=== PATIENT | female | born 1965 | race African-American/Black ===

== ENCOUNTER 2024-03-31 12:52 | Outpatient (AMB) | payer MEDICAID, SELFPAY ==
[2024-03-31 13:01] VITALS: BP 120/72; PULSE 70; O2SAT 98; BMI 25.9
--- NOTE | 2024-03-31 13:01 | MHC.OFFVIS ---
Vital Signs 03/31/24 13:01 Height 5 ft 5 in Weight 155 lb 8 oz BMI 25.9 BP 120/72 Blood Pressure Location Lt brachial Position Sitting Pulse 70 Pulse Source Pulse Oximeter Pulse Oximetry (%) 98 Oxygen Delivery Method Room Air Intake Visit Reasons: RA Intake Note: Patient presents for follow up on RA today. Patient states she still gets Actemra infusion. 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 Stopped working in October. She follows with neurology every 3 months. She continues to have migraines. Hx IIH. Last actemra infusion 03/09/2024 at the [facility]. She is on actemra infusion. She has reduced joint pain. She still has stiffness in hands. She has burning in middle of her hands. She has painful bumps on her feet when she wakes up lasting 4 hours. She is having difficulty gripping things. Things are falling out of her hands and breaking. [facility] Surgical History (Updated 03/31/24 @ 13:15 by Monique Alonso CMA) H/O: hysterectomy Hx of cholecystectomy Social History (Updated 03/31/24 @ 13:15 by Monique Alonso CMA) Household Members: Family Alcohol intake: never Patient Tobacco Use Status: Never used Tobacco Review of Systems Const All systems reviewed & are unremarkable except as noted in HPI and below Physical Exam Vital Signs: Last Vital Signs Pulse 70 03/31/24 13:01 BP 120/72 03/31/24 13:01 Pulse Ox 98 03/31/24 13:01 Oxygen Delivery Method Room Air 03/31/24 13:01 BMI result Body Mass Index 25.9 Const Other: General: Comfortable CVS: RRR Respiratory: clear to auscultation bilaterally. Good respiratory effort Skin: No lesions seen MSK: Tender to palpate bilateral MCPs, PIP with synovitis left 2nd PIP. She has tender bilateral wrists. Ganglion cyst left dorsal wrist present. 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 Right shoulder abduction 160 degrees, left shoulder abduction 150 degrees. She has good bilateral shoulder internal rotation with limited external rotation. Tender bilateral knees with left knee synovitis present. Tender bilateral ankles and MTPs. Limited bilateral full knee flexion and hip external rotation. Positive Phalen's test bilateral. Assessment & Plan Assessment & Plan (1) Rheumatoid arthritis: Comment: Seronegative and erosive. She has found benefit on Actemra 4 milligram/kilogram every 4 weeks since 09/2023. She continues to have high disease activity. Gabapentin was prescribed by Dr. [facility] for her joint pain but she does not feel well on it. She experiences burning sensation in her palms of her hands with positive Phalen's test concerning for carpal tunnel syndrome. We discussed conservative management. Meloxicam ineffective. Prednisone 10 mg daily caused insomnia. Methotrexate 03/2021 to 08/2023 to 05/2021 caused blurred vision. Sulfasalazine 12/2021 was discontinued due to transaminitis. Leflunomide 08/2021 to 01/01/2023 discontinued due to concern it may be contributing to idiopathic intracranial hypertension. Inflectra 05/2022 to 09/19/2022 discontinued due to diagnosis of Ab MS. Failed Orencia 05/2023-08/2023. Actemra 09/2023-present Code(s): M06.9 - Rheumatoid arthritis, unspecified Category: Medical Qualifiers: Rheumatoid arthritis location: multiple sites Rheumatoid factor presence: without rheumatoid factor Qualified Code(s): M06.09 - Rheumatoid arthritis without rheumatoid factor, multiple sites Plan: Increase Actemra to 8 milligram/kilogram every 4 weeks Patient consented for Actemra infusion Labs for disease and drug monitoring ordered this visit on high-risk medication Discontinue gabapentin Occupational therapy ordered to increase hand strength Bilateral cock-up wrist brace prescription given to patient. Wear at night only. 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 Code(s): R29.898 - Other symptoms and signs involving the musculoskeletal system Category: Medical Plan: OT ordered Orders: Orders Complete Blood Count Auto Diff Today Z79.60 - local intermodal truck driver (current) use of unspecified immunomodulators and immunosuppressants Aspartate Amino Transferase Today Z79.60 - local intermodal truck driver (current) use of unspecified immunomodulators and immunosuppressants Erythrocyte Sedimentation Rate Today M06.9 - Rheumatoid arthritis, unspecified, Z79.899 - Other middle or intermediate school principal (current) drug therapy Lipid Panel Today M06.9 - Rheumatoid arthritis, unspecified, Z79.899 - Other penitentiary (current) drug therapy Hepatitis B,C Profile Today M06.9 - Rheumatoid arthritis, unspecified, Z79.899 - Other middle or intermediate school principal (current) drug therapy NE electromyogram (EMG) 03/31/24 G56.00 - Carpal tunnel syndrome, unspecified upper limb, M06.9 - Rheumatoid arthritis, unspecified, Z79.899 - Other penitentiary (current) drug therapy Creatinine Today Z79.60 - custodial (current) use of unspecified immunomodulators and immunosuppressants Alanine Aminotransferase Today Z79.60 - local intermodal truck driver (current) use of unspecified immunomodulators and immunosuppressants C Reactive Protein Today M06.9 - Rheumatoid arthritis, unspecified, Z79.899 - Other middle or intermediate school principal (current) drug therapy T Spot TB Today M06.9 - Rheumatoid arthritis, unspecified, Z79.899 - Other penitentiary (current) drug therapy OT Evaluation and Treatment 03/31/24 M06.9 - Rheumatoid arthritis, unspecified, R29.898 - Other symptoms and signs involving the musculoskeletal system Referrals Infusion Center Notification M06.09 - Rheumatoid arthritis without rheumatoid factor, multiple sites Medications: New arm brace (Wrist Brace) As directed. Dx: carpal tunnel syndrome Bilateral cockup wrist braces 2 ea 0RF Coding Level of Care Code Est Pt Level 4 (93533) Complex EM visit Add On G2211 Diagnoses Rheumatoid arthritis of multiple sites with negative rheumatoid factor M06.09 Rheumatoid arthritis location: multiple sites Rheumatoid factor presence: without rheumatoid factor Other penitentiary (current) drug therapy Z79.899 Bilateral carpal tunnel syndrome G56.03 Laterality: bilateral Hand weakness R29.898
--- OUTSIDE RECORDS SUMMARY | 2024-03-31 14:57 | XMS_ITS | Clinical Summary ---
Author Organization [facility] Address [address] [place] [address] Phone Care Team Providers Care Department Store General Manager Name Role Phone Luis Miguel Winchseter MD Primary Care Provider [phone] Allergies No known active allergies Medications Medication Sig Dispensed Refills Start Date End Date Status aspirin 81 mg EC tablet Take 1 tablet (81 mg total) by mouth 1 (one) time each day. 01/02/2023 Active atorvastatin (LIPITOR) 40 mg tablet TAKE 1 TABLET(40 MG) BY MOUTH DAILY 04/07/2023 Active NIFEdipine CC (ADALAT CC) 90 mg 24 hr tablet Take 1 tablet (90 mg total) by mouth. 08/05/2022 Active predniSONE (DELTASONE) 5 mg tablet 04/11/2023 Active gabapentin (NEURONTIN) 300 mg capsule Take 1 capsule (300 mg total) by mouth 3 (three) times a day. Active amphetamine-dextroa mphetamine XR (ADDERALL XR) 30 mg 24 hr capsule Take 3 capsules (90 mg total) by mouth 1 (one) time each day in the morning. Do not crush or chew. Max Daily Amount: 90 mg Active furosemide (LASIX) 20 mg tablet Take by mouth. Active atogepant (Qulipta) 60 mg tablet Take 60 mg by mouth 1 (one) time each day. 30 tablet 5 02/18/2024 03/19/2024 Encounters Date Type Department Care Team Description 02/04/2024 2:00 PM EST Office Visit [facility] [address] [facility] [address] [place] [address] Rod Howard MD Cerebrovascular accident (CVA), unspecified mechanism (CMS/HCC) (Primary Dx); IIH (idiopathic intracranial hypertension); Migraine with aura and without status migrainosus, not intractable; Other fatigue 01/31/2024 12:51 PM EST - 01/31/2024 11:59 PM EST Hospital Encounter [facility] [address] [place] [address] White matter disease Discharge Disposition: Home or Self Care from Last 3 Months Surgical History Surgery Date Site/Laterality Comments HYSTERECTOMY PROCEDURE:HYSTERECTOMY GALLBLADDER SURGERY PROCEDURE:GALLBLADDER SURGERY Medical History Medical History Date Comments Hypertension DX:Hypertension MS (multiple sclerosis) (CMS/HCC) DX:MS (multiple sclerosis) (HCC) Pure hypercholesterolemia DX:Pur e hypercholesterolemia Migraine DX:Migraine Family History Relation Name Status Comments Father Mother Social History Tobacco Use Types Packs/Day Years Used Date Smoking Tobacco: Never Smokeless Tobacco: Never Tobacco Cessation:Counseling Given: Not Answered Alcohol Use Standard Drinks/Week Comments Never 0 (1 standard drink = 0.6 oz pur e alcohol) Sex and Gender Information Value Date Recorded Sex Assigned at Not on file Gender Identity Not on file Sexual Orientation Not on file Job Start Date Occupation Industry Not on file Not on file Not on file Obstetrics History Last Filed Vital Signs Vital Sign Reading Time Taken Comments Blood Pressure 125/74 02/04/2024 2:00 PM EST Pulse 80 02/04/2024 2:00 PM EST Temperature 36 ??C (96.8 ??F) 02/04/2024 2:00 PM EST Respiratory Rate - - Oxygen Saturation 99% 02/04/2024 2:00 PM EST Inhaled Oxygen Concentration - - Weight 68.5 kg (151 lb) 02/04/2024 2:00 PM EST Height 165.1 cm (5' 5 ) 02/04/2024 2:00 PM EST Body Mass Index 25.13 02/04/2024 2:00 PM EST Plan of Treatment Upcoming Encounters Date Type Department Care Team (Late st Contact Info) Description 05/12/2024 1:30 PM EDT Office Visit [facility] [address] [facility] [address] [place] [address] Farzana German PA [address] [facility] [place] [id number] Health Maintenance Due Date Last Done Comments Cervical Cancer Screening: Pap Smear 02/05/1985 Zoster Vaccines (2 of 2) 01/18/2020 11/23/2019 Cholesterol Screening (Lipid Panel) 03/28/2023 Colorectal Cancer Screening: Colonoscopy 03/28/2023 Depression Screening 03/28/2023 HIV Screening 03/28/2023 Hepatitis C Screening 03/28/2023 Social Influencers of Health Screening 03/28/2023 Hypertension/CHF/CAD Annual BMP Blood Test 01/31/2024 Breast Cancer Screening 07/24/2024 07/24/2022 DTaP,Tdap,and Td Vaccines (3 - Td or Tdap) 08/10/2029 08/11/2019, 06/23/2008 RSV Immunization Patients 60+ Years Old (1 - 1-dose 75+ series) 02/05/2039 Pneumococcal Vaccine: Pediatrics (0 to 5 Years) and At-Risk Patients (6 to 64 Years) Aged Out 07/24/2018 No longer eligible based on patient's age to complete this topic COVID-19 Vaccine Completed 12/27/2023, 10/2022, 06/03/2021, Additional history exists Influenza Vaccine Completed 12/27/2023, , 12/28/2020, Additional history exists HIB Vaccines Aged Out No longer eligi ble based on patient's age to complete this topic HPV Vaccines Aged Out No longer eligi ble based on patient's age to complete this topic Hepatitis A Vaccines Aged Out No long er eligible based on patient's age to complete this topic Hepatitis B Vaccines Aged Out No long er eligible based on patient's age to complete this topic IPV Vaccines Aged Out No longer eligi ble based on patient's age to complete this topic MMR Vaccines Aged Out No longer eligi ble based on patient's age to complete this topic Meningococcal ACWY Vaccine Aged Out N o longer eligible based on patient's age to complete this topic RSV Immunization Patients Under 20 months Aged Out No longer eligible based on patient's age to complete this topic Varicella Vaccines Aged Out No longer eligible based on patient's age to complete this topic Procedures Procedure Name Priority Date/Time Associated Diagnosis Comments MR BRAIN WO AND W CONTRAST Routine 01/31/2024 1:53 PM EST White matter disease from Last 3 Months Results * MR Brain wo and w Contrast (01/31/2024 1:53 PM EST) Anatomical Region Laterality Modality Head and Neck Magnetic Resonan ce 01/31/2024 3:04 PM EST Impressions 01/31/2024 3:16 PM EST 1. ??Stable nonspecific multifocal T2 signal abnormality throughout the supratentorial white matter. 2. ??Small partially empty sella. 3. ??Curvilinear area of high signal on the diffusion-weighted sequence with paralleling the low signal on the ADC map in the left cerebellar hemisphere. ??While it is possible that this represents an infarct, the configuration is unusual and the appearance is suspected to be artifactual. -------- FINAL REPORT -------- Dictated By: Caleb Schroeder Dictated Date: 01/31/2024 15:04 ET Assigned Physician: Caleb Schroeder Reviewed and Electronically Signed By: Caleb Schroeder Signed Date: 01/31/2024 15:16 ET Workstation ID: [id number] Transcribed By: Self Edit Transcribed Date: 01/31/2024 15:13 ET Narrative 01/31/2024 3:16 PM EST MRI brain dated 01/31/2024. HISTORY: WHITE MATTER DISEASE. TECHNIQUE: Multiplanar multisequence MRI of the brain with and without intravenous contrast. IV CONTRAST DOSE: 15 mL intravenous Dotarem from a 15 mL vial with 0 mL discarded. COMPARISON: 01/30/2023. FINDINGS: BRAIN: There is curvilinear high signal on diffusion-weighted sequence with correlating low signal on the ADC map in the central left cerebellar hemisphere (series 3, image 78). ??No mass or extra-axial fluid collection. ??No hydrocephalus. ??The major intracranial flow voids are preserved. Age commensurate ventricles and sulci. ??No abnormal enhancement. ??Small partially empty sella. ??There are a few small foci of post infarct encephalomalacia in both cerebellar hemispheres. ??Small focus of susceptibility artifact suggesting calcification or a previous cerebral microbleed in the right cerebellum. ??Extensive patchy T2 signal abnormality throughout the supratentorial white matter is unchanged. ORBITS: Normal. SINUSES/MASTOIDS: Mild mucosal thickening in the ethmoid air cells. ??Right faye bullosa. ??Trace bilateral mastoid fluid, right greater than left. CALVARIUM: Normal. OTHER: The visualized skull base soft tissues are normal. Procedure Note Caleb Schroeder MD - 01/31/2024 MRI brain dated 01/31/2024. HISTORY: WHITE MATTER DISEASE. TECHNIQUE: Multiplanar multisequence MRI of the brain with and withoutintravenous contrast. IV CONTRAST DOSE: 15 mL intravenous Dotarem from a 15 mL vial with 0 mLdiscarded. COMPARISON: 01/30/2023. FINDINGS: BRAIN: There is curvilinear high signal on diffusion-weighted sequencewith correlating low signal on the ADC map in the central left cerebellarhemisphere (series 3, image 78). No mass or extra-axial fluid collection.No hydrocephalus. The major intracranial flow voids are preserved. Agecommensurate ventricles and sulci. No abnormal enhancement. Smallpartially empty sella. There are a few small foci of post infarctencephalomalacia in both cerebellar hemispheres. Small focus ofsusceptibility artifact suggesting calcification or a previous cerebralmicrobleed in the right cerebellum. Extensive patchy T2 signalabnormality throughout the supratentorial white matter is unchanged. ORBITS: Normal. SINUSES/MASTOIDS: Mild mucosal thickening in the ethmoid air cells. Rightconcha bullosa. Trace bilateral mastoid fluid, right greater than left. CALVARIUM: Normal. OTHER: The visualized skull base soft tissues are normal. IMPRESSION: 1. Stable nonspecific multifocal T2 signal abnormality throughout thesupratentorial white matter. 2. Small partially empty sella. 3. Curvilinear area of high signal on the diffusion-weighted sequencewith paralleling the low signal on the ADC map in the left cerebellarhemisphere. While it is possible that this represents an infarct, theconfiguration is unusual and the appearance is suspected to beartifactual. -------- FINAL REPORT -------- Dictated By: Caleb Schroeder Dictated Date: 01/31/2024 15:04 ET Assigned Physician: Caleb Schroeder Reviewed and Electronically Signed By: Caleb Schroeder Signed Date: 01/31/2024 15:16 ET Workstation ID: [id number] Transcribed By: Self Edit Transcribed Date: 01/31/2024 15:13 ET Rod Howard MD IMG MRI PROCEDUR ES from Last 3 Months Care Teams Department Store General Manager Relationship Specialty Start Date End Date Luis Miguel Winchester MD [address] [address] PCP - General 08/08/22
--- OUTSIDE RECORDS SUMMARY | 2024-03-31 14:58 | XMS_ITS | Clinical Summary ---
Author Organization [facility] Address [address] [place] [address] Care Team Providers Care Flight Director Name Role Phone Luis Miguel Winchester MD Primary Care Provider [phone] Allergies Active Allergy Reactions Criticality Noted Date Comments Famotidine Swelling,Hives 07/07/2013 Omeprazole Rash Low 07/23/2023 Medications Medication Sig Dispensed Refills Start Date End Date Status NIFEdipine ER (ADALAT CC) 90 MG 24 hr tablet Take 1 tablet (90 mg total) by mouth daily. 0 08/05/2022 Active predniSONE (DELTASONE) 5 mg tablet 0 04/11/2023 Active rimegepant (Nurtec) 75 MG TBDP ODT Take 1 tablet (75 mg total) by mouth every other day. 16 tablet 3 10/30/2023 Active atorvastatin (LIPITOR) tablet 40 mg TAKE 1 TABLET BY MOUTH EVERY DAY 90 tablet 3 12/11/2023 Active Aspirin Low Dose 81 MG EC tablet TAKE 1 TABLET BY MOUTH EVERY DAY 90 tablet 5 12/23/2023 Active Family History Relation Name Status Comments Father Mother Social History Tobacco Use Types Packs/Day Years Used Date Smoking Tobacco: Never Smokeless Tobacco: Never Tobacco Cessation:Counseling Given: Not Answered Alcohol Use Standard Drinks/Week Comments Never 0 (1 standard drink = 0.6 oz pur e alcohol) Sex and Gender Information Value Date Recorded Sex Assigned at Female 12/31/2022 10:42 AM EDT Gender Identity Female 12/31/2022 10:42 AM EDT Sexual Orientation Not on file Job Start Date Occupation Industry Not on file Not on file Not on file Last Filed Vital Signs Vital Sign Reading Time Taken Comments Blood Pressure 136/75 10/29/2023 1:51 PM EDT Pulse 62 10/29/2023 1:51 PM EDT Temperature 36.4 ??C (97.6 ??F) 10/29/2023 1:51 PM ED T Respiratory Rate 16 08/16/2022 10:41 AM EDT Oxygen Saturation 99% 10/29/2023 1:51 PM EDT Inhaled Oxygen Concentration - - Weight 70 kg (154 lb 6.4 oz) 10/29/2023 1:51 PM EDT Height 165.1 cm (5' 5 ) 10/29/2023 1:51 PM EDT Body Mass Index 25.69 10/29/2023 1:51 PM EDT Plan of Treatment Health Maintenance Due Date Last Done Comments Hepatitis C Screening 1965 Depression Screening 1976 BMI Counseling 02/05/1982 Preventative Health Evaluation 02/05/1982 Cervical Cancer Screening (Pap Smear) 02/05/1985 Colon Cancer Screening (Colonoscopy) 02/05/2009 Breast Cancer Screening (Mammogram) 02/05/2014 Shingrix-Zoster Vaccine (2 of 2) 01/18/2020 11/23/2019 COVID-19 Vaccine (2 - season) 2023 01/08/2023 Influenza Vaccine (#1) 2023 3, 12/28/2020, 12/03/2019, Additional history exists DTap / Tdap / Td (3 - Td or Tdap) 08/10/2029 08/11/2019, 06/23/2008 RSV Adult > 60+ Yrs or (1 - 1-dose 75+ series) 02/05/2039 Pneumococcal Vaccine Aged Out 07/24/2018 No long er eligible based on patient's age to complete this topic Hepatitis B Vaccines Aged Out No long er eligible based on patient's age to complete this topic RSV Ped < 20 months Aged Out No longe r eligible based on patient's age to complete this topic Care Teams Flight Director Relationship Specialty Start Date End Date Luis Miguel Winchester MD [address] [facility] [address] [place] [address] PCP - General Internal Medicine 08/08/22
--- OUTSIDE RECORDS SUMMARY | 2024-03-31 14:58 | XMS_ITS | Data Portability ---
Author Organization [facility], Main Office Address [address] [facility] [place] [address] Care Team Providers Care Cell Tuber Machine Name Role Phone JOSEY WINCHESTER Primary Care Provider ZION PARSONS Industry Analyst [facility] X Ray Service Technician NORA MITCHELL Referring Provider RICA JEAN-BAPTISTE Referring Provider AGATA VILLEGAS Machine Plug Shaper Assessment Encounter Date Assessment Date Assessment LastModified by Organization Details LastModified Time 07/08/2023 07/08/2023 This service was provided using telemedicine. Patient consented to video & audio visit Patient was located in the [facility]. Provider was located in the office. No other persons participated in the telemedicine visit except for the patient unless otherwise indicated here. {{}} Total time of visit was 17 minutes. pmadden Not available 07/08/2023 10:46:03 Plan of Treatment Reminders Order Date Submit Date Provider Last Modified By Organization Details Last Modified Time Details Appointments FOLLOW UP 2024 02:15P Rogelio cordova MD Not available Not available Not available Lab BMP, serum or plasma 2023 024 [place] [facility], [address] [facility], [facility] [address], [place], [address], 08/21/2023 14:07:05 microal bumin/c reatini ne, mass ratio, urine 2023 024 [place] [facility], [address] [facility], [facility] [address], [place], [address], 08/21/2023 14:07:05 lipid panel, serum 2023 024 [place] [facility], [address] [facility], [facility] [address], [place], [address], 01/22/2024 08:10:05 Referral neurolo gical surgeon referra l - Intracr anial hyperte nsion and ORELLANA which are not well-co ntrolle d. 2023 024 rita Oconnell MD, [address] [place] [address], [address], [place], [address], 08/14/2023 15:16:31 Procedures None recorde d. Surgeries None recorde d. Imaging None recorde d. Medication Orders Zithrom ax Z-Kevyn 250 mg tablet 2023 024 [id number], [address], [place], [id number], 01/21/2024 14:39:37 furosem edvin 20 mg tablet 2023 024 [facility] #[id number], [address], [place], [id number], 01/21/2024 14:39:49 gabapen tin 300 mg capsule 2023 024 cassidy [facility] #[id number], [phone] [place], [address], 01/21/2024 15:36:32 Adderal l XR 20 mg capsule ,extend ed release 2023 024 [facility] #1130, [phone] [place], [address], 02/18/2024 15:24:02 Adderal l XR 25 mg capsule ,extend ed release 2023 024 [facility] #1130, [phone] [place], [address], 02/18/2024 14:29:22 Patient TargetsNo targets recorded. Patient Instructions Encounter Date Encounter Id Patient Instructions Last Modified By Organization Details Last Modified Time 07/08/2023 [id number] pneumonia: care instructions pmadden Not available 07/08/2023 10:48:30 Patient will follow up and keep appointment as scheduled. pmadden Not available 07/08/2023 10:45:32 07/09/2023 [id number] At [facility] follow up visit, all current and discharge medications (OTC, herbal therapies, supplements) reviewed and reconciled with patient and or caregiver, including potential side effects, drug interactions, instructions, and the consequences of not taking medication. Reviewed potential barriers to medication adherence, such as side effects from medication or cost of medication. [email or web address] Not available 07/09/2023 10:48:26 08/15/2023 [id number] leg and ankle edema: care instructions Not available 08/15/2023 12:23:01 high blood pressure: care instructions Not available 08/15/2023 12:23:01 learning about high blood pressure Not available 08/15/2023 12:23:01 01/21/2024 [id number] insomnia: care instructions acennerazzo Not available 01/21/2024 15:36:31 high blood pressure: care instructions acennerazzo Not available 01/21/2024 15:36:32 learning about high blood pressure acennerazzo Not available 01/21/2024 15:36:32 high cholesterol : care instructions acennerazzo Not available 01/22/2024 17:45:52 attention defici t hyperactivity disorder (ADHD) in adults: care instructions acennerazzo Not available 01/21/2024 15:36:32 02/18/2024 [id number] high blood pressure: care instructions acennerazzo Not available 02/18/2024 14:29:20 learning about high blood pressure acennerazzo Not available 02/18/2024 14:29:19 learning about anxiety disorders acennerazzo Not available 02/18/2024 14:29:20 Reason for Referral Neurological Surgeon Referra l for History of idiopathic intracranial hypertension Intracranial hypertension and ORELLANA which are not well-controlled. Referring Physician: Josey Winchester, Family Medicine, Encounter Date: 07/09/2023 Results Created Date Observation Date Name Description Value Unit Range Abnormal Flag Note LastModifiedBy Organization Detail LastModifiedTime 08/20/19 24 08/21/2023 BASIC METAB OLIC PANEL (8) glucose 99 mg/dL 70-99 Not Available [facility] ([facility]) [address] [place], [address], 08/21/2023 14:07:05 08/20/19 24 08/21/2023 BASIC METAB OLIC PANEL (8) BUN 18 mg/dL 6-24 Not Available [facility] ([facility]) [address] [place], [address], 08/21/2023 14:07:05 08/20/19 24 08/21/2023 BASIC METAB OLIC PANEL (8) creatinine 1.26 mg/dL 0.57-1 .00 above high normal Not Available [facility] ([facility]) [address] [place], [address], 08/21/2023 14:07:05 08/20/19 24 08/21/2023 BASIC METAB OLIC PANEL (8) eGFR 49 mL/mi n/1.7 3 >59 below low normal Not Available [facility] ([facility]) [address] [place], [address], 08/21/2023 14:07:05 08/20/19 24 08/21/2023 BASIC METAB OLIC PANEL (8) BUN/creatini ne ratio 14 9-23 Not Available [facility] ([facility]) [address] [place], [address], 08/21/2023 14:07:05 08/20/19 24 08/21/2023 BASIC METAB OLIC PANEL (8) sodium 147 mmol/ L 134-14 4 above high normal Not Available [facility] ([facility]) [address] [facility] [place], [address], 08/21/2023 14:07:05 08/20/19 24 08/21/2023 BASIC METAB OLIC PANEL (8) potassium 3.9 mmol/ L 3.5-5. 2 Not Available [facility] ([facility]) [address] [place], [address], 08/21/2023 14:07:05 08/20/19 24 08/21/2023 BASIC METAB OLIC PANEL (8) chloride 105 mmol/ L 96-106 Not Available [facility] ([facility]) [address] [place], [address], 08/21/2023 14:07:05 08/20/19 24 08/21/2023 BASIC METAB OLIC PANEL (8) carbon dioxide, total 23 mmol/ L 20-29 Not Available [facility] ([facility]) [address] [place], [address], 08/21/2023 14:07:05 08/20/19 24 08/21/2023 BASIC METAB OLIC PANEL (8) calcium 9.8 mg/dL 8.7-10 .2 Not Available [facility] ([facility]) [address] [place], [address], 08/21/2023 14:07:05 08/20/19 24 08/21/2023 ALBUM IN/CR EAT RATIO , RANDO M UR creatinine, urine 41.4 mg/dL not estab. Not Available [facility] ([facility]) [address] [place], [address], 08/21/2023 14:07:05 08/20/19 24 08/21/2023 ALBUM IN/CR EAT RATIO , RANDO M UR albumin, urine <3.0 ug/mL not estab. Not Available [facility] ([facility]) [address] [place], [address], 08/21/2023 14:07:05 08/20/19 24 08/21/2023 ALBUM IN/CR EAT RATIO , MICHEAL Mercado UR alb/creat ratio <7 mg/g_ creat 0-29 Salome l: 0 - 29 Moder ately incre ased: 30 - 300 Sever nadiya incre ased: >300 Not Available [facility] ([facility]) [address] [facility], [place], [address], 08/21/2023 14:07:05 01/21/20 24 01/22/2024 LIPID PANEL cholesterol, total 227 mg/dL 100-19 9 above high normal Not Available [facility] ([facility]) [address] [facility], [place], [address], 01/22/2024 08:10:05 01/21/20 24 01/22/2024 LIPID PANEL triglyceride s 79 mg/dL 0-149 normal Not Available [facility]) [address] [facility], [place], [address], 01/22/2024 08:10:05 01/21/20 24 01/22/2024 LIPID PANEL HDL cholesterol 95 mg/dL >39 normal Not Available [facility]) [address] [facility], [place], [address], 01/22/2024 08:10:05 01/21/20 24 01/22/2024 LIPID PANEL VLDL cholesterol donaldo 14 mg/dL 5-40 Not Available [facility]) [address] [place], [address], 01/22/2024 08:10:05 01/21/20 24 01/22/2024 LIPID PANEL LDL chol calc ([facility]) 118 mg/dL 0-99 above high normal Not Available [facility] ([facility]) [address] [place], [address], 01/22/2024 08:10:05 01/21/20 24 01/22/2024 LIPID PANEL LDL calc comment: OUTSIDE PROPERTY AGENT Not Available [facility] ([facility]) [address], [place], [address], 01/22/2024 08:10:05 07/05/19 24 07/04/2023 US, ophth almic , B-sca n + A-sca n No observ ation record ed. [email or web address] Not Available 2023 15:58:13 01/31/20 24 01/31/2024 MR brain wo and W contr ast See Note [facility] , a [facility] Name: MEMO JAVIER Date of : 1964 Reason for Exam: WHITE MATTER DISEAS E Exam Date: 2023 [id number] EST Report Status : Final Orderi ng Provid er: ALEXIS KELLY PCP: JOSEY TRAVIS MRI brain dated 2023. HISTOR Y: WHITE MATTER DISEAS E. TECHNI QUE: Multip lanar multis equenc e MRI of the brain with and withou t intrav enous contra st. IV CONTRA ST DOSE: 15 mL intrav enous Dotare m from a 15 mL vial with 0 mL discar ded. COMPAR ILYA: 2022. FINDIN GS: BRAIN: There is curvil inear high signal on diffus ion-we ighted sequen ce with correl ating low signal on the ADC map in the centra l left cerebe llar hemisp here (serie s 3, image 78). No mass or extra- axial fluid collec tion. No hydroc ephalu s. The major intrac ranial flow voids are preser kelli. Age commen surate ventri cles and sulci. No abnorm al enhanc ement. Small partia lly empty sella. There are a few small foci of post infarc t enceph alomal acia in both cerebe llar hemisp heres. Small focus of suscep tibili ty artifa ct sugges ting calcif icatio n or a previo us cerebr al microb leed in the right cerebe llum. Extens roxann patchy T2 signal abnorm ality throug hout the suprat entori al white matter is unchan ged. ORBITS : Normal . SINUSE S/MAST OIDS: Mild mucosa l thicke jaja in the ethmoi d air cells. Right faye bullos a. Trace bilate ral mastoi d fluid, right greate r than left. CALVAR IUM: Normal . OTHER: The visual ized skull base soft tissue s are normal . IMPRES RAY: 1. Stable nonspe cific multif ocal T2 signal abnorm ality throug hout the suprat entori al white matter . 2. Small partia lly empty sella. 3. Curvil inear area of high signal on the diffus ion-we ighted sequen ce with parall eling the low signal on the ADC map in the left cerebe llar hemisp here. While it is possib le that this repres ents an infarc t, the config uratio n is unusua l and the appear ance is suspec kathy to be artifa ctual. ------ -- FINAL REPORT ------ -- Dictat ed By: Caleb Roe Dictat ed Date: 2023 15:04 ET Assign ed Physic parth: Caleb Roe Review ed and Electr onical ly Signed By: Caleb Roe Signed Date: 2023 15:16 ET Workst ation ID: [id number] Transc ribed By: Self Edit Transc ribed Date: 2023 15:13 ET [address], [address], 02/01/2024 13:18:06 Result Notes None recorded. 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 429560968 Completed 201301/11/[address] PARSONS; RECORDED 07/08/19 14 1:40PM BY LISETH QUEZADA I, OFFICE VISIT Josey Winchester MD [address], [place], [address] , [facility] 6 09:55:27 Anxiety disorder 315505673 Active 2013 Problem in Fall and Winter Not Available [facility] 0 18:22:26 Patient status finding 839824821 Completed 201301/11/2014 RECORDED 07/08/19 14 1:46PM BY LISETH QUEZADA I, OFFICE VISIT Josey Winchester MD [address], [place], [address] , [facility] 6 09:55:27 Astigmat ism 33925198 Completed 201209/21/2013 RECORDED 03/26/19 13 8:47AM BY LISETH QUEZADA I ANNOTTERE ON/ADDEN DUM Josey Winchester MD [address], [place], [address] , [facility] 6 09:55:27 Flatulen ce, eructati on and gas pain 030844971 Completed 201301/11/2014 STORY: SEEN BY DR PARSONS; IMPRESSI ON: ADVISED HER TO GO TO THE [facility] TO SEE IF THEY HAVE ANYTHING TO HELP WITH HER SX.; RECORDED 07/08/19 14 1:40PM BY LISETH QUEZADA I, OFFICE VISIT Josey Winchester MD [address], [place], [address] , [facility] 6 09:55:27 Visual disturba pae 14656326 Active 2013 IMPRESSI ON: POSSIBLE HYPOTENS ION VS MIGRAINE EQUIVALE NTS. SHE WILL CHECK HER BP AT HER NEXT EPISODE. IF HER BP IS NORMAL SHE WILL TAKE A MIGRAINE MED TO SEE IF THIS HELPS. IF THERE IS NO RELIEF SHE WILL CALL HER EYE DOCTOR. Not Available [facility] 0 18:22:25 Screenin g for malignan t neoplasm of breast Completed 201209/21/2013 RECORDED 03/26/19 13 8:47AM BY HOWARD MERLOS ON/MARGRET Winchester MD [address] [facility] [address], [place], [address] , [facility] 6 09:55:28 Screenin g for malignan t neoplasm of cervix Completed 201209/21/2013 RECORDED 03/26/19 13 8:47AM BY HOWARD MERLOS ON/MARGRET Winchester MD [address] [facility] [address], [place], [address] , [facility] 6 09:55:28 Screenin g for malignan t neoplasm of colon Completed 201209/21/2013 RECORDED 09/22/19 13 8:20AM BY HOWARD MERLOS ON/MARGRET Winchester MD [address] [facility] [address], [place], [address] , [facility] 6 09:55:28 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 Not Available [facility] 0 18:22:26 Fritz l hyperten ray 29227854 Active 2013 Josey Winchester MD [address] [address], [place], [address] , [facility] 3 13:25:29 Malaise and fatigue 447176905 Completed 201209/21/2013 RECORDED 03/26/19 13 8:46AM BY LISETH QUEZADA I, TRACEYATI ON/MARGRET Winchester MD [address] [address], [place], [address] , [facility] 6 09:55:27 Pure hypercho lesterol emia 928132530 Completed 201311/18/2016 Unable to tolerate lipitor Josey Winchester MD [address] [address], [place], [address] , [facility] 7 10:05:50 Hyperlip idemia 10842576 Completed 201301/11/2014 RECORDED 07/08/19 14 1:40PM BY LISETH QUEZADA I, OFFICE VISIT Josey Winchester MD [address] [facility] [address], [place], [address] , [facility] 0 19:09:36 Irritabl e bowel syndrome 44712108 Active 2013 Takes meds which help Not Available [facility] 0 18:22:26 Shoulder joint pain 612094987 Completed 201209/21/2013 RECORDED 03/26/19 13 8:46AM BY LISETH QUEZADA I, TRACEYATI ON/ADDEN DUM Josey Winchester MD [address] [facility] [address], [place], [address] , [facility] 6 09:55:27 Migraine 03314087 Active 2013 Not Available [facility] 0 18:22:26 Administ ration of bacteria l and viral vaccine Completed 200809/21/2013 RECORDED 06/24/19 09 10:01AM BY KEVIN TOSCANO, OFFICE VISIT Josey Winchester MD [address] [facility] [address], [place], [address] , [facility] 6 09:55:27 Skin sensatio n disturba pae 06245114 Completed 201209/21/2013 RECORDED 03/26/19 13 8:47AM BY TRACEY MERLOSATI ON/MARGRET Winchester MD [address] [address], [place], [address] , [facility] 6 09:55:27 Cough 34575858 Completed 201309/21/2013 RECORDED 04/01/19 14 9:45AM BY HOWARD MERLOS ON/MARGRET Winchester MD [address] [address], [place], [address] , [facility] 6 09:55:27 Adult health examinat ion Completed 201301/11/2014 RECORDED 07/08/19 14 1:45PM BY LISETH QUEZADA I, OFFICE VISIT Josey Winchester MD [address] [address], [place], [address] , [facility] 6 09:55:27 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 979846761 Completed 201210/11/2013 IMPRESSI ON: CONTINUE CURRENT MGMT; MEDS HELP A GREAT DEAL.; RECORDED 02/17/20 13 8:03AM BY TRACEY MERLOSATI ON/MARGRET Winchester MD [address], [place], [address] , [facility] 6 09:55:27 Astigsdt is 12448429 Completed 201210/11/2013 RECORDED 03/26/19 13 8:47AM BY HOWARD MERLOS ON/MARGRET Winchester MD [address], [place], [address] , [facility] 6 09:55:27 Screenin g for malignan t neoplasm of breast Completed 201210/11/2013 RECORDED 03/26/19 13 8:47AM BY HOWARD MERLOS ON/MARGRET Winchester MD [address] [facility] [address], [place], [address] , [facility] 6 09:55:28 Screenin g for malignan t neoplasm of cervix Completed 201210/11/2013 RECORDED 03/26/19 13 8:47AM BY HOWARD MERLOS ON/MARGRET Winchester MD [address] [facility] [address], [place], [address] , [facility] 6 09:55:28 Screenin g for malignan t neoplasm of colon Completed 201210/11/2013 RECORDED 09/22/19 13 8:20AM BY HOWARD MERLOS ON/MARGRET Winchester MD [address], [place], [address] , [facility] 6 09:55:28 Tietze's disease 19039951 Completed 201210/11/2013 RECORDED 03/26/19 13 8:46AM BY HOWARD MERLOS ON/MARGRET Winchester MD [address], [place], [address] , [facility] 6 09:55:27 Malaise and fatigue 907526237 Completed 201210/11/2013 RECORDED 03/26/19 13 8:46AM BY TRACEY MERLOSATI ON/ADDEN MAYCOL Winchester MD [address] [facility] [address], [place], [address] , [facility] 6 09:55:27 Administ ration of bacteria l and viral vaccine Completed 200810/11/2013 RECORDED 06/24/19 09 10:01AM BY KEVIN TOSCANO, OFFICE VISIT Josey Winchester MD [address] [facility] [address], [place], [address] , [facility] 6 09:55:27 Skin sensatio n disturba pae 62006857 Completed 201210/11/2013 RECORDED 03/26/19 13 8:47AM BY HOWARD MERLOS ON/ADDEN MAYCOL Winchester MD [address] [facility] [address], [place], [address] , [facility] 6 09:55:27 Cough 93974261 Completed 201310/11/2013 RECORDED 04/01/19 14 9:45AM BY HOWARD MERLOS ON/ADDTABATHA Winchester MD [address] [facility] [address], [place], [address] , [facility] 6 09:55:27 Attentio n deficit hyperact ivity disorder , predomin antly inattent roxann type 36141991 Completed 10/12/2015 Josey Winchester MD [address] [facility] [address], [place], [address] , [facility] 8 13:27:14 Plantar fasciiti s 028354679 Active Not Available [facility] 0 18:22:26 Fatigue 81228217 Completed 03/25/2016 Ángela Lucero PA-C [address], [place], [address] , [facility] 1 09:22:08 Keratoco nus 31488160 Active 2015 Followed by [facility] Not Available [facility] 0 18:22:25 Pinguecu la 24971964 Active 2015 Followed by [facility] Not Available [facility] 0 18:22:26 Nuclear scleroti c cataract 002005967 Active 2015 Followed by [facility] Not Available [facility] 0 18:22:26 Pneumoni a 821605111 Completed 201608/15/2016 KEVIN Villegas, [facility] 7 16:08:02 Attentio n deficit hyperact ivity disorder , predomin antly inattent roxann type 06391505 Active 2017 Not Available [facility] 0 18:22:26 Hypokale monisha 60080941 Active 2018 Not Available [facility] 0 18:22:26 Hyperlip idemia 42069275 Active 2019 Not Available [facility] 0 18:22:26 Loss of hair 996723494 Active 2020 Josey Winchester MD [address], [place], [address] , [facility] 1 17:02:35 Multiple joint pain 92637016 Active 2020 Ángela Lucero PA-C [address], [place], [address] , [facility] 1 09:22:07 Fatigue 00406659 Active 2020 Ángela Lucero PA-C [address], [place], [address] , [facility] 1 09:22:08 Pain of right wrist 60435951294 9100 Active 2020 Seen by [facility]; had MRI showing OA. Josey Winchester MD [address], [place], [address] , [facility] 1 18:07:02 Seronega tive rheumato id arthriti s 092542961 Active 2021 Followed by rheum; on methotre xate. Josey Winchester MD [address], [place], [address] , [facility] 2 07:34:37 Multiple sclerosi s 21766398 Active [address] Mague real. Monicaa l optic neuritis . Josey Winchester MD [address] [facility] [address], [place], [address] , [facility] 3 10:45:14 Kidney finding 169741268 Active 2022 born with only one kidney Purvi Torres LPN null, [facility] 3 09:09:38 History of SARS-CoV -2 78579137481 6573126 Active 2022 Josey Winchester MD [address] [facility] [address], [place], [address] , [facility] 3 10:39:24 Thyroid nodule 440536450 Active 2022 Thyroid U/S done and no addition al imaging required . Josey Winchester MD [address] [facility] [address] [place], [address] , [facility] 3 20:13:54 Edema of lower extremit y 812761882 Active 2023 Luis bentley, [facility] 4 12:11:02 Problem Notes None recorded. Procedures Surgical History Date Name Laterality Status Provider Name and Address Organization Details Recorded Time 07/25/19 23 Most Recent Mammogram completed Kati Dallas [facility] 07/24/2022 12:09:18 07/25/19 23 Mammogram Diagnostic Bilateral completed Kati Dallas [facility] 07/24/2022 12:09:11 05/10/19 23 wrist injection completed Gracy Juares [facility] 05/14/2022 13:50:42 03/30/19 16 Date of Last Pap Smear completed Boone Degutmyrna [facility] 04/03/2015 11:53:06 03/16/19 16 Date of Last Colonoscopy completed Viviana Hodge [facility] 03/17/2015 10:15:20 03/16/19 16 Colonoscopy completed Roslyn Orr MA [facility] 02/23/2020 13:16:56 03/03/19 02 Total Abdominal Hysterectomy completed Humera valentine [facility] 08/15/2016 16:15:28 Cholecystectomy completed Josey Winchester MD [address] [address], [place], [address], [facility] 01/11/2014 14:15:38 Imaging Results Imaging Date Name Status LastModified by Organiz ation Details LastModified Time 07/04/2023 US, ophthalmic, B-scan + A-scan completed [email or web address] Information not available 07/07/2023 15:58:13 01/31/2024 MR brain wo and W contrast completed [address], [address], 02/01/2024 13:18:06 Procedure Notes None recorded. Medical Equipment None Reported. Allergies Allergen ID Allergen Name Allergen Category Reaction Reaction Severity Criticality Documentation Date Start Date Code Code System Note Provider Name and Address Organization Details Recorded Time 74691 omeprazol e medicatio n rash Not available Not available 06/25/2017 4234 RxNorm Josey cordova MD [address] [address], [facility] 8 13:54:05 8323 Pepcid medicatio n angioedem a Not available Not available 09/14/20132013 [id number] RxNorm REACT ION: RIGHT ARM SWELL ING Humera Chad quevedo MA null, [facility] 7 16:07:06 Medications Name Sig Start Date Stop Date Status Note LastModified by Organization Details LastModified Time sumatript an succinate 100 mg tabs active Not Available Not Available Not Available hyoscyami ne sulfate er 0.375 mg tb12 active Not Available Not Available Not Available atenolol/ chlorthal idone 100-25 mg tabs 10/11 completed Not Available Not Available Not Available amphetami ne/dextro amphetami ne 30 mg cp24 10/11 completed Not Available Not Available Not Available atorvasta tin 40 mg tablet TAKE 1 TABLET BY MOUTH EVERY DAY active Not Available Not Available No t Available prednison e 10 mg tablet TAKE 1 TABLET BY MOUTH DAILY 10/03 completed Not Available Not Available Not Available atenolol 100 mg-chlort halidone 25 mg tablet TAKE 1 TABLET BY MOUTH EVERY DAY 08/23 completed possibly related to alopecia Not Available Not Available Not Available azithromy mike 250 mg tablet 01/20 completed Not Available Not Available Not Available acetazola mide ER 500 mg capsule,e xtended release one tab every 12 hours 01/20 completed Not Available Not Available Not Available nifedipin e ER 90 mg tablet,ex tended release TAKE 1 TABLET BY MOUTH EVERY DAY active Not Available Not Available No t Available ofloxacin 0.3 % eye drops INSTILL 1 DROP INTO RIGHT EYE FOUR TIMES DAILY 10/03 completed Not Available Not Available Not Available sumatript an 100 mg tablet Take 1 tablet every day by oral route as needed for 5 days. 10/03 completed Not Available Not Available Not Available meloxicam 15 mg tablet TAKE 1 TABLET BY MOUTH DAILY 01/20 completed Not Available Not Available Not Available lovastati n 40 mg tablet Take 1 tablet every day by oral route for 90 days. 02/26 completed Not Available Not Available Not Available gabapenti n 400 mg capsule 01/20 completed Not Available Not Available Not Available sertralin e 100 mg tablet DAILY 02/20 completed RECORDED 05/19/19 12 1:39PM BY JOSEY TOLEDO MD, MEDICATI ON AUTO-JOVITA CTIVATIO N; Not Available Not Available Not Available prednison e 5 mg tablet 07/07 completed Not Available Not Available Not Available sulfasala zine 500 mg tablet,de layed release TAKE 1 TABLET BY MOUTH TWICE DAILY 08/08 completed Not Available Not Available Not Available atenolol 50 mg-chlort halidone 25 mg tablet TAKE 1 TABLET BY MOUTH DAILY 01/28 completed Not Available Not Available Not Available acetazola mide 250 mg tablet TAKE 1 TABLET BY MOUTH TWICE DAILY FOR 10 DAYS THEN TAKE 2 TABLETS TWICE DAILY FOR 10 DAYS THEN TAKE 4 TABLETS TWICE DAILY FOR 30 DAYS 12/04 completed Not Available Not Available Not Available leflunomi de 10 mg tablet TAKE 1 TABLET BY MOUTH DAILY 10/03 completed Not Available Not Available Not Available chlorthal idone 25 mg tablet TAKE 1 TABLET BY MOUTH EVERY DAY 01/20 completed Not Available Not Available Not Available amlodipin e 5 mg tablet Take 1 tablet every day by oral route for 90 days. 11/13 completed Not Available Not Available Not Available omeprazol e 40 mg capsule,d elayed release Take 1 capsule every day by oral route. 12/23 completed Not Available Not Available Not Available aspirin 81 mg tablet,de layed release TAKE 1 TABLET BY MOUTH EVERY DAY active Not Available Not Available No t Available leflunomi de 20 mg tablet TAKE 1 TABLET BY MOUTH DAILY 01/08 completed Not Available Not Available Not Available tramadol 50 mg tablet Take 1 tablet 3 times a day by oral route as needed. 12/23 completed Not Available Not Available Not Available simvastat in 40 mg tablet DAILY 11/09 completed RECORDED 11/10/19 11 2:31PM BY BOONE RAJPUT, ANNOTTERE ON/MARGRET DUM; Not Available Not Available Not Available Adderall XR 20 mg capsule,e xtended release Take 1 capsule every day by oral route for 30 days. 02/17 completed increase d the dose to 25 mg Not Available Not Available Not Available ketorolac 0.5 % eye drops INSTILL 1 DROP IN RIGHT EYE FOUR TIMES DAILY. BEGIN 3 DAYS BEFORE PROCEDUR E AND THEN. CONTINUE FOR 4 WEEKS AFTER PROCEDUR E 01/08 completed Not Available Not Available Not Available Adderall XR 30 mg capsule,e xtended release Take 1 capsule every day by oral route as directed for 30 days. 08/23 completed Not Available Not Available Not Available amoxicill in 875 mg tablet TAKE 1 TABLET BY MOUTH TWICE DAILY UNTIL ALL TAKEN 07/07 completed Not Available Not Available Not Available hydromorp param 2 mg tablet TAKE 1 TABLET BY MOUTH EVERY 6 TO 8 HOURS NEEDED 10/03 completed Not Available Not Available Not Available citalopra m 20 mg tablet DAILY 07/19 completed RECORDED 07/20/19 10 5:12PM BY JOSEY TOLEDO MD, ANNOTATI ON/ADD DUM; Not Available Not Available Not Available methotrex ate sodium 2.5 mg tablet TAKE 5 TABLETS BY MOUTH 1 TIME WEEKLY 10/03 completed Not Available Not Available Not Available hyoscyami ne ER 0.375 mg tablet,ex tended release,1 2 hr TAKE 1 TABLET BY MOUTH TWICE DAILY( EVERY 12 HOURS) 02/26 completed Not Available Not Available Not Available amlodipin e 10 mg tablet Take 1 tablet every day by oral route for 90 days. 02/26 completed Not Available Not Available Not Available pantopraz ole 40 mg tablet,de layed release DAILY 03/26 completed RECORDED 03/26/19 13 12:18PM BY JOSEY TOLEDO MD, ANNOTATI ON/ADDEN DUM; Not Available Not Available Not Available olopatadi ne 0.1 % eye drops Instill 1 drop 3 times a day by ophthalm ic route for 7 days. 02/17 completed Not Available Not Available Not Available lansopraz ole 30 mg capsule,d elayed release DAILY 06/28 completed RECORDED 07/05/19 11 3:08PM BY JOSEY TOLEDO MD, MEDICATI ON AUTO-JOVITA CTIVATIO N; Not Available Not Available Not Available fluoromet holone 0.1 % eye drops,mary beth pension INSTILL 1 DROP INTO RIGHT EYE FOUR TIMES DAILY 10/03 completed Not Available Not Available Not Available Advair Diskus 250 mcg-50 mcg/dose powder for inhalatio n TWO TIMES DAILY 03/02 completed RECORDED 03/23/19 14 1:26PM BY JOSEY TOLEDO MD, MEDICATI ON AUTO-JOVITA CTIVATIO N; Not Available Not Available Not Available dextroamp hetamine- amphetami ne 15 mg tablet Take 1 tablet twice a day by oral route for 30 days. 02/18 completed Feeling smith Not Available Not Available Not Available gabapenti n 300 mg capsule Take 1 capsule twice a day by oral route for 90 days. 2023 active Not Available Not Available Not Avai lable omeprazol e 20 mg capsule,d elayed release Take 1 capsule every day by oral route for 90 days. 06/25 completed Not Available Not Available Not Available folic acid 1 mg tablet TAKE 1 TABLET BY MOUTH DAILY 10/03 completed Not Available Not Available Not Available codeine 10 mg-guaife nesin 100 mg/5 mL oral liquid Take 5 mL 3 times a day by oral route as needed. 07/29 completed Not Available Not Available Not Available topiramat e 200 mg tablet TAKE 1 TABLET BY MOUTH EVERY DAY AT BEDTIME 08/19 completed Not Available Not Available Not Available furosemid e 20 mg tablet TAKE 1 TABLET BY MOUTH EVERY DAY 01/20 completed Not Available Not Available Not Available ibuprofen 600 mg tablet TAKE 1 TABLET BY MOUTH EVERY 6 HOURS NEEDE FOR PAIN 07/07 completed Not Available Not Available Not Available methylpre dnisolone 4 mg tablets in a dose pack FOLLOW PACKAGE DIRECTIO NS 08/08 completed Not Available Not Available Not Available nifedipin e ER 60 mg tablet,ex tended release TAKE 1 TABLET BY MOUTH EVERY DAY 10/31 completed Not Available Not Available Not Available topiramat e 100 mg tablet 150 mg every 12 hours 01/20 completed Not Available Not Available Not Available fluticaso ne propionat e 50 mcg/actua tion nasal spray,mary beth pension [place] 1 spray every day by intranas al route. 11/18 completed Not Available Not Available Not Available atenolol 50 mg tablet DAILY 08/06 completed Not Available Not Available Not Available loratadin e 10 mg tablet Take 1 tablet every day by oral route. 11/18 completed Not Available Not Available Not Available diazepam 5 mg tablet BRING TO OFFICE DAY OF PROCEDUR E 10/03 completed Not Available Not Available Not Available amoxicill in 875 mg-potass ium clavulana te 125 mg tablet TAKE 1 TABLET BY MOUTH TWICE DAILY 07/07 completed Not Available Not Available Not Available Adderall XR 25 mg capsule,e xtended release Take 1 capsule every day by oral route for 30 days, for ADHD. 2024 active Not Available Not Available Not Avai lable bupropion HCl SR 200 mg tablet,12 hr sustained -release 2 TIMES A DAY TO TREAT DEPRESSI ON 07/05 completed RECORDED 07/06/19 11 9:51AM BY HOWARD RIBEIRO ON/ADDEN DUM;TAKE 1 A DAY FOR FIRST WEEK Not Available Not Available Not Available escitalop ayleen 10 mg tablet DAILY 08/16 completed RECORDED 08/17/19 10 12:59PM BY JOSEY TOLEDO MD, MEDICATI ON AUTO-JOVITA CTIVATIO N; Not Available Not Available Not Available Strattera 60 mg capsule Take 1 capsule every day by oral route for 30 days. 02/23 completed sleepy Not Available Not Available Not Available rosuvasta tin 40 mg tablet DAILY 2013 active RECORDED 07/29/19 14 12:26PM BY JOSEY TOLEDO MD, ANNOTATI ON/ADDEN DUM; Not Available Not Available Not Available Crestor 20 mg tablet TAKE 1 TABLET BY MOUTH ONCE DAILY 10/11 completed Not Available Not Available Not Available Prilosec OTC 20 mg tablet,de layed release DAILY 07/19 completed RECORDED 07/20/19 10 5:13PM BY JOSEY TOLEDO MD, ANNOTATI ON/ADDEN DUM; Not Available Not Available Not Available Wellbutri n XL 300 mg 24 hr tablet, extended release DAILY 12/18 completed RECORDED 12/19/19 11 9:58AM BY JOSEY TOLEDO MD, ANNOTATI ON/ADDEN DUM; Not Available Not Available Not Available topiramat e 50 mg tablet TAKE 1 TABLET BY MOUTH TWICE DAILY 01/20 completed Not Available Not Available Not Available dexmethyl phenidate ER 20 mg capsule,e xtended release biphasic5 0-50 Take 1 capsule every day by oral route for 30 days. 08/06 completed Not Available Not Available Not Available chlorhexi dine gluconate 0.12 % mouthwash 08/19 completed Not Available Not Available Not Available Adderall XR (30mg) DAILY IN THE MORNING FOR ATTENTIO N DEFICIT DISORDE 02/17 completed RECORDED 07/06/19 14 7:26AM BY JOSEY TOLEDO MD, MEDICATI ON AUTO-JOVITA CTIVATIO N; Not Available Not Available Not Available omeprazol e 20 mg-sodium bicarbona te 1.1 gram capsule DAILY 08/08 completed RECORDED 09/13/19 11 11:15AM BY JOSEY TOLEDO MD, MEDICATI ON AUTO-JOVITA CTIVATIO N; Not Available Not Available Not Available Orencia (with maltose) 250 mg intraveno us solution INFUSE 500 MG OVER 30 MINUTE(S ) BY INTRAVEN OUS ROUTE EVERY 4 WEEKS 01/20 completed Not Available Not Available Not Available Actemra monthly infusion active Not Available Not Available No t Available potassium chloride ER 20 mEq tablet,ex tended release TAKE 1 TABLET BY MOUTH EVERY DAY 01/10 completed we stopped her diuretic and her potassiu m has been normal. Not Available Not Available Not Available Xeljanz XR 11 mg tablet,ex tended release 07/08 completed Not Available Not Available Not Available Shingrix (PF) 50 mcg/0.5 mL intramusc ular suspensio n, kit ADM 0.5ML IM UTD 02/22 completed Not Available Not Available Not Available Flucelvax Quad 3530-7279 (PF) 60 mcg (15 mcg x 4)/0.5 mL IM syringe ADM 0.5ML IM UTD 03/05 completed Not Available Not Available Not Available [facility] ODT 75 mg disintegr ating tablet DISSOLVE 1 TABLET ON THE TONGUE EVERY OTHER DAY 01/20 completed 01/21/20 24-ON HOLD WILL DISCUSS WITH PROVIDER Not Available Not Available Not Available Flucelvax Quad (PF) 60 mcg (15 mcg x 4)/0.5 mL IM syringe ADM 0.5ML IM UTD 02/22 completed Not Available Not Available Not Available Vitals Date Recorded Body height Provider Name an d Address Organization Details Last Updated DateTime 07/08/2023 165.1 cm Maura Haider MA MA [facility] 07/08/2023 10:14:56 Date Recorded Body height Body weight Body mass index (BMI) Heart rate Oxygen saturation Oxygen saturation in Arterial blood by Pulse oximetry Body temperature Systolic blood pressure Diastolic blood pressure Provider Name and Address Organization Details Last Updated DateTime 165.1 cm 21666.8 2 g 23.7 kg/m2 60 /min 98 % 98 % 98 [degF] 161 mm[Hg] 75 mm[Hg] Purvi Torres LPN [facility] 4 10:54:04 Date Recorded Body height Body mass index (BMI) Body weight Systolic blood pressure Diastolic blood pressure Provider Name and Address Organization Details Last Updated DateTime 08/15/2023 165.1 cm 25.1 kg/m2 41644.45 g 145 mm[Hg] 87 mm[Hg] Maura Haider MA [facility] 4 11:36:16 Date Recorded Systolic blood pressure Diastolic blood pressure Provider Name and Address Organization Details Last Updated DateTime 08/15/2023 158 mm[Hg] 84 mm[Hg] Ángela Lucero PA-C [address] [address], [place], [address], [facility] 08/15/2023 12:25:22 Date Recorded Body height Body mass index (BMI) Body weight Systolic blood pressure Diastolic blood pressure Provider Name and Address Organization Details Last Updated DateTime 01/21/2024 165.1 cm 26 kg/m2 67323.41 g 137 mm[Hg] 86 mm[Hg] Maura Haider MA [facility] 4 14:38:24 Date Recorded Body height Body mass index (BMI) Body weight Heart rate Oxygen saturation Oxygen saturation in Arterial blood by Pulse oximetry Body temperature Systolic blood pressure Diastolic blood pressure Provider Name and Address Organization Details Last Updated DateTime 4 165.1 cm 26.6 kg/m2 54726.7 8 g 101 /min 97 % 97 % 98 [degF] 121 mm[Hg] 82 mm[Hg] Maura Haider MA [facility] 4 14:08:27 Social History Question Answer Notes LastModified by Organizat ion Details LastModified Time Tobacco Smoking Status Never Smoker Not Available [facility] 01/04/2020 03:36:37 Do You Have An Advance Directive? Yes [facility] [email or web address] Information not available 10/03/2021 What Is Your Level Of Alcohol Consumption? None [id number] Information not available 01/04/2020 Is Blood Transfusion Acceptable In An Emergency? Yes [id number] Information not available 01/04/2020 What Is Your Level Of Caffeine Consumption? None [id number] Information not available 01/04/2020 How Much Tobacco Do You Chew? None [id number] Information not available 01/04/2020 Are You Currently Employed? Yes [id number] Information not available 01/04/2020 What Type Of Diet Are You Following? VEGETARIAN No Salt [id number] Information not available 01/04/2020 Which Illicit Or Recreational Drugs Have You Used? None [id number] Information not available 01/04/2020 Do You Or Have You Ever Used E-cigarettes Or Vape? 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 With Others 2 Children And 1 GC (born Late 2012) [email or web address] Information not available 10/03/2021 Do You Take Precautions To Prevent Distracted Driving? Yes [email or web address] Information not available 10/12/2015 How Often Do You Need To Have Someone Help You When You Read Instructions, Pamphlets, Or Other Written Material From Your Doctor Or Pharmacy? Never [email or web address] Information not available 10/12/2015 Have You Served In The ? No [email or web address] Information not available 03/25/2016 Have You Or Anyone In Your Household Had Any Of The Following Symptoms In The Last 14 Days: Sore Throat, Cough, Chills, Body Aches For Unknown Reasons, Shortness Of Breath For Unknown Reasons, Loss Of Smell, Loss Of Taste, Fever At Or Greater Than 100 Degrees Fahrenheit? No Information not available 02/23/2020 Are You Or Anyone In Your Household A Health Care Provider Or Emergency Responder? No [email or web address] Information not available 02/23/2020 To The Best Of Your Knowledge Have You Been In Close Proximity To Any Individual Who Tested Positive For COVID-19? No [email or web address] Information not available 02/23/2020 Have You Recently Traveled To A COVID-19 High Risk Area Or Gathering In The Last 10 Days? No [email or web address] Information not available 09/20/2020 What Was The Date Of Your Most Recent Tobacco Screening? 01/21/2024 [email or web address] Information not available 01/21/2024 How Many Children Do You Have? 2 1 Son (lives On Second Floor) And 1 Daughter And 1 GS Information not available 02/23/2020 Seat Belts Used Routinely Yes [email or web address] Information not available 10/03/2021 Are You Sexually Active? No [id number] Information not available 01/04/2020 Smoke Alarm In Home Yes [email or web address] Information not available 10/03/2021 At What Age Did You Start Smoking Tobacco? 1 [id number] Information not available 01/04/2020 Are You Passively Exposed To Smoke? No [email or web address] Information not available 10/12/2015 Do You Or Have You Ever Used Smokeless Tobacco? Never Used Smokeless Tobacco [id number] Information not available 01/04/2020 How Much Tobacco Do You Smoke? No [id number] Information not available 01/04/2020 Do You Use Sunscreen Routinely? Yes [id number] Information not available 01/04/2020 How Many Years Have You Smoked Tobacco? 0 [id number] Information not available 01/04/2020 Do You Or Have You Ever Used Any Other Forms Of Tobacco Or Nicotine? No [email or web address] Information not available 10/03/2021 Sex: Unknown Functional Status Question Answer Note LastModified by Organizat ion Details LastModified Time Are you able to walk? YESWOREST [email or web address] Information not available 10/03/2021 Are you able to care for yourself? Yes [id number] Information not available 01/04/2020 What is your exercise level? Moderate Trying to walk; no longer going to the gym since COVID Information not available 02/23/2020 Mental Status None recorded. Family History Relationship Description Onset Age of this Age Resolved Age Notes LastModified by Organization Details LastModified Time Mother Myocardial infarction 39 [email or web address] Not available 01/2016 10:07:03 Medical History No medical history recorded. Gynecological History Statement/Question Response Date of Last Pap Smear 03/30/2015 Current Control Method Hysterectom y Date of Last Colonoscopy 03/16/2015 Most Recent Mammogram 07/24/2022 Obstetrics History GPAL:G 0 P 0 0 0 0 Immunizations Vaccine Type Date Status Note Provider Nam e and Address Organization Details Recorded Time zoster recombinant 0 completed KEVIN Conti [facility] 11/28/2021 12:49:12 Influenza, split virus, quadrivalent, preservative 0 completed KEVIN Conti [facility] 11/28/2021 12:49:12 COVID-19, mRNA, LNP-S, PF, 100 mcg/0.5mL dose or 50 mcg/0.25mL dose 1 completed KEVIN Conti [facility] 11/21/2021 08:31:51 COVID-19, mRNA, LNP-S, PF, 100 mcg/0.5mL dose or 50 mcg/0.25mL dose 1 completed KEVIN Marks [facility] 03/07/2021 11:29:55 Influenza, split virus, trivalent, preservative 3 completed KEVIN Marks, [facility] 03/07/2021 11:29:55 Influenza, split virus, trivalent, preservative 2 completed KEVIN Marks, [facility] 03/07/2021 11:29:55 COVID-19, mRNA, LNP-S, PF, 100 mcg/0.5mL dose or 50 mcg/0.25mL dose 1 completed KEVIN Marks, [facility] 03/07/2021 11:29:55 Influenza, MDCK, quadrivalent, PF 9 completed KEVIN Marks, [facility] 03/07/2021 11:29:55 Influenza, split virus, trivalent, preservative 1 completed KEVIN Marks, [facility] 03/07/2021 11:29:55 Influenza, split virus, quadrivalent, PF 5 completed Not Available [facility] 03/20/2019 02:22:02 COVID-19, mRNA, LNP-S, PF, 100 mcg/0.5mL dose or 50 mcg/0.25mL dose 2 completed KEVIN Conti, [facility] 11/21/2021 08:31:51 COVID-19, mRNA, LNP-S, PF, phuc-sucrose, 30 mcg/0.3 mL 3 completed Purvi Torres LPN null, [facility] 07/09/2023 10:54:37 Influenza, split virus, quadrivalent, PF 6 completed Not Available [facility] 03/20/2019 02:22:04 Influenza, split virus, quadrivalent, PF 7 completed Not Available [facility] 03/20/2019 02:22:10 Influenza, split virus, quadrivalent, PF 8 completed Not Available [facility] 03/20/2019 02:22:15 Tdap 0 completed KEVIN Briseno, [facility] 08/11/2019 11:36:19 Influenza, split virus, trivalent, PF 4 completed Not Available [facility] 03/20/2019 02:21:58 Tdap 9 completed Not Available [facility] 11/26/2019 18:22:26 Influenza, split virus, quadrivalent, PF 3 completed Josey Winchester MD [address] [address], [place], [address], [facility] 01/10/2023 13:40:02 Past Encounters Encounter ID Performer Location Encounter Start Date Encounter Closed Date Diagnosis/Indication Diagnosis SNOMED-CT Code Diagnosis ICD10 Code Diagnosis Note [id number] auto[facility]Comm erce [address] [facility] [facility] [place] [address] 04/09/2007 00:00:00 [id number] autoEComm erce [address] [facility] [facility] [place] [address] 05/06/2007 00:00:00 [id number] autoEComm erce [address] [facility] [place] [address] 06/23/2008 00:00:00 [id number] autoEComm erce [address] [facility] [facility] [address] 07/06/2008 00:00:00 [id number] autoEComm erce [address] [facility] [facility] [address] 08/11/2008 00:00:00 [id number] autoEComm erce [address] [facility] [place] [address] 04/21/2009 00:00:00 [id number] autoEComm erce [address] [facility] [place] [address] 05/19/2009 00:00:00 [id number] autoEComm erce [address] [facility] [place] [address] 07/19/2009 00:00:00 [id number] autoEComm erce [address] [facility] [place] [address] 04/10/2010 00:00:00 [id number] [address]Comm erce [address] [place] [address] 05/15/2010 00:00:00 [id number] autoEComm erce [address] [place] [address] 07/04/2010 00:00:00 [id number] autoEComm erce [address] [place] [address] 09/12/2010 00:00:00 [id number] autoEComm erce [address] [place] [address] 10/17/2010 00:00:00 [id number] autoEComm erce [address] [facility] [address] [place] [address] 09/12/2011 00:00:00 [id number] autoEComm erce [address] [facility] [place] [address] 03/26/2012 00:00:00 [id number] autoEComm erce [address] [facility] [place] [address] 04/27/2012 00:00:00 [id number] autoEComm erce [address] [facility] [address] [place] [address] 09/21/2012 00:00:00 [id number] autoEComm erce [address] [facility] [place] [address] 02/16/2013 00:00:00 [id number] autoEComm erce [address] [facility] [place] [address] 07/07/2013 00:00:00 [id number] Liseth Vasquez Main Office [address] [facility] [address] [place] [place] [address] 01/11/2014 13:22:21 01/11/2014 14:42:04 Needs influenza immunization 575078847 Essential hypertension 88392710 Attention deficit hyperactivity disorder, 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 Will recheck and look at risk calculator before starting another med. Essential hypertension 05957795 well controlled with current meds Irritable bowel syndrome 83071155 well-contr olled with current meds and diet. [id number] Main Office [address] [address] [place] [address] 12/03/2014 08:47:01 12/03/2014 09:43:49 Migraine 77101887 G43.009 will restart a triptan which she took years ago and she will call if it isn't helping. Plantar fasciitis 225052 003 M72.2 she will try exercises and will call if it persists. [id number] Josey Winchester MD Main Office [address] [address] [place] [address] 01/23/2015 10:38:25 01/23/2015 11:28:45 Essential hypertension 79737655 I10 no longer controlled . We will go up on her meds and she will call if the BP is >140/90. Pure hypercholesterolemia 153650044 E78.0 trouble on meds. Recheck cholestero l Needs infl uenza immunization 516642445 Z23 Screening for malignant neoplasm of colon 530946788 Z12.11 Screening for malignant neoplasm of cervix 682215968 Z12.4 Attention deficit hyperactivity disorder, predominantly inattentive type 33030027 F90.0 [id number] Josey Winchester MD Main Office [address] [address] [place] [address] 10/12/2015 09:22:54 10/12/2015 10:14:44 Adult health examination 967466607 Z00.00 UTD with immunizati ons, colonoscop y, mammogram and [employer] care. Essential hypertension 39773891 I10 we will stop her metoprolol to see if her fatigue improves. Start a CCB and see her back in 1 month. Fatigue 08918273 R53.83 this may be secondary to metoprolol so will stop and start another BP med. Irritable bowel syndrome 36778717 K58.9 well-contr olled with current meds and diet. [id number] Josey Winchester MD Main Office [address] [place] [address] [place] [address] 11/14/2015 15:44:42 11/14/2015 17:02:57 Essential hypertension 73588894 I10 Her fatigue has persisted despite stopping the metoprolol . BP mildly elevated on the amlodipine so will increase the dose. Needs infl uenza immunization 395140185 Z23 Migraine 80996861 G43.00 9 Possibly returned since stopping the bets cherelle for her BP. Will start a different beta cherelle and she will call if it persists. [id number] Tk lopez Main Office [address] [place] [address] [place] [address] 02/27/2016 10:23:45 02/27/2016 11:54:18 Fever 785886397 R50.9 40 minute office visit with greater than 50% of the visit face-to-fa ce with the patient and/or family providing counseling and/or coordinati on of care. Cough 94872081 R05 Nausea and vomiting 1693 2000 R11.2 Diarrhea 89355210 R19.7 Fatigue 66480714 R53.83 [id number] Josey Winchester MD Main Office [address] [place] [address] 03/05/2016 15:42:55 03/06/2016 12:56:57 Pneumonia 735087183 J18.9 encouraged deep breaths at least hourly to hopefully diminish need for albuterol, also rec. walk on elliptical machine at low intensity to slowly build up her endurance. will give cxr at next f/u to recheck in 2 wks Essential hypertension 29631938 I10 mildly elevated - advised pt to cont to monitor qd, and will consider re-initiat ing bp med if cont. to trend high 25 minute office visit with greater than 50% of the visit face-to-fa ce with the patient and/or family providing counseling and/or coordinati on of care. [id number] Josey Winchester MD Main Office [address] [place] [address] [place] [address] 03/25/2016 13:15:02 03/25/2016 14:04:38 Essential hypertension 56545207 I10 stable, not on meds - used bp med a few yrs ago - rec. cont healthy diet (low salt) and exercise 25 minute office visit with greater than 50% of the visit face-to-fa ce with the patient and/or family providing counseling and/or coordinati on of care. Pneumonia 375969569 J18. 9 cont to stay active, rec occ deep breaths. will give cxr to verify resolution of pna [id number] Josey Winchester MD Main Office [facility] [address] [place] [address] 07/08/2016 11:22:37 07/08/2016 12:11:21 Allergic rhinitis 64459888 J30.9 We will see her back in a few weeks to recheck her adenopathy . No B symptoms. [id number] Josey Winchester MD Main Office [address] [place] [address] [place] [address] 08/15/2016 15:59:01 08/15/2016 17:02:56 Acute sinusitis 78240296 J01.90 Pt. told to get some sudafed, cont OTCs and have yogurt or get a probiotic while on the Abx. [id number] Josey Winchester MD Main Office [address] [address] [place] [address] 11/18/2016 09:33:44 11/18/2016 10:23:06 Adult health examination 815823455 Z00.00 UTD with immunizati ons, colonoscop y, mammogram and [employer] care. Needs infl uenza immunization 511118614 Z23 Essential hypertension 44656979 I10 She will follow her BP at home and we will call in a few weeks to see how it has been running. Migraine 73054844 G43.00 9 Hyperlipidemia 96210115 E78.5 has trouble with meds. Will recheck and look at risk calculator before starting another med. [id number] Josey Winchester MD Main Office [address] [place] [address] [place] [address] 05/21/2017 12:49:18 05/21/2017 14:09:17 Essential hypertension 40935829 I10 Will restart meds and she will return for a recheck in 1 month. Easy bruising 329344327 R58 [id number] Josey Winchester MD Main Office [address] [address] [place] [address] 06/25/2017 13:18:55 06/25/2017 13:56:11 Essential hypertension 78422605 I10 Taking meds daily and tolerating them well. BP under good control. Migraine 62147414 G43.00 9 stable on prophylaxi s. [id number] Josey Winchester MD Main Office [address] [address] [place] [address] 11/06/2017 12:58:57 11/06/2017 14:04:51 Carpal tunnel syndrome 09126670 G56.02 She will take aleve twice a day. [id number] Josey Winchester MD Main Office [address] [address] [place] [address] 12/03/2017 12:43:02 12/03/2017 13:40:40 Needs influenza immunization 818321836 Z23 Screening for malignant neoplasm of breast 985606027 Z12.39 Essential hypertension 47746454 I10 She will restart her meds at a lower dose. She understand s that this is especially important in light of the fact she is going back on adderall. Attention deficit hyperactivity disorder, predominantly inattentive type 84186268 F90.0 Having trouble with focus. This helped in the past. [id number] Josey Winchester MD Main Office [address] [address] [place] [address] 01/28/2018 13:04:32 01/28/2018 13:49:10 Adult health examination 458339931 Z00.00 UTD with immunizati ons, colonoscop y (due again in 2025) mammogram. Had a hysterecto my and no longer sees RESIDENCE HALL DIRECTOR. Essential hypertension 06349077 I10 Her BP is running high so we will increase her dose of atenolol and see her back in 1 month. Attention deficit hyperactivity disorder, predominantly inattentive type 05355001 F90.0 We start 15 mg bid since the 30 mg XL dose wears off before the end of her work day. Screening for malignant neoplasm of breast 794593048 Z12.39 [id number] Josey Winchester MD Main Office [address] [address] [place] [address] 02/18/2018 11:19:47 02/18/2018 11:50:35 Attention deficit hyperactivity disorder, predominantly inattentive type 81096195 F90.0 we will d/c her adderall and start strattera. She will call in a couple of weeks if it is not helping and we will go up on the dose. If still not working at the end of March we will try a different med. Essential hypertension 21576710 I10 Good control with increased dose of meds. Continue current mgmt. [id number] Josey Winchester MD Main Office [address] [address] [place] [address] 08/06/2018 15:37:38 08/06/2018 16:31:45 Fatigue 06493705 R53.83 No clear etiology. Hypokalemia 34163728 E87 .6 Corrected as an inpatient; secondary to diuretic. Essential hypertension 52579070 I10 Currently normotensi ve off meds. Possibly secondary to her adderall. She will monitor her BP and will call if/when she restarts her adderall. Attention deficit hyperactivity disorder, predominantly inattentive type 03334230 F90.0 Has adderall and will restart when needed. [id number] Josey Winchester MD Main Office [address] [address] [place] [address] 08/19/2018 12:31:49 08/19/2018 13:22:34 Essential hypertension 49824640 I10 Currently normotensi ve off meds. Possibly secondary to her adderall. She will monitor her BP and will call if/when she restarts her adderall. Fatigue 93736931 R53.83 No clear etiology. We spoke about lifestyle issues such as exercise, good diet and adequate sleep and she will work on these. [id number] Josey Winchester MD Main Office [address] [address] [place] [address] 10/06/2018 14:38:47 10/06/2018 15:31:59 Renal angle tenderness 082206993 R10.829 Possible muscular. The urine is normal. Will treat with NSAIDs for a week and if her pain persists will consider an U/S. Gastroesop hageal reflux disease 976305432 K21.9 Essential hypertension 25509955 I10 BP went back up after stopping the adderall and initially seeing a normalizat ion of her BP. [id number] Josey Winchester MD Main Office [address] [address] [place] [address] 12/23/2018 15:52:51 12/23/2018 16:40:53 Allergic conjunctivitis 035314268 H10.12 Instructio ns to call if develops vision problems or pain. [id number] Josey Winchester MD Main Office [address] [address] [place] [address] 02/17/2019 13:41:37 02/17/2019 14:42:10 Adult health examination 323781487 Z00.00 Will update her immunizati ons today, colonoscop y (due again in 2025) and UTD w/mammogra m. Had a hysterecto my and no longer sees [employer]ENCE HALL DIRECTOR. Varicella vaccination 68 212898 Z23 Skin lesion 90714210 L98 .9 [id number] Josey Winchester MD Main Office [address] [address] [place] [address] 03/05/2019 13:52:06 03/05/2019 14:54:54 Fever 701562306 R50.9 Cough 79309341 R05 Muscle pain 05629643 M79 .10 [id number] Kavita [facility] [address] [address] [place] [address] 07/30/2019 13:51:26 08/02/2019 08:34:33 Counseling 604521122 Z71.9 Health advice, education or counseling done for COVID 19, pt not able to be offered testing as she does not have symptoms. She will request testing through her employer. Call immed if any sx come up including cough, fever, SOB or uri sx [id number] Josey Winchester MD Main Office [address] [place] [address] 08/11/2019 10:50:11 08/11/2019 11:48:11 Essential hypertension 50830674 I10 C/w BP meds. Running a little high today. She will follow. Attention deficit hyperactivity disorder, predominantly inattentive type 93438862 F90.0 Has adderall and uses it prn. Hyperlipidemia 57864621 E78.5 Has been taking statin 3 times a week and tolerating it well. Administra tion of viral vaccine 51007383 Z23 [id number] Josey Winchester MD Main Office [address] [address] [place] [address] 02/23/2020 13:01:50 02/23/2020 13:48:20 Adult health examination 206912456 Z00.00 Will update her immunizati ons today, colonoscop y (due again in 2025) and UTD w/mammogra m. Had a hysterecto my and no longer sees [employer]IDENCE HALL DIRECTOR. We discussed exercise while also keeping safe during the pandemic. Migraine 42464355 G43.00 9 Was helped by prophylaxi s in the past and will restart the topamax. Hyperlipidemia 72603079 E78.5 Has been taking statin 3 times a week and tolerating it well. Essential hypertension 24454054 I10 C/w BP meds. [id number] Josey Winchester MD Main Office [address] [address] [place] [address] 08/23/2020 12:51:26 08/23/2020 13:54:13 Essential hypertension 79346782 I10 Stopped BP meds because of her hair loss. Beta blockers and diuretics may contribute to this so we will start a CCB and see her back in month. Loss of hair 855492960 L 65.9 No clear etiology. May be genetic. May be related to hair styling and may be related to meds. We stopped her beta cherelle and diuretic and statin. Hyperlipidemia 63831941 E78.5 Stopped the statin for now since may be adding to her hair loss. We will monitor. [id number] Josey Winchester MD Main Office [address] [address] [place] [address] 09/20/2020 14:48:28 09/20/2020 15:20:52 Essential hypertension 91796862 I10 Stopped BP meds because of her hair loss. Beta blockers and diuretics may contribute to this so we will start a CCB and see her back in month. Migraine 27721720 G43.00 9 Stopped the topamax which was helping because she felt that it was contributi ng to her hair loss. She will try sumatripta n for treatment and will call if her headaches continue. Loss of hair 628283836 L 65.9 No clear etiology. May be genetic. May be related to hair styling and may be related to meds. We stopped her beta cherelle and diuretic and statin. She has an upcoming derm appointmen t in early November. [id number] Ángela Lucero PA-C Main Office [address] [place] [address] 10/20/2020 08:39:54 10/20/2020 09:31:30 Fatigue 16865827 R53.83 r/o anemia, diabetes, renal disease, thyroid dysfunctio n. Multiple joint pain 3567 8005 M25.50 R/o RA, Lymes disease Screening for malignant neoplasm of breast 125049070 Z12.39 Screening for malignant neoplasm of cervix 835734272 Z12.4 Vitamin D deficiency 347 27983 E55.9 [id number] Ángela Lucero PA-C [facility] [address] [place] [address] 11/27/2020 12:55:36 11/27/2020 15:49:22 Multiple joint pain 16035211 M25.50 elevated ESR and CRP. PT. will proceed with seeing rheumatolo gist and continue taking turmerican d MSM. [id number] Josey Winchester MD Main Office [address] [place] [address] 03/07/2021 10:41:20 03/07/2021 12:00:41 Adult health examination 921005952 Z00.00 She is UTD with immunizati ons including COVID along with her booster but she is due for her second shingles. She is also UTD w/colonosc opy (due again in 2025) and UTD w/mammogra m. Had a hysterecto my and no longer sees [employer]IDENCE HALL DIRECTOR. We discussed exercise while also keeping safe during the pandemic. Essential hypertension 83182442 I10 She's on a low dose of nifedipine and her BP is under good control. Hyperlipidemia 80619254 E78.5 Stopped the statin for now since may be adding to her hair loss. We will monitor. [id number] Josey Winchester MD Main Office [address] [address] [facility] [place] [address] 10/03/2021 11:21:18 10/03/2021 12:09:09 Essential hypertension 13952904 I10 She's on a low dose of nifedipine and her BP is running high. We will increase the dose from 30 to 90 mg and recheck in 1 month. [id number] Josey Winchester MD Main Office [address] [address] [place] [address] 10/31/2021 12:42:04 10/31/2021 13:19:44 Essential hypertension 57360524 I10 Still not with adequate control on nifedipine 90 mg. She will continue with that and we will start a diuretic. We went over foods high in potassium and she will get this checked before her next appointmen t. [id number] Josey Winchester MD Main Office [address] [place] [address] 11/28/2021 12:38:40 11/28/2021 13:40:47 Seronegative rheumatoid arthritis 728963453 M06.[address] Mitchell and on meds. Essential hypertension 46111294 I10 Better control since adding diuretic. Mildly reduced potassium at 3.4. We will recheck level in a month. Cough 06076216 R05.9 She has not yet tested for COVID. Drug-induc ed hypokalemia 379582403 E87.6 Induced by diuretic. Will concentrat e on foods w/potassiu m and recheck in one month. Hyperlipidemia 89655430 E78.5 Cannot tolerate a statin. Will look into options. [id number] Josey Winchester MD [facility] [address] [address] [place] [address] 08/08/2022 12:24:46 08/20/2022 08:15:54 Multiple sclerosis 19533063 G35 This is a new dx. She saw Dr Rausch as an inpatient at [facility] and will follow with him as on outpatient . She is not currently on any meds. Migraine 66754851 G43.00 9 She would like to restart the topamax because she has been getting more frequent headaches. Optic neuritis 61440742 H46.9 H46.03 Followed by both ophtho and neurology. Her vision has been improving. She is still not driving and is waiting to be cleared by neurology. [id number] Paula Gill [place] Main Office [address] [facility] [address] [place] [address] 10/23/2022 15:35:43 10/23/2022 16:11:23 Lump on face 680436091 R22.0 Tender lesion at left jaw line Benign int racranial hypertension 14955711 G93.2 She is followed by neurology and started on acetazolam edvin. [id number] Rian Alvarado MD Main Office [address] [facility] [address] [place] [address] 12/04/2022 08:52:21 12/04/2022 09:23:37 Pre-surgery evaluation 248893196 Z01.818 No medical contraindi cations to proposed procedure. Behzad Perioperat roxann Cardiac Risk was calculated and the risk for perioperat roxann [place] is <1%. May proceed to surgery as planned. Essential hypertension 44589142 I10 stable at homein office BP- 133/84 Cataract 688119066 H26.9 [id number] Josey Winchester MD Main Office [address] [facility] [address] [place] [address] 01/08/2023 09:55:30 01/08/2023 10:59:38 Adult health examination 718924386 Z00.00 She is UTD with immunizati ons including COVID along with her booster but she is due for her second shingles. She is also UTD w/colonosc opy (due again in 2025) and UTD w/mammogra m. Had a hysterecto my and no longer sees RESIDENCE HALL DIRECTOR. We discussed exercise and she remains very active. Needs infl uenza immunization 971313288 Z23 History of SARS-CoV-2 29 56397179 74978338 Z86.16 mild symptoms; cough Hyperlipidemia 69556451 E78.5 Cannot tolerate a statin. Levels on repeat blood work look good. No meds needed. Thyroid nodule 882848211 E04.1 She is scheduled for an US 01/21/23. Essential hypertension 01624698 I10 We stopped her diuretic because of hypokalemi a but her BP has increased. We will continue to follow it before adding any meds. Attention deficit hyperactivity disorder, predominantly inattentive type 09927744 F90.0 Has adderall and uses it prn. Seronegati ve rheumatoid arthritis 322308382 M06.[address] Mitchell and on meds. Multiple sclerosis 14693 007 G35 This is a new dx. She saw Dr Rausch as an inpatient at [facility] and now followed by Dr Naz bryson and is on acetazolam edvin. [id number] Giovanni Lucero PA-C [facility] [address] [place] [address] 07/08/2023 09:22:38 07/08/2023 11:05:07 COVID-19 401127776 U07.1 dx'd in ER on 5.3 - no formal tmt offered since cxr normal - advised supportive measures but pt afraid to take otc meds since was previously advised by rheum not to - but sxs persist/mi ldly worse rec low dose otc meds (prn tyl, robitussin ) as dir, cont self-isola tion, cont push fluid intake, rest, consider extra vit D for a few days to help boost immune system advised pt only to go to ER if significan t sob where may need to be admitted, o/w avoid going to hospital if at all possible see below Cough 61867136 R05.9 most likely has p covid pnawill rx c abxrecomme nd probiotics while on abxsee above/belo w Pneumonia 187469396 J18. 9 see above [id number] Karely Chiu Main Office [address] [place] [address] 07/09/2023 10:32:41 07/09/2023 11:31:51 History of idiopathic intracranial hypertension 3982257491 0720643 Z86.69 Having headaches that are not adequately treated with meds and having a difficult time concentrat ing. Headache 89286793 R51.9 Transition of care from emergency department to self-care 6513319028 01683 Z76.89 Reviewed [id number] Ángela Lucero PA-C Main Office [address] [facility] [address] [facility] [place] [address] 08/15/2023 11:32:08 08/15/2023 12:27:56 Essential hypertension 77629448 I10 Elevated BP today though has not taken antihypert ensives. Continue to monitor and cont antihypert ensives, low sodium diet. She has a history of elevated BP readings while on nifedipine so will obtain microalbum in and follow up in one month for reassessme nt. Edema of l ower extremity 685462835 R60.0 Will start on Lasix 20 mg PO daily. Will check BMP in one week to assess potassium and renal function. [id number] Josey Winchester MD Main Office [address] [facility] [address] [place] [address] 01/21/2024 14:18:10 01/21/2024 15:24:56 Adult health examination 941768438 Z00.00 She is UTD with immunizati ons including COVID along with her booster but she is due for her second shingles. She is also UTD w/colonosc opy (due again in 2025) and UTD w/mammogra m. Had a hysterecto my and no longer sees RESIDENCE HALL DIRECTOR. We discussed exercise and she remains very active. Insomnia 541344818 F51.0 1 She will try gabapentin at bedtime. Attention deficit hyperactivity disorder, predominantly inattentive type 30420175 F90.0 Has adderall and uses it prn. Essential hypertension 57466485 I10 We stopped her diuretic because of hypokalemi a but her BP has increased. We will continue to follow it before adding any meds. Migraine 34219833 G43.00 9 She currently uses Excedrin migraine which helps. Hyperlipidemia 36371580 E78.5 Taking atorvastat in 40 mg and tolerating it well. Seronegati ve rheumatoid arthritis 107678835 M06.[address] Mitchell and on meds but they don't seem to be helping. She will discuss this with Dr Mitchell. Visual disturbance 95332 001 H53.9 [id number] Josey Winchester MD Main Office [address] [facility] [address] [facility] [place] [address] 02/18/2024 14:02:25 02/18/2024 14:33:28 Anxiety disorder 505481180 F41.9 Not currently on meds and this is in remission. Attention deficit hyperactivity disorder, predominantly inattentive type 67979821 F90.0 Taking adderall XR 20 mg which has been helpful but it wears off around lunchtime. Will try a higher dose and she will call if it is not helpful. Essential hypertension 02616732 I10 We stopped her diuretic because of hypokalemi a. She is taking nifedipine ER 90 mg and tolerating this well. Good control, continue current mgmt. Health Concerns Section Related Observation LastModified by Organization Detai ls LastModified Time None Recorded Concern Status LastModified by Organization Details LastModified Time None Recorded Advance Directives Directive Y: HCP Payers Encounter Date Sequence Insurance Name Policy Number Policy Cantu Covered Member ID Cantu Member ID Guarantor Name 07/08/2023 1 [facility] [id number] 01 Shey Arrieta [place] [id number] Shey Arrieta [place] 07/09/2023 1 [facility] [id number] 01 [place] [id number] Shey [place] 08/15/2023 1 [facility] [id number] 01 Shey [place] [id number] Shey [place] 01/21/2024 1 [facility] ([facility] [id number] Shey Henriquez [id number] Shey Henriquez 02/18/2024 1 [place] [facility] Shey [place] [id number] Shey [place] Notes Date Note Type Note Provider Name and Address Organization Details Recorded Time 07/08/2023 text/html Phone visit-PT nicholas narayan covid+ at ER on 07/03 but was not given any medication; PT looking for medicationreviewed ER note - had normal cxr, pt stated she was feeling better - so no covid tmt given - advised supportive measurespt states myalgias, fatigue, cough have persistedno sob, wheezing, pur nasal dchas been using no otc meds Giovanni Nic ABBOTT [address] [address], [place], [place], [id number], [facility] 07/08/2023 10:52:34 07/09/2023 text/html Having a h/o hea daches that have not always responded to treatment. She was initially diagnosed w/migraines and received some help from prophylaxis and pain meds but not total control. She eventually started having visual problems that were felt to be consistent with MS and was seen by both rheumatology, neurology and ophthalmology. An MRI shows probable demyelination, increased fluid and IIH. She has been on diamox which gave some help for her ORELLANA. She also has some problems with cognitive abilities and focus. Karely bentley, [facility] 07/18/2023 10:50:02 08/15/2023 text/html 58 yo female pre senting for two weeks of bilateral foot and ankle swelling. States this issue has been chronic for her for approximately 10 years though has not had a similar episode for some time. Has been treated with Lasix in the past, stopped when hypokalemia was noted. States swelling has been worse in the past. Has pain associated with the swelling but no paloma calf pain. States swelling resolves when waking up in the morning and progressively worsens throughout the day. Neurologist stopped acetazolamide one month ago. No history of long travel recently, history of cancer, history of VTE. No chest pain or shortness of breath. Has not yet taken her antihypertensives today. Ángela Lucero PA-C [address] [address], [place], [phone], [facility] 08/15/2023 13:17:32 01/21/2024 text/html Generic HPI TemplateReported bypatient.Notes:She has sero-negative RA and mild MS. She is followed by specialists for each and has multiple joint pains that are not controlled by current treatment.UTD w/COVID, tetanus and flu vaccines. Josey Winchester MD [address] [address], [place], [phone], [facility] 01/22/2024 17:49:35 02/18/2024 text/html ADHDReported bypatient.School Performance:improving Organization:good organization Appetite:normal appetite; no binge eating Mood:stable Sleep:good Family:no new stressors Attention:able to focus Impulsivity:is not impulsive Tasking:able to initiate tasks; able to complete tasks; able to move on to the next task; multi-taskingHypertensi on F/UReported bypatient.Associated Symptoms:no dizziness; no lightheadedness; no chest pain; no shortness of breath; no palpitations; no edema; no calf pain with exertion Lifestyle:regular exercise; limiting/avoiding salt Medications:taking medications as directed; no side effects from medicationNotes:She has been taking the adderall for 4 weeks and she sees a noticeable difference in her ability to focus. She takes the adderall at around 8 or 9 in the am but finds that the effects wear off after about 4 hours. Josey Winchester MD [address] [address], [place], [phone], [facility] 02/18/2024 15:39:06 OBGyn Episode No OBEpisode recorded.
== END 2024-03-31 14:00 | disposition home or self-care (01) ==
PROVIDERS: PCP Physician Assistant Medical; Visit Provider Internal Medicine Rheumatology
DX: M06.09 Rheumatoid arthritis without rheumatoid factor, multiple sites (principal); Z79.899 Other long term (current) drug therapy; G56.03 Carpal tunnel syndrome, bilateral upper limbs; R29.898 Other symptoms and signs involving the musculoskeletal system
CPT/HCPCS: 99214

== ENCOUNTER 2024-03-31 12:52 | Outpatient (REF) | payer MEDICAID, SELFPAY ==
--- OUTSIDE RECORDS SUMMARY | 2024-04-01 14:18 | XMS_ITS | Clinical Summary ---
Author Organization [facility] Address [address] [place] [address] Phone Care Team Providers Care Supervisor [employer] Name Role Phone Luis Miguel Winchester MD Primary Care Provider [phone] Allergies No known active allergies Medications Medication [...] Description 02/04/2024 2:00 PM EST Office Visit [facility] [address] [facility] [address] [place] [address] Rod Howard MD Cerebrovascular accident (CVA), unspecified mechanism (CMS/HCC) (Primary Dx); IIH (idiopathic intracranial hypertension); Migraine with aura and without status migrainosus, not intractable; Other fatigue 01/31/2024 12:51 PM EST - 01/31/2024 11:59 PM EST Hospital Encounter [facility] MRI [address] [place] [address] White matter disease Discharge Disposition: [...] Description 05/12/2024 1:30 PM EDT Office Visit [facility] [address] [facility] [address] [place] [address] Farzana German PA [address] [facility] [place] [address] Health Maintenance Due Date Last Done Comments [...] Signed Date: 01/31/2024 15:16 ET Workstation ID: [id number] Transcribed By: Self Edit Transcribed Date: 01/31/2024 [...] Signed Date: 01/31/2024 15:16 ET Workstation ID: [id number] Transcribed By: Self Edit Transcribed Date: 01/31/2024 15:13 ET Rod Howard MD IMG MRI PROCEDUR ES from Last 3 Months Care Teams Supervisor [employer] Relationship Specialty Start Date End Date Luis Miguel Winchester MD [address] [address] PCP - General 08/08/22
--- OUTSIDE RECORDS SUMMARY | 2024-04-01 14:18 | XMS_ITS | Clinical Summary ---
Author Organization [facility] Address [address] [place] [address] Care Team Providers Care R D Engineer Name Role Phone Luis Miguel Winchester MD Primary Care Provider [phone] Allergies Active Allergy Reactions Criticality Noted Date [...] age to complete this topic Care Teams R D Engineer Relationship Specialty Start Date End Date Luis Miguel Winchester MD [address] [facility] [address] [place] [address] PCP - General Internal Medicine 08/08/22
== END 2024-03-31 12:53 | disposition home or self-care (01) ==
LOC: HO.HKASLDS 12:52
PROVIDERS: PCP Physician Assistant Medical; Visit Provider Internal Medicine Rheumatology
DX: M06.09 Rheumatoid arthritis without rheumatoid factor, multiple sites (principal); G56.03 Carpal tunnel syndrome, bilateral upper limbs; R29.898 Other symptoms and signs involving the musculoskeletal system; Z79.899 Other long term (current) drug therapy
CPT/HCPCS: 99212

== ENCOUNTER 2024-04-01 10:41 | Outpatient (REF) | payer MEDICAID, SELFPAY ==
[2024-04-01 17:38] LABS: MANUAL DIFF FLAG NO
[2024-04-01 17:52] LABS: Basophils Absolute Auto 0.1 X10*3/uL (0.0-0.2); Basophils Percent Auto 1.1 % (0-2); Eosinophils Absolute Auto 0.2 X10*3/uL (0.0-0.4); Hematocrit 43.2 % (37.0-47.0); Hemoglobin 13.4 g/dl (12.0-16.0); Imm Gran Abs Auto 0.01 X10*3/uL (0.00-0.03); Imm Gran Pct Auto 0.2 % (0.0-0.4); Lymphocytes Percent Auto 42.9 % (20-40); Mean Corpuscular Hemoglobin 24.8 pg (27.0-33.0); Mean Corpuscular Volume 79.9 fL (80.0-98.0); Mean Platelet Volume 11.2 fL (9.4-12.3); Monocytes Absolute Auto 0.4 X10*3/uL (0.1-1.2); Neutrophils Percent Auto 42.8 % (45-73); Platelet Count 269 X10*3/uL (160-400); Red Blood Count 5.41 X10*6/uL (4.20-5.50); Red Cell Distribution Width 12.8 % (11.0-16.0); White Blood Count 4.6 X10*3/uL (4.8-10.8)
[2024-04-01 17:55] LABS: Alanine Aminotransferase 53 U/L (0-31); Aspartate Amino Transferase 40 U/L (5-31); C Reactive Protein < 0.10 mg/dL (< or = 0.50); Cholesterol 168 mg/dL (<200); Estimated Glomerular Filt Rate 57; HDL Cholesterol 59 mg/dL (>40); LDL Cholesterol Calculated 99 mg/dL (<100); Triglycerides 50 mg/dL (<150)
[2024-04-01 18:21] LABS: Erythrocyte Sedimentation Rate 4 MM/HR (0-20)
[2024-04-02 04:14] LABS: HBS Num1 5.04 mIU/mL (0-7.99); HBsAGNum1 0.36 S/CO (0.00-0.99); Hepatitis B Core Antibody Nonreactive (Nonreactive); Hepatitis B Surface Antigen Negative (Negative); ~HepC Num1 0.05 S/CO (0.00-0.79); ~Hepatitis B Surface Antibody NONREACTIVE (Nonreactive); ~Hepatitis C Antibody Nonreactive (Nonreactive)
[2024-04-07 09:39] LABS: TSpotTB Invalid (Negative)
== END 2024-04-01 10:42 | disposition home or self-care (01) ==
LOC: HO.HKASLDS 10:41
PROVIDERS: Visit Provider Internal Medicine Rheumatology
DX: M06.9 Rheumatoid arthritis, unspecified (principal); Z79.60 Long term (current) use of unspecified immunomodulators and immunosuppressants; Z79.899 Other long term (current) drug therapy
CPT/HCPCS: 36415; 80061; 82565; 84450; 84460; 85025; 85652; 86140; 86481; 86704; 86706; 86803; 87340

== ENCOUNTER 2024-04-20 11:39 | Outpatient (REF) | payer MEDICAID, SELFPAY ==
--- OUTSIDE RECORDS SUMMARY | 2024-04-20 12:51 | XMS_ITS | Clinical Summary ---
Author Organization [facility] Address [address] [place] [address] Care Team Providers Care Sericulture Teacher Name Role Phone Luis Miguel Winchester MD Primary Care Provider [phone] Allergies Active Allergy Reactions Criticality Noted Date [...] age to complete this topic Care Teams Sericulture Teacher Relationship Specialty Start Date End Date Luis Miguel Winchester MD [address] [facility] [address] [place] [address] PCP - General Internal Medicine 08/08/22
--- OUTSIDE RECORDS SUMMARY | 2024-04-20 12:51 | XMS_ITS | Data Portability ---
Author Organization [facility], Main Office Address [address] [facility] [address] [place] [address] Care Team Providers Care Cover Inspector Name Role Phone JOSEY WINCHESTER Primary Care Provider ZION PARSONS Soft Sugar Cutter [phone] [facility] Traffic Control Specialist NORA MITCHELL Referring Provider RICA JEAN-BAPTISTE Referring Provider AGATA VILLEGAS Reception Agent Assessment Encounter Date Assessment Date Assessment LastModified by Organization Details LastModified Time 07/08/2023 07/08/2023 This service was provided using telemedicine. Patient consented to video & audio visit Patient was located in the [facility]. Provider was located in the office. [...] Not available Not available Not available Lab lipid panel, serum 2023 024 JORDEN [facility], [address] [facility], [address], [address], 01/22/2024 08:10:05 BMP, serum or plasma 2023 024 JORDEN [facility], [address] [facility], [address], [address], 08/21/2023 14:07:05 microal bumin/c charletteatini ne, mass ratio, urine 2023 [place] [facility], [address] [facility], [facility] [address], [place], [address], 08/21/2023 14:07:05 Referral neurolo gical surgeon referra l - Intracr anial hyperte nsion and ORELLANA which are not well-co ntrolle d. 2023 024 rita Oconnell MD, [address] [place] [address], [address], [place], [address], 08/14/2023 15:16:31 Procedures None recorde d. Surgeries None recorde d. Imaging None recorde d. Medication Orders Adderal l XR 25 mg capsule ,extend ed release 2023 024 [facility], [phone] [place], [address], 02/18/2024 14:29:22 gabapen tin 300 mg capsule 2023 024 cassidy [facility], [phone] [place], [address], 01/21/2024 15:36:32 Adderal l XR 20 mg capsule ,extend ed release 2023 024 [facility], [phone] [place], [address], 02/18/2024 15:24:02 furosem edvin 20 mg tablet 2023 024 [facility][id number], [address] [place] [address], [phone], 01/21/2024 14:39:49 Zithrom ax Z-Kevyn 250 mg tablet 2023 024 [facility] #[id number], [address], [place], [phone], 01/21/2024 14:39:37 Patient TargetsNo targets recorded. Patient Instructions Encounter Date Encounter Id Patient Instructions Last Modified By Organization Details Last Modified Time 07/08/2023 [id number] pneumonia: care instructions pmadden Not available 07/08/2023 10:48:30 Patient will follow up and keep appointment as scheduled. pmadden Not available 07/08/2023 10:45:32 07/09/2023 [id number] At [facility] follow up visit, all current and discharge medications (OTC, herbal therapies, supplements) reviewed and reconciled with patient and or caregiver, including potential side effects, drug interactions, instructions, and the consequences of not taking medication. Reviewed potential barriers to medication adherence, such as side effects from medication or cost of medication. [email or web address] Not available 07/09/2023 10:48:26 08/15/2023 [id number] leg and ankle edema: care instructions Not available 08/15/2023 12:23:01 high blood pressure: care instructions Not available 08/15/2023 12:23:01 learning about high blood pressure Not available 08/15/2023 12:23:01 01/21/2024 [id number] insomnia: care instructions [email or web address] Not available 01/21/2024 15:36:31 high blood pressure: care instructions acennerazzo Not available 01/21/2024 15:36:32 learning about high blood pressure acennerazzo Not available 01/21/2024 15:36:32 high cholesterol : care instructions acennerazzo Not available 01/22/2024 17:45:52 attention defici t hyperactivity disorder (ADHD) in adults: care instructions [email or web address] Not available 01/21/2024 15:36:32 02/18/2024 [id number] high blood pressure: care instructions acennerazzo Not [...] glucose 99 mg/dL 70-99 Not Available [facility]) [address] [place], [address], 08/21/2023 14:07:05 08/20/19 24 08/21/2023 BASIC METAB OLIC PANEL (8) BUN 18 mg/dL 6-24 Not Available [facility] ([facility]) [address] [place], [address], 08/21/2023 14:07:05 08/20/19 24 08/21/2023 BASIC METAB OLIC PANEL (8) creatinine 1.26 mg/dL 0.57-1 .00 above high normal Not Available [facility] ([facility]) [address] [place], [address], 08/21/2023 14:07:05 08/20/19 24 08/21/2023 BASIC METAB OLIC PANEL (8) eGFR 49 mL/mi n/1.7 3 >59 below low normal Not Available [facility] ([facility]) [address] [place], [address], 08/21/2023 14:07:05 08/20/19 24 08/21/2023 BASIC METAB OLIC PANEL (8) BUN/creatini ne ratio 14 9-23 Not Available [facility] ([facility]) [address] [place], [address], 08/21/2023 14:07:05 08/20/19 24 08/21/2023 BASIC METAB OLIC PANEL (8) sodium 147 mmol/ L 134-14 4 above high normal Not Available [facility] ([facility]) [address] [facility] [place], [address], 08/21/2023 14:07:05 08/20/19 24 08/21/2023 BASIC METAB OLIC PANEL (8) potassium 3.9 mmol/ L 3.5-5. 2 Not Available [facility] ([facility]) [address] [place], [address], 08/21/2023 14:07:05 08/20/19 24 08/21/2023 BASIC METAB OLIC PANEL (8) chloride 105 mmol/ L 96-106 Not Available [facility] ([facility]) [address] [place], [address], 08/21/2023 14:07:05 08/20/19 24 08/21/2023 BASIC METAB OLIC PANEL (8) carbon dioxide, total 23 mmol/ L 20-29 Not Available [facility] ([facility]) [address] [place], [address], 08/21/2023 14:07:05 08/20/19 24 08/21/2023 BASIC METAB OLIC PANEL (8) calcium 9.8 mg/dL 8.7-10 .2 Not Available [facility] ([facility]) [address] [place], [address], 08/21/2023 14:07:05 08/20/19 24 08/21/2023 ALBUM IN/CR EAT RATIO , RANDO M UR creatinine, urine 41.4 mg/dL not estab. Not Available [facility] ([facility]) [address] [place], [address], 08/21/2023 14:07:05 08/20/19 24 08/21/2023 ALBUM IN/CR EAT RATIO , RANDO M UR albumin, urine <3.0 ug/mL not estab. Not Available [facility] ([facility]) [address] [place], [address], 08/21/2023 14:07:05 08/20/19 24 08/21/2023 ALBUM IN/CR EAT RATIO , MICHEAL Mercado UR alb/creat ratio <7 mg/g_ creat 0-29 Salome l: 0 - 29 Moder ately incre ased: 30 - 300 Sever nadiya incre ased: >300 Not Available [facility] ([facility]) [address] [facility] [place], [place], [address], 08/21/2023 14:07:05 01/21/20 24 01/22/2024 LIPID PANEL cholesterol, total 227 mg/dL 100-19 9 above high normal Not Available [facility] ([facility]) [address] [facility] [place], [place], [address], 01/22/2024 08:10:05 01/21/20 24 01/22/2024 LIPID PANEL triglyceride s 79 mg/dL 0-149 normal Not Available [facility]) [address] [facility] [place], [place], [address], 01/22/2024 08:10:05 01/21/20 24 01/22/2024 LIPID PANEL HDL cholesterol 95 mg/dL >39 normal Not Available [facility] [address] [facility] [place], [place], [address], 01/22/2024 08:10:05 01/21/20 24 01/22/2024 LIPID PANEL VLDL cholesterol donaldo 14 mg/dL 5-40 Not Available [facility]) [address] [place], [address], 01/22/2024 08:10:05 01/21/20 24 01/22/2024 LIPID PANEL LDL chol calc ([facility]) 118 mg/dL 0-99 above high normal Not Available [facility] ([facility]) [address] [place], [address], 01/22/2024 08:10:05 01/21/20 24 01/22/2024 LIPID PANEL LDL calc comment: ROLLER PICKER Not Available [facility] ([facility]) [address], [place], [address], 01/22/2024 08:10:05 07/05/19 24 07/04/2023 US, ophth almic , B-sca n + A-sca n No observ ation record ed. [email or web address] Not Available 2023 15:58:13 01/31/20 24 01/31/2024 MR brain wo and W contr ast See Note [facility] , a member of [facility] Name: MEMO JAVIER Date of : 1964 Reason for Exam: WHITE MATTER DISEAS E Exam Date: 2023 [id number] EST Report Status : Final Orderi ng [...] Transc ribed Date: 2023 15:13 ET [address], [address], 02/01/2024 13:18:06 Result Notes None recorded. 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 749832455 Completed 201301/11/[address] PARSONS; RECORDED 07/08/19 14 1:40PM BY LISETH QUEZADA I, OFFICE VISIT Josey Winchester MD [address], [place], [address] , [facility] 6 09:55:27 Anxiety disorder 691803940 Active 2013 Problem in Fall and Winter Not Available [facility] 0 18:22:26 Patient status finding 776014394 Completed 201301/11/2014 RECORDED 07/08/19 14 1:46PM BY LISETH QUEZADA I, OFFICE VISIT Josey Winchester MD [address], [place], [address] , [facility] 6 09:55:27 Astigmat ism 89446516 Completed 201209/21/2013 RECORDED 03/26/19 13 8:47AM BY LISETH QUEZADA I ANNOTTERE ON/ADDEN DUM Josey Winchester MD [address], [place], [address] , [facility] 6 09:55:27 Flatulen ce, eructati on and gas pain 862567926 Completed 201301/11/2014 STORY: SEEN BY DR PARSONS; IMPRESSI ON: ADVISED HER TO GO TO THE [facility] TO SEE IF THEY HAVE ANYTHING TO HELP WITH HER SX.; RECORDED 07/08/19 14 1:40PM BY LISETH QUEZADA I, OFFICE VISIT Josey Winchester MD [address], [place], [address] , [facility] 6 09:55:27 Visual disturba ide 59546660 Active 2013 IMPRESSI ON: POSSIBLE HYPOTENS ION VS MIGRAINE EQUIVALE NTS. SHE WILL CHECK HER BP AT HER NEXT EPISODE. IF HER BP IS NORMAL SHE WILL TAKE A MIGRAINE MED TO SEE IF THIS HELPS. IF THERE IS NO RELIEF SHE WILL CALL HER EYE DOCTOR. Not Available [facility] 0 18:22:25 Screenin g for malignan t neoplasm of breast Completed 201209/21/2013 RECORDED 03/26/19 13 8:47AM BY HOWARD MERLOS ON/MARGRET Winchester MD [address] [facility] [address], [place], [address] , [facility] 6 09:55:28 Screenin g for malignan t neoplasm of cervix Completed 201209/21/2013 RECORDED 03/26/19 13 8:47AM BY HOWARD MERLOS ON/MARGRET Winchester MD [address] [facility] [address], [place], [address] , [facility] 6 09:55:28 Screenin g for malignan t neoplasm of colon Completed 201209/21/2013 RECORDED 09/22/19 13 8:20AM BY HOWARD MERLOS ON/MARGRET Winchester MD [address] [facility] [address], [place], [address] , [facility] 6 09:55:28 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 Not Available [facility] 0 18:22:26 Fritz l hyperten ray 55257577 Active 2013 Josey Winchester MD [address] [address], [place], [address] , [facility] 3 13:25:29 Malaise and fatigue 478355401 Completed 201209/21/2013 RECORDED 03/26/19 13 8:46AM BY LISETH QUEZADA I, TRACEYATI ON/MARGRET Winchester MD [address] [address], [place], [address] , [facility] 6 09:55:27 Pure hypercho lesterol emia 487232750 Completed 201311/18/2016 Unable to tolerate lipitor Josey Winchester MD [address] [address], [place], [address] , [facility] 7 10:05:50 Hyperlip idemia 83097991 Completed 201301/11/2014 RECORDED 07/08/19 14 1:40PM BY LISETH QUEZADA I, OFFICE VISIT Josey Winchester MD [address] [facility] [address], [place], [address] , [facility] 0 19:09:36 Irritabl e bowel syndrome 44834333 Active 2013 Takes meds which help Not Available [facility] 0 18:22:26 Shoulder joint pain 285964593 Completed 201209/21/2013 RECORDED 03/26/19 13 8:46AM BY LISETH QUEZADA I, TRACEYATI ON/ADDEN DUM Josey Winchester MD [address] [facility] [address], [place], [address] , [facility] 6 09:55:27 Migraine 90054404 Active 2013 Not Available [facility] 0 18:22:26 Administ ration of bacteria l and viral vaccine Completed 200809/21/2013 RECORDED 06/24/19 09 10:01AM BY KEVIN TOSCANO, OFFICE VISIT Josey Winchester MD [address] [facility] [address], [place], [address] , [facility] 6 09:55:27 Skin sensatio n disturba ide 29558779 Completed 201209/21/2013 RECORDED 03/26/19 13 8:47AM BY TRACEY MERLOSATI ON/MARGRET Winchester MD [address] [address], [place], [address] , [facility] 6 09:55:27 Cough 02205582 Completed 201309/21/2013 RECORDED 04/01/19 14 9:45AM BY HOWARD MERLOS ON/MARGRET Winchester MD [address] [address], [place], [address] , [facility] 6 09:55:27 Adult health examinat ion Completed 201301/11/2014 RECORDED 07/08/19 14 1:45PM BY LISETH QUEZADA I, OFFICE VISIT Josey Winchester MD [address] [address], [place], [address] , [facility] 6 09:55:27 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 973242188 Completed 201210/11/2013 IMPRESSI ON: CONTINUE CURRENT MGMT; MEDS HELP A GREAT DEAL.; RECORDED 02/17/20 13 8:03AM BY TRACEY MERLOSATI ON/MARGRET Winchester MD [address], [place], [address] , [facility] 6 09:55:27 Astignyt is 07297800 Completed 201210/11/2013 RECORDED 03/26/19 13 8:47AM BY HOWARD MERLOS ON/MARGRET Winchester MD [address], [place], [address] , [facility] 6 09:55:27 Screenin g for malignan t neoplasm of breast Completed 201210/11/2013 RECORDED 03/26/19 13 8:47AM BY HOWARD MERLOS ON/MARGRET Winchester MD [address] [facility] [address], [place], [address] , [facility] 6 09:55:28 Screenin g for malignan t neoplasm of cervix Completed 201210/11/2013 RECORDED 03/26/19 13 8:47AM BY HOWARD MERLOS ON/MARGRET Winchester MD [address] [facility] [address], [place], [address] , [facility] 6 09:55:28 Screenin g for malignan t neoplasm of colon Completed 201210/11/2013 RECORDED 09/22/19 13 8:20AM BY HOWARD MERLOS ON/MARGRET Winchester MD [address], [place], [address] , [facility] 6 09:55:28 Tietze's disease 44618393 Completed 201210/11/2013 RECORDED 03/26/19 13 8:46AM BY HOWARD MERLOS ON/MARGRET Winchester MD [address], [place], [address] , [facility] 6 09:55:27 Malaise and fatigue 538257158 Completed 201210/11/2013 RECORDED 03/26/19 13 8:46AM BY TRACEY MERLOSATI ON/ADDEN MAYCOL Winchester MD [address] [facility] [address], [place], [address] , [facility] 6 09:55:27 Administ ration of bacteria l and viral vaccine Completed 200810/11/2013 RECORDED 06/24/19 09 10:01AM BY KEVIN TOSCANO, OFFICE VISIT Josey Winchester MD [address] [facility] [address], [place], [address] , [facility] 6 09:55:27 Skin sensatio n disturba ide 34372418 Completed 201210/11/2013 RECORDED 03/26/19 13 8:47AM BY HOWARD MERLOS ON/ADDEN MAYCOL Winchester MD [address] [facility] [address], [place], [address] , [facility] 6 09:55:27 Cough 42512622 Completed 201310/11/2013 RECORDED 04/01/19 14 9:45AM BY HOWARD MERLOS ON/ADDTABATHA Winchester MD [address] [facility] [address], [place], [address] , [facility] 6 09:55:27 Attentio n deficit hyperact ivity disorder , predomin antly inattent roxann type 18896463 Completed 10/12/2015 Josey Winchester MD [address] [facility] [address], [place], [address] , [facility] 8 13:27:14 Plantar fasciiti s 310505957 Active Not Available [facility] 0 18:22:26 Fatigue 54824194 Completed 03/25/2016 Ángela Lucero PA-C [address], [place], [address] , [facility] 1 09:22:08 Keratoco nus 74816497 Active 2015 Followed by [facility] Not Available [facility] 0 18:22:25 Pinguecu la 74511855 Active 2015 Followed by [facility] Not Available [facility] 0 18:22:26 Nuclear scleroti c cataract 081199430 Active 2015 Followed by [facility] Not Available [facility] 0 18:22:26 Pneumoni a 189298755 Completed 201608/15/2016 KEVIN Villegas, [facility] 7 16:08:02 Attentio n deficit hyperact ivity disorder , predomin antly inattent roxann type 16950533 Active 2017 Not Available [facility] 0 18:22:26 Hypokale monisha 53714260 Active 2018 Not Available [facility] 0 18:22:26 Hyperlip idemia 15961663 Active 2019 Not Available [facility] 0 18:22:26 Loss of hair 210219569 Active 2020 Josey Winchester MD [address], [place], [address] , [facility] 1 17:02:35 Multiple joint pain 75724177 Active 2020 Ángela Lucero PA-C [address], [place], [address] , [facility] 1 09:22:07 Fatigue 27627164 Active 2020 Ángela Lucero PA-C [address], [place], [address] , [facility] 1 09:22:08 Pain of right wrist 52019534729 9100 Active 2020 Seen by [facility]; had MRI showing OA. Josey Winchester MD [address], [place], [address] , [facility] 1 18:07:02 Seronega tive rheumato id arthriti s 169823169 Active 2021 Followed by rheum; on methotre xate. Josey Winchester MD [address], [place], [address] , [facility] 2 07:34:37 Multiple sclerosi s 11719280 Active [address] Mague real. Monicaa l optic neuritis . Josey Winchester MD [address] [facility] [address], [place], [address] , [facility] 3 10:45:14 Kidney finding 922901538 Active 2022 born with only one kidney Purvi Torres LPN null, [facility] 3 09:09:38 History of SARS-CoV -2 [id number] 0227562 Active 2022 Josey Winchester MD [address] [facility] [address], [place], [address] , [facility] 3 10:39:24 Thyroid nodule 710674680 Active 2022 Thyroid U/S done and no addition al imaging required . Josey Winchester MD [address] [facility] [address] [place], [address] , [facility] 3 20:13:54 Edema of lower extremit y 116274769 Active 2023 Luis bentley, [facility] 4 12:11:02 Problem Notes None recorded. Procedures Surgical History Date Name Laterality Status Provider Name and Address Organization Details Recorded Time 07/25/19 23 Most Recent Mammogram completed Kati Dallas [facility] 07/24/2022 12:09:18 07/25/19 23 Mammogram Diagnostic Bilateral completed Kati Dallas [facility] 07/24/2022 12:09:11 05/10/19 23 wrist injection completed Gracy Juares [facility] 05/14/2022 13:50:42 03/30/19 16 Date of Last Pap Smear completed Boone Degutmyrna [facility] 04/03/2015 11:53:06 03/16/19 16 Date of Last Colonoscopy completed Viviana Hodge [facility] 03/17/2015 10:15:20 03/16/19 16 Colonoscopy completed Roslyn Orr MA [facility] 02/23/2020 13:16:56 03/03/19 02 Total Abdominal Hysterectomy completed Humera valentine [facility] 08/15/2016 16:15:28 Cholecystectomy completed Josey Winchester MD [address] [address], [place], [address], [facility] 01/11/2014 14:15:38 Imaging Results Imaging Date Name Status LastModified by Organiz ation Details LastModified Time 07/04/2023 US, ophthalmic, B-scan + A-scan completed [email or web address] Information not available 07/07/2023 15:58:13 01/31/2024 MR brain wo and W contrast completed [address], [address], 02/01/2024 13:18:06 Procedure Notes None recorded. Medical Equipment None Reported. Allergies Allergen ID Allergen Name Allergen Category Reaction Reaction Severity Criticality Documentation Date Start Date Code Code System Note Provider Name and Address Organization Details Recorded Time 02325 omeprazol e medicatio n rash Not available Not available 06/25/2017 8784 RxNorm Josey cordova MD [address] [address], [facility] 8 13:54:05 8323 Pepcid medicatio n angioedem a Not available Not available 09/14/20132013 77805 8 RxNorm REACT ION: RIGHT ARM SWELL ING Humera Chad quevedo MA null, [facility] 7 16:07:06 Medications Name Sig Start Date [...] completed RECORDED 05/19/19 12 1:39PM BY JOSEY TOLDEO MD, MEDICATI ON AUTO-JOVITA CTIVATIO N; Not [...] 50 mcg/actua tion nasal spray,mary beth pension [place] 1 spray every day by intranas al [...] Adderall XR 25 mg capsule,e xtended release TAKE 1 CAPSULE EVERY DAY BY ORAL ROUTE FOR 30 DAYS, FOR ADHD. active Not Available Not Available No t Available bupropion HCl SR 200 mg tablet,12 hr [...] 07/29/19 14 12:26PM BY JOSEY TOLEDO MD, TRACEYATI ON/ADDEN DUM; Not Available Not Available Not [...] Available Not Available Not Available Flucelvax Quad 5892-3288 (PF) 60 mcg (15 mcg x 4)/0.5 mL IM syringe ADM 0.5ML IM UTD 03/05 completed Not Available Not Available Not Available [facility] ODT 75 mg disintegr ating tablet DISSOLVE 1 TABLET ON THE TONGUE EVERY OTHER DAY 01/20 completed 01/21/20 24-ON HOLD WILL DISCUSS WITH PROVIDER Not Available Not Available Not Available Flucelvax Quad (PF) 60 mcg (15 mcg x 4)/0.5 mL IM syringe ADM 0.5ML IM UTD 02/22 completed Not Available Not Available Not Available Qulipta 60 mg tablet TAKE 1 TABLET BY MOUTH EVERY DAY active Not Available Not Available No t Available Vitals Date Recorded Body height Provider Name an d Address Organization Details Last Updated DateTime 07/08/2023 165.1 cm Maura Haider MA [facility] 07/08/2023 10:14:56 Date Recorded Body height Body weight Body mass index (BMI) Heart rate Oxygen saturation Oxygen saturation in Arterial blood by Pulse oximetry Body temperature Systolic blood pressure Diastolic blood pressure Provider Name and Address Organization Details Last Updated DateTime 165.1 cm 59093.8 2 g 23.7 kg/m2 60 /min 98 % 98 % 98 [degF] 161 mm[Hg] 75 mm[Hg] Purvi Torres LPN [facility] 4 10:54:04 Date Recorded Body height Body mass index (BMI) Body weight Systolic blood pressure Diastolic blood pressure Provider Name and Address Organization Details Last Updated DateTime 08/15/2023 165.1 cm 25.1 kg/m2 78394.45 g 145 mm[Hg] 87 mm[Hg] Maura Haider MA [facility] 4 11:36:16 Date Recorded Systolic blood pressure Diastolic blood pressure Provider Name and Address Organization Details Last Updated DateTime 08/15/2023 158 mm[Hg] 84 mm[Hg] Ángela Lucero PA-C [address] [address], [place], [address], [facility] 08/15/2023 12:25:22 Date Recorded Body height Body mass index (BMI) Body weight Systolic blood pressure Diastolic blood pressure Provider Name and Address Organization Details Last Updated DateTime 01/21/2024 165.1 cm 26 kg/m2 77586.41 g 137 mm[Hg] 86 mm[Hg] Maura Haider MA [facility] 4 14:38:24 Date Recorded Body height Body mass index (BMI) Body weight Heart rate Oxygen saturation Oxygen saturation in Arterial blood by Pulse oximetry Body temperature Systolic blood pressure Diastolic blood pressure Provider Name and Address Organization Details Last Updated DateTime 4 165.1 cm 26.6 kg/m2 18097.7 8 g 101 /min 97 % 97 % 98 [degF] 121 mm[Hg] 82 mm[Hg] Maura Haider MA [facility] 4 14:08:27 Social History Question Answer Notes LastModified by Organizat ion Details LastModified Time Tobacco Smoking Status Never Smoker Not Available [facility] 01/04/2020 03:36:37 Do You Have An Advance Directive? Yes [facility] [email or web address] Information not available 10/03/2021 What Is Your Level Of Alcohol Consumption? None [id number] Information not available 01/04/2020 Is Blood Transfusion Acceptable In An Emergency? Yes [id number] Information not available 01/04/2020 What Is Your Level Of Caffeine Consumption? None [id number] Information not available 01/04/2020 How Much Tobacco Do You Chew? None [id number] Information not available 01/04/2020 Are You Currently Employed? Yes [id number] Information not available 01/04/2020 What Type Of Diet Are You Following? VEGETARIAN No Salt [id number] Information not available 01/04/2020 Which Illicit Or Recreational Drugs Have You Used? None [id number] Information not available 01/04/2020 Do You Or Have You Ever Used E-cigarettes Or Vape? 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 With Others 2 Children And 1 GC (born Late 2012) [email or web address] Information not available 10/03/2021 Do You Take Precautions To Prevent Distracted Driving? Yes Information not available 10/12/2015 How Often Do You Need To Have Someone Help You When You Read Instructions, Pamphlets, Or Other Written Material From Your Doctor Or Pharmacy? Never Information not available 10/12/2015 Have You Served In The ? No [email or web address] Information not available 03/25/2016 Have You Or Anyone In Your Household Had Any Of The Following Symptoms In The Last 14 Days: Sore Throat, Cough, Chills, Body Aches For Unknown Reasons, Shortness Of Breath For Unknown Reasons, Loss Of Smell, Loss Of Taste, Fever At Or Greater Than 100 Degrees Fahrenheit? No [email or web address] Information not available 02/23/2020 Are You Or Anyone In Your Household A Health Care Provider Or Emergency Responder? No [email or web address] Information not available 02/23/2020 To The Best Of Your Knowledge Have You Been In Close Proximity To Any Individual Who Tested Positive For COVID-19? No [email or web address] Information not available 02/23/2020 Have You Recently [...] available 02/23/2020 Seat Belts Used Routinely Yes [email or web address] Information not available 10/03/2021 Are You Sexually Active? No [id number] Information not available 01/04/2020 Smoke Alarm In Home Yes [email or web address] Information not available 10/03/2021 At What Age Did You Start Smoking Tobacco? 1 [id number] Information not available 01/04/2020 Are You Passively Exposed To Smoke? No [email or web address] Information not available 10/12/2015 Do You Or Have You Ever Used Smokeless Tobacco? Never Used Smokeless Tobacco [id number] Information not available 01/04/2020 How Much Tobacco Do You Smoke? No [id number] Information not available 01/04/2020 Do You Use Sunscreen Routinely? Yes [id number] Information not available 01/04/2020 How Many Years Have You Smoked Tobacco? 0 [id number] Information not available 01/04/2020 Do You Or Have You Ever Used Any Other Forms Of Tobacco Or Nicotine? No [email or web address] Information not available 10/03/2021 Sex: Unknown Functional Status Question Answer Note LastModified by Organizat ion Details LastModified Time Are you able to walk? YESWOREST [email or web address] Information not available 10/03/2021 Are you able to care for yourself? Yes [id number] Information not available 01/04/2020 What is your [...] Time zoster recombinant 0 completed KEVIN Conti [facility] 11/28/2021 12:49:12 Influenza, split virus, quadrivalent, preservative 0 completed KEVIN Conti [facility] 11/28/2021 12:49:12 COVID-19, mRNA, LNP-S, PF, 100 mcg/0.5mL dose or 50 mcg/0.25mL dose 1 completed KEVIN Conti [facility] 11/21/2021 08:31:51 COVID-19, mRNA, LNP-S, PF, 100 mcg/0.5mL dose or 50 mcg/0.25mL dose 1 completed KEVIN Marks [facility] 03/07/2021 11:29:55 Influenza, split virus, trivalent, preservative 3 completed KEVIN Marks, [facility] 03/07/2021 11:29:55 Influenza, split virus, trivalent, preservative 2 completed KEVIN Marks, [facility] 03/07/2021 11:29:55 COVID-19, mRNA, LNP-S, PF, 100 mcg/0.5mL dose or 50 mcg/0.25mL dose 1 completed KEVIN Marks, [facility] 03/07/2021 11:29:55 Influenza, MDCK, quadrivalent, PF 9 completed KEVIN Marks, [facility] 03/07/2021 11:29:55 Influenza, split virus, trivalent, preservative 1 completed KEVIN Marks, [facility] 03/07/2021 11:29:55 Influenza, split virus, quadrivalent, PF 5 completed Not Available [facility] 03/20/2019 02:22:02 COVID-19, mRNA, LNP-S, PF, 100 mcg/0.5mL dose or 50 mcg/0.25mL dose 2 completed KEVIN Conti, [facility] 11/21/2021 08:31:51 COVID-19, mRNA, LNP-S, PF, phuc-sucrose, 30 mcg/0.3 mL 3 completed Purvi Torres LPN null, [facility] 07/09/2023 10:54:37 Influenza, split virus, quadrivalent, PF 6 completed Not Available [facility] 03/20/2019 02:22:04 Influenza, split virus, quadrivalent, PF 7 completed Not Available [facility] 03/20/2019 02:22:10 Influenza, split virus, quadrivalent, PF 8 completed Not Available [facility] 03/20/2019 02:22:15 Tdap 0 completed KEVIN Briseno, [facility] 08/11/2019 11:36:19 Influenza, split virus, trivalent, PF 4 completed Not Available [facility] 03/20/2019 02:21:58 Tdap 9 completed Not Available [facility] 11/26/2019 18:22:26 Influenza, split virus, quadrivalent, PF 3 completed Josey Winchester MD [address], [address], [facility] 01/10/2023 13:40:02 Past Encounters Encounter ID Performer Location Encounter Start Date Encounter Closed Date Diagnosis/Indication Diagnosis SNOMED-CT Code Diagnosis ICD10 Code Diagnosis Note [id number] [facility] [id number] [facility] [place] [address] 04/09/2007 00:00:00 [id number] auto[facility] erce [id number] [facility],[address] [place] [address] 05/06/2007 00:00:00 [id number] auto[facility] erce [address] [facility],[address] [place] [address] 06/23/2008 00:00:00 [id number] auto[facility] erce [address] [facility],[address] [place] [address] 07/06/2008 00:00:00 [id number] [facility] er[facility] [address] [facility],[address] [place] [address] 08/11/2008 00:00:00 [id number] [facility] erce [address] [facility],[address] [place] [address] 04/21/2009 00:00:00 [id number] [facility]ce [address] [facility] [place] [address] 05/19/2009 00:00:00 [id number] [facility] erce [address] [facility] [place] [address] 07/19/2009 00:00:00 [id number] [address] erce [address] [place] [address] 04/10/2010 00:00:00 [id number] auto[facility] erce [address] [place] [address] 05/15/2010 00:00:00 [id number] [facility] erce [address] [place] [address] 07/04/2010 00:00:00 [id number] auto[facility] erce [address] [place] [address] 09/12/2010 00:00:00 [id number] auto[facility] erce [address] [place] [address] 10/17/2010 00:00:00 [id number] auto[facility] erce [address] [place] [address] 09/12/2011 00:00:00 [id number] auto[facility] erce [address] [place] [address] 03/26/2012 00:00:00 [id number] [facility] er[facility] [address] [place] [address] 04/27/2012 00:00:00 [id number] [facility] er[facility] [address] [place] [address] 09/21/2012 00:00:00 [id number] auto[facility] erce [address] [place] [address] 02/16/2013 00:00:00 [id number] auto[facility]Comm erce [address] [place] [place] [address] 07/07/2013 00:00:00 [id number] Liseth Vasquez Main Office [address] [place] [address] 01/11/2014 13:22:21 01/11/2014 14:42:04 Needs influenza immunization 205147110 Essential hypertension 64273884 Attention deficit hyperactivity disorder, predominantly inattentive type 68543212 Pure hypercholesterolemia 944478720 Screening for malignant neoplasm of breast 061000334 Screening for malignant neoplasm of colon 368253657 [id number] Liseth Pedro Main Office [address] [address] [place] [address] 07/11/2014 13:41:12 07/11/2014 14:48:21 Adult health examination 244484414 Screening for malignant neoplasm of colon 703664299 Pure hypercholesterolemia 276968196 has trouble with meds. Will recheck and look at risk calculator before starting another med. Essential hypertension 80744392 well controlled with current meds Irritable bowel syndrome 82673957 well-contr olled with current meds and diet. [id number] Main Office [address] [address] [place] [address] 12/03/2014 08:47:01 12/03/2014 09:43:49 Migraine 55434037 G43.009 will restart a triptan which she took years ago and she will call if it isn't helping. Plantar fasciitis 775137 003 M72.2 she will try exercises and will call if it persists. [id number] Josey Winchester MD Main Office [address] [address] [place] [address] 01/23/2015 10:38:25 01/23/2015 11:28:45 Essential hypertension 67781118 I10 no longer controlled . We will go up on her meds and she will call if the BP is >140/90. Pure hypercholesterolemia 673122061 E78.0 trouble on meds. Recheck cholestero l Needs infl uenza immunization 057230889 Z23 Screening for malignant neoplasm of colon 662463165 Z12.11 Screening for malignant neoplasm of cervix 178426054 Z12.4 Attention deficit hyperactivity disorder, predominantly inattentive type 75725209 F90.0 [id number] Josey Winchester MD Main Office [address] [address] [place] [address] 10/12/2015 09:22:54 10/12/2015 10:14:44 Adult health examination 271290467 Z00.00 UTD with immunizati ons, colonoscop y, mammogram and [employer] care. Essential hypertension 81659972 I10 we will stop her metoprolol to see if her fatigue improves. Start a CCB and see her back in 1 month. Fatigue 73040049 R53.83 this may be secondary to metoprolol so will stop and start another BP med. Irritable bowel syndrome 69020234 K58.9 well-contr olled with current meds and diet. [id number] Josey Winchester MD Main Office [address] [address] 11/14/2015 15:44:42 11/14/2015 17:02:57 Essential hypertension 45140900 I10 Her fatigue has persisted despite stopping the metoprolol . BP mildly elevated on the amlodipine so will increase the dose. Needs infl uenza immunization 142708144 Z23 Migraine 95074065 G43.00 9 Possibly returned since stopping the bets cherelle for her BP. Will start a different beta cherelle and she will call if it persists. [id number] Tk lopez Main Office [address] [address] 02/27/2016 10:23:45 02/27/2016 11:54:18 Fever 539395273 R50.9 40 minute office visit with greater than 50% of the visit face-to-fa ce with the patient and/or family providing counseling and/or coordinati on of care. Cough 74168296 R05 Nausea and vomiting 1693 2000 R11.2 Diarrhea 94360183 R19.7 Fatigue 85432441 R53.83 [id number] Josey Winchester MD Main Office [address] [address] 03/05/2016 15:42:55 03/06/2016 12:56:57 Pneumonia 028634714 J18.9 encouraged deep breaths at least hourly to hopefully diminish need for albuterol, also rec. walk on elliptical machine at low intensity to slowly build up her endurance. will give cxr at next f/u to recheck in 2 wks Essential hypertension 51743668 I10 mildly elevated - advised pt to cont to monitor qd, and will consider re-initiat ing bp med if cont. to trend high 25 minute office visit with greater than 50% of the visit face-to-fa ce with the patient and/or family providing counseling and/or coordinati on of care. [id number] Josey Winchester MD Main Office [address] [address] [place] [address] 03/25/2016 13:15:02 03/25/2016 14:04:38 Essential hypertension 99699183 I10 stable, not on meds - used bp med a few yrs ago - rec. cont healthy diet (low salt) and exercise 25 minute office visit with greater than 50% of the visit face-to-fa ce with the patient and/or family providing counseling and/or coordinati on of care. Pneumonia 832664517 J18. 9 cont to stay active, rec occ deep breaths. will give cxr to verify resolution of pna [id number] Josey Winchester MD Main Office [address] [place] [address] [place] [address] 07/08/2016 11:22:37 07/08/2016 12:11:21 Allergic rhinitis 86828875 J30.9 We will see her back in a few weeks to recheck her adenopathy . No B symptoms. [id number] Josey Winchester MD Main Office [address] [address] [place] [address] 08/15/2016 15:59:01 08/15/2016 17:02:56 Acute sinusitis 46494037 J01.90 Pt. told to get some sudafed, cont OTCs and have yogurt or get a probiotic while on the Abx. [id number] Josey Winchester MD Main Office [facility] [address] [place] [address] 11/18/2016 09:33:44 11/18/2016 10:23:06 Adult health examination 727275410 Z00.00 UTD with immunizati ons, colonoscop y, mammogram and [employer] care. Needs infl uenza immunization 115510658 Z23 Essential hypertension 85663964 I10 She will follow her BP at home and we will call in a few weeks to see how it has been running. Migraine 92849333 G43.00 9 Hyperlipidemia 47072911 E78.5 has trouble with meds. Will recheck and look at risk calculator before starting another med. [id number] Josey Winchester MD Main Office [address] [place] [address] [place] [address] 05/21/2017 12:49:18 05/21/2017 14:09:17 Essential hypertension 28289193 I10 Will restart meds and she will return for a recheck in 1 month. Easy bruising 593939280 R58 [id number] Josey Winchester MD Main Office [address] [address] [place] [address] 06/25/2017 13:18:55 06/25/2017 13:56:11 Essential hypertension 00970917 I10 Taking meds daily and tolerating them well. BP under good control. Migraine 03988014 G43.00 9 stable on prophylaxi s. [id number] Josey Winchester MD Main Office [address] [address] [place] [address] 11/06/2017 12:58:57 11/06/2017 14:04:51 Carpal tunnel syndrome 11849560 G56.02 She will take aleve twice a day. [id number] Josey Winchester MD Main Office [facility] [address] [address] [place] [address] 12/03/2017 12:43:02 12/03/2017 13:40:40 Needs influenza immunization 768344933 Z23 Screening for malignant neoplasm of breast 899148572 Z12.39 Essential hypertension 17600210 I10 She will restart her meds at a lower dose. She understand s that this is especially important in light of the fact she is going back on adderall. Attention deficit hyperactivity disorder, predominantly inattentive type 51030098 F90.0 Having trouble with focus. This helped in the past. [id number] Josey Winchester MD Main Office [address] [address] [place] [address] 01/28/2018 13:04:32 01/28/2018 13:49:10 Adult health examination 925515542 Z00.00 UTD with immunizati ons, colonoscop y (due again in 2025) mammogram. 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 Essential hypertension 08011119 I10 Her BP is running high so we will increase her dose of atenolol and see her back in 1 month. Attention deficit hyperactivity disorder, predominantly inattentive type 48295490 F90.0 We start 15 mg bid since the 30 mg XL dose wears off before the end of her work day. Screening for malignant neoplasm of breast 220689490 Z12.39 [id number] Josey Winchester MD Main Office [address] [address] [place] [address] 02/18/2018 11:19:47 02/18/2018 11:50:35 Attention deficit hyperactivity disorder, predominantly inattentive type 99531235 F90.0 we will d/c her adderall and start strattera. She will call in a couple of weeks if it is not helping and we will go up on the dose. If still not working at the end of March we will try a different med. Essential hypertension 29338789 I10 Good control with increased dose of meds. Continue current mgmt. [id number] Josey Winchester MD Main Office [address] [address] [place] [address] 08/06/2018 15:37:38 08/06/2018 16:31:45 Fatigue 83373965 R53.83 No clear etiology. Hypokalemia 57515250 E87 .6 Corrected as an inpatient; secondary to diuretic. Essential hypertension 72835380 I10 Currently normotensi ve off meds. Possibly secondary to her adderall. She will monitor her BP and will call if/when she restarts her adderall. Attention deficit hyperactivity disorder, predominantly inattentive type 07254831 F90.0 Has adderall and will restart when needed. [id number] Josey Winchester MD Main Office [address] [place] [address] 08/19/2018 12:31:49 08/19/2018 13:22:34 Essential hypertension 70792928 I10 Currently normotensi ve off meds. Possibly secondary to her adderall. She will monitor her BP and will call if/when she restarts her adderall. Fatigue 11948381 R53.83 No clear etiology. We spoke about lifestyle issues such as exercise, good diet and adequate sleep and she will work on these. [id number] Josey Winchester MD Main Office [address] [place] [address] 10/06/2018 14:38:47 10/06/2018 15:31:59 Renal angle tenderness 243125613 R10.829 Possible muscular. The urine is normal. Will treat with NSAIDs for a week and if her pain persists will consider an U/S. Gastroesop hageal reflux disease 498950898 K21.9 Essential hypertension 68530094 I10 BP went back up after stopping the adderall and initially seeing a normalizat ion of her BP. [id number] Josey Winchester MD Main Office [address] [address] [place] [address] 12/23/2018 15:52:51 12/23/2018 16:40:53 Allergic conjunctivitis 020650651 H10.12 Instructio ns to call if develops vision problems or pain. [id number] Josey Winchester MD Main Office [address] [address] [place] [address] 02/17/2019 13:41:37 02/17/2019 14:42:10 Adult health examination 862860100 Z00.00 Will update her immunizati ons today, colonoscop y (due again in 2025) and UTD w/mammogra m. 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 Varicella vaccination 68 782384 Z23 Skin lesion 98250784 L98 .9 [id number] Josey Winchester MD Main Office [address] [address] [place] [address] 03/05/2019 13:52:06 03/05/2019 14:54:54 Fever 944503360 R50.9 Cough 24358530 R05 Muscle pain 64592347 M79 .10 [id number] Kavita Gary [facility] [address] [facility] [address] [place] [address] 07/30/2019 13:51:26 08/02/2019 08:34:33 Counseling 890596163 Z71.9 Health advice, education or counseling done for COVID 19, pt not able to be offered testing as she does not have symptoms. She will request testing through her employer. Call immed if any sx come up including cough, fever, SOB or uri sx [id number] Josey Winchester MD Main Office [address] [facility] [address] [place] [address] 08/11/2019 10:50:11 08/11/2019 11:48:11 Essential hypertension 34505889 I10 C/w BP meds. Running a little high today. She will follow. Attention deficit hyperactivity disorder, predominantly inattentive type 17104178 F90.0 Has adderall and uses it prn. Hyperlipidemia 19551476 E78.5 Has been taking statin 3 times a week and tolerating it well. Administra tion of viral vaccine 76538600 Z23 [id number] Josey Winchester MD Main Office [address] [address] [place] [address] 02/23/2020 13:01:50 02/23/2020 13:48:20 Adult health examination 139962410 Z00.00 Will update her immunizati ons today, colonoscop y (due again in 2025) and UTD w/mammogra m. 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 We discussed exercise while also keeping safe during the pandemic. Migraine 33901267 G43.00 9 Was helped by prophylaxi s in the past and will restart the topamax. Hyperlipidemia 42852642 E78.5 Has been taking statin 3 times a week and tolerating it well. Essential hypertension 96442500 I10 C/w BP meds. [id number] Josey Winchester MD Main Office [address] [address] [place] [address] 08/23/2020 12:51:26 08/23/2020 13:54:13 Essential hypertension 07943270 I10 Stopped BP meds because of her hair loss. Beta blockers and diuretics may contribute to this so we will start a CCB and see her back in month. Loss of hair 962867910 L 65.9 No clear etiology. May be genetic. May be related to hair styling and may be related to meds. We stopped her beta cherelle and diuretic and statin. Hyperlipidemia 99233957 E78.5 Stopped the statin for now since may be adding to her hair loss. We will monitor. [id number] Josey Winchester MD Main Office [address] [facility] [address] [place] [address] 09/20/2020 14:48:28 09/20/2020 15:20:52 Essential hypertension 18337204 I10 Stopped BP meds because of her hair loss. Beta blockers and diuretics may contribute to this so we will start a CCB and see her back in month. Migraine 47532597 G43.00 9 Stopped the topamax which was helping because she felt that it was contributi ng to her hair loss. She will try sumatripta n for treatment and will call if her headaches continue. Loss of hair 433424908 L 65.9 No clear etiology. May be genetic. May be related to hair styling and may be related to meds. We stopped her beta cherelle and diuretic and statin. She has an upcoming derm appointmen t in early November. [id number] Ángela Lucero PA-C Main Office [address] [address] [place] [address] 10/20/2020 08:39:54 10/20/2020 09:31:30 Fatigue 75291759 R53.83 r/o anemia, diabetes, renal disease, thyroid dysfunctio n. Multiple joint pain 3567 8005 M25.50 R/o RA, Lymes disease Screening for malignant neoplasm of breast 159006368 Z12.39 Screening for malignant neoplasm of cervix 157107714 Z12.4 Vitamin D deficiency 347 30465 E55.9 [id number] Ángela Lucero PA-C [facility] [address] [address] [place] [address] 11/27/2020 12:55:36 11/27/2020 15:49:22 Multiple joint pain 86054460 M25.50 elevated ESR and CRP. PT. will proceed with seeing rheumatolo gist and continue taking turmerican d MSM. [id number] Josey Winchester MD Main Office [address] [address] [place] [address] 03/07/2021 10:41:20 03/07/2021 12:00:41 Adult health examination [id number] Z00.00 She is UTD with immunizati ons including COVID along with her booster but she is due for her second shingles. She is also UTD w/colonosc opy (due again in 2025) and UTD w/mammogra m. 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 We discussed exercise while also keeping safe during the pandemic. Essential hypertension [id number] I10 She's on a low dose of nifedipine and her BP is under good control. Hyperlipidemia 36453090 E78.5 Stopped the statin for now since may be adding to her hair loss. We will monitor. [id number] Josey Winchester MD Main Office [address] [place] [address] 10/03/2021 11:21:18 10/03/2021 12:09:09 Essential hypertension 22263938 I10 She's on a low dose of nifedipine and her BP is running high. We will increase the dose from 30 to 90 mg and recheck in 1 month. [id number] Josey Winchester MD Main Office [facility] [address] [place] [address] 10/31/2021 12:42:04 10/31/2021 13:19:44 Essential hypertension 87828309 I10 Still not with adequate control on nifedipine 90 mg. She will continue with that and we will start a diuretic. We went over foods high in potassium and she will get this checked before her next appointmen t. [id number] Josey Winchester MD Main Office [facility] [address] [place] [address] 11/28/2021 12:38:40 11/28/2021 13:40:47 Seronegative rheumatoid arthritis [id number] M06.[address] Mitchell and on meds. Essential hypertension 70731041 I10 Better control since adding diuretic. Mildly reduced potassium at 3.4. We will recheck level in a month. Cough 83319036 R05.9 She has not yet tested for COVID. Drug-induc ed hypokalemia 115391782 E87.6 Induced by diuretic. Will concentrat e on foods w/potassiu m and recheck in one month. Hyperlipidemia 39948842 E78.5 Cannot tolerate a statin. Will look into options. [id number] Josey Winchester MD [facility] [address] [place] [address] 08/08/2022 12:24:46 08/20/2022 08:15:54 Multiple sclerosis 82205361 G35 This is a new dx. She saw Dr Rausch as an inpatient at [facility] and will follow with him as on outpatient . She is not currently on any meds. Migraine 18521472 G43.00 9 She would like to restart the topamax because she has been getting more frequent headaches. Optic neuritis 96003594 H46.9 H46.03 Followed by both ophtho and neurology. Her vision has been improving. She is still not driving and is waiting to be cleared by neurology. [id number] Paula Gill MA Main Office [address] [facility] [address] [facility] [place] [address] 10/23/2022 15:35:43 10/23/2022 16:11:23 Lump on face 701592295 R22.0 Tender lesion at left jaw line Benign int racranial hypertension 96115188 G93.2 She is followed by neurology and started on acetazolam edvin. [id number] Rina Alvarado MD Main Office [address] [facility] [address] [facility] [place] [address] 12/04/2022 08:52:21 12/04/2022 09:23:37 Pre-surgery evaluation 821691499 Z01.818 No medical contraindi cations to proposed procedure. Behzad Perioperat roxann Cardiac Risk was calculated and the risk for perioperat roxann [place] is <1%. May proceed to surgery as planned. Essential hypertension 54550949 I10 stable at homein office BP- 133/84 Cataract 379377974 H26.9 [id number] Josey Winchester MD Main Office [address] [facility] [address] [facility] [place] [address] 01/08/2023 09:55:30 01/08/2023 10:59:38 Adult health examination 716969692 Z00.00 She is UTD with immunizati ons including COVID along with her booster but she is due for her second shingles. She is also UTD w/colonosc opy (due again in 2025) and UTD w/mammogra m. 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 We discussed exercise and she remains very active. Needs infl uenza immunization 344808699 Z23 History of SARS-CoV-2 29 [id number] 02851313 Z86.16 mild symptoms; cough Hyperlipidemia 60582167 E78.5 Cannot tolerate a statin. Levels on repeat blood work look good. No meds needed. Thyroid nodule 611623729 E04.1 She is scheduled for an US 01/21/23. Essential hypertension 15976785 I10 We stopped her diuretic because of hypokalemi a but her BP has increased. We will continue to follow it before adding any meds. Attention deficit hyperactivity disorder, predominantly inattentive type 86941628 F90.0 Has adderall and uses it prn. Seronegati ve rheumatoid arthritis 756966258 M06.[address] Mitchell and on meds. Multiple sclerosis 16863 007 G35 This is a new dx. She saw Dr Rausch as an inpatient at [facility] and now followed by Dr Naz bryson and is on acetazolam edvin. [id number] Giovanni Lucero PA-C [facility] [address] [place] [address] 07/08/2023 09:22:38 07/08/2023 11:05:07 COVID-19 188399529 U07.1 dx'd in ER on 5.3 - [...] if at all possible see below Cough 68808051 R05.9 most likely has p covid pnawill rx c abxrecomme nd probiotics while on abxsee above/belo w Pneumonia 044003857 J18. 9 see above [id number] Karelysary Bonillavedo Main Office [address] [place] [address] 07/09/2023 10:32:41 07/09/2023 11:31:51 History of idiopathic intracranial hypertension [id number] 5128599 Z86.69 Having headaches that are not adequately treated with meds and having a difficult time concentrat ing. Headache 09264403 R51.9 Transition of care from emergency department to self-care [id number] 67428 Z76.89 Reviewed [id number] Ángela Lucero PA-C Main Office [address] [facility] [address] [place] [address] 08/15/2023 11:32:08 08/15/2023 12:27:56 Essential hypertension 59136056 I10 Elevated BP today though has not taken antihypert ensives. Continue to monitor and cont antihypert ensives, low sodium diet. She has a history of elevated BP readings while on nifedipine so will obtain microalbum in and follow up in one month for reassessme nt. Edema of l ower extremity 763319360 R60.0 Will start on Lasix 20 mg PO daily. Will check BMP in one week to assess potassium and renal function. [id number] Josey Winchester MD Main Office [address] [facility] 207 [place] [address] 01/21/2024 14:18:10 01/21/2024 15:24:56 Adult health examination 493921879 Z00.00 She is UTD with immunizati ons including COVID along with her booster but she is due for her second shingles. She is also UTD w/colonosc opy (due again in 2025) and UTD w/mammogra m. 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 We discussed exercise and she remains very active. Insomnia 649069739 F51.0 1 She will try gabapentin at bedtime. 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 Essential hypertension 52372771 I10 We stopped her diuretic because of hypokalemi a but her BP has increased. We will continue to follow it before adding any meds. Migraine 74327111 G43.00 9 She currently uses Excedrin migraine which helps. Hyperlipidemia 75903684 E78.5 Taking atorvastat in 40 mg and tolerating it well. Seronegati ve rheumatoid arthritis 875778792 M06.[address] Mitchell and on meds but they don't seem to be helping. She will discuss this with Dr Mitchell. Visual disturbance 71846 001 H53.9 [id number] Josey Winchester MD Main Office [address] [facility] [address] [facility] [place] [address] 02/18/2024 14:02:25 02/18/2024 14:33:28 Anxiety disorder 466748289 F41.9 Not currently on meds and this is in remission. Attention deficit hyperactivity disorder, predominantly inattentive type 68800961 F90.0 Taking adderall XR 20 mg which has been helpful but it wears off around lunchtime. Will try a higher dose and she will call if it is not helpful. Essential hypertension 99824464 I10 We stopped her diuretic because of [...] Cantu Member ID Guarantor Name 07/08/2023 1 [facility] [id number] 01 Shey Griffinston [id number] Shey Henriquez 07/09/2023 1 [facility] [id number] 01 Shey Henriquez [id number] Shey Henriquez 08/15/2023 1 [facility] [id number] 01 Shey Henriquez [id number] Shey Henriquez 01/21/2024 1 [facility] ([facility] [id number] Shey Henriquez [id number] Shey Henriquez 02/18/2024 1 [place]: [facility] Shey Griffinston [id number] Shey Henriquez Notes Date Note Type Note Provider Name and Address Organization Details Recorded Time 07/08/2023 text/html Phone visit-PT t ested covid+ at ER on 07/03 but was not given any medication; PT looking for medicationreviewed ER note - had normal cxr, pt stated she was feeling better - so no covid tmt given - advised supportive measurespt states myalgias, fatigue, cough have persistedno sob, wheezing, pur nasal dchas been using no otc meds Giovanni Lucero PA-C [address] [address], [place], [address], [facility] 07/08/2023 10:52:34 07/09/2023 text/html Having a h/o [...] with cognitive abilities and focus. Karely bentley, [facility] 07/18/2023 10:50:02 08/15/2023 text/html 58 yo female [...] her antihypertensives today. Ángela Lucero PA-C [address] [address], [place], [address], [facility] 08/15/2023 13:17:32 01/21/2024 text/html Generic HPI TemplateReported bypatient.Notes:She has sero-negative RA and mild MS. She is followed by specialists for each and has multiple joint pains that are not controlled by current treatment.UTD w/COVID, tetanus and flu vaccines. Josey Winchester MD [address] [address], [place], [address], [facility] 01/22/2024 17:49:35 02/18/2024 text/html ADHDReported bypatient.School Performance:improving [...] after about 4 hours. Josey Winchester MD [address], [address], [facility] 02/18/2024 15:39:06 OBGyn Episode No OBEpisode recorded.
--- OUTSIDE RECORDS SUMMARY | 2024-04-20 12:51 | XMS_ITS | Clinical Summary ---
Author Organization [facility] Address [address] [place] [address] Phone Care Team Providers Care 3Rd Pressman Name Role Phone Luis Miguel Winchester MD Primary Care Provider [phone]- [phone] Allergies No known active allergies Medications aspirin 81 mg EC tablet Take 1 [...] mouth 3 (three) times a day. Active amphetamine-dex troamphetamine XR (ADDERALL XR) 30 mg 24 hr capsule Take 3 capsules (90 mg total) by mouth 1 (one) time each day in the morning. Do not crush or chew. Max Daily Amount: 90 mg Active furosemide (LASIX) 20 mg tablet Take by mouth. Active Encounters Date Type Department Care Team Description 02/04/2024 2:00 PM EST Office Visit [facility] [address] [facility] [address] [place] [address] Rod Howard MD Cerebrovascular accident (CVA), unspecified mechanism (CMS/HCC) (Primary Dx); IIH (idiopathic intracranial hypertension); Migraine with aura and without status migrainosus, not intractable; Other fatigue 01/31/2024 12:51 PM EST - 01/31/2024 11:59 PM EST Hospital Encounter [facility] MRI [address] [place] [id number] White matter disease Discharge Disposition: Home or [...] drink = 0.6 oz pur e alcohol) Comments Unknown Sex and Gender Information Value Date Recorded Sex Assigned at Not on file Legal Sex Female 8:40 PM EST Gender Identity Not on file Sexual Orientation Not on file Obstetrics History Last Filed [...] Description 05/12/2024 1:30 PM EDT Office Visit [facility] [address] [facility] [address] [place] [phone] Farzana German, FAIZA [address] [facility] [place] [address] Health Maintenance Due Date Last Done Comments Cervical Cancer Screening: Pap Smear 02/05/1985 Pneumococcal Vaccine: 50+ Years (2 of 2 - PCV) 07/25/2019 07/24/2018 Zoster Vaccines (2 of 2) 01/18/2020 11/23/2019 [...] patient's age to complete this topic Meningococcal B Vacine Aged Out No lo nger eligible based on patient's age to complete [...] Signed Date: 01/31/2024 15:16 ET Workstation ID: [id number] Transcribed By: Self Edit Transcribed Date: 01/31/2024 [...] Signed Date: 01/31/2024 15:16 ET Workstation ID: [id number] Transcribed By: Self Edit Transcribed Date: 01/31/2024 15:13 ET Rod Howard MD IMG MRI PROCEDURES Final Result from Last 3 Months Insurance MEDICAID - [place] Care Teams 3Rd Pressman Relationship Specialty Start Date End Date Luis Miguel Winchester MD [address] [address] PCP - General 08/08/22
[2024-04-20 18:08] LABS: Alanine Aminotransferase 32 U/L (0-31); Alkaline Phosphatase 118 U/L (39-117); Aspartate Amino Transferase 32 U/L (5-31); Bilirubin Direct 0.2 mg/dL (0.0-0.5); Bilirubin Total 0.4 mg/dL (0.0-1.0); Total Protein 7.3 g/dL (6.5-8.0)
[2024-04-23 07:03] LABS: TSpotTB Invalid (Negative)
== END 2024-04-20 11:40 | disposition home or self-care (01) ==
LOC: HO.HKASLDS 11:39
PROVIDERS: Visit Provider Internal Medicine Rheumatology
DX: R74.01 Elevation of levels of liver transaminase levels (principal); M06.09 Rheumatoid arthritis without rheumatoid factor, multiple sites; Z79.899 Other long term (current) drug therapy
CPT/HCPCS: 36415; 80076; 86481

== ENCOUNTER 2024-05-07 12:47 | Outpatient (REF) | payer MEDICAID, SELFPAY ==
--- NOTE | 2024-05-07 12:50 | EMG_ITS ---
Chief complaint: History of RA. At least 3 years of bilateral hand pain and numbness, right worse than left. Also has chronic neck pain. Reason for referral: Evaluate for Carpal Tunnel Syndrome Referred by: Dr. Carreon Procedure done: Bilateral upper extremities NCS/EMG Precautions and/or limitations: None The limb temperature was monitored continuously and remained between 32-36 degrees C during the performance of the NCS. Ulnar motor NCS was performed with moderate elbow flexion between 70-90 degrees, with across-elbow distance of 10 cm. Nerve Conduction Studies Anti Sensory Summary Table ?Stim Site NR Onset (ms) Norm Onset (ms) Peak (ms) Norm Peak (ms) O-P Amp (?V) Norm O-P Amp Site1 Site2 Delta-0 (ms) Dist (cm) Rocky (m/s) Norm Rocky (m/s) Left Median Anti Sensory (2nd Digit) Wrist ? 2.8 3.9 <3.6 45.7 >10 Wrist 2nd Digit 2.8 14.0 50 Right Median Anti Sensory (2nd Digit) Wrist ? 2.8 4.1 <3.6 57.7 >10 Wrist 2nd Digit 2.8 14.0 50 Right Radial Anti Sensory (Thumb) Forearm ? 1.7 2.6 <3.1 30.1 Forearm Thumb 1.7 0.0 Left Ulnar Anti Sensory (5th Digit) Wrist ? 3.0 3.7 <3.7 24.6 >15.0 Wrist 5th Digit 3.0 14.0 47 Right Ulnar Anti Sensory (5th Digit) Wrist ? 2.9 3.9 <3.7 36.2 >15.0 Wrist 5th Digit 2.9 14.0 48 Motor Summary Table ?Stim Site NR Onset (ms) Norm Onset (ms) O-P Amp (mV) Norm O-P Amp iAmp (mV) Amp (1st) (%) Site1 Site2 Delta-0 (ms) Dist (cm) Rocky (m/s) Norm Rocky (m/s) Left Median Motor (Abd Poll Brev) Wrist ? 4.1 <3.9 9.1 >4.5 11.5 100.0 Elbow Wrist 3.9 20.0 51 >45 Elbow ? 8.0 9.2 11.7 101.1 Right Median Motor (Abd Poll Brev) Wrist ? 4.4 <3.9 12.9 >4.5 15.2 100.0 Elbow Wrist 4.1 20.5 50 >45 Elbow ? 8.5 12.6 14.9 97.7 Left Ulnar Motor (Abd Dig Minimi) Wrist ? 4.0 <3.0 6.3 >5 8.0 100.0 B Elbow Wrist 3.5 20.0 57 >45 B Elbow ? 7.5 5.7 7.4 90.5 A Elbow B Elbow 1.7 10.0 59 >45 A Elbow ? 9.2 6.8 8.6 107.9 Right Ulnar Motor (Abd Dig Minimi) Wrist ? 3.4 <3.0 9.7 >5 11.5 100.0 B Elbow Wrist 4.3 20.0 47 >45 B Elbow ? 7.7 9.7 11.6 100.0 A Elbow B Elbow 1.6 10.0 62 >45 A Elbow ? 9.3 9.5 11.5 97.9 Right Ulnar Motor (FDI) Wrist ? 4.6 <3.0 9.5 >5 11.4 100.0 B Elbow Wrist 3.8 20.5 54 >45 B Elbow ? 8.4 9.1 10.8 95.8 A Elbow B Elbow 1.7 10.0 59 >45 A Elbow ? 10.1 9.2 11.0 96.8 EMG ?Side Muscle Nerve Root Ins Act Fibs Psw Amp Dur Poly Recrt Int Pat Comment Right FlexCarpiUln Ulnar C8,T1 Nml Nml Nml Nml Nml 0 Nml Complete Right 1stDorInt Ulnar C8-T1 Incr 1+ 1+ Nml Nml 0 Nml Complete Right Biceps Musculocut C5-6 Nml Nml Nml Nml Nml 0 Nml Complete Right Triceps Radial C6-7-8 Nml Nml Nml Nml Nml 0 Nml Complete Right Deltoid Axillary C5-6 Nml Nml Nml Nml Nml 0 Nml Complete Left 1stDorInt Ulnar C8-T1 Incr 1+ 1+ Nml Nml 0 Nml Complete Left Biceps Musculocut C5-6 Nml Nml Nml Nml Nml 0 Nml Complete Left Triceps Radial C6-7-8 Nml Nml Nml Nml Nml 0 Nml Complete Left Deltoid Axillary C5-6 Nml Nml Nml Nml Nml 0 Nml Complete Left FlexCarpiUln Ulnar C8,T1 Incr 1+ 1+ Nml Nml 0 Nml Complete Paraspinal EMG ?Side Muscle Nerve Root Ins Act Fibs Psw Comment Right Cervical Upper Rami Nml Nml Nml Right Cervical Mid Rami Nml Nml Nml Right Cervical Lower Rami Nml Nml Nml Left Cervical Upper Rami Nml Nml Nml Left Cervical Mid Rami Nml Nml Nml Left Cervical Lower Rami Incr 1+ 1+ FINDINGS: Bilateral median motor nerves showed prolonged distal latency, normal amplitude and normal conduction velocity. Right ulnar motor nerves showed prolonged distal latency, normal amplitude and normal conduction velocity. Bilateral median sensory nerves showed prolonged peak latency. Right ulnar sensory nerve showed prolonged peak latency. All other nerves tested were within normal. Concentric needle EMG was performed in selected muscles of the bilateral upper extremities and cervical paraspinals. Study revealed signs of electric abnormalities as shown in the table above. Left FCU and FDI showed increased insertional activity, PSWs and fibrillations. Right FDI showed increased insertional activity, PSWs and fibrillations. Left lower cervical paraspinals showed increased insertional activity. IMPRESSION: 1. This is an abnormal study. 2. There is electrodiagnostic evidence for bilateral vprqxjyn-he-cvbsdw median neuropathy at the wrist, consistent with Carpal Tunnel Syndrome. 3. There is also electrodiagnostic evidence for either lower cervical radiculopathy affecting C8 level vs an ulnar neuropathy at the elbow. See clinical comment. CLINICAL COMMENT: 1. Findings on left side appear more consistent with a C8 cervical radiculopathy given denervation seen on needle EMG of C8-innervated muscles and cervical paraspinals, and normal left ulnar sensory nerve. 2. Findings on right side appear more consistent with ulnar neuropathy. 3. Further clinical correlation recommended. Thank you for your kind referral. Gris Beasley MD, MONIQUE Board Certified, [place] Board of Physical Medicine and Rehabilitation (ABPMR) Board Certified, [place] Board of Electrodiagnostic Medicine (ABEM) CODIN [phone] x 2 MTDD
--- OUTSIDE RECORDS SUMMARY | 2024-05-07 14:23 | XMS_ITS | Clinical Summary ---
Author Organization [facility] Address [address] [place] [address] Phone Care Team Providers Care Property Management Assistant Name Role Phone Luis Miguel Winchester MD Primary Care Provider +1- [phone] Allergies No known active allergies Medications aspirin [...] 20 mg tablet Take by mouth. Active Surgical History Surgery Date Site/Laterality Comments HYSTERECTOMY [...] Care Team (Late st Contact Info) Description 05/26/2024 2:30 PM EDT Office Visit [facility] [address] [facility] [address] [place] [address] [address] [place] [address] Health Maintenance Due Date Last Done Comments [...] on patient's age to complete this topic Insurance MEDICAID - [place] Care Teams Property Management Assistant Relationship Specialty Start Date End Date Luis Miguel Winchester MD [address] [place] [address] PCP - General 08/08/22
--- OUTSIDE RECORDS SUMMARY | 2024-05-07 14:23 | XMS_ITS | Data Portability ---
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 Patient consented to video & audio visit Patient was located in the [facility]. Provider was located in the office. No [...] lipid panel, serum 2023 024 JORDEN [facility] (Centralized Electronic Ordering - All Locations), Patient Can Go To The Location Of Their Choice, [id number] 01/22/2024 08:10:05 BMP, serum or plasma 2023 024 JORDEN [facility] (Centralized Electronic Ordering - All Locations), Patient Can Go To The Location Of Their Choice, [address] 08/21/2023 14:07:05 microal bumin/c reatini ne, mass ratio, urine 2023 024 ALHAMBRA [facility] (Centralized Electronic Ordering - All Locations), Patient Can Go To The Location Of Their Choice, [address] 08/21/2023 14:07:05 Referral neurolo gical surgeon referra l - Intracr anial hyperte nsion and ORELLANA which are not well-co ntrolle dCong 2023 024 rita Oocnnell MD, [address] [place] [address], [address], [place], [address], 08/14/2023 15:16:31 Procedures None recorde d. Surgeries None recorde d. Imaging None recorde d. Medication Orders Adderal l XR 25 mg capsule ,extend ed release 2023 024 [id number], [phone] [place], [address], 02/18/2024 14:29:22 gabapen tin 300 mg capsule 2023 024 [facility]ndavis [facility], [phone] [place], [address], 01/21/2024 15:36:32 Adderal l XR 20 mg capsule ,extend ed release 2023 024 [facility], [phone] [place], [address], 02/18/2024 15:24:02 furosem edvin 20 mg tablet 2023 024 [facility]29, [address] [place], [place], [phone], 01/21/2024 14:39:49 Zithrom ax Z-Kevyn 250 mg tablet 2023 024 [facility] #[id number], [address], [place], [phone], 01/21/2024 14:39:37 Patient TargetsNo targets recorded. Patient Instructions Encounter Date Encounter Id Patient Instructions Last Modified By Organization Details Last Modified Time 07/08/2023 [id number] pneumonia: care instructions pmadden Not available 07/08/2023 10:48:30 Patient will follow up and keep appointment as scheduled. pmadden Not available 07/08/2023 10:45:32 07/09/2023 [id number] [facility], all current and discharge medications (OTC, herbal therapies, supplements) reviewed and reconciled with patient and or caregiver, including potential side effects, drug interactions, instructions, and the consequences of not taking medication. Reviewed potential barriers to medication adherence, such as side effects from medication or cost of medication. [email or web address] Not available 07/09/2023 10:48:26 08/15/2023 [id number] leg and ankle edema: care instructions Not available 08/15/2023 12:23:01 high blood pressure: care instructions Not available 08/15/2023 12:23:01 learning about high blood pressure Not available 08/15/2023 12:23:01 01/21/2024 [id number] insomnia: care instructions [email or web address] Not available 01/21/2024 15:36:31 high blood pressure: care instructions [email or web address] Not available 01/21/2024 15:36:32 learning about high blood pressure acennerazzo Not available 01/21/2024 15:36:32 high cholesterol : care instructions acennerazzo Not available 01/22/2024 17:45:52 attention defici t hyperactivity disorder (ADHD) in adults: care instructions [email or web address] Not available 01/21/2024 15:36:32 02/18/2024 [id number] high blood pressure: care instructions acennerazzo Not [...] glucose 99 mg/dL 70-99 Not Available [facility] ([facility]) [address] [place], [address], 08/21/2023 14:07:05 08/20/19 24 08/21/2023 BASIC METAB OLIC PANEL (8) BUN 18 mg/dL 6-24 Not Available [facility] ([facility]) [address] [place], [address], 08/21/2023 14:07:05 08/20/19 24 08/21/2023 BASIC METAB OLIC PANEL (8) creatinine 1.26 mg/dL 0.57-1 .00 above high normal Not Available [facility] ([facility]) [address] [place], [address], 08/21/2023 14:07:05 08/20/19 24 08/21/2023 BASIC METAB OLIC PANEL (8) eGFR 49 mL/mi n/1.7 3 >59 below low normal Not Available [facility] ([facility]) [address] [place], [address], 08/21/2023 14:07:05 08/20/19 24 08/21/2023 BASIC METAB OLIC PANEL (8) BUN/creatini ne ratio 14 9-23 Not Available [facility] ([facility]) [address] [place], [address], 08/21/2023 14:07:05 08/20/19 24 08/21/2023 BASIC METAB OLIC PANEL (8) sodium 147 mmol/ L 134-14 4 above high normal Not Available [facility] ([facility]) [address] [place] [place], [address], 08/21/2023 14:07:05 08/20/19 24 08/21/2023 BASIC METAB OLIC PANEL (8) potassium 3.9 mmol/ L 3.5-5. 2 Not Available [facility] ([facility]) [address] [place] [place], [address], 08/21/2023 14:07:05 08/20/19 24 08/21/2023 BASIC METAB OLIC PANEL (8) chloride 105 mmol/ L 96-106 Not Available [facility] ([facility]) [address] [place], [address], 08/21/2023 14:07:05 08/20/19 24 08/21/2023 BASIC METAB OLIC PANEL (8) carbon dioxide, total 23 mmol/ L 20-29 Not Available [facility] ([facility]) [address] [place] [place], [address], 08/21/2023 14:07:05 08/20/19 24 08/21/2023 BASIC METAB OLIC PANEL (8) calcium 9.8 mg/dL 8.7-10 .2 Not Available [facility] ([facility]) [address] [place], [address], 08/21/2023 14:07:05 08/20/19 24 08/21/2023 ALBUM IN/CR EAT RATIO , RANDO M UR creatinine, urine 41.4 mg/dL not estab. Not Available [facility] ([facility]) [address] [place], [address], 08/21/2023 14:07:05 08/20/19 24 08/21/2023 ALBUM IN/CR EAT RATIO , RANDO M UR albumin, urine <3.0 ug/mL not estab. Not Available [facility] ([facility]) [address] [place], [address], 08/21/2023 14:07:05 08/20/19 24 08/21/2023 ALBUM IN/CR EAT RATIO , BESSO M UR alb/creat ratio <7 mg/g_ creat 0-29 Salome l: 0 - 29 Moder ately incre ased: 30 - 300 Sever nadiya incre ased: >300 Not Available [facility] ([facility]) [address] [place], [address], 08/21/2023 14:07:05 01/21/20 24 01/22/2024 LIPID PANEL cholesterol, total 227 mg/dL 100-19 9 above high normal Not Available [facility] ([facility]) [address] [place], [address], 01/22/2024 08:10:05 01/21/20 24 01/22/2024 LIPID PANEL triglyceride s 79 mg/dL 0-149 normal Not Available [facility] ([facility]) [address] [place], [address], 01/22/2024 08:10:05 01/21/20 24 01/22/2024 LIPID PANEL HDL cholesterol 95 mg/dL >39 normal Not Available [facility] [address] [place], [address], 01/22/2024 08:10:05 01/21/20 24 01/22/2024 LIPID PANEL VLDL cholesterol donaldo 14 mg/dL 5-40 Not Available [facility]) [address] [place], [address], 01/22/2024 08:10:05 01/21/20 24 01/22/2024 LIPID PANEL LDL chol calc ([facility]) 118 mg/dL 0-99 above high normal Not Available [facility] (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) [address], [place], [address], 01/22/2024 08:10:05 07/05/19 24 07/04/2023 US, gautam srinivasan , B-sca n + A-sca n No observ ation record ed. [email or web address] Not Available 2023 15:58:13 01/31/20 24 01/31/2024 MR brain wo and W contr ast See Note [facility] , a member of [employer] [facility] Name: MEMO JAVIER Date of : 1964 Reason for Exam: WHITE MATTER DISEAS E Exam Date: 2023 198315 EST Report Status : Final Orderi ng [...] soft tissue s are normal . IMPRES MAGDALENE: 1. Stable nonspe cific multif ocal T2 [...] Transc ribed Date: 2023 15:13 ET cassidy [address], [address], 02/01/2024 13:18:06 Result Notes None recorded. 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 0 18:22:26 Patient status finding 569944778 Completed 201301/11/2014 RECORDED 07/08/19 14 1:46PM BY LISETH QUEZADA I, OFFICE VISIT Josey Winchesetr MD [address], [place], [address] , [facility] 6 09:55:27 [facility] 737687[facility] Completed 201209/21/2013 RECORDED 03/26/19 13 8:47AM BY LISETH QUEZADA I, ANNOTATI ON/MARGRET Winchester MD [address] [facility] [address], [place], [address] , [facility] 6 09:55:27 Flatulen ce, eructati on and gas pain 203456113 Completed 201301/11/2014 STORY: SEEN BY DR PARSONS; IMPRESSI ON: ADVISED HER TO GO TO THE [facility] TO SEE IF THEY HAVE ANYTHING TO HELP WITH HER SX.; RECORDED 07/08/19 14 1:40PM BY LISETH QUEZADA I, OFFICE VISIT Josey Winchester MD [address] [facility] [address], [place], [address] , [facility] 6 09:55:27 Visual disturba nde 37525321 Active 2013 IMPRESSI ON: POSSIBLE HYPOTENS ION VS MIGRAINE EQUIVALE NTS. SHE WILL CHECK HER BP AT HER NEXT EPISODE. IF HER BP IS NORMAL SHE WILL TAKE A MIGRAINE MED TO SEE IF THIS HELPS. IF THERE IS NO RELIEF SHE WILL CALL HER EYE DOCTOR. Not Available [facility] 0 18:22:25 Screenin g for malignan t neoplasm of breast Completed 201209/21/2013 RECORDED 03/26/19 13 8:47AM BY HOWARD MERLOS ON/MARGRET Winchester MD [address] [facility] [address], [place], [address] , [facility] 6 09:55:28 Screenin g for malignan t neoplasm of cervix Completed 201209/21/2013 RECORDED 03/26/19 13 8:47AM BY HOWARD MERLOS ON/MARGRET Winchester MD [address], [place], [address] , [facility] 6 09:55:28 Screenin g for malignan t neoplasm of colon Completed 201209/21/2013 RECORDED 09/22/19 13 8:20AM BY HOWARD MERLOS ON/MARGRET Winchester MD [address] [facility] [address], [place], [address] , [facility] 6 09:55:28 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 Not Available [facility] 0 18:22:26 Fritz bell 09213535 Active 2013 Josey Winchester MD [address] [facility]3] [address], [place], [address] , [facility] 3 13:25:29 Malaise and fatigue 653479718 Completed 201209/21/2013 RECORDED 03/26/19 13 8:46AM BY LISETH QUEZADA I, HOWARD ON/THEODORAEN MAYCOL Winchester MD [address], [place], [address] , [facility] 6 09:55:27 Pure hypercho lesterol emia 994632244 Completed 201311/18/2016 Unable to tolerate lipitor Josey Winchester MD [address], [place], [address] , [facility] 7 10:05:50 Hyperlip idemia 19809050 Completed 201301/11/2014 RECORDED 07/08/19 14 1:40PM BY LISETH QUEZADA I, OFFICE VISIT Josey Winchester MD [address] [facility] [address], [place], [address] , [facility] 0 19:09:36 Irritabl e bowel syndrome 63209554 Active 2013 Takes meds which help Not Available [facility] 0 18:22:26 Shoulder joint pain 175417655 Completed 201209/21/2013 RECORDED 03/26/19 13 8:46AM BY LISETH QUEZADA I, TRACEYATI ON/ADDEN DUM Josey Winchester MD [address] [facility] [address], [place], [address] , [facility] 6 09:55:27 Migraine 13450984 Active 2013 Not Available [facility] 0 18:22:26 Administ ration of bacteria l and viral vaccine Completed 200809/21/2013 RECORDED 06/24/19 09 10:01AM BY KEVIN TOSCANO, OFFICE VISIT Josey Winchester MD [address] [address], [place], [address] , [facility] 6 09:55:27 Skin sensatio n disturba nce 87454744 Completed 201209/21/2013 RECORDED 03/26/19 13 8:47AM BY TRACEY MERLOSATI ON/MARGRET Winchester MD [address] [address], [place], [address] , [facility] 6 09:55:27 Cough 68894244 Completed 201309/21/2013 RECORDED 04/01/19 14 9:45AM BY TRACEY MERLOSATI ON/MARGRET Winchester MD [address] [address], [place], [address] , [facility] 6 09:55:27 Adult health examinat ion Completed 201301/11/2014 RECORDED 07/08/19 14 1:45PM BY LISETH QUZEADA I, OFFICE VISIT Josey Winchester MD [address] [address], [place], [address] , [facility] 6 09:55:27 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 131132618 Completed 201210/11/2013 IMPRESSI ON: CONTINUE CURRENT MGMT; MEDS HELP A GREAT DEAL.; RECORDED 02/17/20 13 8:03AM BY TRACEY MERLOSATI ON/MARGRET Winchester MD [address] [address], [place], [address] , [facility] 6 09:55:27 Astignvt is 75240650 Completed 201210/11/2013 RECORDED 03/26/19 13 8:47AM BY HOWARD MERLOS ON/MARGRET Winchester MD [address], [place], [address] , [facility] 6 09:55:27 Screenin g for malignan t neoplasm of breast Completed 201210/11/2013 RECORDED 03/26/19 13 8:47AM BY HOWARD MERLOS ON/MARGRET Winchester MD [address], [place], [address] , [facility] 6 09:55:28 Screenin g for malignan t neoplasm of cervix Completed 201210/11/2013 RECORDED 03/26/19 13 8:47AM BY HOWARD MERLOS ON/MARGRET Winchester MD [address], [place], [address] , [facility] 6 09:55:28 Screenin g for malignan t neoplasm of colon Completed 201210/11/2013 RECORDED 09/22/19 13 8:20AM BY HOWARD MERLOS ON/MARGRET Winchester MD [address], [place], [address] , [facility] 6 09:55:28 Tietze's disease 17067705 Completed 201210/11/2013 RECORDED 03/26/19 13 8:46AM BY HOWARD MERLOS ON/MARGRET Winchester MD [address], [place], [address] , [facility] 6 09:55:27 Malaise and fatigue 756249646 Completed 201210/11/2013 RECORDED 03/26/19 13 8:46AM BY TRACEY MERLOSATI ON/ADDEN DUM Josey Winchester MD [address] [facility] [address], [place], [address] , [facility] 6 09:55:27 Administ ration of bacteria l and viral vaccine Completed 200810/11/2013 RECORDED 06/24/19 09 10:01AM BY KEVIN TOSCANO, OFFICE VISIT Josey Winchester MD [address] [address], [place], [address] , [facility] 6 09:55:27 Skin sensatio n disturba nce 14227727 Completed 201210/11/2013 RECORDED 03/26/19 13 8:47AM BY HOWARD MERLOS ON/ADDEN DUM Josey Winchester MD [address] [facility] [address], [place], [address] , [facility] 6 09:55:27 Cough 12715517 Completed 201310/11/2013 RECORDED 04/01/19 14 9:45AM BY HOWARD MERLOS ON/ADDEN MAYCOL Winchester MD [address] [facility] [address], [place], [address] , [facility] 6 09:55:27 Attentio n deficit hyperact ivity disorder , predomin antly inattent roxann type 01746295 Completed 10/12/2015 Josey Winchester MD [address] [facility] [address], [place], [address] , [facility] 8 13:27:14 Plantar fasciiti s 637984399 Active Not Available [facility] 0 18:22:26 Fatigue 79273977 Completed 03/25/2016 Ángela Lucero PA-C [address], [place], [address] , [facility] 1 09:22:08 Keratoco nus 23527592 Active 2015 Followed by [facility] Not Available [facility] 0 18:22:25 Pinguecu la 48961952 Active 2015 Followed by [facility] Not Available [facility] 0 18:22:26 Nuclear scleroti c cataract 269943150 Active 2015 Followed by [facility] Not Available [facility] 0 18:22:26 Pneumoni a 342495043 Completed 201608/15/2016 KEVIN Villegas, [facility] 7 16:08:02 Attentio n deficit hyperact ivity disorder , predomin antly inattent roxann type 90550766 Active 2017 Not [address] [facility] 0 18:22:26 Hypokale monisha 93315437 Active 2018 Not Available [facility] 0 18:22:26 Hyperlip idemia 12815446 Active 2019 Not [address] [facility] 0 18:22:26 Loss of hair 853273844 Active 2020 Josey Winchester MD [address], [place], [address] , [facility] 1 17:02:35 Multiple joint pain 20596594 Active 2020 Ángela Lucero PA-C [address], [place], [address] , [facility] 1 09:22:07 Fatigue 09055903 Active 2020 Ángela Lucero PA-C [address], [place], [address] , [facility] 1 09:22:08 Pain of right wrist 80836750027 9100 Active 2020 Seen by [facility]; had MRI showing OA. Josey Winchester MD [address], [place], [address] , [facility] 1 18:07:02 Seronega tive rheumato id arthriti s 395562546 Active 2021 Followed by rheum; on methotre xate. 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 Mohini horne optic neuritis . Josey Winchester MD [address], [place], [address] , [facility] 3 10:45:14 Kidney finding 961445990 Active 2022 born with only one kidney JOVAN Noonan, [facility] 3 09:09:38 History of SARS-CoV -2 56640950470 8026276 Active 2022 Josey Winchester MD [address], [place], [address] , [facility] 3 10:39:24 Thyroid nodule 234110550 Active 2022 Thyroid U/S done and no addition al imaging required . Josey Winchester MD [address] [facility]3] [address], [place], [address] , [facility] 3 20:13:54 Edema of lower extremit y 909615147 Active 2023 Luis bentley, [facility] 4 12:11:02 Problem Notes None recorded. Procedures Surgical History Date Name Laterality Status Provider Name and Address Organization Details Recorded Time 07/25/19 23 Most Recent Mammogram completed Kati Dallas [facility] 07/24/2022 12:09:18 07/25/19 23 Mammogram Diagnostic Bilateral completed Kati Dallas [facility] 07/24/2022 12:09:11 05/10/19 23 wrist injection completed Gracy Juares [facility] 05/14/2022 13:50:42 03/30/19 16 Date of Last Pap Smear completed Boone Faustinutis [facility] 04/03/2015 11:53:06 03/16/19 16 Date of Last Colonoscopy completed Viviana Hodge [facility] 03/17/2015 10:15:20 03/16/19 16 Colonoscopy completed Roslyn Orr [facility] 02/23/2020 13:16:56 03/03/19 02 Total Abdominal Hysterectomy completed Humera valentine [facility] 08/15/2016 16:15:28 Cholecystectomy completed Josey Winchester MD [address] [facility], [place], [address], [place] [facility] 01/11/2014 14:15:38 Imaging Results Imaging Date Name Status LastModified by Organiz ation Details LastModified Time 07/04/2023 US, ophthalmic, B-scan + A-scan completed [email or web address] Information not available 07/07/2023 15:58:13 01/31/2024 MR brain wo and W contrast completed [address], [address], 02/01/2024 13:18:06 Procedure Notes None recorded. Medical Equipment None Reported. Allergies Allergen ID Allergen Name Allergen Category Reaction Reaction Severity Criticality Documentation Date Start Date Code Code System Note Provider Name and Address Organization Details Recorded Time 72357 omeprazol e medicatio n rash Not available Not available 06/25/2017 7646 RxNorm Josey cordova MD [address], [address], [place] [facility] 8 13:54:05 8323 Pepcid medicatio n angioedem a Not available Not available 09/14/20132013 8 RxNorm REACT ION: RIGHT ARM SWELL ING Humera KEVIN Sanchez, [facility] 7 16:07:06 Medications Name Sig Start Date [...] RECORDED 11/10/19 11 2:31PM BY BOONE RAJPUT, ANNOTATI ON/MARGRET DUM; Not Available Not Available Not [...] 10 5:12PM BY JOSEY TOLEDO MD, ANNOTATI ON/ADDEN DUM; [...] 50 mcg/actua tion nasal spray,mary beth pension Shel[place] 1 spray every day by intranas al [...] RECORDED 07/06/19 11 9:51AM BY HOWARD RIBEIRO ON/ADD DUM;TAKE 1 A DAY FOR FIRST WEEK [...] 14 12:26PM BY JOSEY TOLEDO MD, TRACEYATI ON/ADD DUM; Not Available Not Available Not Available Crestor 20 mg tablet TAKE 1 TABLET BY MOUTH ONCE DAILY 10/11 completed Not Available Not Available Not Available Prilosec OTC 20 mg tablet,de layed release DAILY 07/19 completed RECORDED 07/20/19 10 5:13PM BY JOSEY TOLEDO MD, ANNOTATI ON/ADD DUM; [...] completed Not Available Not Available Not Available [facility] mg disintegr ating tablet DISSOLVE [...] 07/08/2023 165.1 cm Maura Haider MA MA [facility] 07/08/2023 10:14:56 Date Recorded Body height Body weight Body mass index (BMI) Heart rate Oxygen saturation Oxygen saturation in Arterial blood by Pulse oximetry Body temperature Systolic blood pressure Diastolic blood pressure Provider Name and Address Organization Details Last Updated DateTime 165.1 cm 51705.8 2 g 23.7 kg/m2 60 /min 98 % 98 % 98 [degF] 161 mm[Hg] 75 mm[Hg] Purvi Torres LPN [facility] 4 10:54:04 Date Recorded Body height Body mass index (BMI) Body weight Systolic blood pressure Diastolic blood pressure Provider Name and Address Organization Details Last Updated DateTime 08/15/2023 165.1 cm 25.1 kg/m2 37363.45 g 145 mm[Hg] 87 mm[Hg] Maura Haider MA [facility] 4 11:36:16 Date Recorded Systolic blood pressure Diastolic blood pressure Provider Name and Address Organization Details Last Updated DateTime 08/15/2023 158 mm[Hg] 84 mm[Hg] Ángela Lucero PA-C [address] [address], [place], [address], [facility] 08/15/2023 12:25:22 Date Recorded Body height Body mass index (BMI) Body weight Systolic blood pressure Diastolic blood pressure Provider Name and Address Organization Details Last Updated DateTime 01/21/2024 165.1 cm 26 kg/m2 96437.41 g 137 mm[Hg] 86 mm[Hg] Maura Haider MA [facility] 4 14:38:24 Date Recorded Body height Body mass index (BMI) Body weight Heart rate Oxygen saturation Oxygen saturation in Arterial blood by Pulse oximetry Body temperature Systolic blood pressure Diastolic blood pressure Provider Name and Address Organization Details Last Updated DateTime 4 165.1 cm 26.6 kg/m2 15097.7 8 g 101 /min 97 % 97 % 98 [degF] 121 mm[Hg] 82 mm[Hg] Maura Haider MA [facility] 4 14:08:27 Social History Question Answer Notes LastModified by Organizat ion Details LastModified Time Tobacco Smoking Status Never Smoker Not Available [facility] 01/04/2020 03:36:37 Do You Have An Advance Directive? Yes [facility] Information not available 10/03/2021 What Is Your Level Of Alcohol Consumption? None [id number] Information not available 01/04/2020 Is Blood Transfusion Acceptable In An Emergency? Yes [id number] Information not available 01/04/2020 What Is Your Level Of Caffeine Consumption? None [id number] Information not available 01/04/2020 How Much Tobacco Do You Chew? None [id number] Information not available 01/04/2020 Are You Currently Employed? Yes [id number] Information not available 01/04/2020 What Type Of Diet Are You Following? VEGETARIAN No Salt [id number] Information not available 01/04/2020 Which Illicit Or Recreational Drugs Have You Used? None [id number] Information not available 01/04/2020 Do You Or Have You Ever Used E-cigarettes Or Vape? 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 With Others 2 Children And 1 GC (born Late 2012) [email or web address] Information not available 10/03/2021 Do You Take Precautions To Prevent Distracted Driving? Yes [email or web address] Information not available 10/12/2015 How Often Do You Need To Have Someone Help You When You Read Instructions, Pamphlets, Or Other Written Material From Your Doctor Or Pharmacy? Never [email or web address] Information not available 10/12/2015 Have You Served In The ? No [email or web address] Information not available 03/25/2016 Have You Or Anyone In Your Household Had Any Of The Following Symptoms In The Last 14 Days: Sore Throat, Cough, Chills, Body Aches For Unknown Reasons, Shortness Of Breath For Unknown Reasons, Loss Of Smell, Loss Of Taste, Fever At Or Greater Than 100 Degrees Fahrenheit? No [email or web address] Information not available 02/23/2020 Are You Or Anyone In Your Household A Health Care Provider Or Emergency Responder? No [email or web address] Information not available 02/23/2020 To The Best Of Your Knowledge Have You Been In Close Proximity To Any Individual Who Tested Positive For COVID-19? No [email or web address] Information not available 02/23/2020 Have You Recently [...] available 02/23/2020 Seat Belts Used Routinely Yes Information not available 10/03/2021 Are You Sexually Active? No [id number] Information not available 01/04/2020 Smoke Alarm In Home Yes [email or web address] Information not available 10/03/2021 At What Age Did You Start Smoking Tobacco? 1 [id number] Information not available 01/04/2020 Are You Passively Exposed To Smoke? No [email or web address] Information not available 10/12/2015 Do You Or Have You Ever Used Smokeless Tobacco? Never Used Smokeless Tobacco [id number] Information not available 01/04/2020 How Much Tobacco Do You Smoke? No [id number] Information not available 01/04/2020 Do You Use Sunscreen Routinely? Yes [id number] Information not available 01/04/2020 How Many Years Have You Smoked Tobacco? 0 [id number] Information not available 01/04/2020 Do You Or Have You Ever Used Any Other Forms Of Tobacco Or Nicotine? No Information not available 10/03/2021 Sex: Unknown Functional Status Question Answer Note LastModified by Organizat ion Details LastModified Time Are you able to walk? YESWOREST [email or web address] Information not available 10/03/2021 Are you able to care for yourself? Yes [id number] Information not available 01/04/2020 What is your [...] Time zoster recombinant 0 completed KEVIN Conti [facility] 11/28/2021 12:49:12 Influenza, split virus, quadrivalent, preservative 0 completed KEVIN Conti [facility] 11/28/2021 12:49:12 COVID-19, mRNA, LNP-S, PF, 100 mcg/0.5mL dose or 50 mcg/0.25mL dose 1 completed KEVIN Conti [facility] 11/21/2021 08:31:51 COVID-19, mRNA, LNP-S, PF, 100 mcg/0.5mL dose or 50 mcg/0.25mL dose 1 completed KEVIN Marks [facility] 03/07/2021 11:29:55 Influenza, split virus, trivalent, preservative 3 completed KEVIN Marks [facility] 03/07/2021 11:29:55 Influenza, split virus, trivalent, preservative 2 completed Samaria Chanel MA null, [facility] 03/07/2021 11:29:55 COVID-19, mRNA, LNP-S, PF, 100 mcg/0.5mL dose or 50 mcg/0.25mL dose 1 completed KEVIN Marks, [facility] 03/07/2021 11:29:55 Influenza, MDCK, quadrivalent, PF 9 completed KEVIN Marks, [facility] 03/07/2021 11:29:55 Influenza, split virus, trivalent, preservative 1 completed Samaria Chanel MA null, [facility] 03/07/2021 11:29:55 Influenza, split virus, quadrivalent, PF 5 completed Not Available [facility] 03/20/2019 02:22:02 COVID-19, mRNA, LNP-S, PF, 100 mcg/0.5mL dose or 50 mcg/0.25mL dose 2 completed KEVIN Conti, [facility] 11/21/2021 08:31:51 COVID-19, mRNA, LNP-S, PF, phuc-sucrose, 30 mcg/0.3 mL 3 completed Purvi Torres LPN null, [facility] 07/09/2023 10:54:37 Influenza, split virus, quadrivalent, PF 6 completed Not Available [facility] 03/20/2019 02:22:04 Influenza, split virus, quadrivalent, PF 7 completed Not Available [facility] 03/20/2019 02:22:10 Influenza, split virus, quadrivalent, PF 8 completed Not Available [facility] 03/20/2019 02:22:15 Tdap 0 completed KEVIN Briseno, [facility] 08/11/2019 11:36:19 Influenza, split virus, trivalent, PF 4 completed Not Available [facility] 03/20/2019 02:21:58 Tdap 9 completed Not Available [facility] 11/26/2019 18:22:26 Influenza, split virus, quadrivalent, PF 3 completed Josey Winchester MD [address] [address], [place], [address], [facility] 01/10/2023 13:40:02 Past Encounters Encounter ID Performer Location Encounter Start Date Encounter Closed Date Diagnosis/Indication Diagnosis SNOMED-CT Code Diagnosis ICD10 Code Diagnosis Note [id number] [facility] [address] [facility] [facility] [place] [address] 04/09/2007 00:00:00 [id number] auto[facility] erce [address] [facility] [place] [address] 05/06/2007 00:00:00 [id number] auto[facility] erce [address] [facility],[address] [place] [address] 06/23/2008 00:00:00 [id number] [facility] [facility] [address] [facility] [place] [address] 07/06/2008 00:00:00 [id number] [facility] er[facility] [address] [facility] [place] [address] 08/11/2008 00:00:00 [id number] [facility] er[facility] [address] [facility] [place] [address] 04/21/2009 00:00:00 [id number] [facility] erce [address] [facility] [place] [address] 05/19/2009 00:00:00 [id number] [facility] erce [address] [facility] [place] [address] 07/19/2009 00:00:00 [id number] [facility] erce [address] [facility] [place] [address] 04/10/2010 00:00:00 [id number] [address]ce [address] [place] [address] 05/15/2010 00:00:00 [id number] auto[facility]Comm erce [address] [place] [address] 07/04/2010 00:00:00 [id number] auto[facility] [facility]ce [address] [place] [address] 09/12/2010 00:00:00 [id number] auto[facility] erce [address] [place] [address] 10/17/2010 00:00:00 [id number] auto[facility] erce [address] [place] [address] 09/12/2011 00:00:00 [id number] auto[facility]Comm erce [address] [facility] [address] [place] [address] 03/26/2012 00:00:00 [id number] auto[facility] erce [address] [facility] [place] [address] 04/27/2012 00:00:00 [id number] auto[facility]Comm erce [address] [facility] [address] [place] [address] 09/21/2012 00:00:00 [id number] auto[facility]Comm erce [address] [facility] [place] [address] 02/16/2013 00:00:00 [id number] [facility] erce [address] [facility] [place] [address] 07/07/2013 00:00:00 [id number] Liseth Vasquez Main Office [address] [facility] [address] [place] [address] 01/11/2014 13:22:21 01/11/2014 14:42:04 Needs influenza immunization 713173520 Essential hypertension 68864331 Attention deficit hyperactivity disorder, predominantly inattentive type 07491379 Pure hypercholesterolemia 342533920 Screening for malignant neoplasm of breast 394692956 Screening for malignant neoplasm of colon 152170915 [id number] Liseth Vasquez Main Office [address] [address] [place] [address] 07/11/2014 13:41:12 07/11/2014 14:48:21 Adult health examination 106161073 Screening for malignant neoplasm of colon 868598004 Pure hypercholesterolemia 422200868 has trouble with meds. Will recheck and look at risk calculator before starting another med. Essential hypertension 61588682 well controlled with current meds Irritable bowel syndrome 80540105 well-contr olled with current meds and diet. [id number] Main Office [address] [address] [place] [address] 12/03/2014 08:47:01 12/03/2014 09:43:49 Migraine 12130762 G43.009 will restart a triptan which she took years ago and she will call if it isn't helping. Plantar fasciitis 358705 003 M72.2 she will try exercises and will call if it persists. [id number] Josey Winchester MD Main Office [address] [address] [place] [address] 01/23/2015 10:38:25 01/23/2015 11:28:45 Essential hypertension 31462034 I10 no longer controlled . We will go up on her meds and she will call if the BP is >140/90. Pure hypercholesterolemia 681091005 E78.0 trouble on meds. Recheck cholestero l Needs infl uenza immunization 775381249 Z23 Screening for malignant neoplasm of colon 815790712 Z12.11 Screening for malignant neoplasm of cervix 040385387 Z12.4 Attention deficit hyperactivity disorder, predominantly inattentive type 74004181 F90.0 [id number] Josey Winchester MD Main Office [address] [address] [place] [address] 10/12/2015 09:22:54 10/12/2015 10:14:44 Adult health examination 488064969 Z00.00 UTD with immunizati ons, colonoscop y, mammogram and [employer] care. Essential hypertension 42148876 I10 we will stop her metoprolol to see if her fatigue improves. Start a CCB and see her back in 1 month. Fatigue 27332401 R53.83 this may be secondary to metoprolol so will stop and start another BP med. Irritable bowel syndrome 18901582 K58.9 well-contr olled with current meds and diet. [id number] Josey Winchester MD Main Office [address] [place] [address] 11/14/2015 15:44:42 11/14/2015 17:02:57 Essential hypertension 91903164 I10 Her fatigue has persisted despite stopping the metoprolol . BP mildly elevated on the amlodipine so will increase the dose. Needs infl uenza immunization 876762779 Z23 Migraine 36081271 G43.00 9 Possibly returned since stopping the bets cherelle for her BP. Will start a different beta cherelle and she will call if it persists. [id number] Tk lopez Main Office [address] [place] [address] 02/27/2016 10:23:45 02/27/2016 11:54:18 Fever 930126697 R50.9 40 minute office visit with greater than 50% of the visit face-to-fa ce with the patient and/or family providing counseling and/or coordinati on of care. Cough 86303070 R05 Nausea and vomiting 1693 2000 R11.2 Diarrhea 79274257 R19.7 Fatigue 54268775 R53.83 [id number] Josey Winchester MD Main Office [address] [place] [address] 03/05/2016 15:42:55 03/06/2016 12:56:57 Pneumonia 174347889 J18.9 encouraged deep breaths at least hourly to hopefully diminish need for albuterol, also rec. walk on elliptical machine at low intensity to slowly build up her endurance. will give cxr at next f/u to recheck in 2 wks Essential hypertension 12955072 I10 mildly elevated - advised pt to cont to monitor qd, and will consider re-initiat ing bp med if cont. to trend high 25 minute office visit with greater than 50% of the visit face-to-fa ce with the patient and/or family providing counseling and/or coordinati on of care. [id number] Josey Winchester MD Main Office [address] [place], [place] [address] [place] [address] 03/25/2016 13:15:02 03/25/2016 14:04:38 Essential hypertension 55549770 I10 stable, not on meds - used bp med a few yrs ago - rec. cont healthy diet (low salt) and exercise 25 minute office visit with greater than 50% of the visit face-to-fa ce with the patient and/or family providing counseling and/or coordinati on of care. Pneumonia 188858120 J18. 9 cont to stay active, rec occ deep breaths. will give cxr to verify resolution of pna [id number] Josey Winchester MD Main Office [address] [place] [address] [place] [address] 07/08/2016 11:22:37 07/08/2016 12:11:21 Allergic rhinitis 67251168 J30.9 We will see her back in a few weeks to recheck her adenopathy . No B symptoms. [id number] Josey Winchester MD Main Office [facility] [address] [place] [address] 08/15/2016 15:59:01 08/15/2016 17:02:56 Acute sinusitis 17328619 J01.90 Pt. told to get some sudafed, cont OTCs and have yogurt or get a probiotic while on the Abx. [id number] Josey Winchester MD Main Office [address] [address] [place] [address] 11/18/2016 09:33:44 11/18/2016 10:23:06 Adult health examination 069765270 Z00.00 UTD with immunizati ons, colonoscop y, mammogram and [employer] care. Needs infl uenza immunization 086485999 Z23 Essential hypertension 99522945 I10 She will follow her BP at home and we will call in a few weeks to see how it has been running. Migraine 25332202 G43.00 9 Hyperlipidemia 32493089 E78.5 has trouble with meds. Will recheck and look at risk calculator before starting another med. [id number] Josey Winchester MD Main Office [facility] [address] [place] [address] 05/21/2017 12:49:18 05/21/2017 14:09:17 Essential hypertension 93435095 I10 Will restart meds and she will return for a recheck in 1 month. Easy bruising 631116256 R58 [id number] Josey Winchester MD Main Office [address] [address] [place] [address] 06/25/2017 13:18:55 06/25/2017 13:56:11 Essential hypertension 29034555 I10 Taking meds daily and tolerating them well. BP under good control. Migraine 91400678 G43.00 9 stable on prophylaxi s. [id number] Josey Winchester MD Main Office [address] [address] [place] [address] 11/06/2017 12:58:57 11/06/2017 14:04:51 Carpal tunnel syndrome 33973901 G56.02 She will take aleve twice a day. [id number] Josey Winchester MD Main Office [address] [address] [place] [address] 12/03/2017 12:43:02 12/03/2017 13:40:40 Needs influenza immunization 283700061 Z23 Screening for malignant neoplasm of breast 737779579 Z12.39 Essential hypertension 29191886 I10 She will restart her meds at a lower dose. She understand s that this is especially important in light of the fact she is going back on adderall. Attention deficit hyperactivity disorder, predominantly inattentive type 34260732 F90.0 Having trouble with focus. This helped in the past. [id number] Josey Winchester MD Main Office [address] [address] [place] [address] 01/28/2018 13:04:32 01/28/2018 13:49:10 Adult health examination 291750836 Z00.00 UTD with immunizati ons, colonoscop y (due again in 2025) mammogram. Had a hysterecto my and no longer sees [employer]. Essential hypertension 49459737 I10 Her BP is running high so we will increase her dose of atenolol and see her back in 1 month. Attention deficit hyperactivity disorder, predominantly inattentive type 61950124 F90.0 We start 15 mg bid since the 30 mg XL dose wears off before the end of her work day. Screening for malignant neoplasm of breast 688403514 Z12.39 [id number] Josey Winchester MD Main Office [address] [address] [place] [address] 02/18/2018 11:19:47 02/18/2018 11:50:35 Attention deficit hyperactivity disorder, predominantly inattentive type 61603741 F90.0 we will d/c her adderall and start strattera. She will call in a couple of weeks if it is not helping and we will go up on the dose. If still not working at the end of March we will try a different med. Essential hypertension 08969535 I10 Good control with increased dose of meds. Continue current mgmt. [id number] Josey Winchester MD Main Office [address] [address] [place] [address] 08/06/2018 15:37:38 08/06/2018 16:31:45 Fatigue 62288607 R53.83 No clear etiology. Hypokalemia 56708595 E87 .6 Corrected as an inpatient; secondary to diuretic. Essential hypertension 58047014 I10 Currently normotensi ve off meds. Possibly secondary to her adderall. She will monitor her BP and will call if/when she restarts her adderall. Attention deficit hyperactivity disorder, predominantly inattentive type 26141779 F90.0 Has adderall and will restart when needed. [id number] Josey Winchester MD Main Office [address] [address] [place] [address] 08/19/2018 12:31:49 08/19/2018 13:22:34 Essential hypertension 18594282 I10 Currently normotensi ve off meds. Possibly secondary to her adderall. She will monitor her BP and will call if/when she restarts her adderall. Fatigue 64508907 R53.83 No clear etiology. We spoke about lifestyle issues such as exercise, good diet and adequate sleep and she will work on these. [id number] Josey Winchester MD Main Office [address] [address] [place] [address] 10/06/2018 14:38:47 10/06/2018 15:31:59 Renal angle tenderness 697642532 R10.829 Possible muscular. The urine is normal. Will treat with NSAIDs for a week and if her pain persists will consider an U/S. Gastroesop hageal reflux disease 846832730 K21.9 Essential hypertension 42841990 I10 BP went back up after stopping the adderall and initially seeing a normalizat ion of her BP. [id number] Josey Winchester MD Main Office [address] [address] [place] [address] 12/23/2018 15:52:51 12/23/2018 16:40:53 Allergic conjunctivitis 752749734 H10.12 Instructio ns to call if develops vision problems or pain. [id number] Josey Winchester MD Main Office [address] [address] [place] [address] 02/17/2019 13:41:37 02/17/2019 14:42:10 Adult health examination 834090850 Z00.00 Will update her immunizati ons today, colonoscop y (due again in 2025) and UTD w/mammogra m. Had a hysterecto my and no longer sees [employer]PER[employer]. Varicella vaccination 68 185462 Z23 Skin lesion 40064827 L98 .9 [id number] Josey Winchester MD Main Office [address] [address] [place] [address] 03/05/2019 13:52:06 03/05/2019 14:54:54 Fever 430367329 R50.9 Cough 46526757 R05 Muscle pain 37939967 M79 .10 [id number] Kavita Gary [facility] [address] [address] [place] [address] 07/30/2019 13:51:26 08/02/2019 08:34:33 Counseling 773163415 Z71.9 Health advice, education or counseling done for COVID 19, pt not able to be offered testing as she does not have symptoms. She will request testing through her employer. Call immed if any sx come up including cough, fever, SOB or uri sx [id number] Josey Winchester MD Main Office [address] [address] [place] [address] 08/11/2019 10:50:11 08/11/2019 11:48:11 Essential hypertension 17366981 I10 C/w BP meds. Running a little high today. She will follow. Attention deficit hyperactivity disorder, predominantly inattentive type 55974831 F90.0 Has adderall and uses it prn. Hyperlipidemia 74702736 E78.5 Has been taking statin 3 times a week and tolerating it well. Administra tion of viral vaccine 03657743 Z23 [id number] Josey Winchester MD Main Office [address] [address] [place] [address] 02/23/2020 13:01:50 02/23/2020 13:48:20 Adult health examination 444868968 Z00.00 Will update her immunizati ons today, colonoscop y (due again in 2025) and UTD w/mammogra m. Had a hysterecto my and no longer sees [employer] SUPER[employer]OR. We discussed exercise while also keeping safe during the pandemic. Migraine 78017919 G43.00 9 Was helped by prophylaxi s in the past and will restart the topamax. Hyperlipidemia 48908812 E78.5 Has been taking statin 3 times a week and tolerating it well. Essential hypertension 65182752 I10 C/w BP meds. [id number] Josey Winchester MD Main Office [address] [address] [place] [address] 08/23/2020 12:51:26 08/23/2020 13:54:13 Essential hypertension 38505358 I10 Stopped BP meds because of her hair loss. Beta blockers and diuretics may contribute to this so we will start a CCB and see her back in month. Loss of hair 352253673 L 65.9 No clear etiology. May be genetic. May be related to hair styling and may be related to meds. We stopped her beta cherelle and diuretic and statin. Hyperlipidemia 27785051 E78.5 Stopped the statin for now since may be adding to her hair loss. We will monitor. [id number] Josey Winchester MD Main Office [address] [address] [place] [address] 09/20/2020 14:48:28 09/20/2020 15:20:52 Essential hypertension 26585213 I10 Stopped BP meds because of her hair loss. Beta blockers and diuretics may contribute to this so we will start a CCB and see her back in month. Migraine 52775840 G43.00 9 Stopped the topamax which was helping because she felt that it was contributi ng to her hair loss. She will try sumatripta n for treatment and will call if her headaches continue. Loss of hair 662073650 L 65.9 No clear etiology. May be genetic. May be related to hair styling and may be related to meds. We stopped her beta cherelle and diuretic and statin. She has an upcoming derm appointmen t in early November. [id number] Ángela Lucero PA-C Main Office [address] [place] [address] 10/20/2020 08:39:54 10/20/2020 09:31:30 Fatigue 33439395 R53.83 r/o anemia, diabetes, renal disease, thyroid dysfunctio n. Multiple joint pain 3567 8005 M25.50 R/o RA, Lymes disease Screening for malignant neoplasm of breast 990103061 Z12.39 Screening for malignant neoplasm of cervix 389948478 Z12.4 Vitamin D deficiency 347 83524 E55.9 [id number] Ángela Lucero PA-C [facility] [address] [place] [address] 11/27/2020 12:55:36 11/27/2020 15:49:22 Multiple joint pain 22661015 M25.50 elevated ESR and CRP. PT. will proceed with seeing rheumatolo gist and continue taking turmerican d MSM. [id number] Josey Winchester MD Main Office [address] [place] [address] 03/07/2021 10:41:20 03/07/2021 12:00:41 Adult health examination 501554234 Z00.00 She is UTD with immunizati ons including COVID along with her booster but she is due for her second shingles. She is also UTD w/colonosc opy (due again in 2025) and UTD w/mammogra m. Had a hysterecto my and no longer sees [employer] SUPER[employer]. We discussed exercise while also keeping safe during the pandemic. Essential hypertension 59703558 I10 She's on a low dose of nifedipine and her BP is under good control. Hyperlipidemia [id number] E78.5 Stopped the statin for now since may be adding to her hair loss. We will monitor. [id number] Josey Winchester MD Main Office [address] [address] [place] [address] 10/03/2021 11:21:18 10/03/2021 12:09:09 Essential hypertension 72352745 I10 She's on a low dose of nifedipine and her BP is running high. We will increase the dose from 30 to 90 mg and recheck in 1 month. [id number] Josey Winchester MD Main Office [address] [address] [place] [address] 10/31/2021 12:42:04 10/31/2021 13:19:44 Essential hypertension 62130530 I10 Still not with adequate control on nifedipine 90 mg. She will continue with that and we will start a diuretic. We went over foods high in potassium and she will get this checked before her next appointmen t. [id number] Josey Winchester MD Main Office [address] [address] [place] [address] 11/28/2021 12:38:40 11/28/2021 13:40:47 Seronegative rheumatoid arthritis 615813096 M06.[address] Mitchell and on meds. Essential hypertension 46606195 I10 Better control since adding diuretic. Mildly reduced potassium at 3.4. We will recheck level in a month. Cough 28250032 R05.9 She has not yet tested for COVID. Drug-induc ed hypokalemia 282564585 E87.6 Induced by diuretic. Will concentrat e on foods w/potassilavon m and recheck in one month. Hyperlipidemia 09865464 E78.5 Cannot tolerate a statin. Will look into options. [id number] Josey Winchester MD [facility] [address] [address] [place] [address] 08/08/2022 12:24:46 08/20/2022 08:15:54 Multiple sclerosis 36291335 G35 This is a new dx. She saw Dr Rausch as an inpatient at [facility] and will follow with him as on outpatient . She is not currently on any meds. Migraine 82962126 G43.00 9 She would like to restart the topamax because she has been getting more frequent headaches. Optic neuritis 24853006 H46.9 H46.03 Followed by both ophtho and neurology. Her vision has been improving. She is still not driving and is waiting to be cleared by neurology. [id number] Paula Gill MA Main Office [address] [facility] [address] [place] [address] 10/23/2022 15:35:43 10/23/2022 16:11:23 Lump on face 615824106 R22.0 Tender lesion at left jaw line Benign int racranial hypertension 65646686 G93.2 She is followed by neurology and started on acetazolam edvin. [id number] Rian Alvarado MD Main Office [address] [facility] [address] [place] [address] 12/04/2022 08:52:21 12/04/2022 09:23:37 Pre-surgery evaluation [id number] Z01.818 No medical contraindi cations to proposed procedure. Wen Perioperat roxann Cardiac Risk was calculated and the risk for perioperat roxann IA is <1%. May proceed to surgery as planned. Essential hypertension 76711790 I10 stable at homein office BP- 133/84 Cataract 918461856 H26.9 [id number] Josey Winchester MD Main Office [address] [address] 01/08/2023 09:55:30 01/08/2023 10:59:38 Adult health examination 474128609 Z00.00 She is UTD with immunizati ons including COVID along with her booster but she is due for her second shingles. She is also UTD w/colonosc opy (due again in 2025) and UTD w/mammogra m. Had a hysterecto my and no longer sees [employer]. We discussed exercise and she remains very active. Needs infl uenza immunization 492735270 Z23 History of SARS-CoV-2 29 [id number] 00301734 Z86.16 mild symptoms; cough Hyperlipidemia 98972921 E78.5 Cannot tolerate a statin. Levels on repeat blood work look good. No meds needed. Thyroid nodule 967448450 E04.1 She is scheduled for an 01/21/23. Essential hypertension 34774604 I10 We stopped her diuretic because of hypokalemi a but her BP has increased. We will continue to follow it before adding any meds. Attention deficit hyperactivity disorder, predominantly inattentive type 66168945 F90.0 Has adderall and uses it prn. Seronegati ve rheumatoid arthritis 954980845 M06.[address] Mitchell and on meds. Multiple sclerosis 69952 007 G35 This is a new dx. She saw Dr Rausch as an inpatient at [facility] and now followed by Dr Naz bryson and is on acetazolam edvin. [id number] Giovanni Lucero PA-C [facility] [address] [facility] [address] [facility] [place] [address] 07/08/2023 09:22:38 07/08/2023 11:05:07 COVID-19 [id number] U07.1 dx'd in ER on 5.3 - [...] if at all possible see below Cough 68342343 R05.9 most likely has p covid pnawill rx c abxrecomme nd probiotics while on abxsee above/belo w Pneumonia 563912013 J18. 9 see above [id number] Karely Chiu Main Office [address] [facility] [address] [facility] [place] [address] 07/09/2023 10:32:41 07/09/2023 11:31:51 History of idiopathic intracranial hypertension [id number] 8206814 Z86.69 Having headaches that are not adequately treated with meds and having a difficult time concentrat ing. Headache 41153819 R51.9 Transition of care from emergency department to self-care [id number] 09273 Z76.89 Reviewed [id number] Ángela Lucero PA-C Main Office [address] [facility] [address] [place] [address] 08/15/2023 11:32:08 08/15/2023 12:27:56 Essential hypertension 67298435 I10 Elevated BP today though has not taken antihypert ensives. Continue to monitor and cont antihypert ensives, low sodium diet. She has a history of elevated BP readings while on nifedipine so will obtain microalbum in and follow up in one month for reassessme nt. Edema of l ower extremity 626166282 R60.0 Will start on Lasix 20 mg PO daily. Will check BMP in one week to assess potassium and renal function. [id number] Josey Winchester MD Main Office [address] [facility] [address] [place] [address] 01/21/2024 14:18:10 01/21/2024 15:24:56 Adult health examination 106005358 Z00.00 She is UTD with immunizati ons including COVID along with her booster but she is due for her second shingles. She is also UTD w/colonosc opy (due again in 2025) and UTD w/mammogra m. Had a hysterecto my and no longer sees [employer]. We discussed exercise and she remains very active. Insomnia 153265138 F51.0 1 She will try gabapentin at bedtime. 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 Essential hypertension 96935503 I10 We stopped her diuretic because of hypokalemi a but her BP has increased. We will continue to follow it before adding any meds. Migraine 70713789 G43.00 9 She currently uses Excedrin migraine which helps. Hyperlipidemia 25845265 E78.5 Taking atorvastat in 40 mg and tolerating it well. Seronegati ve rheumatoid arthritis 082676509 M06.[address] Mitchell and on meds but they don't seem to be helping. She will discuss this with Dr Mitchell. Visual disturbance 54672 001 H53.9 [id number] Josey Winchester MD Main Office [address] [facility] [address] [facility] [place] [address] 02/18/2024 14:02:25 02/18/2024 14:33:28 Anxiety disorder 485073256 F41.9 Not currently on meds and this is in remission. Attention deficit hyperactivity disorder, predominantly inattentive type 90545256 F90.0 Taking adderall XR 20 mg which has been helpful but it wears off around lunchtime. Will try a higher dose and she will call if it is not helpful. Essential hypertension 42695873 I10 We stopped her diuretic because of [...] Cantu Member ID Guarantor Name 07/08/2023 1 [facility] [id number] 01 Shey Arrieta Wendell [id number] Shey Arrieta Wendell 07/09/2023 1 [facility] [id number] 01 Shey Griffinston [id number] Shey Henriquez 08/15/2023 1 [facility] [id number] 01 Shey Griffinston [id number] Shey Griffinston 01/21/2024 1 [facility] ([facility] [id number] Shey Henriquez [id number] Shey Henriquez 02/18/2024 1 [place]: [facility] Shey Griffinston [id number] Shey Griffinston Notes Date Note Type Note Provider Name and Address Organization Details Recorded Time 07/08/2023 text/html Phone visit-PT t cintiad covid+ at ER on 07/03 but was not given any medication; PT looking for medicationreviewed ER note - had normal cxr, pt stated she was feeling better - so no covid tmt given - advised supportive measurespt states myalgias, fatigue, cough have persistedno sob, wheezing, pur nasal dchas been using no otc meds Giovanni Nic ABBOTT [address] [address], [place], [address], [facility] 07/08/2023 10:52:34 07/09/2023 text/html Having a h/o [...] with cognitive abilities and focus. Karely bentley, [facility] 07/18/2023 10:50:02 08/15/2023 text/html 58 [...] her antihypertensives today. Ángela Lucero PA-C [address] [address], [place], [address], [facility] 08/15/2023 13:17:32 01/21/2024 text/html Generic HPI TemplateReported bypatient.Notes:She has sero-negative RA and mild MS. She is followed by specialists for each and has multiple joint pains that are not controlled by current treatment.UTD w/COVID, tetanus and flu vaccines. Josey Winchester MD [address] [address], [place], [address], [facility] 01/22/2024 17:49:35 02/18/2024 text/html ADHDReported [...] after about 4 hours. Josey Winchester MD [address] [address], [place], [address], [facility] 02/18/2024 15:39:06 OBGyn Episode No OBEpisode recorded.
--- OUTSIDE RECORDS SUMMARY | 2024-05-07 14:23 | XMS_ITS | Clinical Summary ---
Author Organization [facility] Address [address] [place] [address] Care Team Providers Care Insurance Consultant Name Role Phone Luis Miguel Winchester MD Primary Care Provider [phone] Allergies Active Allergy Reactions Criticality Noted Date [...] age to complete this topic Care Teams Insurance Consultant Relationship Specialty Start Date End Date Luis Miguel Winchester MD [address] [facility] [address] [place] [address] PCP - General Internal Medicine 08/08/22
== END 2024-05-07 12:48 | disposition home or self-care (01) ==
LOC: HO.NEURO 12:47
PROVIDERS: PCP Internal Medicine; Visit Provider Internal Medicine Rheumatology
DX: G56.03 Carpal tunnel syndrome, bilateral upper limbs (principal); M06.9 Rheumatoid arthritis, unspecified; Z79.899 Other long term (current) drug therapy
CPT/HCPCS: 95886; 95911

== ENCOUNTER → 2024-05-07 12:50 | Outpatient (BNV) | payer MEDICAID, SELFPAY | PROVIDERS: PCP Internal Medicine; Visit Provider Physical Medicine & Rehabilitation | DX: G56.03 Carpal tunnel syndrome, bilateral upper limbs (principal) | CPT/HCPCS: 95886; 95911 ==

== ENCOUNTER 2024-05-12 12:18 | Outpatient (REF) | payer MEDICAID, SELFPAY ==
--- NOTE | ~2024-05-12 | XR_ITS ---
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 TECHNIQUE: 2 views of the chest were obtained. FINDINGS: No consolidation, pleural effusion or pneumothorax. Cardiomediastinal silhouette size is normal. Mild multilevel thoracic and upper lumbar spondylosis. Vascular clips right upper quadrant abdomen and likely prior laparoscopic cholecystectomy. XR/XR chest 2V IMPRESSION: No acute airspace disease. Electronically signed by: Miguel Smith MD 05/12/2024 02:25 PM EDT
[2024-05-12 13:34] LABS: Alanine Aminotransferase 30 U/L (0-31); Albumin Level 3.7 g/dL (3.5-5.0); Aspartate Amino Transferase 24 U/L (5-31); Bilirubin Direct < 0.2 mg/dL (0.0-0.5); Bilirubin Total 0.2 mg/dL (0.0-1.0); Total Protein 6.9 g/dL (6.5-8.0)
--- OUTSIDE RECORDS SUMMARY | 2024-05-12 14:20 | XMS_ITS | Clinical Summary ---
Author Organization [facility] Address [address] [place] [address] Phone Care Team Providers Care Developmental Therapist Name Role Phone Luis Miguel Winchester MD Primary Care Provider [phone] Allergies No known active allergies Medications aspirin [...] Description 05/26/2024 2:30 PM EDT Office Visit [facility] [address] [facility] [address] [place] [address] [place] [address] Health Maintenance Due Date Last Done Comments [...] topic Insurance MEDICA[place] - [place] Care Teams Developmental Therapist Relationship Specialty Start Date End Date Luis Miguel Winchester MD [address] [place] [address] PCP - General 08/08/22
--- OUTSIDE RECORDS SUMMARY | 2024-05-12 14:20 | XMS_ITS | Clinical Summary ---
Author Organization [facility] Address [address] [place] [address] Care Team Providers Care Animal Physiologist Name Role Phone Luis Miguel Winchester MD Primary Care Provider [phone] Allergies Active Allergy Reactions Criticality Noted Date [...] age to complete this topic Care Teams Animal Physiologist Relationship Specialty Start Date End Date Luis Miguel Winchester MD [address] [facility] [address] [place] [address] PCP - General Internal Medicine 08/08/22
[2024-05-12 14:32] LABS: Alkaline Phosphatase 167 U/L (39-117)
[2024-05-14 21:19] LABS: TSpotTB Invalid (Negative)
== END 2024-05-12 12:19 | disposition home or self-care (01) ==
LOC: HO.XRAY 12:18
PROVIDERS: PCP Internal Medicine; Visit Provider Internal Medicine Rheumatology
DX: R74.01 Elevation of levels of liver transaminase levels (principal); M06.09 Rheumatoid arthritis without rheumatoid factor, multiple sites; Z79.899 Other long term (current) drug therapy
CPT/HCPCS: 36415; 71046; 80076; 86481

== ENCOUNTER → 2024-05-12 12:41 | Outpatient (BNV) | payer MEDICAID, SELFPAY | PROVIDERS: PCP Internal Medicine; Visit Provider Radiology Diagnostic Radiology | DX: Z79.899 Other long term (current) drug therapy (principal) | CPT/HCPCS: 71046 ==

== ENCOUNTER 2024-06-23 13:25 | Outpatient (AMB) | payer MEDICAID, SELFPAY ==
--- NOTE | 2024-06-23 13:31 | MHC.OFFVIS ---
Vital Signs 06/23/24 13:34 Height 5 ft 5 in Weight 166 lb 7.184 oz BMI 27.7 BP 150/80 H Blood Pressure Location Lt brachial Position Sitting Pulse 67 Pulse Source Pulse Oximeter Pulse Oximetry (%) 98 Oxygen Delivery Method Room Air Intake Visit Reasons: Follow up 3mo Intake Note: Patient presents for follow up on RA today. Accompanied by: Self / Same As Patient Allergies famotidine Allergy (Mild, Verified 06/23/24 13:35) Rash gabapentin Adverse Reaction (Unknown, Uncoded 04/02/24 14:57) Unknown HPI HPI Follow up 3mo: Details: MS 1 hour. She feels that her energy is 100% better compared to last year. She continues to have joint pain and stiffness. Knees crack. She has numbness in her 3rd fingers. She also has electric shocks right elbow sometimes when she puts her elbow on a hard surface. [facility] Surgical History (Updated 03/31/24 @ 13:15 by Monique Alonso CMA) H/O: hysterectomy Hx of cholecystectomy Social History (Updated 03/31/24 @ 13:15 by Monique Alonso CMA) Household Members: Family Alcohol intake: never Patient Tobacco Use Status: Never used Tobacco Review of Systems Const All systems reviewed & are unremarkable except as noted in HPI and below Physical Exam Vital Signs: Last Vital Signs Pulse 67 06/23/24 13:34 BP 150/80 H 06/23/24 13:34 Pulse Ox 98 06/23/24 13:34 Oxygen Delivery Method Room Air 06/23/24 13:34 BMI result Body Mass Index 27.7 Const Other: General: Comfortable CVS: RRR Respiratory: clear to auscultation bilaterally. Good respiratory effort Skin: No lesions seen MSK: Tender to palpate bilateral wrists with right wrist synovitis and ganglion cyst present on dorsal right wrists. 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 Tender bilateral shoulders. Right shoulder abduction 160 degrees, left shoulder abduction 150 degrees. She has normal bilateral shoulder internal rotation with limited external rotation. Tender bilateral knees with left knee crepitus present. No MTP or ankle tenderness. Assessment & Plan Assessment & Plan (1) Rheumatoid arthritis: Comment: Inflammatory arthritis has improved on Actemra 8 milligram/kilogram every 4 weeks but she has developed mild transaminitis due to Actemra. When Actemra was on hold while she was having TB workup, LFTs normalized. Rheumatology history: Seronegative and erosive rheumatoid arthritis. Meloxicam ineffective. Prednisone 10 mg daily caused insomnia. Methotrexate 03/2021 to 08/2023 to 05/2021 caused blurred vision. Sulfasalazine 12/2021 was discontinued due to transaminitis. Leflunomide 08/2021 to 01/01/2023 discontinued due to concern it may be contributing to idiopathic intracranial hypertension. Inflectra 05/2022 to 09/19/2022 discontinued due to diagnosis of Ab MS. Failed Orencia 05/2023-08/2023. Actemra 09/2023-present effective. TB QuantiFERON 01/2024 negative. CXR 05/2024 negative. Code(s): M06.9 - Rheumatoid arthritis, unspecified Category: Medical Qualifiers: Rheumatoid arthritis location: multiple sites Rheumatoid factor presence: without rheumatoid factor Qualified Code(s): M06.09 - Rheumatoid arthritis without rheumatoid factor, multiple sites Plan: I will recheck liver function panel prior to next Actemra infusion. If transaminitis is persistent, I will need to reduce the dose of Actemra to 4 milligram/kilogram every 4 weeks IV infusion. When LFTs normalize, I will need to add hydroxychloroquine as adjunct immunosuppressive therapy to help further improve inflammatory arthritis. Information on hydroxychloroquine given to patient. She will be scheduled tomorrow for nurse visit for Depo-Medrol 80 mg IM. She will document response from Depo-Medrol. Return to clinic in 3 months (2) Transaminitis: Code(s): R74.01 - Elevation of levels of liver transaminase levels Category: Medical Plan: See above (3) Bilateral primary osteoarthritis of knee: Comment: Clinical +radiographic evidence of osteoarthritis on bilateral knee x-rays 2020. Last visit she had left knee synovitis, which has resolved with increasing Actemra dose. RA activity is contributing to knee pain. Code(s): M17.0 - Bilateral primary osteoarthritis of knee Category: Medical Plan: Bilateral knee x-rays ordered to evaluate for progression of arthritis RA treatment per above PT ordered for knee strengthening Return to clinic in 3 months (4) Bilateral carpal tunnel syndrome: Comment: On recent EMG. She wears bilateral cock-up wrist braces at night 4 to 5 times a week. Code(s): G56.03 - Carpal tunnel syndrome, bilateral upper limbs Category: Medical Plan: I encouraged her to try to wear wrist braces every day at night Can consider treatment for carpal tunnel syndrome with cortisone injections next visit Return to clinic in 3 months (5) Cubital tunnel syndrome on right: Comment: On recent EMG 05/07/2024. Code(s): G56.21 - Lesion of ulnar nerve, right upper limb Category: Medical Plan: Elbow support brace prescribed to wear at night. Patient prefers to purchase elbow support brace from [facility] Return to clinic in 3 months Orders: Orders Liver Panel 1 Month M06.09 - Rheumatoid arthritis without rheumatoid factor, multiple sites, R74.01 - Elevation of levels of liver transaminase levels XR knee LT 2V Today M17.0 - Bilateral primary osteoarthritis of knee XR knee RT 2V Today M17.0 - Bilateral primary osteoarthritis of knee PT Evaluation and Treatment Today M17.0 - Bilateral primary osteoarthritis of knee Lipid Panel 1 Month M06.09 - Rheumatoid arthritis without rheumatoid factor, multiple sites Medications: New arm brace (NBA Elbow Brace) As directed Right elbow brace Dx: ulnar neuropathy 1 ea 0RF Coding Level of Care Code Est Pt Level 4 (74754) Complex EM visit Add On G2211 Diagnoses Rheumatoid arthritis of multiple sites with negative rheumatoid factor M06.09 Rheumatoid arthritis location: multiple sites Rheumatoid factor presence: without rheumatoid factor Transaminitis R74.01 Bilateral primary osteoarthritis of knee M17.0 Bilateral carpal tunnel syndrome G56.03 Cubital tunnel syndrome on right G56.21
[2024-06-23 13:34] VITALS: BP 150/80; PULSE 67; O2SAT 98; BMI 27.7
--- OUTSIDE RECORDS SUMMARY | 2024-06-23 15:50 | XMS_ITS | Clinical Summary ---
Author Organization [facility] Address [address] [place] [address] Phone Care Team Providers Care Director [employer] Name Role Phone Luis Miguel Winchester MD Primary Care Provider [phone] Allergies No known active allergies Medications aspirin 81 mg EC tablet Take 1 tablet (81 mg total) by mouth 1 (one) time each day. 3 Active atorvastatin (LIPITOR) 40 mg tablet TAKE 1 TABLET(40 MG) BY MOUTH DAILY 4 Active NIFEdipine CC (ADALAT CC) 90 mg 24 hr tablet Take 1 tablet (90 mg total) by mouth. 3 Active atogepant (Qulipta) 60 mg tablet Take 60 mg by mouth 1 (one) time each day. Active galcanezumab-gn lm (EMGALITY) 120 mg/mL injection pen Inject 1 mL (120 mg total) under the skin every 28 (twenty-eight ) days. 1 each 5 5 11/11/19 25 Active predniSONE (DELTASONE) 5 mg tablet 4 05/31/19 25 Discontinu ed(Therapy completed) gabapentin (NEURONTIN) 300 mg capsule Take 1 capsule (300 mg total) by mouth 3 (three) times a day. 05/31/19 25 Discontinu ed(Therapy completed) amphetamine-dex troamphetamine XR (ADDERALL XR) 30 mg 24 hr capsule Take 3 capsules (90 mg total) by mouth 1 (one) time each day in the morning. Do not crush or chew. Max Daily Amount: 90 mg 05/31/19 Discontinu ed(Therapy completed) furosemide (LASIX) 20 mg tablet Take by mouth. 05/31/19 25 Discontinu ed(Therapy completed) Encounters Date Type Department Care Team Description 05/26/2024 2:30 PM EDT Office Visit [facility] [address] [facility] [address] [place] [address] Farzana German PA Migraine with aura and without status migrainosus, not intractable (Primary Dx) from Last 3 Months Surgical History Surgery Date Site/Laterality Comments HYSTERECTOMY PROCEDURE:HYSTERECTOMY GALLBLADDER SURGERY PROCEDURE:GALLBLADDER SURGERY Medical History Medical History Date Comments Hypertension DX:Hypertension MS (multiple sclerosis) ([facility] V24, [facility] V28) DX:MS (multiple sclerosis) ( [facility]) Pure hypercholesterolemia DX:Pur e hypercholesterolemia Migraine DX:Migraine [...] Sign Reading Time Taken Comments Blood Pressure 146/91 05/26/2024 2:21 PM EDT Pulse 62 05/26/2024 2:21 PM EDT Temperature 36 ??C (96.8 ??F) 02/04/2024 2:00 PM EST Respiratory Rate - - Oxygen Saturation 98% 05/26/2024 2:21 PM EDT Inhaled Oxygen Concentration - - Weight 71.7 kg (158 lb) 05/26/2024 2:21 PM EDT Height 165.1 cm (5' 5 ) 05/26/2024 2:21 PM EDT Body Mass Index 26.29 05/26/2024 2:21 PM EDT Plan of Treatment Upcoming Encounters Date Type Department Care Team (Late st Contact Info) Description 08/27/2024 1:30 PM EDT Office Visit [facility] [address] [facility] [address] [place] [address] Farzana German PA [address] [facility] [address] [place] [address] Health Maintenance Due Date Last Done Comments [...] or Tdap) 08/10/2029 08/11/2019, 06/23/2008 RSV Immunization Adult Patients (1 - 1-dose 75+ series) 02/05/2039 Pneumococcal [...] age to complete this topic Meningococcal B Vaccine Aged Out No l onger eligible based on patient's age to complete this topic RSV Immunization Patients Under 20 months Aged Out No longer eligible based on patient's age to complete this topic Varicella Vaccines Aged Out No longer eligible based on patient's age to complete this topic Insurance MEDICAID - [place] Care Teams Director [employer] Relationship Specialty Start Date End Date Luis Miguel Winchester MD [address] [address] PCP - General 08/08/22
--- OUTSIDE RECORDS SUMMARY | 2024-06-23 15:51 | XMS_ITS | Data Portability ---
Author Organization [facility], Main Office Address [address] [facility] [address] [place] [id number] Care Team Providers Care Qual Field Manager Name Role Phone JOSEY WINCHESTER Primary Care Provider ZION PARSONS Corporate Controller [facility] Pull Tab Dealer [phone] NORA MITCHELL Referring Provider RICA JEAN-BAPTISTE Referring Provider AGATA VILLEGAS Fishing Hand Assessment Encounter Date Assessment Date Assessment LastModified by Organization Details LastModified Time 07/08/2023 07/08/2023 This service was provided using telemedicine. Patient consented to video & audio visit Patient was located in the [facility]. Provider was located in the office. [...] Go To The Location Of Their Choice, [id number] 01/22/2024 08:10:05 BMP, serum or plasma 2023 024 JORDEN [facility] (Centralized Electronic Ordering - All Locations), Patient Can Go To The Location Of Their Choice, [address] 08/21/2023 14:07:05 microal bumin/c reatini ne, mass ratio, urine 2023 024 [place] [facility] (Centralized Electronic Ordering - All Locations), Patient Can Go To The Location Of Their Choice, [address] 08/21/2023 14:07:05 Referral neurolo gical surgeon referra l - Intracr anial hyperte nsion and ORELLANA which are not well-co ntrolle dCong 2023 024 rita Oconnell MD, [address] [place] [address], [address], [place], [address], 08/14/2023 15:16:31 Procedures None recorde d. Surgeries None recorde d. Imaging None recorde d. Medication Orders Adderal l XR 25 mg capsule ,extend ed release 2023 024 [id number] [phone] [place], [address], 02/18/2024 14:29:22 gabapen tin 300 mg capsule 2023 024 [email or web address], [phone] [place], [address], 01/21/2024 15:36:32 Adderal l XR 20 mg capsule ,extend ed release 2023 024 [facility], [phone] [place], [address], 02/18/2024 15:24:02 furosem edvin 20 mg tablet 2023 024 [facility]73, [address], [place], [phone], 01/21/2024 14:39:49 Zithrom ax Z-Kevyn 250 mg tablet 2023 024 [facility] #[id number], [address], [place], [phone], 01/21/2024 14:39:37 Patient TargetsNo targets recorded. Patient Instructions Encounter Date Encounter Id Patient Instructions Last Modified By Organization Details Last Modified Time 07/08/2023 [id number] pneumonia: care instructions pmadden Not available 07/08/2023 10:48:30 Patient will follow up and keep appointment as scheduled. pmadden Not available 07/08/2023 10:45:32 07/09/2023 [id number] At [facility] follow up visit, all current and discharge medications (OTC, herbal therapies, supplements) reviewed and reconciled with patient and or caregiver, including potential side effects, drug interactions, instructions, and the consequences of not taking medication. Reviewed potential barriers to medication adherence, such as side effects from medication or cost of medication. [email or web address] Not available 07/09/2023 10:48:26 08/15/2023 [id number] leg and ankle edema: care instructions Not available 08/15/2023 12:23:01 high blood pressure: care instructions Not available 08/15/2023 12:23:01 learning about high blood pressure Not available 08/15/2023 12:23:01 01/21/2024 [id number] insomnia: care instructions [email or web address] Not available 01/21/2024 15:36:31 high blood pressure: care instructions [email or web address] Not available 01/21/2024 15:36:32 learning about high blood pressure [email or web address] Not available 01/21/2024 15:36:32 high cholesterol : care instructions [email or web address] Not available 01/22/2024 17:45:52 attention defici t hyperactivity disorder (ADHD) in adults: care instructions [email or web address] Not available 01/21/2024 15:36:32 02/18/2024 [id number] high blood pressure: care instructions [email or web address] Not [...] glucose 99 mg/dL 70-99 Not Available [facility] ([facility]) [address] [place], [address], 08/21/2023 14:07:05 08/20/19 24 08/21/2023 BASIC METAB OLIC PANEL (8) BUN 18 mg/dL 6-24 Not Available [facility] ([facility]) [address] [place], [address], 08/21/2023 14:07:05 08/20/19 24 08/21/2023 BASIC METAB OLIC PANEL (8) creatinine 1.26 mg/dL 0.57-1 .00 above high normal Not Available [facility] ([facility]) [address] [place], [address], 08/21/2023 14:07:05 08/20/19 24 08/21/2023 BASIC METAB OLIC PANEL (8) eGFR 49 mL/mi n/1.7 3 >59 below low normal Not Available [facility] ([facility]) [address] [place], [address], 08/21/2023 14:07:05 08/20/19 24 08/21/2023 BASIC METAB OLIC PANEL (8) BUN/creatini ne ratio 14 9-23 Not Available [facility] ([facility]) [address] [place], [address], 08/21/2023 14:07:05 08/20/19 24 08/21/2023 BASIC METAB OLIC PANEL (8) sodium 147 mmol/ L 134-14 4 above high normal Not Available [facility] ([facility]) [address] [facility] [place], [address], 08/21/2023 14:07:05 08/20/19 24 08/21/2023 BASIC METAB OLIC PANEL (8) potassium 3.9 mmol/ L 3.5-5. 2 Not Available [facility] ([facility]) [address] [facility] [place], [address], 08/21/2023 14:07:05 08/20/19 24 08/21/2023 BASIC METAB OLIC PANEL (8) chloride 105 mmol/ L 96-106 Not Available [facility] ([facility]) [address] [facility] [place], [address], 08/21/2023 14:07:05 08/20/19 24 08/21/2023 BASIC METAB OLIC PANEL (8) carbon dioxide, total 23 mmol/ L 20-29 Not Available [facility] ([facility]) [address] [facility] [place], [address], 08/21/2023 14:07:05 08/20/19 24 08/21/2023 BASIC METAB OLIC PANEL (8) calcium 9.8 mg/dL 8.7-10 .2 Not Available [facility] ([facility]) [address] [facility] [place], [address], 08/21/2023 14:07:05 08/20/19 24 08/21/2023 ALBUM IN/CR EAT RATIO , RANDO M UR creatinine, urine 41.4 mg/dL not estab. Not Available [facility] ([facility]) [address] [facility] [place], [address], 08/21/2023 14:07:05 08/20/19 24 08/21/2023 ALBUM IN/CR EAT RATIO , RANDO M UR albumin, urine <3.0 ug/mL not estab. Not Available [facility] ([facility]) [address] [place], [address], 08/21/2023 14:07:05 08/20/19 24 08/21/2023 ALBUM IN/CR EAT RATIO , BESSO M UR alb/creat ratio <7 mg/g_ creat 0-29 Salome l: 0 - 29 Moder ately incre ased: 30 - 300 Sever nadiya incre ased: >300 Not Available [facility] ([facility]) [address] [place], [address], 08/21/2023 14:07:05 01/21/20 24 01/22/2024 LIPID PANEL cholesterol, total 227 mg/dL 100-19 9 above high normal Not Available [facility] ([facility]) [address] [place], [address], 01/22/2024 08:10:05 01/21/20 24 01/22/2024 LIPID PANEL triglyceride s 79 mg/dL 0-149 normal Not Available [facility] ([facility]) [address] [place], [address], 01/22/2024 08:10:05 01/21/20 24 01/22/2024 LIPID PANEL HDL cholesterol 95 mg/dL >39 normal Not Available [facility] [address] [place], [address], 01/22/2024 08:10:05 01/21/20 24 01/22/2024 LIPID PANEL VLDL cholesterol donaldo 14 mg/dL 5-40 Not Available [facility] ([facility]) [address] [place], [address], 01/22/2024 08:10:05 01/21/20 24 01/22/2024 LIPID PANEL LDL chol calc ([facility]) 118 mg/dL 0-99 above high normal Not Available [facility] ([facility]) [address] [place], [address], 01/22/2024 08:10:05 01/21/20 24 01/22/2024 LIPID PANEL LDL calc comment: 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 [email or web address] Not Available 2023 15:58:13 01/31/20 24 01/31/2024 MR brain wo and W contr ast See Note [facility] , a member of [employer] [facility] Name: MEMO JAVIER Date of : 1964 Reason for Exam: WHITE MATTER DISEAS E Exam Date: 2023 [id number] EST Report Status : Final Orderi ng [...] Transc ribed Date: 2023 15:13 ET [address]idy [address], [address], 02/01/2024 13:18:06 Result Notes None recorded. 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 543176105 Completed 201301/11/[address] PARSONS; RECORDED 07/08/19 14 1:40PM BY LISETH QUEZADA I, OFFICE VISIT Josey Winchester MD [address], [place], [address] , [facility] 6 09:55:27 Anxiety disorder 136252665 Active 2013 Problem in Fall and Winter Not Available [facility] 0 18:22:26 Patient status finding 024732710 Completed 201301/11/2014 RECORDED 07/08/19 14 1:46PM BY LISETH QUEZADA I, OFFICE VISIT Josey Winchester MD [address], [place], [address] , [facility] 6 09:55:27 [facility] 19428993 Completed 201209/21/2013 RECORDED 03/26/19 13 8:47AM BY LISETH QUEZADA I, ANNOTATI ON/MARGRET Winchester MD [address] [facility] [address], [place], [address] , [facility] 6 09:55:27 Flatulen ce, eructati on and gas pain 877702248 Completed 201301/11/2014 STORY: SEEN BY DR PARSONS; IMPRESSI ON: ADVISED HER TO GO TO THE [facility] TO SEE IF THEY HAVE ANYTHING TO HELP WITH HER SX.; RECORDED 07/08/19 14 1:40PM BY LISETH QUEZADA I, OFFICE VISIT Josey Winchester MD [address] [facility] [address], [place], [address] , [facility] 6 09:55:27 Visual disturba wye 04776400 Active 2013 IMPRESSI ON: POSSIBLE HYPOTENS ION VS MIGRAINE EQUIVALE NTS. SHE WILL CHECK HER BP AT HER NEXT EPISODE. IF HER BP IS NORMAL SHE WILL TAKE A MIGRAINE MED TO SEE IF THIS HELPS. IF THERE IS NO RELIEF SHE WILL CALL HER EYE DOCTOR. Not Available [facility] 0 18:22:25 Screenin g for malignan t neoplasm of breast Completed 201209/21/2013 RECORDED 03/26/19 13 8:47AM BY HOWARD MERLOS ON/MARGRET Winchester MD [address] [facility] [address], [place], [address] , [facility] 6 09:55:28 Screenin g for malignan t neoplasm of cervix Completed 201209/21/2013 RECORDED 03/26/19 13 8:47AM BY HOWARD MERLOS ON/MARGRET Winchester MD [address], [place], [address] , [facility] 6 09:55:28 Screenin g for malignan t neoplasm of colon Completed 201209/21/2013 RECORDED 09/22/19 13 8:20AM BY HOWARD MERLOS ON/MARGRET Winchester MD [address] [facility] [address], [place], [address] , [facility] 6 09:55:28 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 Not Available [facility] 0 18:22:26 Fritz bell 94088637 Active 2013 Josey Winchester MD [address] [facility] [address], [place], [address] , [facility] 3 13:25:29 Malaise and fatigue 357852666 Completed 201209/21/2013 RECORDED 03/26/19 13 8:46AM BY LISETH QUEZADA I, HOWARD ON/THEODORAEN MAYCOL Winchester MD [address], [place], [address] , [facility] 6 09:55:27 Pure hypercho lesterol emia 347879625 Completed 201311/18/2016 Unable to tolerate lipitor Josey Winchesetr MD [address], [place], [address] , [facility] 7 10:05:50 Hyperlip idemia 66001749 Completed 201301/11/2014 RECORDED 07/08/19 14 1:40PM BY LISETH QUEZADA I, OFFICE VISIT Josey Winchester MD [address] [facility] [address], [place], [address] , [facility] 0 19:09:36 Irritabl e bowel syndrome 26165690 Active 2013 Takes meds which help Not Available [facility] 0 18:22:26 Shoulder joint pain 070921842 Completed 201209/21/2013 RECORDED 03/26/19 13 8:46AM BY LISETH QUEZADA I, TRACEYATI ON/ADDEN DUM Josey Winchester MD [address] [facility] [address], [place], [address] , [facility] 6 09:55:27 Migraine 42451358 Active 2013 Not Available [facility] 0 18:22:26 Administ ration of bacteria l and viral vaccine Completed 200809/21/2013 RECORDED 06/24/19 09 10:01AM BY KEVIN TOSCANO, OFFICE VISIT Josey Winchester MD [address] [address], [place], [address] , [facility] 6 09:55:27 Skin sensatio n disturba nce 96883012 Completed 201209/21/2013 RECORDED 03/26/19 13 8:47AM BY TRACEY MERLOSATI ON/MARGRET Winchester MD [address] [address], [place], [address] , [facility] 6 09:55:27 Cough 18634752 Completed 201309/21/2013 RECORDED 04/01/19 14 9:45AM BY TRACEY MERLOSATI ON/MARGRET Winchester MD [address] [address], [place], [address] , [facility] 6 09:55:27 Adult health examinat ion Completed 201301/11/2014 RECORDED 07/08/19 14 1:45PM BY LISETH QUEZADA I, OFFICE VISIT Josey Winchester MD [address] [address], [place], [address] , [facility] 6 09:55:27 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 815329237 Completed 201210/11/2013 IMPRESSI ON: CONTINUE CURRENT MGMT; MEDS HELP A GREAT DEAL.; RECORDED 02/17/20 13 8:03AM BY TRACEY MERLOSATI ON/MARGRET Winchester MD [address] [address], [place], [address] , [facility] 6 09:55:27 Astigtnt is 93756614 Completed 201210/11/2013 RECORDED 03/26/19 13 8:47AM BY HOWARD MERLOS ON/MARGRET Winchester MD [address], [place], [address] , [facility] 6 09:55:27 Screenin g for malignan t neoplasm of breast Completed 201210/11/2013 RECORDED 03/26/19 13 8:47AM BY HOWARD MERLOS ON/MARGRET Winchester MD [address], [place], [address] , [facility] 6 09:55:28 Screenin g for malignan t neoplasm of cervix Completed 201210/11/2013 RECORDED 03/26/19 13 8:47AM BY HOWARD MERLOS ON/MARGRET Winchester MD [address], [place], [address] , [facility] 6 09:55:28 Screenin g for malignan t neoplasm of colon Completed 201210/11/2013 RECORDED 09/22/19 13 8:20AM BY HOWARD MERLOS ON/MARGRET Winchester MD [address], [place], [address] , [facility] 6 09:55:28 Tietze's disease 31311238 Completed 201210/11/2013 RECORDED 03/26/19 13 8:46AM BY HOWARD MERLOS ON/MARGRET Winchester MD [address], [place], [address] , [facility] 6 09:55:27 Malaise and fatigue 109678946 Completed 201210/11/2013 RECORDED 03/26/19 13 8:46AM BY TRACEY MERLOSATI ON/ADDEN DUM Josey Winchester MD [address] [facility] [address], [place], [address] , [facility] 6 09:55:27 Administ ration of bacteria l and viral vaccine Completed 200810/11/2013 RECORDED 06/24/19 09 10:01AM BY KEVIN TOSCANO, OFFICE VISIT Josey Winchester MD [address] [address], [place], [address] , [facility] 6 09:55:27 Skin sensatio n disturba nce 79253019 Completed 201210/11/2013 RECORDED 03/26/19 13 8:47AM BY HOWARD MERLOS ON/ADDEN DUM Josey Winchester MD [address] [facility] [address], [place], [address] , [facility] 6 09:55:27 Cough 81466639 Completed 201310/11/2013 RECORDED 04/01/19 14 9:45AM BY HOWARD MERLOS ON/ADDEN MAYCOL Winchester MD [address] [facility] [address], [place], [address] , [facility] 6 09:55:27 Attentio n deficit hyperact ivity disorder , predomin antly inattent roxann type 95542366 Completed 10/12/2015 Josey Winchester MD [address] [facility] [address], [place], [address] , [facility] 8 13:27:14 Plantar fasciiti s 936061709 Active Not Available [facility] 0 18:22:26 Fatigue 94514175 Completed 03/25/2016 Ángela Lucero PA-C [address], [place], [address] , [facility] 1 09:22:08 Keratoco nus 09679033 Active 2015 Followed by [facility] Not Available [facility] 0 18:22:25 Pinguecu la 11766661 Active 2015 Followed by [facility] Not Available [facility] 0 18:22:26 Nuclear scleroti c cataract 080638552 Active 2015 Followed by [facility] Not Available [facility] 0 18:22:26 Pneumoni a 002726541 Completed 201608/15/2016 KEVIN Villegas, [facility] 7 16:08:02 Attentio n deficit hyperact ivity disorder , predomin antly inattent roxann type 00753987 Active 2017 Not Available [facility] 0 18:22:26 Hypokale monisha 13977471 Active 2018 Not Available [facility] 0 18:22:26 Hyperlip idemia 30466177 Active 2019 Not Available [facility] 0 18:22:26 Loss of hair 291129193 Active 2020 Josey Winchester MD [address], [place], [address] , [facility] 1 17:02:35 Multiple joint pain 49677732 Active 2020 Ángela Lucero PA-C [address], [place], [address] , [facility] 1 09:22:07 Fatigue 73219072 Active 2020 Ángela Lucero PA-C [address], [place], [address] , [facility] 1 09:22:08 Pain of right wrist 66357985471 9100 Active 2020 Seen by [facility]; had MRI showing OA. Josey Winchester MD [address], [place], [address] , [facility] 1 18:07:02 Seronega tive rheumato id arthriti s 655746530 Active 2021 Followed by rheum; on methotre xate. 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 Mohini horne optic neuritis . Josey Winchester MD [address], [place], [address] , [facility] 3 10:45:14 Kidney finding 848812481 Active 2022 born with only one kidney JOVAN Noonan, [facility] 3 09:09:38 History of SARS-CoV -2 50354204799 7470926 Active 2022 Josey Winchester MD [address], [place], [address] , [facility] 3 10:39:24 Thyroid nodule 708642706 Active 2022 Thyroid U/S done and no addition al imaging required . Josey Winchester MD [address] [facility] [address], [place], [address] , [facility] 3 20:13:54 Edema of lower extremit y 355084093 Active 2023 Luis bentley, [facility] 4 12:11:02 Problem Notes None recorded. Procedures Surgical History Date Name Laterality Status Provider Name and Address Organization Details Recorded Time 07/25/19 23 Most Recent Mammogram completed Kati Dallas [facility] 07/24/2022 12:09:18 07/25/19 23 Mammogram Diagnostic Bilateral completed Kati Dallas [facility] 07/24/2022 12:09:11 05/10/19 23 wrist injection completed Gracy Juares [facility] 05/14/2022 13:50:42 03/30/19 16 Date of Last Pap Smear completed Boone Faustinutis [facility] 04/03/2015 11:53:06 03/16/19 16 Date of Last Colonoscopy completed Viviana Hodge [facility] 03/17/2015 10:15:20 03/16/19 16 Colonoscopy completed Roslyn Orr [facility] 02/23/2020 13:16:56 03/03/19 02 Total Abdominal Hysterectomy completed Humera valentine [facility] 08/15/2016 16:15:28 Cholecystectomy completed Josey Winchester MD [address] [facility], [place], [address], [place] [facility] 01/11/2014 14:15:38 Imaging Results Imaging Date Name Status LastModified by Organiz ation Details LastModified Time 07/04/2023 US, ophthalmic, B-scan + A-scan completed [email or web address] Information not available 07/07/2023 15:58:13 01/31/2024 MR brain wo and W contrast completed [address], [address], 02/01/2024 13:18:06 Procedure Notes None recorded. Medical Equipment None Reported. Allergies Allergen ID Allergen Name Allergen Category Reaction Reaction Severity Criticality Documentation Date Start Date Code Code System Note Provider Name and Address Organization Details Recorded Time 87413 omeprazol e medicatio n rash Not available Not available 06/25/2017 7646 RxNorm Josey cordova MD [address], [address], [place] [facility] 8 13:54:05 8323 Pepcid medicatio n angioedem a Not available Not available 09/14/20132013 8 RxNorm REACT ION: RIGHT ARM SWELL ING Humera KEVIN Sanchez, [facility] 7 16:07:06 Medications Name Sig Start Date [...] 50 mcg/actua tion nasal spray,[facility] [place] 1 spray every day by intranas al [...] completed Not Available Not Available Not Available [facility] 75 mg disintegr ating tablet DISSOLVE [...] 07/08/2023 165.1 cm Maura Haider MA MA [facility] 07/08/2023 10:14:56 Date Recorded Body height Body weight Body mass index (BMI) Heart rate Oxygen saturation Oxygen saturation in Arterial blood by Pulse oximetry Body temperature Systolic blood pressure Diastolic blood pressure Provider Name and Address Organization Details Last Updated DateTime 165.1 cm 96388.8 2 g 23.7 kg/m2 60 /min 98 % 98 % 98 [degF] 161 mm[Hg] 75 mm[Hg] Purvi Torres LPN [facility] 4 10:54:04 Date Recorded Body height Body mass index (BMI) Body weight Systolic blood pressure Diastolic blood pressure Provider Name and Address Organization Details Last Updated DateTime 08/15/2023 165.1 cm 25.1 kg/m2 91636.45 g 145 mm[Hg] 87 mm[Hg] Maura Haider MA [facility] 4 11:36:16 Date Recorded Systolic blood pressure Diastolic blood pressure Provider Name and Address Organization Details Last Updated DateTime 08/15/2023 158 mm[Hg] 84 mm[Hg] Ángela Lucero PA-C [address] [address], [place], [address], [facility] 08/15/2023 12:25:22 Date Recorded Body height Body mass index (BMI) Body weight Systolic blood pressure Diastolic blood pressure Provider Name and Address Organization Details Last Updated DateTime 01/21/2024 165.1 cm 26 kg/m2 92608.41 g 137 mm[Hg] 86 mm[Hg] Maura Haider MA [facility] 4 14:38:24 Date Recorded Body height Body mass index (BMI) Body weight Heart rate Oxygen saturation Oxygen saturation in Arterial blood by Pulse oximetry Body temperature Systolic blood pressure Diastolic blood pressure Provider Name and Address Organization Details Last Updated DateTime 4 165.1 cm 26.6 kg/m2 50665.7 8 g 101 /min 97 % 97 % 98 [degF] 121 mm[Hg] 82 mm[Hg] Maura Haider MA [facility] 4 14:08:27 Social History Question Answer Notes LastModified by Organizat ion Details LastModified Time Tobacco Smoking Status Never Smoker Not Available [employer] 01/04/2020 03:36:37 Do You Have An Advance Directive? Yes [facility] [email or web address] Information not available 10/03/2021 What Is Your Level Of Alcohol Consumption? None [id number] Information not available 01/04/2020 Is Blood Transfusion Acceptable In An Emergency? Yes [id number] Information not available 01/04/2020 What Is Your Level Of Caffeine Consumption? None [id number] Information not available 01/04/2020 How Much Tobacco Do You Chew? None [id number] Information not available 01/04/2020 Are You Currently Employed? Yes [id number] Information not available 01/04/2020 What Type Of Diet Are You Following? VEGETARIAN No Salt [id number] Information not available 01/04/2020 Which Illicit Or Recreational Drugs Have You Used? None [id number] Information not available 01/04/2020 Do You Or Have You Ever Used E-cigarettes Or Vape? 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 With Others 2 Children And 1 GC (born Late 2012) [email or web address] Information not available 10/03/2021 Do You Take Precautions To Prevent Distracted Driving? Yes [email or web address] Information not available 10/12/2015 How Often Do You Need To Have Someone Help You When You Read Instructions, Pamphlets, Or Other Written Material From Your Doctor Or Pharmacy? Never [email or web address] Information not available 10/12/2015 Have You Served In The ? No [email or web address] Information not available 03/25/2016 Have You Or Anyone In Your Household Had Any Of The Following Symptoms In The Last 14 Days: Sore Throat, Cough, Chills, Body Aches For Unknown Reasons, Shortness Of Breath For Unknown Reasons, Loss Of Smell, Loss Of Taste, Fever At Or Greater Than 100 Degrees Fahrenheit? No [email or web address] Information not available 02/23/2020 Are You Or Anyone In Your Household A Health Care Provider Or Emergency Responder? No [email or web address] Information not available 02/23/2020 To The Best Of Your Knowledge Have You Been In Close Proximity To Any Individual Who Tested Positive For COVID-19? No [email or web address] Information not available 02/23/2020 Have You Recently [...] available 02/23/2020 Seat Belts Used Routinely Yes [email or web address] Information not available 10/03/2021 Are You Sexually Active? No [id number] Information not available 01/04/2020 Smoke Alarm In Home Yes Information not available 10/03/2021 At What Age Did You Start Smoking Tobacco? 1 [id number] Information not available 01/04/2020 Are You Passively Exposed To Smoke? No [email or web address] Information not available 10/12/2015 Do You Or Have You Ever Used Smokeless Tobacco? Never Used Smokeless Tobacco [id number] Information not available 01/04/2020 How Much Tobacco Do You Smoke? No [id number] Information not available 01/04/2020 Do You Use Sunscreen Routinely? Yes [id number] Information not available 01/04/2020 How Many Years Have You Smoked Tobacco? 0 [id number] Information not available 01/04/2020 Do You Or Have You Ever Used Any Other Forms Of Tobacco Or Nicotine? No [email or web address] Information not available 10/03/2021 Sex: Unknown Functional Status Question Answer Note LastModified by Organizat ion Details LastModified Time Are you able to walk? YESWOREST [email or web address] Information not available 10/03/2021 Are you able to care for yourself? Yes [id number] Information not available 01/04/2020 What is your [...] Time zoster recombinant 0 completed KEVIN Conti [facility] 11/28/2021 12:49:12 Influenza, split virus, quadrivalent, preservative 0 completed KEVIN Conti [facility] 11/28/2021 12:49:12 COVID-19, mRNA, LNP-S, PF, 100 mcg/0.5mL dose or 50 mcg/0.25mL dose 1 completed KEVIN Conti [facility] 11/21/2021 08:31:51 COVID-19, mRNA, LNP-S, PF, 100 mcg/0.5mL dose or 50 mcg/0.25mL dose 1 completed KEVIN Marks [facility] 03/07/2021 11:29:55 Influenza, split virus, trivalent, preservative 3 completed KEVIN Marks [facility] 03/07/2021 11:29:55 Influenza, split virus, trivalent, preservative 2 completed Samaria Chanel MA null, [facility] 03/07/2021 11:29:55 COVID-19, mRNA, LNP-S, PF, 100 mcg/0.5mL dose or 50 mcg/0.25mL dose 1 completed KEVIN Marks, [facility] 03/07/2021 11:29:55 Influenza, MDCK, quadrivalent, PF 9 completed KEVIN Marks, [facility] 03/07/2021 11:29:55 Influenza, split virus, trivalent, preservative 1 completed Samaria Chanel MA null, [facility] 03/07/2021 11:29:55 Influenza, split virus, quadrivalent, PF 5 completed Not Available [facility] 03/20/2019 02:22:02 COVID-19, mRNA, LNP-S, PF, 100 mcg/0.5mL dose or 50 mcg/0.25mL dose 2 completed KEVIN Conti, [facility] 11/21/2021 08:31:51 COVID-19, mRNA, LNP-S, PF, phuc-sucrose, 30 mcg/0.3 mL 3 completed Purvi Torres LPN null, [facility] 07/09/2023 10:54:37 Influenza, split virus, quadrivalent, PF 6 completed Not Available [facility] 03/20/2019 02:22:04 Influenza, split virus, quadrivalent, PF 7 completed Not Available [facility] 03/20/2019 02:22:10 Influenza, split virus, quadrivalent, PF 8 completed Not Available [facility] 03/20/2019 02:22:15 Tdap 0 completed KEVIN Briseno, [facility] 08/11/2019 11:36:19 Influenza, split virus, trivalent, PF 4 completed Not Available [facility] 03/20/2019 02:21:58 Tdap 9 completed Not Available [facility] 11/26/2019 18:22:26 Influenza, split virus, quadrivalent, PF 3 completed Josey Winchester MD [address] [address], [place], [address], [facility] 01/10/2023 13:40:02 Past Encounters Encounter ID Performer Location Encounter Start Date Encounter Closed Date Diagnosis/Indication Diagnosis SNOMED-CT Code Diagnosis ICD10 Code Diagnosis Note [id number] [facility] [address] [facility] [facility] [address] 04/09/2007 00:00:00 [id number] [facility] [address] [facility] [facility] [place] [address] 05/06/2007 00:00:00 [id number] [facility] er[facility] [address] [facility] [place] [address] 06/23/2008 00:00:00 [id number] [facility] [facility] [address] [facility] [facility] [place] [address] 07/06/2008 00:00:00 [id number] [facility] [address] [facility] [facility] [place] [address] 08/11/2008 00:00:00 [id number] [facility] [address] [facility] [place] [address] 04/21/2009 00:00:00 [id number] [facility] [facility] [address] [facility] [place] [address] 05/19/2009 00:00:00 [id number] [facility] [facility] [address] [facility] [place] [address] 07/19/2009 00:00:00 [id number] [facility] [facility] [address] [facility] [facility] [place] [address] 04/10/2010 00:00:00 [id number] [facility] [address] [place] [address] 05/15/2010 00:00:00 [id number] [facility] erce [address] [place] [address] 07/04/2010 00:00:00 [id number] [facility] erce [address] [place] [address] 09/12/2010 00:00:00 [id number] auto[facility] erce [address] [place] [address] 10/17/2010 00:00:00 [id number] auto[facility] erce [address] [place] [address] 09/12/2011 00:00:00 [id number] auto[facility]Comm erce [address] [facility] [address] [place] [address] 03/26/2012 00:00:00 [id number] [facility] erce [address] [facility] [place] [address] 04/27/2012 00:00:00 [id number] auto[facility] erce [address] [facility] [address] [place] [address] 09/21/2012 00:00:00 [id number] auto[facility] erce [address] [facility] [place] [address] 02/16/2013 00:00:00 [id number] auto[facility]Comm erce [address] [facility] [place] [address] 07/07/2013 00:00:00 [id number] Liseth Vasquez Main Office [address] [facility] [address] [place] [address] 01/11/2014 13:22:21 01/11/2014 14:42:04 Needs influenza immunization 145524610 Essential hypertension 89434150 Attention deficit hyperactivity disorder, predominantly inattentive type 36963621 Pure hypercholesterolemia 777486901 Screening for malignant neoplasm of breast 344832632 Screening for malignant neoplasm of colon 975076579 [id number] Liseth Vasquez Main Office [address] [address] [place] [address] 07/11/2014 13:41:12 07/11/2014 14:48:21 Adult health examination 440713783 Screening for malignant neoplasm of colon 161924424 Pure hypercholesterolemia 052940358 has trouble with meds. Will recheck and look at risk calculator before starting another med. Essential hypertension 64381625 well controlled with current meds Irritable bowel syndrome 55757942 well-contr olled with current meds and diet. [id number] Main Office [address] [address] [place] [address] 12/03/2014 08:47:01 12/03/2014 09:43:49 Migraine 20320387 G43.009 will restart a triptan which she took years ago and she will call if it isn't helping. Plantar fasciitis 204459 003 M72.2 she will try exercises and will call if it persists. [id number] Josey Winchester MD Main Office [address] [address] [place] [address] 01/23/2015 10:38:25 01/23/2015 11:28:45 Essential hypertension 49852801 I10 no longer controlled . We will go up on her meds and she will call if the BP is >140/90. Pure hypercholesterolemia 617023212 E78.0 trouble on meds. Recheck cholestero l Needs infl uenza immunization 585412825 Z23 Screening for malignant neoplasm of colon 708919435 Z12.11 Screening for malignant neoplasm of cervix 334294503 Z12.4 Attention deficit hyperactivity disorder, predominantly inattentive type 98658301 F90.0 [id number] Josey Winchester MD Main Office [address] [address] [place] [address] 10/12/2015 09:22:54 10/12/2015 10:14:44 Adult health examination 481232800 Z00.00 UTD with immunizati ons, colonoscop y, mammogram and [employer] care. Essential hypertension 15520312 I10 we will stop her metoprolol to see if her fatigue improves. Start a CCB and see her back in 1 month. Fatigue 01339340 R53.83 this may be secondary to metoprolol so will stop and start another BP med. Irritable bowel syndrome 67200575 K58.9 well-contr olled with current meds and diet. [id number] Josey Winchester MD Main Office [address] [place] [address] 11/14/2015 15:44:42 11/14/2015 17:02:57 Essential hypertension 41364631 I10 Her fatigue has persisted despite stopping the metoprolol . BP mildly elevated on the amlodipine so will increase the dose. Needs infl uenza immunization 892661902 Z23 Migraine 20773778 G43.00 9 Possibly returned since stopping the bets cherelle for her BP. Will start a different beta cherelle and she will call if it persists. [id number] Tk lopez Main Office [address] [place] [address] 02/27/2016 10:23:45 02/27/2016 11:54:18 Fever 946486219 R50.9 40 minute office visit with greater than 50% of the visit face-to-fa ce with the patient and/or family providing counseling and/or coordinati on of care. Cough 25724460 R05 Nausea and vomiting 1693 2000 R11.2 Diarrhea 04549241 R19.7 Fatigue 57785878 R53.83 [id number] Josey Winchester MD Main Office [address] [place] [address] 03/05/2016 15:42:55 03/06/2016 12:56:57 Pneumonia 286712861 J18.9 encouraged deep breaths at least hourly to hopefully diminish need for albuterol, also rec. walk on elliptical machine at low intensity to slowly build up her endurance. will give cxr at next f/u to recheck in 2 wks Essential hypertension 72603523 I10 mildly elevated - advised pt to cont to monitor qd, and will consider re-initiat ing bp med if cont. to trend high 25 minute office visit with greater than 50% of the visit face-to-fa ce with the patient and/or family providing counseling and/or coordinati on of care. [id number] Josey Winchester MD Main Office [address] [place], [place] [address] [place] [address] 03/25/2016 13:15:02 03/25/2016 14:04:38 Essential hypertension 33950202 I10 stable, not on meds - used bp med a few yrs ago - rec. cont healthy diet (low salt) and exercise 25 minute office visit with greater than 50% of the visit face-to-fa ce with the patient and/or family providing counseling and/or coordinati on of care. Pneumonia 493884202 J18. 9 cont to stay active, rec occ deep breaths. will give cxr to verify resolution of pna [id number] Josey Winchester MD Main Office [address] [place] [address] [place] [address] 07/08/2016 11:22:37 07/08/2016 12:11:21 Allergic rhinitis 24760027 J30.9 We will see her back in a few weeks to recheck her adenopathy . No B symptoms. [id number] Josey Winchester MD Main Office [facility] [address] [place] [address] 08/15/2016 15:59:01 08/15/2016 17:02:56 Acute sinusitis 97625132 J01.90 Pt. told to get some sudafed, cont OTCs and have yogurt or get a probiotic while on the Abx. [id number] Josey Winchester MD Main Office [address] [address] [place] [id number] 11/18/2016 09:33:44 11/18/2016 10:23:06 Adult health examination 332934506 Z00.00 UTD with immunizati ons, colonoscop y, mammogram and [employer] care. Needs infl uenza immunization 267892059 Z23 Essential hypertension 54119738 I10 She will follow her BP at home and we will call in a few weeks to see how it has been running. Migraine 42580437 G43.00 9 Hyperlipidemia 14768644 E78.5 has trouble with meds. Will recheck and look at risk calculator before starting another med. [id number] Josey Winchester MD Main Office [facility] [address] [address] [place] [address] 05/21/2017 12:49:18 05/21/2017 14:09:17 Essential hypertension 47186346 I10 Will restart meds and she will return for a recheck in 1 month. Easy bruising 051121775 R58 [id number] Josey Winchester MD Main Office [address] [address] [place] [address] 06/25/2017 13:18:55 06/25/2017 13:56:11 Essential hypertension 87843711 I10 Taking meds daily and tolerating them well. BP under good control. Migraine 29242512 G43.00 9 stable on prophylaxi s. [id number] Josey Winchester MD Main Office [address] [address] [place] [address] 11/06/2017 12:58:57 11/06/2017 14:04:51 Carpal tunnel syndrome 88401765 G56.02 She will take aleve twice a day. [id number] Josey Winchester MD Main Office [address] [address] [place] [address] 12/03/2017 12:43:02 12/03/2017 13:40:40 Needs influenza immunization 363235323 Z23 Screening for malignant neoplasm of breast 234428368 Z12.39 Essential hypertension 17653522 I10 She will restart her meds at a lower dose. She understand s that this is especially important in light of the fact she is going back on adderall. Attention deficit hyperactivity disorder, predominantly inattentive type 77767924 F90.0 Having trouble with focus. This helped in the past. [id number] Josey Winchester MD Main Office [address] [address] [place] [address] 01/28/2018 13:04:32 01/28/2018 13:49:10 Adult health examination 299629997 Z00.00 UTD with immunizati ons, colonoscop y (due again in 2025) mammogram. Had a hysterecto my and no longer sees [employer] O[employer]ATOR. Essential hypertension 48238035 I10 Her BP is running high so we will increase her dose of atenolol and see her back in 1 month. Attention deficit hyperactivity disorder, predominantly inattentive type 29210181 F90.0 We start 15 mg bid since the 30 mg XL dose wears off before the end of her work day. Screening for malignant neoplasm of breast 155380539 Z12.39 [id number] Josey Winchester MD Main Office [address] [address] [place] [address] 02/18/2018 11:19:47 02/18/2018 11:50:35 Attention deficit hyperactivity disorder, predominantly inattentive type 18679273 F90.0 we will d/c her adderall and start strattera. She will call in a couple of weeks if it is not helping and we will go up on the dose. If still not working at the end of March we will try a different med. Essential hypertension 44468934 I10 Good control with increased dose of meds. Continue current mgmt. [id number] Josey Winchester MD Main Office [address] [address] [place] [address] 08/06/2018 15:37:38 08/06/2018 16:31:45 Fatigue 69354185 R53.83 No clear etiology. Hypokalemia 14245094 E87 .6 Corrected as an inpatient; secondary to diuretic. Essential hypertension 95276904 I10 Currently normotensi ve off meds. Possibly secondary to her adderall. She will monitor her BP and will call if/when she restarts her adderall. Attention deficit hyperactivity disorder, predominantly inattentive type 43880031 F90.0 Has adderall and will restart when needed. [id number] Josey Winchester MD Main Office [address] [address] [place] [address] 08/19/2018 12:31:49 08/19/2018 13:22:34 Essential hypertension 07306931 I10 Currently normotensi ve off meds. Possibly secondary to her adderall. She will monitor her BP and will call if/when she restarts her adderall. Fatigue 09048653 R53.83 No clear etiology. We spoke about lifestyle issues such as exercise, good diet and adequate sleep and she will work on these. [id number] Josey Winchester MD Main Office [address] [address] [place] [address] 10/06/2018 14:38:47 10/06/2018 15:31:59 Renal angle tenderness 717553322 R10.829 Possible muscular. The urine is normal. Will treat with NSAIDs for a week and if her pain persists will consider an U/S. Gastroesop hageal reflux disease 023255907 K21.9 Essential hypertension 83949949 I10 BP went back up after stopping the adderall and initially seeing a normalizat ion of her BP. [id number] Josey Winchester MD Main Office [address] [address] [place] [address] 12/23/2018 15:52:51 12/23/2018 16:40:53 Allergic conjunctivitis 651540956 H10.12 Instructio ns to call if develops vision problems or pain. [id number] Josey Winchester MD Main Office [address] [address] [place] [address] 02/17/2019 13:41:37 02/17/2019 14:42:10 Adult health examination 830723384 Z00.00 Will update her immunizati ons today, colonoscop y (due again in 2025) and UTD w/mammogra m. Had a hysterecto my and no longer sees [employer] OPERATOR. Varicella vaccination 68 781379 Z23 Skin lesion 56966856 L98 .9 [id number] Josey Winchester MD Main Office [address] [address] [place] [address] 03/05/2019 13:52:06 03/05/2019 14:54:54 Fever 319315886 R50.9 Cough 87096678 R05 Muscle pain 41075963 M79 .10 [id number] Kavita Gary [facility] [address] [address] [place] [address] 07/30/2019 13:51:26 08/02/2019 08:34:33 Counseling 409170909 Z71.9 Health advice, education or counseling done for COVID 19, pt not able to be offered testing as she does not have symptoms. She will request testing through her employer. Call immed if any sx come up including cough, fever, SOB or uri sx [id number] Josey Winchester MD Main Office [address] [address] [place] [address] 08/11/2019 10:50:11 08/11/2019 11:48:11 Essential hypertension 84531300 I10 C/w BP meds. Running a little high today. She will follow. Attention deficit hyperactivity disorder, predominantly inattentive type 41982069 F90.0 Has adderall and uses it prn. Hyperlipidemia 02759267 E78.5 Has been taking statin 3 times a week and tolerating it well. Administra tion of viral vaccine 71338206 Z23 [id number] Josey Winchester MD Main Office [address] [address] [place] [address] 02/23/2020 13:01:50 02/23/2020 13:48:20 Adult health examination 837089798 Z00.00 Will update her immunizati ons today, colonoscop y (due again in 2025) and UTD w/mammogra m. Had a hysterecto my and no longer sees [employer] PR[employer] OPERATOR. We discussed exercise while also keeping safe during the pandemic. Migraine 52084633 G43.00 9 Was helped by prophylaxi s in the past and will restart the topamax. Hyperlipidemia 28666383 E78.5 Has been taking statin 3 times a week and tolerating it well. Essential hypertension 39897579 I10 C/w BP meds. [id number] Josey Winchester MD Main Office [address] [address] [place] [address] 08/23/2020 12:51:26 08/23/2020 13:54:13 Essential hypertension 41599111 I10 Stopped BP meds because of her hair loss. Beta blockers and diuretics may contribute to this so we will start a CCB and see her back in month. Loss of hair 300412084 L 65.9 No clear etiology. May be genetic. May be related to hair styling and may be related to meds. We stopped her beta cherelle and diuretic and statin. Hyperlipidemia 51137525 E78.5 Stopped the statin for now since may be adding to her hair loss. We will monitor. [id number] Josey Winchester MD Main Office [address] [address] [place] [address] 09/20/2020 14:48:28 09/20/2020 15:20:52 Essential hypertension 47102428 I10 Stopped BP meds because of her hair loss. Beta blockers and diuretics may contribute to this so we will start a CCB and see her back in month. Migraine 94007117 G43.00 9 Stopped the topamax which was helping because she felt that it was contributi ng to her hair loss. She will try sumatripta n for treatment and will call if her headaches continue. Loss of hair 675759287 L 65.9 No clear etiology. May be genetic. May be related to hair styling and may be related to meds. We stopped her beta cherelle and diuretic and statin. She has an upcoming derm appointmen t in early November. [id number] Ángela Lucero PA-C Main Office [address] [place] [address] 10/20/2020 08:39:54 10/20/2020 09:31:30 Fatigue 70992617 R53.83 r/o anemia, diabetes, renal disease, thyroid dysfunctio n. Multiple joint pain 3567 8005 M25.50 R/o RA, Lymes disease Screening for malignant neoplasm of breast 990474198 Z12.39 Screening for malignant neoplasm of cervix 759958949 Z12.4 Vitamin D deficiency 347 84111 E55.9 [id number] Ángela Lucero PA-C [facility] [address] [place] [address] 11/27/2020 12:55:36 11/27/2020 15:49:22 Multiple joint pain 56249201 M25.50 elevated ESR and CRP. PT. will proceed with seeing rheumatolo gist and continue taking turmerican d MSM. [id number] Josey Winchester MD Main Office [address] [place] [address] 03/07/2021 10:41:20 03/07/2021 12:00:41 Adult health examination 793233939 Z00.00 She is UTD with immunizati ons including COVID along with her booster but she is due for her second shingles. She is also UTD w/colonosc opy (due again in 2025) and UTD w/mammogra m. Had a hysterecto my and no longer sees [employer] PR[employer] OPERATOR. We discussed exercise while also keeping safe during the pandemic. Essential hypertension 10567488 I10 She's on a low dose of nifedipine and her BP is under good control. Hyperlipidemia 70605589 E78.5 Stopped the statin for now since may be adding to her hair loss. We will monitor. [id number] Josey Winchester MD Main Office [address] [address] [place] [address] 10/03/2021 11:21:18 10/03/2021 12:09:09 Essential hypertension 77268497 I10 She's on a low dose of nifedipine and her BP is running high. We will increase the dose from 30 to 90 mg and recheck in 1 month. [id number] Josey Winchester MD Main Office [address] [address] [place] [address] 10/31/2021 12:42:04 10/31/2021 13:19:44 Essential hypertension [id number] I10 Still not with adequate control on nifedipine 90 mg. She will continue with that and we will start a diuretic. We went over foods high in potassium and she will get this checked before her next appointmen t. [id number] Josey Winchester MD Main Office [address] [address] [place] [address] 11/28/2021 12:38:40 11/28/2021 13:40:47 Seronegative rheumatoid arthritis [id number] M06.[address] Mitchell and on meds. Essential hypertension 54823985 I10 Better control since adding diuretic. Mildly reduced potassium at 3.4. We will recheck level in a month. Cough 26325143 R05.9 She has not yet tested for COVID. Drug-induc ed hypokalemia 988735323 E87.6 Induced by diuretic. Will concentrat e on foods w/potassilavon m and recheck in one month. Hyperlipidemia 14912228 E78.5 Cannot tolerate a statin. Will look into options. [id number] Josey Winchester MD [facility] [address] [address] [place] [address] 08/08/2022 12:24:46 08/20/2022 08:15:54 Multiple sclerosis 57819330 G35 This is a new dx. She saw Dr Rausch as an inpatient at [facility] and will follow with him as on outpatient . She is not currently on any meds. Migraine 17009859 G43.00 9 She would like to restart the topamax because she has been getting more frequent headaches. Optic neuritis 78719159 H46.9 H46.03 Followed by both ophtho and neurology. Her vision has been improving. She is still not driving and is waiting to be cleared by neurology. [id number] Paula Gill MA Main Office [address] [facility] [address] [place] [address] 10/23/2022 15:35:43 10/23/2022 16:11:23 Lump on face 040492506 R22.0 Tender lesion at left jaw line Benign int racranial hypertension 13023883 G93.2 She is followed by neurology and started on acetazolam edvin. [id number] Rian Alvarado MD Main Office [address] [facility] [address] [place] [address] 12/04/2022 08:52:21 12/04/2022 09:23:37 Pre-surgery evaluation [id number] Z01.818 No medical contraindi cations to proposed procedure. Wen Perioperat roxann Cardiac Risk was calculated and the risk for perioperat roxann [place] is <1%. May proceed to surgery as planned. Essential hypertension 76683452 I10 stable at homein office BP- 133/84 Cataract 406140344 H26.9 [id number] Josey Winchester MD Main Office [address] [address] 01/08/2023 09:55:30 01/08/2023 10:59:38 Adult health examination 577669784 Z00.00 She is UTD with immunizati ons including COVID along with her booster but she is due for her second shingles. She is also UTD w/colonosc opy (due again in 2025) and UTD w/mammogra m. Had a hysterecto my and no longer sees [employer] [employer] [facility]. We discussed exercise and she remains very active. Needs infl uenza immunization 690101530 Z23 History of SARS-CoV-2 29 [id number] 45073068 Z86.16 mild symptoms; cough Hyperlipidemia 61988262 E78.5 Cannot tolerate a statin. Levels on repeat blood work look good. No meds needed. Thyroid nodule 008930777 E04.1 She is scheduled for an 01/21/23. Essential hypertension 80971221 I10 We stopped her diuretic because of hypokalemi a but her BP has increased. We will continue to follow it before adding any meds. Attention deficit hyperactivity disorder, predominantly inattentive type 78762559 F90.0 Has adderall and uses it prn. Seronegati ve rheumatoid arthritis 280705601 M06.[address] Mitchell and on meds. Multiple sclerosis 60733 007 G35 This is a new dx. She saw Dr Rausch as an inpatient at [facility] and now followed by Dr Naz bryson and is on acetazolam edvin. [id number] Giovanni Lucero PA-C [facility] [address] [facility] [address] [facility] [place] [address] 07/08/2023 09:22:38 07/08/2023 11:05:07 COVID-19 [id number] U07.1 dx'd in ER on 5.3 - [...] if at all possible see below Cough 35739220 R05.9 most likely has p covid pnawill rx c abxrecomme nd probiotics while on abxsee above/belo w Pneumonia 698524807 J18. 9 see above [id number] Karely Chiu Main Office [address] [facility] [address] [facility] [place] [address] 07/09/2023 10:32:41 07/09/2023 11:31:51 History of idiopathic intracranial hypertension 2460738850 3465934 Z86.69 Having headaches that are not adequately treated with meds and having a difficult time concentrat ing. Headache 66500735 R51.9 Transition of care from emergency department to self-care [id number] 69947 Z76.89 Reviewed [id number] Ángela Lucero PA-C Main Office [address] [facility] [address] [place] [address] 08/15/2023 11:32:08 08/15/2023 12:27:56 Essential hypertension 46556616 I10 Elevated BP today though has not taken antihypert ensives. Continue to monitor and cont antihypert ensives, low sodium diet. She has a history of elevated BP readings while on nifedipine so will obtain microalbum in and follow up in one month for reassessme nt. Edema of l ower extremity 517645330 R60.0 Will start on Lasix 20 mg PO daily. Will check BMP in one week to assess potassium and renal function. [id number] Josey Winchester MD Main Office [address] [facility] [address] [place] [address] 01/21/2024 14:18:10 01/21/2024 15:24:56 Adult health examination 207209004 Z00.00 She is UTD with immunizati ons including COVID along with her booster but she is due for her second shingles. She is also UTD w/colonosc opy (due again in 2025) and UTD w/mammogra m. Had a hysterecto my and no longer sees [facility] [employer] [facility]. We discussed exercise and she remains very active. Insomnia 103585196 F51.0 1 She will try gabapentin at bedtime. Attention deficit hyperactivity disorder, predominantly inattentive type 80089977 F90.0 Has adderall and uses it prn. Essential hypertension 28638689 I10 We stopped her diuretic because of hypokalemi a but her BP has increased. We will continue to follow it before adding any meds. Migraine 62415116 G43.00 9 She currently uses Excedrin migraine which helps. Hyperlipidemia 41450196 E78.5 Taking atorvastat in 40 mg and tolerating it well. Seronegati ve rheumatoid arthritis 320197255 M06.[address] Mitchell and on meds but they don't seem to be helping. She will discuss this with Dr Mitchell. Visual disturbance 51680 001 H53.9 [id number] Josey Winchester MD Main Office [address] [facility] [address] [facility] [place] [address] 02/18/2024 14:02:25 02/18/2024 14:33:28 Anxiety disorder 936308250 F41.9 Not currently on meds and this is in remission. 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 Will try a higher dose and she will call if it is not helpful. Essential hypertension 43449413 I10 We stopped her diuretic because of [...] Cantu Member ID Guarantor Name 07/08/2023 1 [facility] [id number] 01 Shey Arrieta [place] [id number] Shey Arrieta [place] 07/09/2023 1 [facility] [id number] Shey [place] [id number] Shey Henriquez 08/15/2023 1 [facility] [id number] Shey [place] [id number] Shey Grififnston 01/21/2024 1 [facility] ([facility] [id number] Shey Henriquez [id number] Shey Henriquez 02/18/2024 1 MEDICAID-DE: [facility] Shey [place] [id number] Shey [place] Notes Date Note Type Note [...] no otc meds Giovanni Nic ABBOTT [address] [address], [place], [address], [facility] 07/08/2023 10:52:34 07/09/2023 text/html Having a h/o [...] with cognitive abilities and focus. Karely bentley, [facility] 07/18/2023 10:50:02 08/15/2023 text/html 58 yo female [...] her antihypertensives today. Ángela Lucero PA-C [address] [address], [place], [address], [facility] 08/15/2023 13:17:32 01/21/2024 text/html Generic HPI TemplateReported bypatient.Notes:She has sero-negative RA and mild MS. She is followed by specialists for each and has multiple joint pains that are not controlled by current treatment.UTD w/COVID, tetanus and flu vaccines. Josey Winchester MD [address] [address], [place], [address], [facility] 01/22/2024 17:49:35 02/18/2024 text/html ADHDReported bypatient.School Performance:improving [...] after about 4 hours. Josey Winchester MD [address] [address], [place], [address], [facility] 02/18/2024 15:39:06 OBGyn Episode No OBEpisode recorded.
--- OUTSIDE RECORDS SUMMARY | 2024-06-23 15:51 | XMS_ITS | Clinical Summary ---
Author Organization [facility] Address [address] [place] [address] Care Team Providers Care Oncology Physician Assistant Name Role Phone Luis Miguel Winchester MD Primary Care Provider [phone] Allergies Active Allergy Reactions Criticality Noted Date [...] age to complete this topic Care Teams Oncology Physician Assistant Relationship Specialty Start Date End Date Luis Miguel Winchester MD [address] [facility] [address] [place] [address] PCP - General Internal Medicine 08/08/22
== END 2024-06-23 14:20 | disposition home or self-care (01) ==
LOC: HO.RHES 13:25
PROVIDERS: PCP Internal Medicine; Visit Provider Internal Medicine Rheumatology
DX: M06.09 Rheumatoid arthritis without rheumatoid factor, multiple sites (principal); R74.01 Elevation of levels of liver transaminase levels; M17.0 Bilateral primary osteoarthritis of knee; G56.03 Carpal tunnel syndrome, bilateral upper limbs; G56.21 Lesion of ulnar nerve, right upper limb
CPT/HCPCS: 99214

== ENCOUNTER → 2024-06-23 13:25 | Outpatient (BNVA) | payer MEDICAID, SELFPAY | PROVIDERS: PCP Internal Medicine; Visit Provider Internal Medicine Rheumatology | DX: M06.09 Rheumatoid arthritis without rheumatoid factor, multiple sites (principal); G56.21 Lesion of ulnar nerve, right upper limb; R74.01 Elevation of levels of liver transaminase levels; M17.0 Bilateral primary osteoarthritis of knee; G56.03 Carpal tunnel syndrome, bilateral upper limbs | CPT/HCPCS: 99212 ==

== ENCOUNTER 2024-07-08 11:16 | Outpatient (RCR) | payer MEDICAID, SELFPAY ==
--- NOTE | 2024-04-26 09:50 | MHC.OT.EP ---
[address] [phone] Occupational Therapy Plan of Care Patient Name: Shey Henriquez Date of Evaluation: 04/23/24 Diagnosis: Pain Location: R; 9/10 at worse L: 8/10 at worse Pain Score: Pain Scale Used: Numeric (0 - 10) Aggravating Factors: use Alleviating Factors: None reported Assessment: Pt is a 59 yr old R hand dominant female with a history of RA. Pt took a medication when diagnosed to which she had an allergic reaction and it affected her vision. 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 she reports pain in B hands/ UE as well as B finger numbness and a burning sensation from tips of digits to FA (Bilaterally). Pt saw her MD recently who gave her a prescription for night time bracing. Pt has been referred to skilled OT Therapy to address pain / numbness in B hands. She presents today w/ pain w/ palpation of B CMC J's, Arthritic notes detected on digits, as well as a positive Phalens test in B hands. she would benefit from skilled OT therapy to focus on jt. protection techniques, strengthening, and increasing functional use of B hands. Frequency and Duration: The patient will be seen 2xs a week for 4 weeks Short Term Goals: SEE BELOW Snf Goals: Pt will be compliant w/ jt. protection techniques Pt will be compliant w/ night time bracing Pt will increase R hand abalone processor to 15 lbs Pt will report the ability to type w/ decreased pain Treatment Plan: Therapeutic Exercise Therapeutic Activity Home Exercise Program Splinting Neuro Re-ed Patient Education Desensitization/Sensory Re-ed Edema Control ADL Training Ultrasound NMES Iontophoresis Paraffin Fluidotherapy MHP Cold Packs Joint Mobilization Soft Tissue Mobilization Kinesiotaping Other (see comments) Electronically Signed By: Dina zamora OTR/L Please Sign and return to therapist. Thank you once again for your referral.
== END 2024-07-08 12:54 | disposition home or self-care (01) ==
LOC: HO.OT 11:16
PROVIDERS: PCP Internal Medicine; Visit Provider Internal Medicine Rheumatology
DX: M06.9 Rheumatoid arthritis, unspecified (principal); R29.898 Other symptoms and signs involving the musculoskeletal system
CPT/HCPCS: 29125; 97035; 97110; 97140; 97166; 97535; 97760

== ENCOUNTER 2024-07-13 15:19 | Outpatient (REF) | payer MEDICAID, SELFPAY ==
--- NOTE | ~2024-07-13 | XR_ITS ---
CLINICAL HISTORY: M17.0 - Bilateral primary osteoarthritis of knee 5 view bilateral knee Comparison: None Findings: No fractures or dislocations. There are relatively mild degenerative changes at each knee. Small likely fibrous cortical defect mid left fibula. No joint effusion. No radiopaque foreign body. IMPRESSION: There are relatively mild degenerative changes at each knee. Small likely fibrous cortical defect mid left fibula. This document has been electronically signed by: Jimbo Pearson MD on 07/14/2024 12:14:11
[2024-07-13 15:42] LABS: MANUAL DIFF FLAG NO
--- OUTSIDE RECORDS SUMMARY | 2024-07-13 16:13 | XMS_ITS | Data Portability ---
Author Organization [facility], Main Office Address [address] [facility] [address] [place] [address] Care Team Providers Care Senior Ios Developer Name Role Phone JOSEY WINCHESTER Primary Care Provider ZION PARSONS Flag Decorator [facility] Skinner Pelts NORA MITCHELL Referring Provider RICA JEAN-BAPTISTE Referring Provider AGATA VILLEGAS Repair Order Clerk Assessment Encounter Date Assessment Date Assessment LastModified by Organization Details LastModified Time 07/08/2023 07/08/2023 This service was provided using telemedicine. Patient consented to video & audio visit Patient was located in the [facility]. Provider was located in the office. No [...] Go To The Location Of Their Choice, [id number] 01/22/2024 08:10:05 BMP, serum or plasma 2023 024 JORDEN [facility] (Centralized Electronic Ordering - All Locations), Patient Can Go To The Location Of Their Choice, [address] 08/21/2023 14:07:05 microal bumin/c reatini ne, mass ratio, urine 2023 024 IVOR [facility] (Centralized Electronic Ordering - All Locations), Patient Can Go To The Location Of Their Choice, [address] 08/21/2023 14:07:05 Referral neurolo gical surgeon referra l - Intracr anial hyperte nsion and ORELLANA which are not well-co ntrolle dCong 2023 024 rita Oconnell MD, [address] [place] [address], [address], [place], [address], 08/14/2023 15:16:31 Procedures None recorde d. Surgeries None recorde d. Imaging None recorde d. Medication Orders Adderal l XR 25 mg capsule ,extend ed release 2023 024 [facility], [phone] [place], [address], 02/18/2024 14:29:22 gabapen tin 300 mg capsule 2023 024 [email or web address] [facility], [phone] [place], [address], 01/21/2024 15:36:32 Adderal l XR 20 mg capsule ,extend ed release 2023 024 [facility], [phone] [place], [address], 02/18/2024 15:24:02 furosem edvin 20 mg tablet 2023 024 [facility]40890, [address] [place], [place], [id number], 01/21/2024 14:39:49 Zithrom ax Z-Kevyn 250 mg tablet 2023 024 [facility] #74388, [address] [place], [place], [phone], 01/21/2024 14:39:37 Patient TargetsNo targets recorded. Patient Instructions Encounter Date Encounter Id Patient Instructions Last Modified By Organization Details Last Modified Time 07/08/2023 [id number] pneumonia: care instructions pmadden Not available 07/08/2023 10:48:30 Patient will follow up and keep appointment as scheduled. pmadden Not available 07/08/2023 10:45:32 07/09/2023 [id number] At [facility] follow up visit, all current and discharge medications (OTC, herbal therapies, supplements) reviewed and reconciled with patient and or caregiver, including potential side effects, drug interactions, instructions, and the consequences of not taking medication. Reviewed potential barriers to medication adherence, such as side effects from medication or cost of medication. [email or web address] Not available 07/09/2023 10:48:26 08/15/2023 [id number] leg and ankle edema: care instructions Not available 08/15/2023 12:23:01 high blood pressure: care instructions Not available 08/15/2023 12:23:01 learning about high blood pressure Not available 08/15/2023 12:23:01 01/21/2024 [id number] insomnia: care instructions [email or web address] Not available 01/21/2024 15:36:31 high blood pressure: care instructions [email or web address] Not available 01/21/2024 15:36:32 learning about high blood pressure [email or web address] Not available 01/21/2024 15:36:32 high cholesterol : care instructions [email or web address] Not available 01/22/2024 17:45:52 attention defici t hyperactivity disorder (ADHD) in adults: care instructions [email or web address] Not available 01/21/2024 15:36:32 02/18/2024 [id number] high blood pressure: care instructions [email or web address] Not [...] glucose 99 mg/dL 70-99 Not Available [facility] ([facility]) [address] [place], [address], 08/21/2023 14:07:05 08/20/19 24 08/21/2023 BASIC METAB OLIC PANEL (8) BUN 18 mg/dL 6-24 Not Available [facility] ([facility]) [address] [place], [address], 08/21/2023 14:07:05 08/20/19 24 08/21/2023 BASIC METAB OLIC PANEL (8) creatinine 1.26 mg/dL 0.57-1 .00 above high normal Not Available [facility] ([facility]) [address] [place], [address], 08/21/2023 14:07:05 08/20/19 24 08/21/2023 BASIC METAB OLIC PANEL (8) eGFR 49 mL/mi n/1.7 3 >59 below low normal Not Available [facility] ([facility]) [address] [place], [address], 08/21/2023 14:07:05 08/20/19 24 08/21/2023 BASIC METAB OLIC PANEL (8) BUN/creatini ne ratio 14 9-23 Not Available [facility] ([facility]) [address] [place], [address], 08/21/2023 14:07:05 08/20/19 24 08/21/2023 BASIC METAB OLIC PANEL (8) sodium 147 mmol/ L 134-14 4 above high normal Not Available [facility] ([facility]) [address] [facility] [place], [address], 08/21/2023 14:07:05 08/20/19 24 08/21/2023 BASIC METAB OLIC PANEL (8) potassium 3.9 mmol/ L 3.5-5. 2 Not Available [facility] ([facility]) [address] [facility] [place], [address], 08/21/2023 14:07:05 08/20/19 24 08/21/2023 BASIC METAB OLIC PANEL (8) chloride 105 mmol/ L 96-106 Not Available [facility] ([facility]) [address] [facility] [place], [address], 08/21/2023 14:07:05 08/20/19 24 08/21/2023 BASIC METAB OLIC PANEL (8) carbon dioxide, total 23 mmol/ L 20-29 Not Available [facility] ([facility]) [address] [facility] [place], [address], 08/21/2023 14:07:05 08/20/19 24 08/21/2023 BASIC METAB OLIC PANEL (8) calcium 9.8 mg/dL 8.7-10 .2 Not Available [facility] ([facility]) [address] [facility] [place], [address], 08/21/2023 14:07:05 08/20/19 24 08/21/2023 ALBUM IN/CR EAT RATIO , RANDO M UR creatinine, urine 41.4 mg/dL not estab. Not Available [facility] ([facility]) [address] [facility] [place], [address], 08/21/2023 14:07:05 08/20/19 24 08/21/2023 ALBUM IN/CR EAT RATIO , RANDO M UR albumin, urine <3.0 ug/mL not estab. Not Available [facility] ([facility]) [address] [place], [address], 08/21/2023 14:07:05 08/20/19 24 08/21/2023 ALBUM IN/CR EAT RATIO , BESSO M UR alb/creat ratio <7 mg/g_ creat 0-29 Salome l: 0 - 29 Moder ately incre ased: 30 - 300 Sever nadiya incre ased: >300 Not Available [facility] ([facility]) [address] [place], [address], 08/21/2023 14:07:05 01/21/20 24 01/22/2024 LIPID PANEL cholesterol, total 227 mg/dL 100-19 9 above high normal Not Available [facility] ([facility]) [address] [place], [address], 01/22/2024 08:10:05 01/21/20 24 01/22/2024 LIPID PANEL triglyceride s 79 mg/dL 0-149 normal Not Available [facility] ([facility]) [address] [place], [address], 01/22/2024 08:10:05 01/21/20 24 01/22/2024 LIPID PANEL HDL cholesterol 95 mg/dL >39 normal Not Available [facility] ([facility]) [address] [place], [address], 01/22/2024 08:10:05 01/21/20 24 01/22/2024 LIPID PANEL VLDL cholesterol donaldo 14 mg/dL 5-40 Not Available [facility] ([facility]) [address] [place], [address], 01/22/2024 08:10:05 01/21/20 24 01/22/2024 LIPID PANEL LDL chol calc (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 [email or web address] Not Available 2023 15:58:13 01/31/20 24 01/31/2024 MR brain wo and W contr ast See Note [facility] , a member of [employer] [facility] Name: MEMO JAVIER Date of : 1964 Reason for Exam: WHITE MATTER DISEAS E Exam Date: 2023 [id number] EST Report Status : Final Orderi ng [...] Transc ribed Date: 2023 15:13 ET [address]idy [address], [address], 02/01/2024 13:18:06 Result Notes None recorded. 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 964636097 Completed 201301/11/[address] PARSONS; RECORDED 07/08/19 14 1:40PM BY LISETH QUEZADA I, OFFICE VISIT Josey Winchester MD [address], [place], [address] , [facility] 6 09:55:27 Anxiety disorder 997135415 Active 2013 Problem in Fall and Winter Not Available [facility] 0 18:22:26 Patient status finding 728852440 Completed 201301/11/2014 RECORDED 07/08/19 14 1:46PM BY LISETH QUEZADA I, OFFICE VISIT Josey Winchester MD [address], [place], [address] , [facility] 6 09:55:27 [facility] 81888228 Completed 201209/21/2013 RECORDED 03/26/19 13 8:47AM BY LISETH QUEZADA I, ANNOTATI ON/MARGRET Winchester MD [address] [facility] [address], [place], [address] , [facility] 6 09:55:27 Flatulen ce, eructati on and gas pain 884395611 Completed 201301/11/2014 STORY: SEEN BY DR PARSONS; IMPRESSI ON: ADVISED HER TO GO TO THE [facility] TO SEE IF THEY HAVE ANYTHING TO HELP WITH HER SX.; RECORDED 07/08/19 14 1:40PM BY LISETH QUEZADA I, OFFICE VISIT Josey Winchester MD [address] [facility] [address], [place], [address] , [facility] 6 09:55:27 Visual disturba lae 51303654 Active 2013 IMPRESSI ON: POSSIBLE HYPOTENS ION VS MIGRAINE EQUIVALE NTS. SHE WILL CHECK HER BP AT HER NEXT EPISODE. IF HER BP IS NORMAL SHE WILL TAKE A MIGRAINE MED TO SEE IF THIS HELPS. IF THERE IS NO RELIEF SHE WILL CALL HER EYE DOCTOR. Not Available [facility] 0 18:22:25 Screenin g for malignan t neoplasm of breast Completed 201209/21/2013 RECORDED 03/26/19 13 8:47AM BY HOWARD MERLOS ON/MARGRET Winchester MD [address] [facility] [address], [place], [address] , [facility] 6 09:55:28 Screenin g for malignan t neoplasm of cervix Completed 201209/21/2013 RECORDED 03/26/19 13 8:47AM BY HOWARD MERLOS ON/MARGRET Winchester MD [address], [place], [address] , [facility] 6 09:55:28 Screenin g for malignan t neoplasm of colon Completed 201209/21/2013 RECORDED 09/22/19 13 8:20AM BY HOWARD MERLOS ON/MARGRET Winchester MD [address] [facility] [address], [place], [address] , [facility] 6 09:55:28 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 Not Available [facility] 0 18:22:26 Fritz bell 64238434 Active 2013 Josey Winchester MD [address] [facility], [place], [address] , [facility] 3 13:25:29 Malaise and fatigue 800709339 Completed 201209/21/2013 RECORDED 03/26/19 13 8:46AM BY LISETH QUEZADA I, HOWARD ON/THEODORAEN MAYCOL Winchester MD [address], [place], [address] , [facility] 6 09:55:27 Pure hypercho lesterol emia 668256264 Completed 201311/18/2016 Unable to tolerate lipitor Josey Winchester MD [address], [place], [address] , [facility] 7 10:05:50 Hyperlip idemia 08258719 Completed 201301/11/2014 RECORDED 07/08/19 14 1:40PM BY LISETH QUEZADA I, OFFICE VISIT Josey Winchester MD [address] [facility] [address], [place], [address] , [facility] 0 19:09:36 Irritabl e bowel syndrome 31525198 Active 2013 Takes meds which help Not Available [facility] 0 18:22:26 Shoulder joint pain 520143841 Completed 201209/21/2013 RECORDED 03/26/19 13 8:46AM BY LISETH QUEZADA I, TRACEYATI ON/ADDEN DUM Josey Winchester MD [address] [facility] [address], [place], [address] , [facility] 6 09:55:27 Migraine 81948428 Active 2013 Not Available [facility] 0 18:22:26 Administ ration of bacteria l and viral vaccine Completed 200809/21/2013 RECORDED 06/24/19 09 10:01AM BY KEVIN TOSCANO, OFFICE VISIT Josey Winchester MD [address] [address], [place], [address] , [facility] 6 09:55:27 Skin sensatio n disturba nce 06177788 Completed 201209/21/2013 RECORDED 03/26/19 13 8:47AM BY TRACEY MERLOSATI ON/MARGRET Winchester MD [address] [address], [place], [address] , [facility] 6 09:55:27 Cough 67823410 Completed 201309/21/2013 RECORDED 04/01/19 14 9:45AM BY TRACEY MERLOSATI ON/MARGRET Winchester MD [address] [address], [place], [address] , [facility] 6 09:55:27 Adult health examinat ion Completed 201301/11/2014 RECORDED 07/08/19 14 1:45PM BY LISETH QUEZADA I, OFFICE VISIT Josey Winchester MD [address] [address], [place], [address] , [facility] 6 09:55:27 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 668845932 Completed 201210/11/2013 IMPRESSI ON: CONTINUE CURRENT MGMT; MEDS HELP A GREAT DEAL.; RECORDED 02/17/20 13 8:03AM BY TRACEY MERLOSATI ON/MARGRET Winchester MD [address] [address], [place], [address] , [facility] 6 09:55:27 Astigkyt is 86971826 Completed 201210/11/2013 RECORDED 03/26/19 13 8:47AM BY HOWARD MERLOS ON/MARGRET Winchester MD [address], [place], [address] , [facility] 6 09:55:27 Screenin g for malignan t neoplasm of breast Completed 201210/11/2013 RECORDED 03/26/19 13 8:47AM BY HOWARD MERLOS ON/MARGRET Winchester MD [address], [place], [address] , [facility] 6 09:55:28 Screenin g for malignan t neoplasm of cervix Completed 201210/11/2013 RECORDED 03/26/19 13 8:47AM BY HOWARD MERLOS ON/MARGRET Winchester MD [address], [place], [address] , [facility] 6 09:55:28 Screenin g for malignan t neoplasm of colon Completed 201210/11/2013 RECORDED 09/22/19 13 8:20AM BY HOWARD MERLOS ON/MARGRET Winchester MD [address], [place], [address] , [facility] 6 09:55:28 Tietze's disease 08968393 Completed 201210/11/2013 RECORDED 03/26/19 13 8:46AM BY HOWARD MERLOS ON/MARGRET Winchester MD [address], [place], [address] , [facility] 6 09:55:27 Malaise and fatigue 264665369 Completed 201210/11/2013 RECORDED 03/26/19 13 8:46AM BY TRACEY MERLOSATI ON/ADDEN DUM Josey Winchester MD [address] [facility] [address], [place], [address] , [facility] 6 09:55:27 Administ ration of bacteria l and viral vaccine Completed 200810/11/2013 RECORDED 06/24/19 09 10:01AM BY KEVIN TOSCANO, OFFICE VISIT Josey Winchester MD [address] [address], [place], [address] , [facility] 6 09:55:27 Skin sensatio n disturba nce 73629583 Completed 201210/11/2013 RECORDED 03/26/19 13 8:47AM BY HOWARD MERLOS ON/ADDEN DUM Josey Winchester MD [address] [facility] [address], [place], [address] , [facility] 6 09:55:27 Cough 79438415 Completed 201310/11/2013 RECORDED 04/01/19 14 9:45AM BY HOWARD MERLOS ON/ADDEN MAYCOL Winchester MD [address] [facility] [address], [place], [address] , [facility] 6 09:55:27 Attentio n deficit hyperact ivity disorder , predomin antly inattent roxann type 01290196 Completed 10/12/2015 Josey Winchester MD [address] [facility] [address], [place], [address] , [facility] 8 13:27:14 Plantar fasciiti s 068572031 Active Not Available [facility] 0 18:22:26 Fatigue 29291725 Completed 03/25/2016 Ángela Lucero PA-C [address], [place], [address] , [facility] 1 09:22:08 Keratoco nus 64162790 Active 2015 Followed by [facility] Not Available [facility] 0 18:22:25 Pinguecu la 06834837 Active 2015 Followed by [facility] Not Available [facility] 0 18:22:26 Nuclear scleroti c cataract 326971444 Active 2015 Followed by [facility] Not Available [facility] 0 18:22:26 Pneumoni a 309472094 Completed 201608/15/2016 KEVIN Villegas, [facility] 7 16:08:02 Attentio n deficit hyperact ivity disorder , predomin antly inattent roxann type 35654491 Active 2017 Not Available [facility] 0 18:22:26 Hypokale monisha 16163748 Active 2018 Not Available [facility] 0 18:22:26 Hyperlip idemia 15978311 Active 2019 Not Available [facility] 0 18:22:26 Loss of hair 559341728 Active 2020 Josey Winchester MD [address], [place], [address] , [facility] 1 17:02:35 Pain of multiple joints 11015522 Active 2020 Ángela Lucero PA-C [address], [place], [address] , [facility] 1 09:22:07 Fatigue 51988548 Active 2020 Ángela Lucero PA-C [address], [place], [address] , [facility] 1 09:22:08 Pain of right wrist 31013224934 9100 Active [facility] showing [facility]. Josey Winchester MD [address], [place], [address] , [facility] 1 18:07:02 Seronega tive rheumato id arthriti s 710646458 Active 2021 Followed by rheum; on methotre xate. 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 Mohini horne optic neuritis . Josey Winchester MD [address], [place], [address] , [facility] 3 10:45:14 Kidney finding 713402784 Active 2022 born with only one kidney JOVAN Noonan, [facility] 3 09:09:38 History of SARS-CoV -2 97568295541 3436371 Active 2022 Josey Winchester MD [address], [place], [address] , [facility] 3 10:39:24 Thyroid nodule 834237095 Active 2022 Thyroid U/S done and no addition al imaging required . Josey Winchester MD [address] [facility] [address], [place], [address] , [facility] 3 20:13:54 Edema of lower extremit y 591812108 Active 2023 Luis bentley, [facility] 4 12:11:02 Problem Notes None recorded. Procedures Surgical History Date Name Laterality Status Provider Name and Address Organization Details Recorded Time 07/25/19 23 Most Recent Mammogram completed Kati Dallas [facility] 07/24/2022 12:09:18 07/25/19 23 Mammogram Diagnostic Bilateral completed Kati Dallas [facility] 07/24/2022 12:09:11 05/10/19 23 wrist injection completed Gracy Juares [facility] 05/14/2022 13:50:42 03/30/19 16 Date of Last Pap Smear completed Boone Raminutis [facility] 04/03/2015 11:53:06 03/16/19 16 Date of Last Colonoscopy completed Viviana Hodge [facility] 03/17/2015 10:15:20 03/16/19 16 Colonoscopy completed Roslyn Orr [facility] 02/23/2020 13:16:56 03/03/19 02 Total Abdominal Hysterectomy completed Humera valentine [facility] 08/15/2016 16:15:28 Cholecystectomy completed Josey Winchester MD [address] [facility], [place], [address], [place] [facility] 01/11/2014 14:15:38 Imaging Results Imaging Date Name Status LastModified by Organiz ation Details LastModified Time 07/04/2023 US, ophthalmic, B-scan + A-scan completed [email or web address] Information not available 07/07/2023 15:58:13 01/31/2024 MR brain wo and W contrast completed [address], [address], 02/01/2024 13:18:06 Procedure Notes None recorded. Medical Equipment None Reported. Allergies Allergen ID Allergen Name Allergen Category Reaction Reaction Severity Criticality Documentation Date Start Date Code Code System Note Provider Name and Address Organization Details Recorded Time 37005 omeprazol e medicatio n rash Not available Not available 06/25/2017 7646 RxNorm Josey cordova MD [address], [address], [place] [facility] 8 13:54:05 8323 Pepcid medicatio n angioedem a Not available Not available 09/14/20132013 8 RxNorm REACT ION: RIGHT ARM SWELL ING Humera KEVIN Sanchez, [facility] 7 16:07:06 Medications Name Sig [...] TAKE 1 TABLET BY MOUTH EVERY DAY 2024 active Not Available Not Available Not Avai lable ofloxacin 0.3 % eye drops INSTILL 1 [...] completed RECORDED 11/10/19 11 2:31PM BY BOONE RAJPUT ANNOTATI ON/MARGRET DUM; Not Available Not Available Not Available Adderall XR 20 mg capsule,e xtended release Take 1 capsule every day by oral route for 30 days. 02/174 completed increase d the dose to 25 [...] 50 mcg/actua tion nasal spray,[facility] [place] 1 spray every day by intranas al [...] 07/08/2023 165.1 cm Maura Haider MA MA [facility] 07/08/2023 10:14:56 Date Recorded Body height Body weight Body mass index (BMI) Heart rate Oxygen saturation Oxygen saturation in Arterial blood by Pulse oximetry Body temperature Systolic blood pressure Diastolic blood pressure Provider Name and Address Organization Details Last Updated DateTime 165.1 cm 85682.8 2 g 23.7 kg/m2 60 /min 98 % 98 % 98 [degF] 161 mm[Hg] 75 mm[Hg] Purvi Torres LPN [facility] 4 10:54:04 Date Recorded Body height Body mass index (BMI) Body weight Systolic blood pressure Diastolic blood pressure Provider Name and Address Organization Details Last Updated DateTime 08/15/2023 165.1 cm 25.1 kg/m2 47046.45 g 145 mm[Hg] 87 mm[Hg] Maura Haider MA [facility] 4 11:36:16 Date Recorded Systolic blood pressure Diastolic blood pressure Provider Name and Address Organization Details Last Updated DateTime 08/15/2023 158 mm[Hg] 84 mm[Hg] Ángela Lucero PA-C [address] [address], [place], [address], [facility] 08/15/2023 12:25:22 Date Recorded Body height Body mass index (BMI) Body weight Systolic blood pressure Diastolic blood pressure Provider Name and Address Organization Details Last Updated DateTime 01/21/2024 165.1 cm 26 kg/m2 49167.41 g 137 mm[Hg] 86 mm[Hg] Maura Haider MA [facility] 4 14:38:24 Date Recorded Body height Body mass index (BMI) Body weight Heart rate Oxygen saturation Oxygen saturation in Arterial blood by Pulse oximetry Body temperature Systolic blood pressure Diastolic blood pressure Provider Name and Address Organization Details Last Updated DateTime 4 165.1 cm 26.6 kg/m2 11316.7 8 g 101 /min 97 % 97 % 98 [degF] 121 mm[Hg] 82 mm[Hg] Maura Haider MA [facility] 4 14:08:27 Social History Question Answer Notes LastModified by Organizat ion Details LastModified Time Tobacco Smoking Status Never Smoker Not Available [facility] 01/04/2020 03:36:37 Do You Have An Advance Directive? Yes HCP [email or web address] Information not available 10/03/2021 Is Blood Transfusion Acceptable In An Emergency? Yes [id number] Information not available 01/04/2020 What Is Your Level Of Caffeine Consumption? None [id number] Information not available 01/04/2020 How Much Tobacco Do You Chew? None [id number] Information not available 01/04/2020 What Type Of Diet Are You Following? VEGETARIAN No Salt [id number] Information not available 01/04/2020 Which Illicit Or Recreational Drugs Have You Used? None [id number] Information not available 01/04/2020 Education 4 Year College [email or web address] Information not available 10/03/2021 Live Alone Or With Others? With Others 2 Children And 1 GC (born Late 2013) [email or web address] Information not available 10/03/2021 Do You Take Precautions To Prevent Distracted Driving? Yes [email or web address] Information not available 10/12/2015 How Often Do You Need To Have Someone Help You When You Read Instructions, Pamphlets, Or Other Written Material From Your Doctor Or Pharmacy? Never Information not available 10/12/2015 Have You Served In The ? No [email or web address] Information not available 03/25/2016 Have You Or Anyone In Your Household Had Any Of The Following Symptoms In The Last 14 Days: Sore Throat, Cough, Chills, Body Aches For Unknown Reasons, Shortness Of Breath For Unknown Reasons, Loss Of Smell, Loss Of Taste, Fever At Or Greater Than 100 Degrees Fahrenheit? No [email or web address] Information not available 02/23/2020 Are You Or Anyone In Your Household A Health Care Provider Or Emergency Responder? No [email or web address] Information not available 02/23/2020 To The Best Of Your Knowledge Have You Been In Close Proximity To Any Individual Who Tested Positive For COVID-19? No [email or web address] Information not available 02/23/2020 Have You Recently [...] available 02/23/2020 Seat Belts Used Routinely Yes [email or web address] Information not available 10/03/2021 Are You Sexually Active? No [id number] Information not available 01/04/2020 Smoke Alarm In Home Yes [email or web address] Information not available 10/03/2021 At What Age Did You Start Smoking Tobacco? 1 [id number] Information not available 01/04/2020 Are You Passively Exposed To Smoke? No Information not available 10/12/2015 How Much Tobacco Do You Smoke? No [id number] Information not available 01/04/2020 Do You Use Sunscreen Routinely? Yes [id number] Information not available 01/04/2020 How Many Years Have You Smoked Tobacco? 0 [id number] Information not available 01/04/2020 Sex: Unknown Functional Status Question Answer Note LastModified by [employer] ion Details LastModified Time Do you or have you ever used any other forms of tobacco or nicotine? No [email or web address] Information not available 10/03/2021 What is your level of alcohol consumption? None [id number] Information not available 01/04/2020 Do you or have you ever used smokeless tobacco? Never used smokeless tobacco [id number] Information not available 01/04/2020 Are you currently employed? Yes [id number] Information not available 01/04/2020 Are you able to walk? YESWOREST [email or web address] Information not available 10/03/2021 Are you able to care for yourself? 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 Never used electronic cigarettes [email or web address] Information not available 10/03/2021 What is your exercise level? Moderate Trying [...] Recorded Time zoster recombinant 0 [facility] 12:49:12 Influenza, split virus, quadrivalent, preservative 0 completed [facility] 11/28/2021 12:49:12 COVID-19, mRNA, LNP-S, PF, 100 mcg/0.5mL dose or 50 mcg/0.25mL dose 1 completed [facility] 11/21/2021 08:31:51 COVID-19, mRNA, LNP-S, PF, 100 mcg/0.5mL dose or 50 mcg/0.25mL dose 1 completed KEVIN Marks, [facility] 03/07/2021 11:29:55 Influenza, split virus, trivalent, preservative 3 completed KVEIN Marks, [facility] 03/07/2021 11:29:55 Influenza, split virus, trivalent, preservative 2 completed KEVIN Marks, [facility] 03/07/2021 11:29:55 COVID-19, mRNA, LNP-S, PF, 100 mcg/0.5mL dose or 50 mcg/0.25mL dose 1 completed KEVIN Marks, [facility] 03/07/2021 11:29:55 Influenza, MDCK, quadrivalent, PF 9 completed KEVIN Marks, [facility] 03/07/2021 11:29:55 Influenza, split virus, trivalent, preservative 1 completed KEVIN Marks, [facility] 03/07/2021 11:29:55 Influenza, split virus, quadrivalent, PF 5 completed Not Available [facility] 03/20/2019 02:22:02 COVID-19, mRNA, LNP-S, PF, 100 mcg/0.5mL dose or 50 mcg/0.25mL dose 2 completed KEVIN Conti, [facility] 11/21/2021 08:31:51 COVID-19, mRNA, LNP-S, PF, phuc-sucrose, 30 mcg/0.3 mL 3 completed Purvi Torres LPN null, [facility] 07/09/2023 10:54:37 Influenza, split virus, quadrivalent, PF 6 completed Not Available [facility] 03/20/2019 02:22:04 Influenza, split virus, quadrivalent, PF 7 completed Not Available [facility] 03/20/2019 02:22:10 Influenza, split virus, quadrivalent, PF 8 completed Not Available [facility] 03/20/2019 02:22:15 Tdap 0 completed KEVIN Briseno, [facility] 08/11/2019 11:36:19 Influenza, split virus, trivalent, PF 4 completed Not Available [facility] 03/20/2019 02:21:58 Tdap 9 completed Not Available [facility] 11/26/2019 18:22:26 Influenza, split virus, quadrivalent, PF 3 completed Josey Winchester MD [address] [address], [place], [address], [facility] 01/10/2023 13:40:02 Past Encounters Encounter ID Performer Location Encounter Start Date Encounter Closed Date Diagnosis/Indication Diagnosis SNOMED-CT Code Diagnosis ICD10 Code Diagnosis Note [id number] auto[facility] erce [address] [facility] [facility] [place] [address] 04/09/2007 00:00:00 [id number] autoEComm erce [address] [facility] [facility] [place] [address] 05/06/2007 00:00:00 [id number] autoEComm erce [address] [facility],[address] [place] [address] 06/23/2008 00:00:00 [id number] autoEComm erce [address] [facility] [facility] [place] [address] 07/06/2008 00:00:00 [id number] auto[facility] erce [address] [facility] [facility] [place] [address] 08/11/2008 00:00:00 [id number] auto[employer]Comm erce [address] [facility] [place] [address] 04/21/2009 00:00:00 [id number] auto[employer] erce [address] [facility] [place] [address] 05/19/2009 00:00:00 [id number] auto[employer] erce [address] [facility] [place] [address] 07/19/2009 00:00:00 [id number] auto[employer]Comm erce [address] [facility] [place] [address] 04/10/2010 00:00:[address] [id number] [address]Comm erce [address] [place] [address] 05/15/2010 00:00:00 [id number] auto[facility] erce [address] [place] [address] 07/04/2010 00:00:00 [id number] auto[facility] erce [address] [place] [address] 09/12/2010 00:00:00 [id number] autoEComm erce [address] [place] [address] 10/17/2010 00:00:00 [id number] auto[employer]Comm erce [address] [facility] [place] [address] 09/12/2011 00:00:00 [id number] auto[employer]Comm erce [address] [facility] [place] [address] 03/26/2012 00:00:00 [id number] autoEComm erce [address] [facility] [place] [address] 04/27/2012 00:00:00 [id number] autoEComm erce [address] [facility] [place] [address] 09/21/2012 00:00:00 [id number] autoEComm erce [address] [facility] [place] [address] 02/16/2013 00:00:00 [id number] autoEComm erce [address] [facility] [place] [address] 07/07/2013 00:00:00 [id number] Josey Winchester MD Main Office [address] [facility] [address] [place] [address] 01/11/2014 13:22:21 01/11/2014 14:42:04 Needs influenza immunization 618134212 Essential hypertension 87180681 Attention deficit hyperactivity disorder, predominantly inattentive type 30587690 Pure hypercholesterolemia 371647599 Screening for malignant neoplasm of breast 281957463 Screening for malignant neoplasm of colon 551639099 [id number] Josey Winchester MD Main Office [address] [address] [place] [address] 07/11/2014 13:41:12 07/11/2014 14:48:21 Adult health examination 943391423 Screening for malignant neoplasm of colon 671023606 Pure hypercholesterolemia 731122558 has trouble with meds. Will recheck and look at risk calculator before starting another med. Essential hypertension 46447204 well controlled with current meds Irritable bowel syndrome 57105131 well-contr olled with current meds and diet. [id number] Josey Winchester MD Main Office [address] [address] [place] [address] 12/03/2014 08:47:01 12/03/2014 09:43:49 Migraine 83112656 G43.009 will restart a triptan which she took years ago and she will call if it isn't helping. Plantar fasciitis 767987 003 M72.2 she will try exercises and will call if it persists. [id number] Josey Winchester MD Main Office [address] [address] [place] [address] 01/23/2015 10:38:25 01/23/2015 11:28:45 Essential hypertension 50879542 I10 no longer controlled . We will go up on her meds and she will call if the BP is >140/90. Pure hypercholesterolemia 005947851 E78.0 trouble on meds. Recheck cholestero l Needs infl uenza immunization 718142953 Z23 Screening for malignant neoplasm of colon 908978570 Z12.11 Screening for malignant neoplasm of cervix 590320609 Z12.4 Attention deficit hyperactivity disorder, predominantly inattentive type 60819866 F90.0 [id number] Josey Winchester MD Main Office [address] [address] [place] [address] 10/12/2015 09:22:54 10/12/2015 10:14:44 Adult health examination 542387977 Z00.00 UTD with immunizati ons, colonoscop y, mammogram and [facility] care. Essential hypertension 66333425 I10 we will stop her metoprolol to see if her fatigue improves. Start a CCB and see her back in 1 month. Fatigue 47917352 R53.83 this may be secondary to metoprolol so will stop and start another BP med. Irritable bowel syndrome 55187359 K58.9 well-contr olled with current meds and diet. [id number] Josey Winchester MD Main Office [address] [place] [address] 11/14/2015 15:44:42 11/14/2015 17:02:57 Essential hypertension 47724114 I10 Her fatigue has persisted despite stopping the metoprolol . BP mildly elevated on the amlodipine so will increase the dose. Needs infl uenza immunization 053405079 Z23 Migraine 13480780 G43.00 9 Possibly returned since stopping the bets cherelle for her BP. Will start a different beta cherelle and she will call if it persists. [id number] Giovanni Lucero PA-C Main Office [address] [place] [address] 02/27/2016 10:23:45 02/27/2016 11:54:18 Fever 377418765 R50.9 40 minute office visit with greater than 50% of the visit face-to-fa ce with the patient and/or family providing counseling and/or coordinati on of care. Cough 22838431 R05 Nausea and vomiting 1693 2000 R11.2 Diarrhea 56398917 R19.7 Fatigue 81594049 R53.83 [id number] Giovanni Lucero PA-C Main Office [address] [place] [address] 03/05/2016 15:42:55 03/06/2016 12:56:57 Pneumonia 974410273 J18.9 encouraged deep breaths at least hourly to hopefully diminish need for albuterol, also rec. walk on elliptical machine at low intensity to slowly build up her endurance. will give cxr at next f/u to recheck in 2 wks Essential hypertension 25457189 I10 mildly elevated - advised pt to cont to monitor qd, and will consider re-initiat ing bp med if cont. to trend high 25 minute office visit with greater than 50% of the visit face-to-fa ce with the patient and/or family providing counseling and/or coordinati on of care. [id number] Giovanni Lucero PA-C Main Office [address] [address] [place] [address] 03/25/2016 13:15:02 03/25/2016 14:04:38 Essential hypertension 90557559 I10 stable, not on meds - used bp med a few yrs ago - rec. cont healthy diet (low salt) and exercise 25 minute office visit with greater than 50% of the visit face-to-fa ce with the patient and/or family providing counseling and/or coordinati on of care. Pneumonia 501044066 J18. 9 cont to stay active, rec occ deep breaths. will give cxr to verify resolution of pna [id number] Josey Winchester MD Main Office [address] [place] [address] [place] [address] 07/08/2016 11:22:37 07/08/2016 12:11:21 Allergic rhinitis 96002386 J30.9 We will see her back in a few weeks to recheck her adenopathy . No B symptoms. [id number] Giovanni Lucero PA-C Main Office [address] [address] [place] [address] 08/15/2016 15:59:01 08/15/2016 17:02:56 Acute sinusitis 98660812 J01.90 Pt. told to get some sudafed, cont OTCs and have yogurt or get a probiotic while on the Abx. [id number] Josey Winchester MD Main Office [address] [place] [address] [place] [address] 11/18/2016 09:33:44 11/18/2016 10:23:06 Adult health examination 816171151 Z00.00 UTD with immunizati ons, colonoscop y, mammogram and [employer] care. Needs infl uenza immunization 504777780 Z23 Essential hypertension 70335051 I10 She will follow her BP at home and we will call in a few weeks to see how it has been running. Migraine 39926105 G43.00 9 Hyperlipidemia 28737789 E78.5 has trouble with meds. Will recheck and look at risk calculator before starting another med. [id number] Josey Winchester MD Main Office [address] [place] [address] [place] [address] 05/21/2017 12:49:18 05/21/2017 14:09:17 Essential hypertension 51040943 I10 Will restart meds and she will return for a recheck in 1 month. Easy bruising 302358865 R58 [id number] Josey Winchester MD Main Office [address] [address] [place] [address] 06/25/2017 13:18:55 06/25/2017 13:56:11 Essential hypertension 26795691 I10 Taking meds daily and tolerating them well. BP under good control. Migraine 25098668 G43.00 9 stable on prophylaxi s. [id number] Josey Winchester MD Main Office [address] [place] [address] [place] [address] 11/06/2017 12:58:57 11/06/2017 14:04:51 Carpal tunnel syndrome 64357359 G56.02 She will take aleve twice a day. [id number] Josey Winchester MD Main Office [facility] [address] [place] [address] 12/03/2017 12:43:02 12/03/2017 13:40:40 Needs influenza immunization 949109167 Z23 Screening for malignant neoplasm of breast 948827463 Z12.39 Essential hypertension 73186511 I10 She will restart her meds at a lower dose. She understand s that this is especially important in light of the fact she is going back on adderall. Attention deficit hyperactivity disorder, predominantly inattentive type 52503488 F90.0 Having trouble with focus. This helped in the past. [id number] Josey Winchester MD Main Office [address] [address] [place] [address] 01/28/2018 13:04:32 01/28/2018 13:49:10 Adult health examination 665258019 Z00.00 UTD with immunizati ons, colonoscop y (due again in 2025) mammogram. 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 Essential hypertension 80812078 I10 Her BP is running high so we will increase her dose of atenolol and see her back in 1 month. Attention deficit hyperactivity disorder, predominantly inattentive type 77831200 F90.0 We start 15 mg bid since the 30 mg XL dose wears off before the end of her work day. Screening for malignant neoplasm of breast 898085470 Z12.39 [id number] Josey Winchester MD Main Office [address] [address] [place] [address] 02/18/2018 11:19:47 02/18/2018 11:50:35 Attention deficit hyperactivity disorder, predominantly inattentive type 04675809 F90.0 we will d/c her adderall and start strattera. She will call in a couple of weeks if it is not helping and we will go up on the dose. If still not working at the end of March we will try a different med. Essential hypertension 84983306 I10 Good control with increased dose of meds. Continue current mgmt. [id number] Josey Winchester MD Main Office [address] [place] [address] 08/06/2018 15:37:38 08/06/2018 16:31:45 Fatigue 88383440 R53.83 No clear etiology. Hypokalemia 39689744 E87 .6 Corrected as an inpatient; secondary to diuretic. Essential hypertension 73739806 I10 Currently normotensi ve off meds. Possibly secondary to her adderall. She will monitor her BP and will call if/when she restarts her adderall. Attention deficit hyperactivity disorder, predominantly inattentive type 90369487 F90.0 Has adderall and will restart when needed. [id number] Josey Winchester MD Main Office [address] [place] [address] 08/19/2018 12:31:49 08/19/2018 13:22:34 Essential hypertension 24346516 I10 Currently normotensi ve off meds. Possibly secondary to her adderall. She will monitor her BP and will call if/when she restarts her adderall. Fatigue 17427827 R53.83 No clear etiology. We spoke about lifestyle issues such as exercise, good diet and adequate sleep and she will work on these. [id number] Josey Winchester MD Main Office [address] [place] [address] 10/06/2018 14:38:47 10/06/2018 15:31:59 Renal angle tenderness 150227563 R10.829 Possible muscular. The urine is normal. Will treat with NSAIDs for a week and if her pain persists will consider an U/S. Gastroesop hageal reflux disease 429556044 K21.9 Essential hypertension 88602490 I10 BP went back up after stopping the adderall and initially seeing a normalizat ion of her BP. [id number] Josey Winchester MD Main Office [address] [address] [place] [address] 12/23/2018 15:52:51 12/23/2018 16:40:53 Allergic conjunctivitis 366448818 H10.12 Instructio ns to call if develops vision problems or pain. [id number] Josey Winchester MD Main Office [address] [address] [place] [address] 02/17/2019 13:41:37 02/17/2019 14:42:10 Adult health examination 824718334 Z00.00 Will update her immunizati ons today, colonoscop y (due again in 2025) and UTD w/mammogra m. 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 Varicella vaccination 68 886907 Z23 Skin lesion 54768102 L98 .9 [id number] Josey Winchester MD Main Office [address] [address] [place] [address] 03/05/2019 13:52:06 03/05/2019 14:54:54 Fever 317725788 R50.9 Cough 57849787 R05 Muscle pain 79082129 M79 .10 [id number] Katie gottlieb MD [facility] [address] [address] [place] [address] 07/30/2019 13:51:26 08/02/2019 08:34:33 Counseling 717312614 Z71.9 Health advice, education or counseling done for COVID 19, pt not able to be offered testing as she does not have symptoms. She will request testing through her employer. Call [facility] if any sx come up including cough, fever, SOB or uri sx [id number] Josey Winchester MD Main Office [address] [address] [place] [address] 08/11/2019 10:50:11 08/11/2019 11:48:11 Essential hypertension 57044239 I10 C/w BP meds. Running a little high today. She will follow. Attention deficit hyperactivity disorder, predominantly inattentive type 01064943 F90.0 Has adderall and uses it prn. Hyperlipidemia 22956889 E78.5 Has been taking statin 3 times a week and tolerating it well. Administra tion of viral vaccine 53512867 Z23 [id number] Josey Winchester MD Main Office [address] [address] [place] [address] 02/23/2020 13:01:50 02/23/2020 13:48:20 Adult health examination 253562395 Z00.00 Will update her immunizati ons today, colonoscop y (due again in 2025) and UTD w/mammogra m. 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 We discussed exercise while also keeping safe during the pandemic. Migraine 01695919 G43.00 9 Was helped by prophylaxi s in the past and will restart the topamax. Hyperlipidemia 22074119 E78.5 Has been taking statin 3 times a week and tolerating it well. Essential hypertension 17369625 I10 C/w BP meds. [id number] Josey Winchester MD Main Office [address] [address] [place] [address] 08/23/2020 12:51:26 08/23/2020 13:54:13 Essential hypertension 72248606 I10 Stopped BP meds because of her hair loss. Beta blockers and diuretics may contribute to this so we will start a CCB and see her back in month. Loss of hair 089382855 L 65.9 No clear etiology. May be genetic. May be related to hair styling and may be related to meds. We stopped her beta cherelle and diuretic and statin. Hyperlipidemia 18720673 E78.5 Stopped the statin for now since may be adding to her hair loss. We will monitor. [id number] Josey Winchester MD Main Office [address] [address] [place] [address] 09/20/2020 14:48:28 09/20/2020 15:20:52 Essential hypertension 30671039 I10 Stopped BP meds because of her hair loss. Beta blockers and diuretics may contribute to this so we will start a CCB and see her back in month. Migraine 12390338 G43.00 9 Stopped the topamax which was helping because she felt that it was contributi ng to her hair loss. She will try sumatripta n for treatment and will call if her headaches continue. Loss of hair 944061140 L 65.9 No clear etiology. May be genetic. May be related to hair styling and may be related to meds. We stopped her beta cherelle and diuretic and statin. She has an upcoming derm appointmen t in early November. [id number] Ángela Lucero PA-C Main Office [address] [address] [place] [address] 10/20/2020 08:39:54 10/20/2020 09:31:30 Fatigue 41955549 R53.83 r/o anemia, diabetes, renal disease, thyroid dysfunctio n. Pain of mu ltiple joints 58686082 M25.50 R/o RA, Lymes disease Screening for malignant neoplasm of breast 927325830 Z12.39 Screening for malignant neoplasm of cervix 193732010 Z12.4 Vitamin D deficiency 347 11566 E55.9 [id number] Daren Edmond MD [facility] [address] [address] [place] [address] 11/27/2020 12:55:36 11/27/2020 15:49:22 Pain of multiple joints 82748999 M25.50 elevated ESR and CRP. PT. will proceed with seeing rheumatolo gist and continue taking turmerican d MSM. [id number] Josey Winchester MD Main Office [address] [address] [place] [address] 03/07/2021 10:41:20 03/07/2021 12:00:41 Adult health examination 848060912 Z00.00 She is UTD with immunizati ons including COVID along with her booster but she is due for her second shingles. She is also UTD w/colonosc opy (due again in 2025) and UTD w/mammogra m. 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 We discussed exercise while also keeping safe during the pandemic. Essential hypertension 26919120 I10 She's on a low dose of nifedipine and her BP is under good control. Hyperlipidemia 16535082 E78.5 Stopped the statin for now since may be adding to her hair loss. We will monitor. [id number] Josey Winchester MD Main Office [address] [place] [address] [place] [address] 10/03/2021 11:21:18 10/03/2021 12:09:09 Essential hypertension 54326627 I10 She's on a low dose of nifedipine and her BP is running high. We will increase the dose from 30 to 90 mg and recheck in 1 month. [id number] Josey Winchester MD Main Office [address] [place] [address], [place] [address] 10/31/2021 12:42:04 10/31/2021 13:19:44 Essential hypertension 12622698 I10 Still not with adequate control on nifedipine 90 mg. She will continue with that and we will start a diuretic. We went over foods high in potassium and she will get this checked before her next appointmen t. [id number] Josey Winchester MD Main Office [address] [place] [address], [place] [address] 11/28/2021 12:38:40 11/28/2021 13:40:47 Seronegative rheumatoid arthritis 510884771 M06.[address] Mitchell and on meds. Essential hypertension 50476293 I10 Better control since adding diuretic. Mildly reduced potassium at 3.4. We will recheck level in a month. Cough 75604890 R05.9 She has not yet tested for COVID. Drug-induc ed hypokalemia 827589398 E87.6 Induced by diuretic. Will concentrat e on foods w/potassiu m and recheck in one month. Hyperlipidemia 03879748 E78.5 Cannot tolerate a statin. Will look into options. [id number] Josey Winchester MD [address] [place] [address] 08/08/2022 12:24:46 08/20/2022 08:15:54 Multiple sclerosis 10941021 G35 This is a new dx. She saw Dr Rausch as an inpatient at [facility] and will follow with him as on outpatient . She is not currently on any meds. Migraine [id number] G43.00 9 She would like to restart the topamax because she has been getting more frequent headaches. Optic neuritis 08907717 H46.9 H46.03 Followed by both ophtho and neurology. Her vision has been improving. She is still not driving and is waiting to be cleared by neurology. [id number] Josey Winchester MD Main Office [address] [address] [place] [address] 10/23/2022 15:35:43 10/23/2022 16:11:23 Lump on face [id number] R22.0 Tender lesion at left jaw line Benign int racranial hypertension 31399927 G93.2 She is followed by neurology and started on acetazolam edvin. [id number] FAIZA NIX Main Office [address] [facility] [address] [place] [address] 12/04/2022 08:52:21 12/04/2022 09:23:37 Pre-surgery evaluation [id number] Z01.818 No medical contraindi cations to proposed procedure. Wen Perioperat roxann Cardiac Risk was calculated and the risk for perioperat roxann IA is <1%. May proceed to surgery as planned. Essential hypertension 86841481 I10 stable at homein office BP- 133/84 Cataract 143467747 H26.9 [id number] Josey Winchester MD Main Office [address] [facility] [address] [place] [address] 01/08/2023 09:55:30 01/08/2023 10:59:38 Adult health examination [id number] Z00.00 She is UTD with immunizati ons including COVID along with her booster but she is due for her second shingles. She is also UTD w/colonosc opy (due again in 2025) and UTD w/mammogra m. 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 We discussed exercise and she remains very active. Needs infl uenza immunization 564977304 Z23 History of SARS-CoV-2 29 [id number] 97629831 Z86.16 mild symptoms; cough Hyperlipidemia 07872598 E78.5 Cannot tolerate a statin. Levels on repeat blood work look good. No meds needed. Thyroid nodule 065104597 E04.1 She is scheduled for an 01/21/23. Essential hypertension 85387501 I10 We stopped her diuretic because of hypokalemi a but her BP has increased. We will continue to follow it before adding any meds. Attention deficit hyperactivity disorder, predominantly inattentive type 51272704 F90.0 Has adderall and uses it prn. Seronegati ve rheumatoid arthritis 130368297 M06.[address] Mitchell and on meds. Multiple sclerosis 65630 007 G35 This is a new dx. She saw Dr Rausch as an inpatient at [facility] and now followed by Dr Naz bryson and is on acetazolam edvin. [id number] Daren Edmond MD Telehealt h [address] [place] [address] 07/08/2023 09:22:38 07/08/2023 11:05:07 COVID-19 [id number] U07.1 dx'd in ER on 5.3 - [...] if at all possible see below Cough 37343640 R05.9 most likely has p covid pnawill rx c abxrecomme nd probiotics while on abxsee above/belo w Pneumonia 305544398 J18. 9 see above [id number] Josey Winchester MD Main Office [address] [place] [address] 07/09/2023 10:32:41 07/09/2023 11:31:51 History of idiopathic intracranial hypertension [id number] 5224033 Z86.69 Having headaches that are not adequately treated with meds and having a difficult time concentrat ing. Headache 40093659 R51.9 Transition of care from emergency department to self-care [id number] 71000 Z76.89 Reviewed [id number] Daren Edmond MD Main Office [address] [place] [address] 08/15/2023 11:32:08 08/15/2023 12:27:56 Essential hypertension 58605054 I10 Elevated BP today though has not taken antihypert ensives. Continue to monitor and cont antihypert ensives, low sodium diet. She has a history of elevated BP readings while on nifedipine so will obtain microalbum in and follow up in one month for reassessme nt. Edema of l ower extremity 611755955 R60.0 Will start on Lasix 20 mg PO daily. Will check BMP in one week to assess potassium and renal function. [id number] Josey Winchester MD Main Office [address] [address] [place] [address] 01/21/2024 14:18:10 01/21/2024 15:24:56 Adult health examination 197439260 Z00.00 She is UTD with immunizati ons including COVID along with her booster but she is due for her second shingles. She is also UTD w/colonosc opy (due again in 2025) and UTD w/mammogra m. 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 We discussed exercise and she remains very active. Insomnia 838785469 F51.0 1 She will try gabapentin at bedtime. 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 Essential hypertension 23488035 I10 We stopped her diuretic because of hypokalemi a but her BP has increased. We will continue to follow it before adding any meds. Migraine 11576777 G43.00 9 She currently uses Excedrin migraine which helps. Hyperlipidemia 83428935 E78.5 Taking atorvastat in 40 mg and tolerating it well. Seronegati ve rheumatoid arthritis 620391634 M06.[address] Mitchell and on meds but they don't seem to be helping. She will discuss this with Dr Mitchell. Visual disturbance 00510 001 H53.9 [id number] Josey Winchester MD Main Office [address] [facility] [address] [facility] [place] [address] 02/18/2024 14:02:25 02/18/2024 14:33:28 Anxiety disorder 449347413 F41.9 Not currently on meds and this is in remission. 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 Will try a higher dose and she will call if it is not helpful. Essential hypertension 25147958 I10 We stopped her diuretic because of [...] ID Guarantor Name 07/08/2023 1 [facility] [id number] 01 Shey Griffinston [id number] Shey Henriquez 07/09/2023 1 [facility] [id number] 01 Shey Griffinston [id number] Shey Henriquez 08/15/2023 1 [facility] [id number] 01 Shey Henriquez [id number] Shey Henriquez 01/21/2024 1 [facility] ([facility] [id number] 39 Shey Henriquez [id number] Shey Henriquez 02/18/2024 1 MEDICAID-[place]: [facility] Shey Griffinston [id number] Shey Henriquez Notes Date Note Type Note [...] no otc meds Giovanni Lucero PA-C [address] [facility] [address], [place], [address], [facility] 07/08/2023 10:52:34 07/09/2023 text/html Having a h/o [...] with cognitive abilities and focus. Karely bentley, [facility] 07/18/2023 10:50:02 08/15/2023 text/html 58 yo female [...] her antihypertensives today. 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 She is followed by specialists for each and has multiple joint pains that are not controlled by current treatment.UTD w/COVID, tetanus and flu vaccines. Josey Winchester MD [address] [facility] [address], [place], [address], [facility] 01/22/2024 17:49:35 02/18/2024 text/html ADHDReported bypatient.School Performance:improving [...] after about 4 hours. Josey Winchester MD [address] [facility] [address], [place], [address], [facility] 02/18/2024 15:39:06 OBGyn Episode No OBEpisode recorded.
--- OUTSIDE RECORDS SUMMARY | 2024-07-13 16:13 | XMS_ITS | Clinical Summary ---
Author Organization [facility] Address [address] [place] [address] Care Team Providers Care Supervisor Fish Processing Name Role Phone Luis Miguel Winchester MD Primary Care Provider [phone] [phone] Allergies Active Allergy Reactions Criticality Noted Date [...] age to complete this topic Care Teams Supervisor Fish Processing Relationship Specialty Start Date End Date Luis Miguel Winchester MD [address] [facility] [address] [place] [address] PCP - General Internal Medicine 08/08/22
--- OUTSIDE RECORDS SUMMARY | 2024-07-13 16:13 | XMS_ITS | Clinical Summary ---
Author Organization [facility] Address [address] [place] [address] Phone Care Team Providers Care Valve Liner Rubber Name Role Phone Luis Miguel Winchester MD Primary Care Provider [phone] Allergies No known active allergies Medications aspirin 81 mg EC tablet Take 1 tablet (81 mg total) by mouth 1 (one) time each day. 01/02/2023 Active atorvastatin (LIPITOR) 40 mg tablet TAKE 1 TABLET(40 MG) BY MOUTH DAILY 04/07/2023 Active NIFEdipine CC (ADALAT CC) 90 mg 24 hr tablet Take 1 tablet (90 mg total) by mouth. 08/05/2022 Active atogepant (Qulipta) 60 mg tablet Take 60 mg by mouth 1 (one) time each day. Active galcanezumab-gnl m (EMGALITY) 120 mg/mL injection pen Inject 1 mL (120 mg total) under the skin every 28 (twenty-eig ht) days. 1 each 5 05/26/2024 Active Encounters Date Type Department Care Team Description 05/26/2024 2:30 PM EDT Office Visit [facility] [address] [facility] [address] [place] [address] Farzana German PA Migraine with aura and without status migrainosus, not intractable (Primary Dx) from Last 3 Months Surgical History Surgery Date Site/Laterality Comments HYSTERECTOMY PROCEDURE:HYSTERECTOMY GALLBLADDER SURGERY PROCEDURE:GALLBLADDER SURGERY Medical History Medical History Date Comments Hypertension DX:Hypertension MS (multiple sclerosis) ([facility] /HCC V24, CMS/HCC V28) DX:MS (multiple sclerosis) ( [facility]) Pure hypercholesterolemia DX:Pur e hypercholesterolemia Migraine DX:Migraine [...] Description 08/27/2024 1:30 PM EDT Office Visit [facility] [address] [facility] [address] [place] [address] Farzana German PA [address] [facility] [address] [place] [address] Health Maintenance Due Date Last Done Comments [...] topic Insurance MEDICAID - [place] Care Teams Valve Liner Rubber Relationship Specialty Start Date End Date Luis Miguel Winchester MD [address] [address] PCP - General 08/08/22
[2024-07-13 16:25] LABS: Basophils Absolute Auto 0.1 X10*3/uL (0.0-0.2); Basophils Percent Auto 0.9 % (0-2); Eosinophils Absolute Auto 0.2 X10*3/uL (0.0-0.4); Eosinophils Percent Auto 2.7 % (0-4); Hematocrit 43.4 % (37.0-47.0); Hemoglobin 13.8 g/dl (12.0-16.0); Imm Gran Abs Auto 0.01 X10*3/uL (0.00-0.03); Imm Gran Pct Auto 0.2 % (0.0-0.4); Lymphocytes Absolute Auto 2.8 X10*3/uL (1.2-4.9); Lymphocytes Percent Auto 41.8 % (20-40); Mean Corpuscular HGB Conc 31.8 g/dl (31.0-35.0); Mean Corpuscular Hemoglobin 25.3 pg (27.0-33.0); Mean Corpuscular Volume 79.6 fL (80.0-98.0); Mean Platelet Volume 10.5 fL (9.4-12.3); Monocytes Absolute Auto 0.5 X10*3/uL (0.1-1.2); Monocytes Percent Auto 7.8 % (2-11); Neutrophils Absolute Auto 3.1 x10*3/uL (2.0-8.3); Neutrophils Percent Auto 46.6 % (45-73); Platelet Count 260 X10*3/uL (160-400); Red Blood Count 5.45 X10*6/uL (4.20-5.50); Red Cell Distribution Width 14.1 % (11.0-16.0); White Blood Count 6.7 X10*3/uL (4.8-10.8)
[2024-07-13 18:00] LABS: Alanine Aminotransferase 57 U/L (0-31); Albumin Level 4.4 g/dL (3.5-5.0); Alkaline Phosphatase 125 U/L (39-117); Anion Gap 15 (12-20); Aspartate Amino Transferase 35 U/L (5-31); Bilirubin Direct 0.2 mg/dL (0.0-0.5); Bilirubin Total 0.8 mg/dL (0.0-1.0); Blood Urea Nitrogen 19 mg/dL (9-16); Calcium 9.7 mg/dL (8.4-10.2); Carbon Dioxide 28 mmol/L (22-29); Chloride 105 mmol/L (96-108); Cholesterol 247 mg/dL (<200); Estimated Glomerular Filt Rate > 60; Glucose Random 97 mg/dL (60-115); HDL Cholesterol 93 mg/dL (>40); LDL Cholesterol Calculated 137 mg/dL (<100); Potassium 3.8 mmol/L (3.3-5.1); Sodium 144 mmol/L (135-145); Total Protein 7.3 g/dL (6.5-8.0); Triglycerides 87 mg/dL (<150)
[2024-07-19 15:22] LABS: Quantiferon TB Gold Plus 1 NEGATIVE
[2024-07-19 15:23] LABS: TB Test (QFT) Mitogen -Nil 7.96; TB Test (QFT) Nil 0.18; TB Test (QFT) Plus TB1 -Nil 0.22
== END 2024-07-13 15:20 | disposition home or self-care (01) ==
LOC: HO.XRAY 15:19
PROVIDERS: PCP Internal Medicine; Visit Provider Internal Medicine Rheumatology
DX: M17.0 Bilateral primary osteoarthritis of knee (principal); M06.9 Rheumatoid arthritis, unspecified; M06.09 Rheumatoid arthritis without rheumatoid factor, multiple sites; R74.01 Elevation of levels of liver transaminase levels
CPT/HCPCS: 36415; 73562; 80053; 80061; 82248; 85025; 86480

== ENCOUNTER → 2024-07-13 15:46 | Outpatient (BNV) | payer MEDICAID, SELFPAY | PROVIDERS: PCP Internal Medicine; Visit Provider Radiology Diagnostic Radiology | DX: M17.0 Bilateral primary osteoarthritis of knee (principal) | CPT/HCPCS: 73562 ==

== ENCOUNTER 2024-09-29 12:31 | Outpatient (AMB) | payer MEDICAID, SELFPAY ==
[2024-09-29 12:45] VITALS: BP 120/80; PULSE 98; O2SAT 98; BMI 28.3
--- NOTE | 2024-09-29 12:45 | MHC.OFFVIS ---
Vital Signs 09/29/24 12:45 Height 5 ft 5 in Weight 170 lb 6 oz BMI 28.3 BP 120/80 Blood Pressure Location Lt brachial Position Sitting Pulse 98 Pulse Source Pulse Oximeter Pulse Oximetry (%) 98 Oxygen Delivery Method Room Air Intake Visit Reasons: 3 Months Intake Note: Patient presents for follow up on RA today. Accompanied by: Self / Same As Patient Allergies famotidine Allergy (Mild, Verified 09/29/24 12:48) Rash gabapentin Adverse Reaction (Unknown, Uncoded 04/02/24 14:57) Unknown HPI HPI 3 Months: Details: Since reducing Actemra dose she has had increased joint pain with limited range of motion. She had relief in fatigue with Actemra 8 milligrams/kilogram, which returned with reduced dose. She continues to have paraesthesia in hands. She is on topiramate for management of idiopathic intracranial hypertension. 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 She reports that last year she was told she had old strokes. [facility] Surgical History H/O: hysterectomy Hx of cholecystectomy Social History Household Members: Family Alcohol intake: never Patient Tobacco Use Status: Never used Tobacco Physical Exam Vital Signs: Last Vital Signs Pulse 98 09/29/24 12:45 BP 120/80 09/29/24 12:45 Pulse Ox 98 09/29/24 12:45 Oxygen Delivery Method Room Air 09/29/24 12:45 BMI result Body Mass Index 28.3 Const Other: General: Comfortable CVS: RRR Respiratory: clear to auscultation bilaterally. Good respiratory effort Skin: No lesions seen MSK: Hyper flexion left 3rd and 4th and right 3rd DIPJ, reproducible. Tender to palpate bilateral wrists with right wrist synovitis and ganglion cyst present on dorsal right wrist. 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 Tender bilateral elbows and shoulders. Limited range of motion with bilateral abduction 90 degrees with limited full internal external rotation. Tender bilateral knees with left knee crepitus present. Left knee synovitis present. Tender bilateral ankles and MTPs. Office Procedures AMB Joint Injection/Aspiration Coding Additional procedure code (CPT) needed (CPT code 36115 bilateral procedure) AMB Joint Injection/Aspiration Joint Injection/Aspiration Details: Bilateral carpal tunnel Prep: site was prepped using aseptic technique Injected into each site: 20 mg of, Kenalog, with 0.5 mL of and 1% plain lidocaine Procedure: Informed verbal consent was obtained. The patient tolerated the procedure well. Postprocedure protocol was discussed with patient. Coding Additional procedure code (CPT) needed (CPT code 40638, bilateral procedure) Office Meds lidocaine (PF) 10 mg/mL (1 %) injection solution Performing Provider: Matt Carreon MD Performing Location: [facility] Administered by: Matt Carreon MD on 09/29/24 14:06 Dose Route Admin Location Dispensed Lot Number Expiration Date [facility] Hand Bander 5 mg Infiltration 2 mL [id number] 07/31/26 67653-135-51 [employer] Total Dispensed Waste 2 mL 75 % Kenalog 40 mg/mL suspension for injection Performing Provider: Matt Carreon MD Performing Location: [facility] Administered by: Matt Carreon MD on 09/29/24 14:06 Dose Route Admin Location Dispensed Lot Number Expiration Date [facility] Hand Bander 20 mg Tendon Sheath Inj. 1 mL [id number] 01/30/26 1184-4906-66 HIKMA PHARMACEU Total Dispensed Waste 1 mL 50 % lidocaine (PF) 10 mg/mL (1 %) injection solution Performing Provider: Matt Carreon MD Performing Location: [facility] Administered by: Matt Carreon MD on 09/29/24 14:06 Dose Route Admin Location Dispensed Lot Number Expiration Date [facility] Hand Bander 5 mg Infiltration 2 mL [id number] 07/31/26 57227-341-53 FRESENIUS KABI Total Dispensed Waste 2 mL 75 % Kenalog 40 mg/mL suspension for injection Performing Provider: Matt Carreon MD Performing Location: [facility] Administered by: Matt Carreon MD on 09/29/24 14:06 Dose Route Admin Location Dispensed Lot Number Expiration Date [facility] Hand Bander 20 mg Tendon Sheath Inj. 1 mL [id number] 01/30/26 4254-4207-40 HIKMA PHARMACEU Total Dispensed Waste 1 mL 50 % Assessment & Plan Assessment & Plan (1) Rheumatoid arthritis: Comment: Inflammatory arthritis and fatigue has worsened with lower dose of Actemra from 8 milligram/kilogram every 4 weeks to 4 milligram/kilogram every 4 weeks. She has loss of function. She has also developed deformities with reproducible hyperflexion of DIPJ bilateral hands. Due to transaminitis Actemra dose was reduced. We discussed next steps in therapy with DMARD therapy. Discussed treatment with hydroxychloroquine as I do not want her to be without DMARD treatment with a new development of deformities. Discussed side effects, benefits and drug monitoring. She was told that she had strokes in the past on MRI from Neurology. 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 We discussed next steps in DMARD therapy with considering HARRISON inhibitors. There is a increased risk of stroke associated with HARRISON inhibitors. She will discuss with her neurologist. Contraindication to TNF inhibitors due to MS diagnosis. Rheumatology history: Seronegative and erosive rheumatoid arthritis. Meloxicam ineffective. Prednisone 10 mg daily caused insomnia. Methotrexate 03/2021 to 08/2023 to 05/2021 caused blurred vision. Sulfasalazine 12/2021 was discontinued due to transaminitis. Leflunomide 08/2021 to 01/01/2023 discontinued due to concern it may be contributing to idiopathic intracranial hypertension. Inflectra 05/2022 to 09/19/2022 discontinued due to diagnosis of Ab MS. Failed Orencia 05/2023-08/2023. Actemra 09/2023-present effective reduced dose due to transaminitis. TB QuantiFERON 01/2024 negative. CXR 05/2024 negative. Code(s): M06.9 - Rheumatoid arthritis, unspecified Category: Medical Qualifiers: Rheumatoid arthritis location: multiple sites Rheumatoid factor presence: without rheumatoid factor Qualified Code(s): M06.09 - Rheumatoid arthritis without rheumatoid factor, multiple sites Plan: Labs for drug monitoring on high-risk medication due today. Information on hydroxychloroquine given to patient. Information on Xeljanz given to patient to discuss with Neurology. Start hydroxychloroquine 300 mg daily She declined Depo-Medrol this visit as last time she had Depo-Medrol it was ineffective X-ray bilateral hands and feet orders to evaluate for radiographic progression of rheumatoid arthritis Return to clinic in 3 months (2) Transaminitis: Code(s): R74.01 - Elevation of levels of liver transaminase levels Category: Medical Plan: See above (3) Bilateral primary osteoarthritis of knee: Comment: Clinical +radiographic evidence of osteoarthritis on bilateral knee x-rays 2020. Last visit she had left knee synovitis, which has resolved with increasing Actemra dose. RA activity is contributing to knee pain. Code(s): M17.0 - Bilateral primary osteoarthritis of knee Category: Medical Plan: Bilateral knee x-rays ordered to evaluate for progression of arthritis RA treatment per above PT ordered for knee strengthening. I asked her to schedule PT. Return to clinic in 3 months (4) Bilateral carpal tunnel syndrome: Comment: On recent EMG 05/2024. Failed wrist braces. Code(s): G56.03 - Carpal tunnel syndrome, bilateral upper limbs Category: Medical Plan: Patient received bilateral cortisone injections for treatment of carpal tunnel syndrome Return to clinic in 3 months Orders: Orders Rwqpzdn-9-Xdmbhkepf Dehydrogen Today M06.09 - Rheumatoid arthritis without rheumatoid factor, multiple sites, Z79.899 - Other longshore equipment operator (current) drug therapy AMB Joint Injection/Aspiration Today G56.03 - Carpal tunnel syndrome, bilateral upper limbs AMB Joint Injection/Aspiration Today G56.03 - Carpal tunnel syndrome, bilateral upper limbs XR Hand Bilat min 3v Today M06.09 - Rheumatoid arthritis without rheumatoid factor, multiple sites XR Foot Trent 3V Today M06.09 - Rheumatoid arthritis without rheumatoid factor, multiple sites Medications: New hydroxychloroquine (Plaquenil) 300 mg (1.5 x 200 mg) PO DAILY 45 tabs 2RF 30 days Coding Level of Care Code Est Pt Level 4 (55763) Complex EM visit Add On G2211 Diagnoses Rheumatoid arthritis of multiple sites with negative rheumatoid factor M06.09 Rheumatoid arthritis location: multiple sites Rheumatoid factor presence: without rheumatoid factor Transaminitis R74.01 Bilateral primary osteoarthritis of knee M17.0 Bilateral carpal tunnel syndrome G56.03
--- OUTSIDE RECORDS SUMMARY | 2024-09-29 13:08 | XMS_ITS | Clinical Summary ---
Author Organization [facility] Address [address] [place] [address] Care Team Providers Care Capital Project Engineer Name Role Phone Luis Miguel Winchester MD Primary Care Provider [phone] [phone] Allergies Active Allergy Reactions Criticality Noted Date [...] 62 10/29/2023 1:51 PM EDT Temperature 36.4 C (97.6 F) 10/29/2023 1:51 PM EDT Respiratory Rate 16 08/16/2022 10:41 AM EDT [...] - season) 2023 01/08/2023 Influenza Vaccine (#1) 2024 3, 12/28/2020, 12/03/2019, Additional history exists DTap [...] age to complete this topic Care Teams Capital Project Engineer Relationship Specialty Start Date End Date Luis Miguel Winchester MD [address] [facility] [address] [place] [address] PCP - General Internal Medicine 08/08/22
--- OUTSIDE RECORDS SUMMARY | 2024-09-29 13:08 | XMS_ITS | Clinical Summary ---
Author Organization [facility] Address [address] [place] [address] Phone Care Team Providers Care Curbing Stonecutter Name Role Phone Luis Miguel Winchester MD Primary Care Provider [phone]- [phone] Allergies No known active allergies Medications aspirin [...] mouth 1 (one) time each day. Active topiramate (Topamax) 25 mg tablet 1 p.o. in a.m. x 1 week, then 1 p.o. twice daily x 1 week, then 1 p.o. a.m. and 2 p.o. at bedtime x 1 week, then 2 p.o. twice daily 60 each 5 08/27/2024 Active Encounters Date Type Department Care Team Description 08/27/2024 1:30 PM EDT Office Visit [facility] [address] [facility] [address] [place] [address] Farzana German PA Migraine with aura and without status migrainosus, not intractable (Primary Dx) 08/12/2024 Telephone [facility] [address] [facility] [address] [place] [address] Farzana German PA MED AUTH from Last 3 Months Surgical History Surgery Date Site/Laterality Comments HYSTERECTOMY PROCEDURE:HYSTERECTOMY GALLBLADDER SURGERY PROCEDURE:GALLBLADDER SURGERY Medical History Medical History Date Comments Hypertension DX:Hypertension MS (multiple sclerosis) (CMS /HCC V24, CMS/HCC V28) DX:MS (multiple sclerosis) ( [facility]) Pure hypercholesterolemia DX:Pur e hypercholesterolemia Migraine DX:Migraine [...] Sign Reading Time Taken Comments Blood Pressure 125/81 08/27/2024 1:27 PM EDT Pulse 52 08/27/2024 1:27 PM EDT Temperature 36.4 C (97.5 F) 08/27/2024 1:27 PM EDT Respiratory Rate - - Oxygen Saturation 98% 08/27/2024 1:27 PM EDT Inhaled Oxygen Concentration - - Weight 76.2 kg (168 lb) 08/27/2024 1:27 PM EDT Height 165.1 cm (5' 5 ) 08/27/2024 1:27 PM EDT Body Mass Index 27.96 08/27/2024 1:27 PM EDT Plan of Treatment Upcoming Encounters Date Type Department Care Team (Late st Contact Info) Description 12/08/2024 2:30 PM EDT Office Visit [facility] [address] [facility] [address] [place] [address] Rod Howard MD [address] [facility] [address] [place] [address] Health Maintenance Due Date Last Done Comments Cervical Cancer Screening: Pap Smear 02/05/1985 Pneumococcal Vaccine: 50+ Years (2 of 2 - PCV) 07/25/2019 07/24/2018 Zoster Vaccines (2 of 2) 01/18/2020 11/23/2019 Cholesterol Screening (Lipid Panel) 03/28/2023 Colorectal Cancer Screening: Colonoscopy 03/28/2023 HIV Screening 03/28/2023 Hepatitis C Screening 03/28/2023 Social Influencers of Health Screening 03/28/2023 Hypertension/CHF/CAD Annual BMP Blood Test 01/31/2024 Depression Screening 03/03/2024 Breast Cancer Screening 07/24/2024 07/24/2022 Influenza Vaccine (#1) 2024 , 01/08/2023, 12/28/2020, Additional history exists DTaP,Tdap,and Td Vaccines (3 - Td or Tdap) 08/10/2029 08/11/2019, 06/23/2008 RSV Immunization Adult Patients (1 - 1-dose 75+ series) 02/05/2039 COVID-19 Vaccine Completed 12/27/2023, 10/2022, 06/03/2021, Additional history exists HIB Vaccines Aged Out [...] topic Insurance MEDICAID - [place] Care Teams Curbing Stonecutter Relationship Specialty Start Date End Date Luis Miguel Winchester MD PCP - General 08/08/22
== END 2024-09-29 13:58 | disposition home or self-care (01) ==
LOC: HO.RHES 12:32
PROVIDERS: PCP Internal Medicine; Visit Provider Internal Medicine Rheumatology
DX: M06.09 Rheumatoid arthritis without rheumatoid factor, multiple sites (principal); R74.01 Elevation of levels of liver transaminase levels; M17.0 Bilateral primary osteoarthritis of knee; G56.03 Carpal tunnel syndrome, bilateral upper limbs
CPT/HCPCS: 99214

== ENCOUNTER 2024-09-29 12:31 | Outpatient (REF) | payer MEDICAID, SELFPAY ==
[2024-09-29 18:05] LABS: Baso%MD 0.9 %; Eos%MD 3.8 %; Hematocrit 43.6 % (37.0-47.0); Hemoglobin 13.8 g/dl (12.0-16.0); IG%MD 0.2 %; Lymph%MD 37.9 %; Mean Corpuscular HGB Conc 31.7 g/dl (31.0-35.0); Mean Corpuscular Hemoglobin 25.1 pg (27.0-33.0); Mean Corpuscular Volume 79.4 fL (80.0-98.0); Mono%MD 7.1 %; NRBC Abs Auto 0.000 X10*3/uL (0.0-0.012); NRBC Pct Auto 0.0 /100WBC (0.0-0.2); Neut%MD 50.1 %; Platelet Count 266 X10*3/uL (160-400); Red Blood Count 5.49 X10*6/uL (4.20-5.50); White Blood Count 6.4 X10*3/uL (4.8-10.8)
[2024-09-29 18:35] LABS: Albumin Level 4.3 g/dL (3.5-5.0); Alkaline Phosphatase 116 U/L (39-117); Anion Gap 12 (12-20); Aspartate Amino Transferase 58 U/L (5-31); Blood Urea Nitrogen 16 mg/dL (9-16); Calcium 9.6 mg/dL (8.4-10.2); Carbon Dioxide 25 mmol/L (22-29); Chloride 111 mmol/L (96-108); Estimated Glomerular Filt Rate 49; Potassium 3.8 mmol/L (3.3-5.1); Sodium 144 mmol/L (135-145); Total Protein 6.9 g/dL (6.5-8.0)
[2024-09-29 18:52] LABS: Alanine Aminotransferase 104 U/L (0-31)
[2024-09-29 19:11] LABS: Atypical Lymph Absolute Manual 0.3 x10*3/uL; Atypical Lymphs Percent Manual 5 % (0-6); Basophils Abs Manual 0.1 X10*3/uL (0.0-0.2); Basophils Percent Manual 1 % (0-2); Eosinophils Absolute Manual 0.1 X10*3/uL (0.0-0.4); Eosinophils Percent Manual 1 % (0-4); Lymphocytes Absolute Manual 1.6 X10*3/uL (1.2-4.9); Lymphocytes Percent Manual 25 % (20-40); Monocytes Absolute Manual 0.2 X10*3/uL (0.1-1.2); Monocytes Percent Manual 3 % (2-11); Neutrophils Percent Manual 65 % (45-73)
[2024-09-29 19:13] LABS: Acanthocytes 1+ (0-2) /OIF; Burr Cells 2+ (3-5) /OIF; RBC Morphology NOTED; Smudge Cells PRESENT
[2024-09-29 19:14] LABS: Basophilic Stippling 1+ (0-2) /OIF
[2024-09-29 19:16] LABS: Band Neutrophils Percent 0 % (3-5); Neutrophils Absolute Manual 4.2 X10*3/uL (2.0-8.3)
[2024-10-05 20:29] LABS: Glucose-6-Phosphate Dehydrogen 11.1 U/g Hgb (7.0-20.5)
== END 2024-09-29 12:32 | disposition home or self-care (01) ==
LOC: HO.HKASLDS 12:31
PROVIDERS: PCP Internal Medicine; Visit Provider Internal Medicine Rheumatology
DX: M06.09 Rheumatoid arthritis without rheumatoid factor, multiple sites (principal); G93.2 Benign intracranial hypertension; G56.03 Carpal tunnel syndrome, bilateral upper limbs; M17.0 Bilateral primary osteoarthritis of knee; R74.01 Elevation of levels of liver transaminase levels; Z79.899 Other long term (current) drug therapy
CPT/HCPCS: 36415; 80053; 82955; 85007; 85027; 85652; 86140; 99212; J2003; J3300

== ENCOUNTER 2024-11-19 13:39 | Outpatient (REF) | payer MEDICAID, SELFPAY ==
--- OUTSIDE RECORDS SUMMARY | 2024-11-19 13:51 | XMS_ITS | Clinical Summary ---
Author Organization [facility] Address [address] [place] [address] Care Team Providers Care Cook Restaurant Name Role Phone Luis Miguel Winchester MD Primary Care Provider [phone] Allergies Active Allergy Reactions Criticality Noted Date [...] 01/18/2020 11/23/2019 COVID-19 Vaccine (2 - season) 2024 01/08/2023 Influenza Vaccine (#1) 2024 3, 12/28/2020, [...] age to complete this topic Care Teams Cook Restaurant Relationship Specialty Start Date End Date Luis Miguel Winchester MD [address] [facility] [address] [place] [address] PCP - General Internal Medicine 08/08/22
--- OUTSIDE RECORDS SUMMARY | 2024-11-19 13:51 | XMS_ITS | Encounter Summary ---
Author Organization [facility] [place] [address] Care Team Providers Care Usability Specialist Name Role Phone Luis Miguel Winchester MD Primary Care Provider [phone] Encounter Details Date Type Department Care Team ([facility] st Contact Info) Description 11/15/2024 Telephone [facility] [address] [facility] [address] [place] [address] Gabriella Howard MA Social History Tobacco Use Types Packs/Day Years Used Date Smoking Tobacco: Never Smokeless Tobacco: Never Alcohol Use Standard Drinks/Week Comments Never 0 (1 standard drink = 0.6 oz pur e alcohol) Comments Unknown Sex and Gender Information Value Date Recorded Sex Assigned at Not on file Legal Sex Female 8:40 PM EST Gender Identity Not on file Sexual Orientation Not on file documented as of this encounter Progress Notes * Gabriella Howard MA - 11/19/2024 11:51 AM EDT Spoke with pt relayed Dr Howard's message. No further questions will wait until f/u appt. * Gabriella Howard MA - 11/15/2024 11:01 AM EDT Patient called in regards to a medication her rheumatology Dr wants to put her on.Dr Baca suggested Xeljanz and see if its safe for patient to take? She said she had a reaction to leflunomide. Told the patient I would send a message to the provider and we would give her a call back. Please advise. documented in this encounter Plan of Treatment Upcoming Encounters Date Type Department Care Team (Late st Contact Info) Description 12/08/2024 2:30 PM EDT Office Visit [facility] [address] [facility] [address] [place] [address] Rod Howard MD [address] [place] [address] documented as of this encounter Visit Diagnoses Not on filedocumented in this encounter Care Teams Usability Specialist Relationship Specialty Start Date End Date Luis Miguel Winchester MD PCP - General 08/08/22 documented as of this encounter
--- OUTSIDE RECORDS SUMMARY | 2024-11-19 13:51 | XMS_ITS | Clinical Summary ---
Author Organization [facility] Address [address] [place] [address] Phone Care Team Providers Care Manager Collection Name Role Phone Luis Miguel Winchester MD Primary Care Provider [phone] Allergies No known active allergies Medications aspirin [...] Encounters Date Type Department Care Team Description 11/15/2024 Telephone [facility] 175 [facility] [address] [place] [address] Gabriella Howard MA 08/27/2024 1:30 PM EDT Office Visit [facility] 175 [facility] [address] [place] [phone] Farzana German PA Migraine with aura and without status migrainosus, not intractable (Primary Dx) from Last 3 Months Surgical History Surgery Date Site/Laterality Comments HYSTERECTOMY PROCEDURE:HYSTERECTOMY GALLBLADDER SURGERY PROCEDURE:GALLBLADDER SURGERY Medical History Medical History Date Comments Hypertension DX:Hypertension MS (multiple sclerosis) DX:MS (m ultiple sclerosis) (HCC) Pure hypercholesterolemia DX:Pur e hypercholesterolemia [...] Description 12/08/2024 2:30 PM EDT Office Visit [facility] 175 [facility] [address] [place] [address] Rod Howard MD [address] [place] [address] Health Maintenance Due Date Last Done Comments [...] Screening 03/03/2024 Breast Cancer Screening 07/24/2024 07/24/2022 COVID-19 Vaccine (7 - Moderna risk season) 2024 12/27/2023, 01/08/2023, 06/03/2021, Additional history exists Influenza Vaccine (#1) 2024 , 01/08/2023, 12/28/2020, Additional history exists DTaP,Tdap,and Td Vaccines (3 - Td or Tdap) 08/10/2029 08/11/2019, 06/23/2008 RSV Immunization Adult Patients (1 - 1-dose 75+ series) 02/05/2039 HIB Vaccines Aged Out No longer eligi [...] topic Insurance MEDICAID - [place] Care Teams Manager Collection Relationship Specialty Start Date End Date Luis Miguel Winchester MD PCP - General 08/08/22
[2024-11-19 18:15] LABS: Alanine Aminotransferase 27 U/L (0-31); Aspartate Amino Transferase 31 U/L (5-31)
== END 2024-11-19 13:40 | disposition home or self-care (01) ==
LOC: HO.HKASLDS 13:39
PROVIDERS: Visit Provider Internal Medicine Rheumatology
DX: R74.01 Elevation of levels of liver transaminase levels (principal)
CPT/HCPCS: 36415; 84450; 84460

== ENCOUNTER 2025-01-05 13:57 | Outpatient (AMB) | payer MEDICAID, SELFPAY ==
--- NOTE | 2025-01-05 13:58 | A.OFFVIS_ITS ---
Vital Signs 01/05/25 13:59 Height 5 ft 5 in Weight 177 lb 0.499 oz BMI 29.5 BP 110/80 Blood Pressure Location Rt brachial Position Sitting Pulse 85 Pulse Source Pulse Oximeter Pulse Oximetry (%) 98 Oxygen Delivery Method Room Air Intake Visit Reasons: follow up Intake Note: Patient presents for follow up on RA today. Accompanied by: Self / Same As Patient Allergies famotidine Allergy (Mild, Verified 01/05/25 13:59) Rash gabapentin Adverse Reaction (Unknown, Uncoded 04/02/24 14:57) Unknown HPI HPI follow up: Details: Cortisone injections were helpful with resolving symptoms from carpal tunnel syndrome. She sometimes experiences headaches with involvement of neck pain. She continues to have pain in her knees. She uses Aleve topical OTC on her joints when she is in pain. [facility] Surgical History H/O: hysterectomy Hx of cholecystectomy Social History Household Members: Family Alcohol intake: never Patient Tobacco Use Status: Never used Tobacco Physical Exam Vital Signs: Last Vital Signs Pulse 85 01/05/25 13:59 BP 110/80 01/05/25 13:59 Pulse Ox 98 01/05/25 13:59 Oxygen Delivery Method Room Air 01/05/25 13:59 BMI result Body Mass Index 29.5 Const Other: General: Comfortable CVS: RRR Respiratory: clear to auscultation bilaterally. Good respiratory effort Skin: No lesions seen MSK: Tender to palpate bilateral wrists with right wrist synovitis and ganglion cyst present on dorsal right wrist. She has slight synovitis of right wrist. Tender bilateral shoulders. Limited range of motion with bilateral abduction 160 degrees with limited full internal and external rotation due to pain. Tender bilateral knees with left knee crepitus present. Tender bilateral ankles Assessment & Plan Assessment & Plan (1) Rheumatoid arthritis: Comment: Inflammatory arthritis has improved on Celebrex and hydroxychloroquine but she continues to have persistent disease activity with synovitis. She has had enough time on hydroxychloroquine for maximal benefit. Transaminitis has resolved off of Actemra. She has loss of function. She is no longer able to work. She has also de veloped deformities with reproducible hyperflexion of DIPJ bilateral hands. Her neurologists is okay with patient being on Rinvoq but not Xeljanz. She has white matter changes on most recent brain MRI. She was told that she had strokes in the past on MRI from Neurology. 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 We discussed next steps in DMARD therapy with considering HRARISON inhibitors. Xeljanz is contraindicated by her neurologist. Her neurologists is okay with her being on Rinvoq. Xeljanz and Rinvoq defer by their selectivity. Xeljanz is a barnes HARRISON inhibitor versus Rinvoq, which is more selective for HARRISON 1 leading to varying signal affects on the HARRISON pathway and downstream inhibition of different cytokines and in turn safety profile. There is recent evidence to support with head to head comparison of systemic reviews and meta analysis that were not being able to identify any meaningful differences in the risk major cardiovascular events (i.e strokes, PA) with HARRISON inhibitor vs TNF antagonist across all immune-mediated inflammatory diseases, with low overall incidence (PMID: 10468283). If insurance does not approve Rinvoq, I will need to consider baricitinib versus rituximab. Patient prefers oral medication over infusion. Rheumatology history: Seronegative and erosive rheumatoid arthritis. Meloxicam ineffective. Prednisone 10 mg daily caused insomnia. Methotrexate 03/2021 to 08/2023 to 05/2021 caused blurred vision. Sulfasalazine 12/2021 was discontinued due to transaminitis. Leflunomide 08/2021 to 01/01/2023 discontinued due to concern it may be contributing to idiopathic intracranial hypertension. Inflectra 05/2022 to 09/19/2022 discontinued due to diagnosis of Ab MS. Failed Orencia IV 05/2023-08/2023. Actemra IV 09/2023-present effective reduced dose due to transaminitis. TB QuantiFERON 01/2024 negative. CXR 05/2024 negative. Code(s): M06.9 - Rheumatoid arthritis, unspecified Category: Medical Qualifiers: Rheumatoid arthritis location: multiple sites Rheumatoid factor presence: without rheumatoid factor Qualified Code(s): M06.09 - Rheumatoid arthritis without rheumatoid factor, multiple sites Plan: Labs for drug monitoring on high-risk medication due today. Continue hydroxychloroquine 300 mg daily Continue Celebrex 200 mg twice a day Appealing rinvoq X-ray bilateral hands and feet orders to evaluate for radiographic progression of rheumatoid arthritis Return to clinic in 3 months (2) Transaminitis: Code(s): R74.01 - Elevation of levels of liver transaminase levels Category: Medical Plan: See above (3) Bilateral primary osteoarthritis of knee: Comment: Clinical +radiographic evidence of mild osteoarthritis on bilateral knee x-rays 07/2024. She had left knee synovitis in the past, which has resolved with incre asing Actemra dose supporting that RA activity may also be contributing to knee pain. Code(s): M17.0 - Bilateral primary osteoarthritis of knee Category: Medical Plan: PT ordered for knee strengthening in June 2024. I have asked her to schedule PT. Return to clinic in 3 months (4) Bilateral carpal tunnel syndrome: Comment: Resolved with cortisone injections 08/2024. On recent EMG 05/2024. Failed wrist braces. Code(s): G56.03 - Carpal tunnel syndrome, bilateral upper limbs Category: Medical Plan: Monitor clinically Return to clinic in 3 months Orders: Orders C Reactive Protein Today Z79.899 - Other senior living (current) drug therapy Erythrocyte Sedimentation Rate Today Z79.899 - Other senior living (current) drug t herapy Complete Blood Count Auto Diff Today Z79.899 - Other intermediate project manager (current) drug therapy Alanine Aminotransferase Today Z79.899 - Other intermediate project manager (current) drug therapy Aspartate Amino Transferase Today Z79.899 - Other intermediate project manager (current) drug therapy Creatinine Today Z79.899 - Other senior living (current) drug therapy Medications: Refilled celecoxib Labs due in 1 month 200 mg PO BID 60 caps 2RF Coding Level of Care Code Est Pt Level 4 (13661) Complex EM visit Add On G2211 Diagnoses Rheumatoid arthritis of multiple sites with negative rheumatoid factor M06.09 Rheumatoid arthritis location: multiple sites Rheumatoid factor presence: without rheumatoid factor Transaminitis R74.01 Bilateral primary osteoarthritis of knee M17.0 Bilateral carpal tunnel syndrome G56.03
[2025-01-05 13:59] VITALS: BP 110/80; PULSE 85; O2SAT 98; BMI 29.5
--- OUTSIDE RECORDS SUMMARY | 2025-01-05 17:09 | XMS_ITS | Clinical Summary ---
Author Organization [facility] Address [address] [place] [address] Phone Care Team Providers Care Tawer Name Role Phone Luis Miguel Winchester MD Primary Care Provider [phone] Allergies No known active allergies Medications aspirin 81 mg EC tablet Take 1 tablet (81 mg total) by mouth 1 (one) time each day. 01/03/20 23 Active atorvastatin (LIPITOR) 40 mg tablet TAKE 1 TABLET(40 MG) BY MOUTH DAILY 04/07/19 24 Active NIFEdipine CC (ADALAT CC) 90 mg 24 hr tablet Take 1 tablet (90 mg total) by mouth. 08/06/19 23 Active celecoxib (CeleBREX) 200 mg capsule Take 1 capsule (200 mg total) by mouth 2 (two) times a day. 12/01/19 25 Active hydroxychloroq uine (PLAQUENIL) 200 mg tablet Take 1 tablet (200 mg total) by mouth 1 (one) time each day. Active buPROPion XL (WELLBUTRIN XL) 300 mg 24 hr tablet Take 1 tablet (300 mg total) by mouth 1 (one) time each day. 09/17/19 25 Active topiramate (Topamax) 50 mg tablet Take 1 tablet (50 mg total) by mouth 2 (two) times a day. 60 tablet 2 12/09/19 25 Active atogepant (Qulipta) 60 mg tablet Take 60 mg by mouth 1 (one) time each day. 025 Discontinued(Th erapy completed) topiramate (Topamax) 25 mg tablet 1 p.o. in a.m. x 1 week, then 1 p.o. twice daily x 1 week, then 1 p.o. a.m. and 2 p.o. at bedtime x 1 week, then 2 p.o. twice daily 60 each 5 08/28/19 25 025 Discontinued Encounters Date Type Department Care Team Description 12/08/2024 2:30 PM EDT Office Visit [facility] [address] [address] Rod Howard MD Migraine with aura and without status migrainosus, not intractable (Primary Dx); IIH (idiopathic intracranial hypertension); Other fatigue 11/15/2024 Telephone [facility] [address] [address] Gabriella Howard MA from Last 3 Months Surgical History Surgery [...] Sign Reading Time Taken Comments Blood Pressure 161/63 12/08/2024 2:42 PM EDT Pulse 55 12/08/2024 2:42 PM EDT Temperature 36.4 C (97.5 F) 08/27/2024 1:27 PM EDT Respiratory Rate - - Oxygen Saturation 99% 12/08/2024 2:42 PM EDT Inhaled Oxygen Concentration - - Weight 76.2 kg (168 lb) 12/08/2024 2:42 PM EDT Height 165.1 cm (5' 5 ) 12/08/2024 2:42 PM EDT Body Mass Index 27.96 12/08/2024 2:42 PM EDT Plan of Treatment Upcoming Encounters Date Type Department Care Team (Late st Contact Info) Description 04/13/2025 1:30 PM EST Office Visit [facility] 175 [facility] [address] [place] [address] Rod Howard MD [address] [place] [address] Health Maintenance Due Date Last Done Comments Colorectal Cancer Screening: Colonoscopy 1965 Cervical Cancer Screening: Pap Smear 02/05/1985 Pneumococcal Vaccine: 50+ Years (2 of 2 - PCV) 07/25/2019 07/24/2018 Zoster Vaccines (2 of 2) 01/18/2020 11/23/2019 Cholesterol Screening (Lipid Panel) 03/28/2023 HIV Screening 03/28/2023 Hepatitis C Screening 03/28/2023 Social Influencers of Health Screening 03/28/2023 Depression Screening 03/03/2024 Breast Cancer Screening 07/24/2024 07/24/2022 Influenza Vaccine (#1) 2024 , 01/08/2023, 12/28/2020, Additional history exists Hypertension/CHF/CAD Annual BMP Blood Test 12/08/2025 12/08/2024 DTaP,Tdap,and Td Vaccines (3 - Td or [...] Procedure Name Priority Date/Time Associated Diagnosis Comments CBC WITH AUTO DIFFERENTIAL Routine 12/08/2024 3:19 PM EDT Migraine with aura and without status migrainosus, not intractable IIH (idiopathic intracranial hypertension) Other fatigue VITAMIN B12 Routine 12/08/2024 3:19 PM EDT Migraine with aura and without status migrainosus, not intractable IIH (idiopathic intracranial hypertension) Other fatigue CBC AND DIFFERENTIAL Routine 12/08/2024 3:19 PM EDT Migraine with aura and without status migrainosus, not intractable IIH (idiopathic intracranial hypertension) Other fatigue COMPREHENSIVE METABOLIC PANEL Routine 12/08/2024 3:19 PM EDT Migraine with aura and without status migrainosus, not intractable IIH (idiopathic intracranial hypertension) Other fatigue VITAMIN D 25 HYDROXY Routine 12/08/2024 3:19 PM EDT Migraine with aura and without status migrainosus, not intractable IIH (idiopathic intracranial hypertension) Other fatigue from Last 3 Months Results * (ABNORMAL) CBC auto differential (12/08/2024 3:19 PM EDT) WBC 8.3 4.8 - 10.8 K/mcL LAB HEMETOLOGY METHOD 12/08/2024 6:23 PM EDT [facility] RBC 5.10(H) 3.80 - 4.80 M/mcL LAB HEMETOLOGY METHOD 12/08/2024 6:23 PM EDT [facility] Hemoglobin 12.8 11.5 - 16.0 g/dL LAB HEMETOLOGY METHOD 12/08/2024 6:23 PM EDT [facility] Hematocrit 41.7 35.0 - 47.0 % LAB HEMETOLOGY METHOD 12/[facility]24 [facility] MCV 81.8 79.0 - 98.0 FL LAB HEMETOLOGY METHOD 12/08[facility]2024 6[facility] MCH 25.1(L) 27.0 - 32.0 pcg LAB HEMETOLOGY METHOD 12/08/2024 6:23 PM [facility] MCHC 30.7(L) 32.0 - 37.0 g/dL LAB HEMETOLOGY METHOD 12/08/2024 6:23 PM [facility] RDW 13.4 11.0 - 15.0 % LAB HEMETOLOGY METHOD 12/08/2024 6:[facility] Platelets 312 130 - 400 K/mcL LAB HEMETOLOGY METHOD 12/08/2024 6:23 PM [facility] MPV 10.9 7.0 - 11.0 FL LAB HEMETOLOGY METHOD 12/08/2024 6:23 PM [facility] NRBC 0.0 <1.0 % LAB HEMETOLOGY METHOD 12/08/2024 6:23 PM [facility] NRBC Absolute 0.00 <0.10 K/mcL LAB HEMETOLOGY METHOD 12/08/2024 6:23 PM [facility] Neutrophils Relative 57.2 % LAB HEMETOLOGY METHOD 12/08/2024 6:23 PM [facility] Lymphocytes Relative 31.1 % LAB HEMETOLOGY METHOD 12/08/2024 6:23 PM [facility] Monocytes Relative 7.8 % LAB HEMETOLOGY METHOD 12/08/2024 6:23 PM EDT [facility] Eosinophils Relative 3.0 % LAB HEMETOLOGY METHOD 12/08/2024 6:23 PM EDT [facility] Basophils Relative 0.7 % LAB HEMETOLOGY METHOD 12/08/2024 6:23 PM EDT [facility] Immature Granulocytes Relative 0.2 % LAB HEMETOLOGY METHOD 12/08/2024 6:23 PM EDT [facility] Neutrophils Absolute 4.77 1.50 - 7.00 K/mcL LAB HEMETOLOGY METHOD 12/08/2024 6:23 PM EDT [facility] Lymphocytes Absolute 2.59 1.00 - 5.00 K/mcL LAB HEMETOLOGY METHOD 12/08/2024 6:23 PM EDT [facility] Monocytes Absolute 0.65 0.20 - 1.00 K/mcL LAB HEMETOLOGY METHOD 12/08/2024 6:23 PM EDT [facility] Eosinophils Absolute 0.25 0.00 - 0.50 K/mcL LAB HEMETOLOGY METHOD 12/08/2024 6:23 PM EDT [facility] Basophils Absolute 0.06 0.00 - 0.20 K/mcL LAB HEMETOLOGY METHOD 12/08/2024 6:23 PM EDT [facility] Immature Granulocytes Absolute 0.02 0.00 - 0.03 K/mcL LAB HEMETOLOGY METHOD 12/08/2024 6:23 PM EDT [facility] Blood Venous blood specimen / Unknown Venipuncture / Unknown 12/08/2024 3:19 PM EDT 12/08/2024 3:19 PM EDT us Rod Howard MD LAB BLOOD ORDERABLES Fin al Result [facility] [address] [place] [address], [place] [phone] * Vitamin D 25 hydroxy (12/08/2024 3:19 PM EDT) [facility] Vit D, 25-Hydroxy 30.6 30.0 - 80.0 ng/mL LAB CHEMISTRY METHOD 12/08/2024 7:10 PM EDT [facility] Blood Venous blood specimen / Unknown Venipuncture / Unknown 12/08/2024 3:19 PM EDT 12/08/2024 3:19 PM EDT us Rod Howard MD LAB BLOOD ORDERABLES Fin al Result Performing Organization Address City/[facility]/ZIP Co de Phone Number [facility] [address] [place] [address], [place] [phone] * (ABNORMAL) Vitamin B12 (12/08/2024 3:19 PM EDT) [facility] Vitamin B-12 1,714(H) 250 - 900 pcg/mL LAB CHEMISTRY METHOD 12/08/2024 7:22 PM EDT [facility] Blood Venous blood specimen / Unknown Venipuncture / Unknown 12/08/2024 3:19 PM EDT 12/08/2024 3:19 PM EDT us Rod Howard MD LAB BLOOD ORDERABLES Fin al Result [facility] [address] [place] [address], [place] [phone] * (ABNORMAL) Comprehensive metabolic panel (12/08/2024 3:19 PM EDT) [facility] Sodium 142 133 - 145 mmol/L LAB CHEMISTRY METHOD 12/08/2024 7:22 PM EDT [facility] Potassium 3.5 3.5 - 5.5 mmol/L LAB CHEMISTRY METHOD 12/08/2024 7:22 PM [facility] Chloride 110 96 - 110 mmol/L LAB CHEMISTRY METHOD 12/08/2024 7:22 PM [facility] CO2 26 21 - 32 mmol/L LAB CHEMISTRY METHOD 12/08/2024 7:22 PM [facility] Anion Gap 6 3 - 11 LAB CHEMISTRY METHOD 12/08/2024 7:22 PM [facility] Glucose 81 70 - 100 mg/dL LAB CHEMISTRY METHOD 12/08/2024 7:22 PM [facility] BUN 21 5 - 25 mg/dL LAB CHEMISTRY METHOD 12/08/2024 7:22 PM [facility] Creatinine 1.19(H) 0.50 - 1.10 mg/dL LAB CHEMISTRY METHOD 12/08/2024 7:22 PM [facility] eGFR 52(L) >=60 mL/min/1. 73m2 LAB CHEMISTRY METHOD 12/08/2024 7:22 PM [facility] Comment:Calculation based on the Chronic Kidney Disease Epidemiology Collaboration (CKD-EPI) equation refit without adjustment for race. BUN/Creatinine Ratio 17.6 LAB CHEMISTRY METHOD 12/08/2024 7:22 PM [facility] Calcium 9.5 8.5 - 10.5 mg/dL LAB CHEMISTRY METHOD 12/08/2024 7:22 PM [facility] AST (SGOT) 24 10 - 42 unit/L LAB CHEMISTRY METHOD 12/08/2024 7:22 PM [facility] ALT (SGPT) 41 10 - 60 unit/L LAB CHEMISTRY METHOD 12/08/2024 7:22 PM [facility] Alkaline Phosphatase 178(H) 42 - 121 unit/L LAB CHEMISTRY METHOD 12/08/2024 7:22 PM [facility] Total Protein 6.7 6.0 - 8.0 g/dL LAB CHEMISTRY METHOD 12/08/2024 7:22 PM EDT [facility] Albumin 3.4 3.2 - 5.0 g/dL LAB CHEMISTRY METHOD 12/08/2024 7:22 PM EDT [facility] Total Bilirubin 0.3 0.0 - 1.4 mg/dL LAB CHEMISTRY METHOD 12/08/2024 7:22 PM EDT [facility] Blood Venous blood specimen / Unknown Venipuncture / Unknown 12/08/2024 3:19 PM EDT 12/08/2024 3:19 PM EDT Rod Howard MD LAB BLOOD ORDERABLES Fin al Result [facility] [address] [place] [address], from Last 3 Months Insurance MEDICAID - [place] Care Teams Tawer Relationship Specialty Start Date End Date Luis Miguel Winchester MD [address] PCP - General Internal Medicine 12/08/24
--- OUTSIDE RECORDS SUMMARY | 2025-01-05 17:09 | XMS_ITS | Data Portability ---
Author Organization [facility], Main Office Address [address] [facility] [address] [place] [phone] Care Team Providers Care Accounts Executive Name Role Phone JOSEY WINCHESTER Primary Care Provider ZION PARSONS Rn Radiation Oncology [facility] Bill Of Materials Clerk [phone] NORA MITCHELL Referring Provider [phone] RICA JEAN-BAPTISTE Referring Provider AGATA VILLEGAS Hop Farmer Assessment No assessment recorded. Plan of Treatment Reminders Order Date Submit Date Provider Last Modified By Organization Details Last Modified Time Details Appointments PE EST 2025 10:00A M Josey cordova MD Not available Not available Not available Lab BMP, serum or plasma 2024 025 JORDEN [facility] (Centralized Electronic Ordering - All Locations), Patient Can Go To The Location Of Their Choice, [id number] 08/19/2024 14:06:23 lipid panel, serum 2023 024 JORDEN [facility] (Centralized Electronic Ordering - All Locations), Patient Can Go To The Location Of Their Choice, [id number] 01/22/2024 08:10:05 BMP, serum or plasma 2023 024 JORDEN [facility] (Centralized Electronic Ordering - All Locations), Patient Can Go To The Location Of Their Choice, [id number] 08/21/2023 14:07:05 microalbu min/creat inine, mass ratio, urine 2023 024 JORDEN [facility] (Centralized Electronic Ordering - All Locations), Patient Can Go To The Location Of Their Choice, [id number] 08/21/2023 14:07:05 Referral None recorded. Procedures None recorded. Surgeries None recorded. Imaging None recorded. Medication Orders bupropion HCl XL 300 mg 24 hr tablet, extended release 2024 025 [facility], [phone] [place] [address], [address], 09/16/2024 11:37:20 bupropion HCl XL 150 mg 24 hr tablet, extended release 2024 025 [facility], [address] [place] [address], [address], 08/18/2024 15:01:55 Adderall XR 25 mg capsule,e xtended release 2023 024 [email or web address] [facility] [phone] [place] [address], [address], 08/18/2024 14:12:11 gabapenti n 300 mg capsule 2023 025 [facility], [address] [place], [address], 08/18/2024 14:12:26 Adderall XR 20 mg capsule,e xtended release 2023 024 [facility], [phone] [place], [address], 02/18/2024 15:24:02 furosemid e 20 mg tablet 2023 024 [id number], [address] [place], [id number], 01/21/2024 14:39:49 Patient TargetsNo targets recorded. Patient Instructions Encounter Date Encounter Id Patient Instructions Last Modified By Organization Details Last Modified Time 08/15/2023 [id number] leg and ankle edema: care instructions Not available 08/15/2023 12:23:01 high blood pressure: care instructions Not available 08/15/2023 12:23:01 learning about high blood pressure Not available 08/15/2023 12:23:01 01/21/2024 [id number] insomnia: care instructions [email or web address] Not available 01/21/2024 15:36:31 high blood pressure: care instructions [email or web address] Not available 01/21/2024 15:36:32 learning about high blood pressure acennerazzo Not available 01/21/2024 15:36:32 high cholesterol : care instructions acennerazzo Not available 01/22/2024 17:45:52 attention defici t hyperactivity disorder (ADHD) in adults: care instructions acennerazzo Not available 01/21/2024 15:36:32 02/18/2024 [id number] high blood pressure: care instructions [email or web address] Not available 02/18/2024 14:29:20 learning about high blood pressure acennerazzo Not available 02/18/2024 14:29:19 learning about anxiety disorders acennerazzo Not available 02/18/2024 14:29:20 08/18/2024 [id number] high blood pressure: care instructions [email or web address] Not available 08/18/2024 14:43:25 learning about high blood pressure acennerazzo Not available 08/18/2024 14:43:25 attention defici t hyperactivity disorder (ADHD) in adults: care instructions acennerazzo Not available 08/18/2024 14:43:24 09/16/2024 [id number] high blood pressure: care instructions acennerazzo Not available 09/16/2024 11:50:06 learning about high blood pressure acennerazzo Not available 09/16/2024 11:50:06 attention defici t hyperactivity disorder (ADHD) in adults: care instructions [email or web address] Not available 09/16/2024 11:31:40 Reason for Referral None Reported. Results Created Date Observation Date Name Description Value Unit Range Abnormal Flag Note LastModifiedBy Organization Detail LastModifiedTime 08/20/19 24 08/21/2023 BASIC METAB OLIC PANEL (8) glucose 99 mg/dL 70-99 Not Available [facility] ([facility]) [address] [place], [address], 08/21/2023 14:07:05 08/20/19 24 08/21/2023 BASIC METAB OLIC PANEL (8) BUN 18 mg/dL 6-24 Not Available [facility] ([facility]) [address] [place], [address], 08/21/2023 14:07:05 08/20/19 24 08/21/2023 BASIC METAB OLIC PANEL (8) creatinine 1.26 mg/dL 0.57-1 .00 above high normal Not Available [facility] ([facility]) [address] [facility] [place], [address], 08/21/2023 14:07:05 08/20/19 24 08/21/2023 BASIC METAB OLIC PANEL (8) eGFR 49 mL/mi n/1.7 3 >59 below low normal Not Available [facility] ([facility]) [address] [place], [address], 08/21/2023 14:07:05 08/20/19 24 08/21/2023 BASIC METAB OLIC PANEL (8) BUN/creatini ne ratio 14 9-23 Not Available [facility] ([facility]) [address] [place], [address], 08/21/2023 14:07:05 08/20/19 24 08/21/2023 BASIC METAB OLIC PANEL (8) sodium 147 mmol/ L 134-14 4 above high normal Not Available [facility] ([facility]) [address] [place], [address], 08/21/2023 14:07:05 08/20/19 24 08/21/2023 BASIC METAB OLIC PANEL (8) potassium 3.9 mmol/ L 3.5-5. 2 Not Available [facility] ([facility]) [address] [facility], [place], [address], 08/21/2023 14:07:05 08/20/19 24 08/21/2023 BASIC METAB OLIC PANEL (8) chloride 105 mmol/ L 96-106 Not Available [facility] ([facility]) [address] [facility] [place], [address], 08/21/2023 14:07:05 08/20/19 24 08/21/2023 BASIC METAB OLIC PANEL (8) carbon dioxide, total 23 mmol/ L 20-29 Not Available [facility] ([facility]) [address] [facility] [place], [address], 08/21/2023 14:07:05 08/20/19 24 08/21/2023 BASIC METAB OLIC PANEL (8) calcium 9.8 mg/dL 8.7-10 .2 Not Available [facility] ([facility]) [address] [place], [address], 08/21/2023 14:07:05 08/20/19 24 08/21/2023 ALBUM IN/CR EAT RATIO , MICHEAL M UR creatinine, urine 41.4 mg/dL not estab. Not Available [facility] ([facility]) [address] [place], [address], 08/21/2023 14:07:05 08/20/19 24 08/21/2023 ALBUM IN/CR EAT RATIO , BESSO M UR albumin, urine <3.0 ug/mL not estab. Not Available [facility] ([facility]) [address] [place], [address], 08/21/2023 14:07:05 08/20/19 24 08/21/2023 ALBUM IN/CR EAT RATIO , RANDO M UR alb/creat ratio <7 mg/g_ creat 0-29 Salome l: 0 - 29 Moder ately incre ased: 30 - 300 Sever nadiya incre ased: >300 Not Available [facility] ([facility]) [address] [facility], [place], [address], 08/21/2023 14:07:05 01/21/20 24 01/22/2024 LIPID PANEL cholesterol, total 227 mg/dL 100-19 9 above high normal Not Available [facility] ([facility]) [address] [place], [address], 01/22/2024 08:10:05 01/21/20 24 01/22/2024 LIPID PANEL triglyceride s 79 mg/dL 0-149 normal Not Available [facility] ([facility]) [address] [place], [address], 01/22/2024 08:10:05 01/21/20 24 01/22/2024 LIPID PANEL HDL cholesterol 95 mg/dL >39 normal Not Available [facility] ([facility]) [address] [place], [address], 01/22/2024 08:10:05 01/21/20 24 01/22/2024 LIPID PANEL VLDL cholesterol donaldo 14 mg/dL 5-40 Not Available [facility] ([facility]) [address] [place], [address], 01/22/2024 08:10:05 01/21/20 24 01/22/2024 LIPID PANEL LDL chol calc ([facility]) 118 mg/dL 0-99 above high normal Not Available [facility] ([facility]) [address] [place], [address], 01/22/2024 08:10:05 01/21/20 24 01/22/2024 LIPID PANEL LDL calc comment: TAFFY PULLER Not Available [facility] ([facility]) [address] [place], [address], 01/22/2024 08:10:05 08/19/19 25 08/19/2024 BASIC METAB OLIC PANEL (8) glucose 93 mg/dL 70-99 normal Not Available [facility] ([facility]) [address] [facility] [place], [address], 08/19/2024 14:06:23 08/19/19 25 08/19/2024 BASIC METAB OLIC PANEL (8) BUN 16 mg/dL 8-27 normal Not Available [facility] ([facility]) [address] [facility] [place], [address], 08/19/2024 14:06:23 08/19/19 25 08/19/2024 BASIC METAB OLIC PANEL (8) creatinine 0.85 mg/dL 0.57-1 .00 normal Not Available [facility] ([facility]) [address] [facility] [place], [address], 08/19/2024 14:06:23 08/19/19 25 08/19/2024 BASIC METAB OLIC PANEL (8) eGFR 78 mL/mi n/1.7 3 >59 normal Not Available [facility] ([facility]) [address] [facility] [place], [address], 08/19/2024 14:06:23 08/19/19 25 08/19/2024 BASIC METAB OLIC PANEL (8) BUN/creatini ne ratio 19 12-28 normal Not Available [facility] ([facility]) [address] [facility] [place], [address], 08/19/2024 14:06:23 08/19/19 25 08/19/2024 BASIC METAB OLIC PANEL (8) sodium 144 mmol/ L 134-14 4 normal Not Available [facility] ([facility]) [address] [facility] [place], [address], 08/19/2024 14:06:23 08/19/19 25 08/19/2024 BASIC METAB OLIC PANEL (8) potassium 4.6 mmol/ L 3.5-5. 2 normal Not Available [facility] ([facility]) [address] [place], [address], 08/19/2024 14:06:23 08/19/19 25 08/19/2024 BASIC METAB OLIC PANEL (8) chloride 104 mmol/ L 96-106 normal Not Available [facility] ([facility]) [address] [facility], [place], [address], 08/19/2024 14:06:23 08/19/19 25 08/19/2024 BASIC METAB OLIC PANEL (8) carbon dioxide, total 23 mmol/ L 20-29 normal Not Available [facility] ([facility]) [address] [facility], [place], [address], 08/19/2024 14:06:23 08/19/19 25 08/19/2024 BASIC METAB OLIC PANEL (8) calcium 10.2 mg/dL 8.7-10 .3 normal Not Available [facility] ([facility]) [address] [facility], [place], [address], 08/19/2024 14:06:23 12/09/19 25 12/08/2024 CBC WITH AUTO DIFFE RENTI AL WBC 8.3 K/mcL 4.8-10 .8 Not Available [facility] Dept [address] [place], [address], 12/08/2024 18:25:32 12/09/19 25 12/08/2024 CBC WITH AUTO DIFFE RENTI AL RBC 5.10 M/mcL 3.80-4 .80 high Not Available [facility] [address] [facility] [place], [address], 12/08/2024 18:25:32 12/09/19 25 12/08/2024 CBC WITH AUTO DIFFE RENTI AL hemoglobin 12.8 g/dL 11.5-1 6.0 Not Available [facility] [address] [facility] [place], [address], 12/08/2024 18:25:32 12/09/1912/08/2024 CBC WITH AUTO DIFFE RENTI AL hematocrit 41.7 % 35.0-4 7.0 Not Available [facility]/S Dept [facility] [place], [address], 12/08/2024 18:25:32 12/09/1912/08/2024 CBC WITH AUTO DIFFE RENTI AL MCV 81.8 fL 79.0-9 8.0 Not Available [facility] [address] [place] [address] [facility], [address], 12/08/2024 18:25:32 12/09/1912/08/2024 CBC WITH AUTO DIFFE RENTI AL MCH 25.1 pcg 27.0-3 2.0 low Not Available [facility] [address] [place], [place] [address] [place], [address], 12/08/2024 18:25:32 12/09/1912/08/2024 CBC WITH AUTO DIFFE RENTI AL MCHC 30.7 g/dL 32.0-3 7.0 low Not Available [facility] [place], [address], 12/08/2024 18:25:32 12/09/1912/08/2024 CBC WITH AUTO DIFFE RENTI AL RDW 13.4 % 11.0-1 5.0 Not Available [facility] [address] [place] [address] [place], [address], 12/08/2024 18:25:32 12/09/1912/08/2024 CBC WITH AUTO DIFFE RENTI AL platelets 312 K/mcL 130-40 0 Not Available [facility] [address] [place], [place] [address], [place], [address], 12/08/2024 18:25:32 12/09/1912/08/2024 CBC WITH AUTO DIFFE RENTI AL MPV 10.9 fL 7.0-11 .0 Not Available [facility] [address] [place], [place] [address], [address], 12/08/2024 18:25:32 12/09/19 25 12/08/2024 CBC WITH AUTO DIFFE RENTI AL NRBC 0.0 % <1.0 Not Available [facility] [address] [place] [address] [place], [address], 12/08/2024 18:25:32 12/09/1912/08/2024 CBC WITH AUTO DIFFE RENTI AL NRBC absolute 0.00 K/mcL <0.10 Not Available [facility] [address] [place] [address], [address], 12/08/2024 18:25:32 12/09/1912/08/2024 CBC WITH AUTO DIFFE RENTI AL neutrophils relative 57.2 % Not Available [facility] [address] [place] [address], [address], 12/08/2024 18:25:32 12/09/19 25 12/08/2024 CBC WITH AUTO DIFFE RENTI AL lymphocytes relative 31.1 % Not Available [facility] [address] [place] [address], [address], 12/08/2024 18:25:32 12/09/1912/08/2024 CBC WITH AUTO DIFFE RENTI AL monocytes relative 7.8 % Not Available [facility] [address] [place] [address], [address], 12/08/2024 18:25:32 12/09/1912/08/2024 CBC WITH AUTO DIFFE RENTI AL eosinophils relative 3.0 % Not Available [facility] [address] [place] [address], [address], 12/08/2024 18:25:32 12/09/1912/08/2024 CBC WITH AUTO DIFFE RENTI AL basophils relative 0.7 % Not Available [facility] [address] [place] [address] [place], [address], 12/08/2024 18:25:32 12/09/1912/08/2024 CBC WITH AUTO DIFFE RENTI AL immature granulocytes relative 0.2 % Not Available [facility] [address] [place] [address], [address], 12/08/2024 18:25:32 12/09/19 25 12/08/2024 CBC WITH AUTO DIFFE RENTI AL neutrophils absolute 4.77 K/mcL 1.50-7 .00 Not Available [facility] [address] [place] [address], [address], 12/08/2024 18:25:32 12/09/1912/08/2024 CBC WITH AUTO DIFFE RENTI AL lymphocytes absolute 2.59 K/mcL 1.00-5 .00 Not Available [facility] [address] [place] [address], [address], 12/08/2024 18:25:32 12/09/1912/08/2024 CBC WITH AUTO DIFFE RENTI AL monocytes absolute 0.65 K/mcL 0.20-1 .00 Not Available [facility] [address] [place] [address], [address], 12/08/2024 18:25:32 12/09/19 25 12/08/2024 CBC WITH AUTO DIFFE RENTI AL eosinophils absolute 0.25 K/mcL 0.00-0 .50 Not Available [facility] [address] [place] [address], [place], [address], 12/08/2024 18:25:32 12/09/19 25 12/08/2024 CBC WITH AUTO DIFFE RENTI AL basophils absolute 0.06 K/mcL 0.00-0 .20 Not Available [facility]/S Dept [facility] [place], [address], 12/08/2024 18:25:32 12/09/1912/08/2024 CBC WITH AUTO DIFFE RENTI AL immature granulocytes absolute 0.02 K/mcL 0.00-0 .03 Not Available [facility]/S Dept [facility] [address] [facility] [place], [address], 12/08/2024 18:25:32 12/09/19 25 12/08/2024 CBC WITH AUTO DIFFE RENTI AL note See Report [facility] agustin [address] r, [address], [facility] [place] [place] [address] Not Available [facility]/S Dept [address] [place], [place] [address], [address], 12/08/2024 18:25:32 12/09/19 25 12/08/2024 VITAM IN D 25 HYDRO XY vit D, 25-hydroxy 30.6 NG/mL 30.0-8 0.0 Not Available [facility]/S Dept [address] [place], [place] [address] [address] [facility] [place], [address], 12/08/2024 19:13:11 12/09/19 25 12/08/2024 VITAM IN D 25 HYDRO XY note See Report [facility] agustin [address] r, [address], [place] [facility] [place] [address] Not Available [facility]/S Dept [facility] [address] [facility] [place], [address], 12/08/2024 19:13:11 12/09/1912/08/2024 COMPR EHENS BAKARI METAB OLIC PANEL sodium 142 mmol/ L 133-14 5 Not Available [facility] Dept [facility] [place], [address], 12/08/2024 19:24:05 12/09/19 25 12/08/2024 COMPR EHENS BAKARI METAB OLIC PANEL potassium 3.5 mmol/ L 3.5-5. 5 Not Available [facility] [place], [address], 12/08/2024 19:24:05 12/09/1912/08/2024 COMPR EHENS BAKARI METAB OLIC PANEL chloride 110 mmol/ L 96-110 Not Available [facility] [address] [facility] [place], [address], 12/08/2024 19:24:05 12/09/19 25 12/08/2024 COMPR EHENS BAKARI METAB OLIC PANEL CO2 26 mmol/ L 21-32 Not Available [facility] [address] [facility] [place], [address], 12/08/2024 19:24:05 12/09/19 25 12/08/2024 COMPR EHENS BAKARI METAB OLIC PANEL anion gap 6 3-11 Not Available [facility]/S Dept [facility] [address] [facility] [place], [address], 12/08/2024 19:24:05 12/09/19 25 12/08/2024 COMPR EHENS BAKARI METAB OLIC PANEL glucose 81 mg/dL 70-100 Not Available [facility] [address] [place], [place] [address] [facility] [place], [address], 12/08/2024 19:24:05 12/09/19 25 12/08/2024 COMPR EHENS BAKARI METAB OLIC PANEL BUN 21 mg/dL 5-25 Not Available [facility] [place], [address], 12/08/2024 19:24:05 12/09/1912/08/2024 COMPR EHENS BAKARI METAB OLIC PANEL creatinine 1.19 mg/dL 0.50-1 .10 high Not Available [facility] [place], [address], 12/08/2024 19:24:05 12/09/1912/08/2024 COMPR EHENS BAKARI METAB OLIC PANEL eGFR 52 mL/mi n/1.7 3m2 >=60 low Calcu latio n based on the Chron ic Kidne y Disea se Epide miolo gy Colla borat ion (CKD- EPI) equat ion refit witho ut adjus tment for race. Not Available [facility] [place], [address], 12/08/2024 19:24:05 12/09/1912/08/2024 COMPR EHENS BAKARI METAB OLIC PANEL BUN/creatini ne ratio 17.6 Not Available [facility] [place], [address], 12/08/2024 19:24:05 12/09/1912/08/2024 COMPR EHENS BAKARI METAB OLIC PANEL calcium 9.5 mg/dL 8.5-10 .5 Not Available [facility] [place], [address], 12/08/2024 19:24:05 12/09/1912/08/2024 COMPR EHENS BAKARI METAB OLIC PANEL AST (SGOT) 24 unit/ L 10-42 Not Available [facility] [place], [address], 12/08/2024 19:24:05 12/09/19 25 12/08/2024 COMPR EHENS BAKARI METAB OLIC PANEL ALT (SGPT) 41 unit/ L 10-60 Not Available [facility] [place], [address], 12/08/2024 19:24:05 12/09/19 25 12/08/2024 COMPR EHENS BAKARI METAB OLIC PANEL alkaline phosphatase 178 unit/ L 42-121 high Not Available [facility] [address] [facility] [place], [address], 12/08/2024 19:24:05 12/09/1912/08/2024 COMPR EHENS BAKARI METAB OLIC PANEL total protein 6.7 g/dL 6.0-8. 0 Not Available [facility] [address] [place] [address] [address] [facility] [place], [address], 12/08/2024 19:24:05 12/09/19 25 12/08/2024 COMPR EHENS BAKARI METAB OLIC PANEL albumin 3.4 g/dL 3.2-5. 0 Not Available [facility] [address] [place], [place] [address], [address], 12/08/2024 19:24:05 12/09/19 25 12/08/2024 COMPR EHENS BAKARI METAB OLIC PANEL total bilirubin 0.3 mg/dL 0.0-1. 4 Not Available [facility] [address] [place], [place] [address] [facility] [place], [address], 12/08/2024 19:24:05 12/09/1912/08/2024 COMPR EHENS BAKARI METAB OLIC PANEL note See Report [facility] [place] r, [address], [address]ill[address] d, [place] [facility] [place] [address] Not Available [facility]/S Dept [address] [place], [place] [address] [facility] [place], [address], 12/08/2024 19:24:05 12/09/19 25 12/08/2024 VITAM IN B12 vitamin B-12 1714 pcg/m L 250-90 0 high Not Available [facility]/S Dept [address] [place], [address], 12/08/2024 19:24:06 12/09/19 25 12/08/2024 VITAM IN B12 note See Report [facility], [address], [place], [place] [address] Not Available [facility] U/S Dept [address] [place], [address], 12/08/2024 19:24:06 01/31/20 24 01/31/2024 MR brain wo and W contr ast See Note [facility] , a member of [employer] [facility] t Name: MEMO JAVIER Date of : 1964 Reason for Exam: WHITE MATTER DISEAS E Exam Date: 2023 [id number] EST Report Status : Final Orderi ng [...] leed in the right cerebe llum. Extens bakari patchy T2 signal abnorm ality throug hout [...] Transc ribed Date: 2023 15:13 ET cassidy [address], [address], 02/01/2024 13:18:06 Result Notes None recorded. 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 Active Not Available [facility] 0 18:22:26 Fatigue [id number] Completed 03/25/2016 Ángela Lucero PA-C [address] [facility] [address], [place], [address] , [facility] 1 09:22:08 Administ ration of bacteria l and viral vaccine Completed 200809/21/2013 RECORDED 06/24/19 09 10:01AM BY KEVIN TOSCANO, OFFICE VISIT Josey Winchester MD [address] [address], [place], [phone] , [facility] 6 09:55:27 Administ ration of bacteria l and viral vaccine Completed 200810/11/2013 RECORDED 06/24/19 09 10:01AM BY KEVIN TOSCANO, OFFICE VISIT Josey Winchester MD [address] [address], [place], [phone] , [facility] 6 09:55:27 Astigmat ism [id number] Completed 201209/21/2013 RECORDED 03/26/19 13 8:47AM BY HOWARD MERLOS ON/ADDEN DUM Josey Winchester MD [address] [address], [place], [phone] , [facility] 6 09:55:27 Screenin g for malignan t neoplasm of breast Completed 201209/21/2013 RECORDED 03/26/19 13 8:47AM BY TRACEY MERLOSATI ON/ADDEN DUM Josey Winchester MD [address] [address], [place], [phone] , [facility] 6 09:55:28 Screenin g for malignan t neoplasm of cervix Completed 201209/21/2013 RECORDED 03/26/19 13 8:47AM BY HOWARD MERLOS ON/MARGRET Winchester MD [address] [facility] [address], [place], [address] , [facility] 09:55:28 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 Completed 201209/21/2013 RECORDED 03/26/19 13 8:46AM BY HOWARD MERLOS ON/MARGRET Winchester MD [address] [facility] [address], [place], [address] , [facility] 09:55:27 Malaise and fatigue 097009081 Completed 201209/21/2013 RECORDED 03/26/19 13 8:46AM BY HOWARD MERLOS ON/MARGRET Winchester MD [address] [facility] [address], [place], [address] , [facility] 09:55:27 Shoulder joint pain 379871248 Completed 201209/21/2013 RECORDED 03/26/19 13 8:46AM BY HOWARD MERLOS ON/MARGRET Winchester MD [address] [facility] [address], [place], [address] , [facility] 09:55:27 Skin sensatio n disturba nce 34757422 Completed 201209/21/2013 RECORDED 03/26/19 13 8:47AM BY HOWARD MERLOS ON/MARGRET Winchester MD [address] [facility] [address], [place], [address] , [facility] 09:55:27 Astignht is [id number] Completed 201210/11/2013 RECORDED 03/26/19 13 8:47AM BY HOWARD MERLOS ON/MARGRET Winchester MD [address], [place], [address] , [facility] 09:55:27 Screenin g for malignan t neoplasm of breast Completed 201210/11/2013 RECORDED 03/26/19 13 8:47AM BY HOWARD MERLOS ON/MARGRET Winchester MD [address] [facility] [address], [place], [address] , [facility] 09:55:28 Screenin g for malignan t neoplasm of cervix Completed 201210/11/2013 RECORDED 03/26/19 13 8:47AM BY HOWARD MERLOS ON/MARGRET Winchester MD [address] [facility] [address], [place], [address] , [facility] 09:55:28 Tietze's disease [id number] Completed 201210/11/2013 RECORDED 03/26/19 13 8:46AM BY HOWARD MERLOS ON/MARGRET Winchester MD [address] [facility] [address], [place], [address] , [facility] 09:55:27 Malaise and fatigue 763218261 Completed 201210/11/2013 RECORDED 03/26/19 13 8:46AM BY HOWARD MERLOS ON/MARGRET Winchester MD [address] [facility] [address], [place], [address] , [facility] 09:55:27 Skin sensatio n disturba aze 77355947 Completed 201210/11/2013 RECORDED 03/26/19 13 8:47AM BY HOWARD MERLOS ON/MARGRET Winchester MD [address], [place], [address] , [facility] 09:55:27 Screenin g for malignan t neoplasm of colon Completed 201209/21/2013 RECORDED 09/22/19 13 8:20AM BY HOWARD MERLOS ON/MARGRET Winchester MD [address] [facility] [address], [place], [address] , [facility] 09:55:28 Screenin g for malignan t neoplasm of colon Completed 201210/11/2013 RECORDED 09/22/19 13 8:20AM BY HOWARD MERLOS ON/MARGRET Winchester MD [address] [facility] [address], [place], [address] , [facility] 09:55:28 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 [id number] Completed 201209/21/2013 IMPRESSI ON: CONTINUE CURRENT MGMT; MEDS HELP A GREAT DEAL.; RECORDED 02/17/20 13 8:03AM BY HOWARD MERLOS ON/MARGRET Winchester MD [address] [facility] [address], [place], [address] , [facility] 09:55:27 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 225766861 Completed 201210/11/2013 IMPRESSI ON: CONTINUE CURRENT MGMT; MEDS HELP A GREAT DEAL.; RECORDED 02/17/20 13 8:03AM BY HOWARD MERLOS ON/MARGRET Winchester MD [address] [facility] [address], [place], [address] , [facility] 09:55:27 Cough 83749824 Completed 201309/21/2013 RECORDED 04/01/19 14 9:45AM BY LISETH QUEZADA I ANNOTATI ON/ADDEN DUM Josey Winchester MD [address] [facility] [address], [place], [address] , [facility] 09:55:27 Cough 47377001 Completed 201310/11/2013 RECORDED 04/01/19 14 9:45AM BY LISETH QUEZADA I ANNOTATI ON/ADDEN DUM Josey Winchester MD [address] [facility] [address], [place], [address] , [facility] 09:55:27 Shoulder joint pain 406468855 Active 2013 Received injectio n at [facility] Not Available [facility] 0 18:22:26 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 068671697 Completed 201301/11/[address] PARSONS; RECORDED 07/08/19 14 1:40PM BY LISETH QUEZADA I, OFFICE VISIT Josey Winchester MD [address] [facility] [address], [place], [address] , [facility] 09:55:27 Patient status finding [id number] Completed 201301/11/2014 RECORDED 07/08/19 14 1:46PM BY LISETH QUEZADA I, OFFICE VISIT Josey Winchester MD [address] [facility] [address], [place], [address] , [facility] 09:55:27 Flatulen ce, eructati on and gas pain 378136056 Completed 201301/11/2014 STORY: SEEN BY DR PARSONS; IMPRESSI ON: ADVISED HER TO GO TO THE [facility] TO SEE IF THEY HAVE ANYTHING TO HELP WITH HER SX.; RECORDED 07/08/19 14 1:40PM BY LISETH QUEZADA I, OFFICE VISIT Josey Winchester MD [address] [address], [place], [address] , [facility] 09:55:27 Visual disturba nce 80014361 Active 2013 IMPRESSI ON: POSSIBLE HYPOTENS ION VS MIGRAINE EQUIVALE NTS. SHE WILL CHECK HER BP AT HER NEXT EPISODE. IF HER BP IS NORMAL SHE WILL TAKE A MIGRAINE MED TO SEE IF THIS HELPS. IF THERE IS NO RELIEF SHE WILL CALL HER EYE DOCTOR. Not Available [facility] 0 18:22:25 Single major depressi ve episode Active 2013 Problem in Fall and Winter Not Available [facility] 0 18:22:26 Gastroes ophageal reflux disease 790202684 Active 2013 IMPRESSI ON: SHE HAS TRIED MEDS BUT HER SYMPTOMS PERSIST. Not Available [facility] 0 18:22:26 Essentia l hyperten ray 85099531 Active 2013 Josey Winchester MD [address] [facility] [address], [place], [address] , [facility] 13:25:29 Hyperlip idemia 96083478 Completed 201301/11/2014 RECORDED 07/08/19 14 1:40PM BY LISETH QUEZADA I, OFFICE VISIT Josey Winchester MD [address] [address], [place], [address] , [facility] 19:09:36 Irritabl e bowel syndrome 41298727 Active 2013 Takes meds which help Not Available [facility] 0 18:22:26 Migraine 84234369 Active 2013 Not Available [facility] 0 18:22:26 Adult health examinat ion Completed 201301/11/2014 RECORDED 07/08/19 14 1:45PM BY LISETH QUEZADA I, OFFICE VISIT Josey Winchester MD [address] [facility] [address], [place], [address] , [facility] 09:55:27 Pure hypercho lesterol emia 328729157 Completed 201311/18/2016 Unable to tolerate lipitor Josey Winchester MD [address], [place], [address] , [facility] 10:05:50 Keratoco nus 48556982 Active 2015 Followed by [facility] Not Available [facility] 0 18:22:25 Pinguecu la 09248554 Active 2015 Followed by [facility] Not Available [facility] 0 18:22:26 Nuclear scleroti c cataract 560250692 Active 2015 Followed by [facility] Not Available [facility] 0 18:22:26 Pneumoni a 267211754 Completed 201608/15/2016 Humera celaya MA null, [facility] 7 16:08:02 Attentio n deficit hyperact ivity disorder , predomin antly inattent bakari type 77124298 Active 2017 Not Available [facility] 0 18:22:26 Hypokale monisha 38145551 Active 2018 Not Available [facility] 0 18:22:26 Hyperlip idemia 36019782 Active 2019 Not Available [facility] 0 18:22:26 Loss of hair 125113335 Active 2020 Josey Winchester MD [address], [place], [address] , [facility] 17:02:35 Pain of multiple joints 74251024 Active 2020 Ángela Lucero PA-C [address], [place], [address] , [facility] 09:22:07 Fatigue 18666349 Active 2020 Ángela Lucero PA-C [address], [place], [address] , [facility] 09:22:08 Pain of right wrist 44384132930 9100 Active 2020 [facility]; [facility] showing OA. Josey Winchester MD [address], [place], [address] , [facility] 18:07:02 Seronega tive rheumato id arthriti s 820030231 Active 2021 Followed by rheum; on methotre xate. Josey Winchester MD [address], [place], [address] , [facility] 07:34:37 History of SARS-CoV -2 [id number] 2277448 Active 2022 Josey Winchester MD [address], [place], [address] , [facility] 10:39:24 Multiple sclerosi s 83913085 Active [address] Mague real. Monicaa l optic neuritis . Josey Winchester MD [address], [place], [address] , [facility] 10:45:14 Kidney finding 260835587 Active 2022 born with only one kidney Purvi Torres, [employer] null, [facility] 3 09:09:38 Thyroid nodule 056950433 Active 2022 Thyroid U/S done and no addition al imaging required . Josey Winchester MD [address], [place], [address] , [facility] 20:13:54 Edema of lower extremit y 787383952 Active 2023 Luis bentley [facility] 4 12:11:02 Generali zed anxiety disorder 99148622 Active 2024 Josey Winchester MD [address], [place], [address] , [facility] 11:56:52 Chronic kidney disease stage 3A 266328161 Active 2024 Josey Winchester MD [address], [place], [address] , [facility] 07:38:46 Problem Notes None recorded. Procedures Surgical History Date Name Laterality Status Provider Name and Address Organization Details Recorded Time 07/25/19 23 Most Recent Mammogram completed Kati Dallas [facility] 07/24/2022 12:09:18 07/25/19 23 Mammogram Diagnostic Bilateral completed Kati Dallas [facility] 07/24/2022 12:09:11 05/10/19 23 wrist injection completed Gracy Juares [facility] 05/14/2022 13:50:42 03/30/19 16 Date of Last Pap Smear completed Boone Dewitt [facility] 04/03/2015 11:53:06 03/16/19 16 Date of Last Colonoscopy completed Viviana Hodge [facility] 03/17/2015 10:15:20 03/16/19 16 Colonoscopy completed Roslyn Orr MA [facility] 02/23/2020 13:16:56 03/03/19 02 Total Abdominal Hysterectomy completed Humera valentine MA [facility] 08/15/2016 16:15:28 Cholecystectomy completed Josey Winchester MD [address], [place], [address], [facility] 01/11/2014 14:15:38 Imaging Results None recorded. Procedure Notes None recorded. Medical Equipment None Reported. Allergies Allergen ID Allergen Name Allergen Category Reaction Reaction Severity Criticality Documentation Date Start Date Code Code System Note Provider Name and Address Organization Details Recorded Time 78735 omeprazol e medicatio n rash Not available Not available 06/25/2017 7646 RxNorm Josey cordova MD [address] [facility] [address], [place], [address], [facility] 13:54:05 8323 Pepcid medicatio n angioedem a Not available Not available 09/14/20132013 53685 8 RxNorm REACT ION: RIGHT ARM SWELL ING Humera Chad quevedo MA null, [facility] 7 16:07:06 Medications Name Sig Start Date Stop Date Status Note LastModified by Organization Details LastModified Time sumatript an succinate 100 mg tabs active Not Available Not Available Not Available hyoscyami ne sulfate er 0.375 mg tb12 active Not Available Not Available Not Available atenolol/ chlorthal idone 100-25 mg tabs 10/11 completed Not Available Not Available Not Available Prescript ion - Prior Authoriza tion Request active Not Available Not Available Not Available amphetami [...] Not Available azithromy mike 250 mg tablet TAKE 2 TABLETS (500 MG) BY ORAL ROUTE ONCE DAILY FOR 1 DAY THEN 1 TABLET (250 MG) BY ORAL ROUTE ONCE DAILY FOR 4 DAYS 01/20 completed Not Available Not Available Not [...] Available Not Available Not Available topiramat e 25 mg tablet PLEASE SEE ATTACHED FOR DETAILED DIRECTIO NS active Not Available Not Available No t Available chlorthal idone 25 mg tablet TAKE [...] 11/09 completed RECORDED 11/10/19 11 2:31PM BY HOWARD RIBEIRO ON/ADDEN DUM; Not Available Not Available Not [...] 07/20/19 10 5:12PM BY JOSEY TOLEDO MD, HOWARD ON/ADDEN DUM; Not Available Not Available Not [...] day by oral route for 90 days. 08/18 completed Not Available Not Available Not Available omeprazol e 20 mg capsule,d elayed release [...] completed Not Available Not Available Not Available hydroxych loroquine 200 mg tablet TAKE 1 AND 1/2 TABLET (300 MG) BY MOUTH DAILY FOR 30 DAYS active Not Available Not Available No t Available ibuprofen 600 mg tablet TAKE 1 [...] 50 mcg/actua tion nasal spray,[facility] [place] 1 spray every day by intranas al [...] ORAL ROUTE FOR 30 DAYS, FOR ADHD. 08/18 completed Not Available Not Available Not Available bupropion HCl SR 200 mg tablet,12 hr sustained -release 2 TIMES A DAY TO TREAT DEPRESSI ON 07/05 completed RECORDED 07/06/19 11 9:51AM BY BOONE DEWITT, ANNOTATI ON/MARGRET DUM;TAKE 1 A DAY FOR FIRST WEEK [...] DUM; Not Available Not Available Not Available bupropion HCl XL 300 mg 24 hr tablet, extended release Take 1 tablet every day by oral route for 90 days. 2024 active Not Available Not Available Not Avai lable bupropion HCl XL 150 mg 24 hr tablet, extended release TAKE 1 TABLET BY MOUTH EVERY DAY active Not Available Not Available No t Available topiramat e 50 mg tablet TAKE [...] completed Not Available Not Available Not Available Emgality 120 mg/mL subcutane ous syringe Inject by subcutan eous route. 09/16 completed Not Available Not Available Not Available Flucelvax Quad (PF) 60 mcg (15 mcg x 4)/0.5 mL IM syringe ADM 0.5ML IM UTD 03/05 completed Not Available Not Available [facility] Available [facility] mg disintegr ating [...] TAKE 1 TABLET BY MOUTH EVERY DAY 08/18 completed Not Available Not Available Not Available Vitals Date Recorded Systolic And Diastolic Provider Name and Address Organization Details Last Updated DateTime 08/15/2023 158/84 mm[Hg] Ángela Lucero PA-C [address] [facility] [address], [place], [address], [facility] 08/15/2023 12:25:22 Date Recorded Body height Body mass index (BMI) Body weight Systolic And Diastolic Provider Name and Address Organization Details Last Updated DateTime 08/15/2023 165.1 cm 25.1 kg/m2 68040.45 g 145/87 mm[Hg] Maura Haider MA [facility] 08/15/2023 11:36:16 Date Recorded Body height Body mass index (BMI) Body weight Heart rate Oxygen saturation Oxygen saturation in Arterial blood by Pulse oximetry Systolic And Diastolic Provider Name and Address Organization Details Last Updated DateTime 5 165.1 cm 28.6 kg/m2 14324.8 9 g 60 /min 99 % 99 % 120/78 mm[Hg] Maura Haider MA [facility] 5 14:03:29 Date Recorded Body height Body mass index (BMI) Body weight Heart rate Oxygen saturation Oxygen saturation in Arterial blood by Pulse oximetry Body temperature Systolic And Diastolic Provider Name and Address Organization Details Last Updated DateTime 5 165.1 cm 28.2 kg/m2 45314.9 1 g 63 /min 96 % 96 % 97.9 [degF] 133/77 mm[Hg] Tala Yañez MA [facility] 5 11:11:12 Date Recorded Body height Body mass index (BMI) Body weight Systolic And Diastolic Provider Name and Address Organization Details Last Updated DateTime 01/21/2024 165.1 cm 26 kg/m2 58229.41 g 137/86 mm[Hg] Maura Haider MA [facility] 01/21/2024 14:38:24 Date Recorded Body height Body mass index (BMI) Body weight Heart rate Oxygen saturation Oxygen saturation in Arterial blood by Pulse oximetry Body temperature Systolic And Diastolic Provider Name and Address Organization Details Last Updated DateTime 4 165.1 cm 26.6 kg/m2 85259.7 8 g 101 /min 97 % 97 % 98 [degF] 121/82 mm[Hg] Maura Haider MA [facility] 4 14:08:27 Social History Question Answer Notes LastModified by Organizat ion Details LastModified Time Tobacco Smoking Status Never Smoker Not Available [facility] 01/04/2020 03:36:37 Do You Have An Advance Directive? Yes [facility] [email or web address] Information not available 10/03/2021 Is Blood Transfusion Acceptable In An Emergency? Yes [id number] Information not available 01/04/2020 What Is Your Level Of Caffeine Consumption? None [id number] Information not available 01/04/2020 How Much Tobacco Do You Chew? None [id number] Information not available 01/04/2020 What Type Of Diet Are You Following? VEGETARIAN No Salt [id number] Information not available 01/04/2020 Which Illicit Or Recreational Drugs Have You Used? None [id number] Information not available 01/04/2020 Education 4 Year College [email or web address] Information not available 10/03/2021 Live Alone Or With Others? With Others 2 Children And 1 GC (born Late 2012) [email or web address] Information not available 10/03/2021 Do You Take Precautions To Prevent Distracted Driving? Yes Information not available 10/12/2015 How Often Do You Need To Have Someone Help You When You Read Instructions, Pamphlets, Or Other Written Material From Your Doctor Or Pharmacy? Never Information not available 10/12/2015 Have You Served In The ? No [email or web address] Information not available 03/25/2016 Have You Or Anyone In Your Household Had Any Of The Following Symptoms In The Last 14 Days: Sore Throat, Cough, Chills, Body Aches For Unknown Reasons, Shortness Of Breath For Unknown Reasons, Loss Of Smell, Loss Of Taste, Fever At Or Greater Than 100 Degrees Fahrenheit? No [email or web address] Information not available 02/23/2020 Are You Or Anyone In Your Household A Health Care Provider Or Emergency Responder? No [email or web address] Information not available 02/23/2020 To The Best Of Your Knowledge Have You Been In Close Proximity To Any Individual Who Tested Positive For COVID-19? No [email or web address] Information not available 02/23/2020 Have You Recently Traveled To A COVID-19 High Risk Area Or Gathering In The Last 10 Days? No [email or web address] Information not available 09/20/2020 What Was The Date Of Your Most Recent Tobacco Screening? 09/16/2024 [email or web address] Information not available 09/16/2024 How Many Children Do You Have? 2 1 Son (lives On Second Floor) And 1 Daughter And 1 GS [email or web address] Information not available 02/23/2020 Seat Belts Used Routinely Yes [email or web address] Information not available 10/03/2021 Are You Sexually Active? No [id number] Information not available 01/04/2020 Smoke Alarm In Home Yes [email or web address] Information not available 10/03/2021 At What Age Did You Start Smoking Tobacco? 1 [id number] Information not available 01/04/2020 Are You Passively Exposed To Smoke? No [email or web address] Information not available 10/12/2015 How Much Tobacco Do You Smoke? No [id number] Information not available 01/04/2020 Do You Use Sunscreen Routinely? Yes [id number] Information not available 01/04/2020 How Many Years Have You Smoked Tobacco? 0 [id number] Information not available 01/04/2020 Sex: Unknown Functional Status Question Answer Note LastModified by Organization Details LastModified Time Do you or have you ever used any other forms of tobacco or nicotine? No [email or web address] Information not available 10/03/2021 What is your level of alcohol consumption? None [id number] Information not available 01/04/2020 Do you or have you ever used smokeless tobacco? Never used smokeless tobacco [id number] Information not available 01/04/2020 Are you currently employed? Yes [id number] Information not available 01/04/2020 Are you able to walk independently without assistance or assistive devices? YESWOREST [email or web address] Information not available 10/03/2021 Are you able to care for yourself independently? Yes [id number] Information not available 01/04/2020 What is your occupation? [employer] self-employed; also work for [employer] Information not available 02/23/2020 Do you or have you ever used e-cigarettes or vape? Never used electronic cigarettes [email or web address] Information not available 10/03/2021 What is your [...] Recorded Time zoster recombinant 0 [facility] 12:49:12 Influenza, split virus, quadrivalent, preservative 0 [facility] 11/28[facility]2021 12:49:12 COVID-19, mRNA, LNP-S, PF, 100 mcg/0.5mL dose or 50 mcg/0.25mL dose 1 [facility] 11/21/2021 08:31:51 COVID-19, mRNA, LNP-S, PF, 100 mcg/0.5mL dose or 50 mcg/0.25mL dose 1 [facility] 03/07/2021 11:29:55 Influenza, split virus, trivalent, preservative 3 [facility] 03/07/2021 11:29:55 Influenza, split virus, trivalent, preservative 2 [facility] 03/07/2021 11:29:55 COVID-19, mRNA, LNP-S, PF, 100 mcg/0.5mL dose or 50 mcg/0.25mL dose 1 [facility] 03/07/2021 11:29:55 Influenza, MDCK, quadrivalent, PF 9 [facility] 03/07/2021 11:29:55 Influenza, split virus, trivalent, preservative 1 [facility] 03/07/2021 11:29:55 Influenza, split virus, quadrivalent, PF 5 completed Not Available [facility] 03/20/2019 02:22:02 COVID-19, mRNA, LNP-S, PF, 100 mcg/0.5mL dose or 50 mcg/0.25mL dose 2 completed Tk Delarosa MA null, [facility] 11/21/2021 08:31:51 COVID-19, mRNA, LNP-S, PF, phuc-sucrose, 30 mcg/0.3 mL 3 completed Purvi Torres LPN null, [facility] 07/09/2023 10:54:37 Influenza, split virus, quadrivalent, PF 6 completed Not Available [facility] 03/20/2019 02:22:04 Influenza, split virus, trivalent, PF 4 completed Not Available [facility] 09/16/2024 11:00:10 COVID-19, mRNA, LNP-S, PF, phuc-sucrose, 30 mcg/0.3 mL 4 completed Not Available [facility] 09/16/2024 11:00:10 Influenza, split virus, quadrivalent, PF 7 completed Not Available [facility] 03/20/2019 02:22:10 Influenza, split virus, quadrivalent, PF 8 completed Not Available [facility] 03/20/2019 02:22:15 Tdap 0 completed KEVIN Briseno, [facility] 08/11/2019 11:36:19 Influenza, split virus, trivalent, PF 4 completed Not Available [facility] 03/20/2019 02:21:58 Tdap 9 completed Not Available [facility] 11/26/2019 18:22:26 Influenza, split virus, quadrivalent, PF 3 completed Josey Winchester MD [address], [address], [facility] 01/10/2023 13:40:02 Past Encounters Encounter ID Performer Location Encounter Start Date Encounter Closed Date Diagnosis/Indication Diagnosis SNOMED-CT Code Diagnosis ICD10 Code Diagnosis IMO Codes Diagnosis Note [id number] [facility] [address] [place] [address] 04/09/2007 00:00:00 [id number] [facility] [address] [address] [place] [address] 05/06/2007 00:00:00 [id number] [employer] [address] [place] [address] 06/23/2008 00:00:00 [id number] [employer] [address] [facility],[address] [place] [address] 07/06/2008 00:00:00 [id number] [employer] [address] [facility],[address] [place] [address] 08/11/2008 00:00:00 [id number] [employer] [address] [facility],[address] [place] [address] 04/21/2009 00:00:00 [id number] [employer] [address] [facility],[address] [place] [address] 05/19/2009 00:00:00 [id number] [employer] [address] [facility],[address] [place] [address] 07/19/2009 00:00:00 [id number] [employer] [address] [facility],[address] [place] [address] 04/10/2010 00:00:00 [id number] [employer] [address] [facility],[address] [place] [address] 05/15/2010 00:00:00 [id number] [employer] [address] [facility],[address] [place] [address] 07/04/2010 00:00:00 [id number] [employer] [address] [facility],[address] [place] [address] 09/12/2010 00:00:00 [id number] [employer] [address] [facility],[address] [place] [address] 10/17/2010 00:00:00 [id number] [employer] [address] [place] [address] 09/12/2011 00:00:00 [id number] [employer] [address] [place] [address] 03/26/2012 00:00:00 [id number] [employer] [address] [place] [place] [address] 04/27/2012 00:00:00 [id number] [employer] [address] [place] [address] 09/21/2012 00:00:00 [id number] [employer] [address] [facility],[address] [place], [place] [address] 02/16/2013 00:00:00 [id number] [employer] [address] [facility],[address] [place], [place] [address] 07/07/2013 00:00:00 [id number] Josey Winchester MD Main Office [address] [address] [place], [place] [address] 01/11/2014 13:22:21 01/11/2014 14:42:04 Needs influenza immunization 923346292 Essential hypertension 47747805 Attention deficit hyperactivity disorder, predominantly inattentive type 76683073 Pure hypercholesterolemia 663292230 Screening for malignant neoplasm of breast 750584257 Screening for malignant neoplasm of colon 350325378 [id number] Josey Winchester MD Main Office [address] [address] [place], [place] [address] 07/11/2014 13:41:12 07/11/2014 14:48:21 Adult health examination 592661509 Screening for malignant neoplasm of colon 695261475 Pure hypercholesterolemia 666795729 has trouble with meds. Will recheck and look at risk calculator before starting another med. Essential hypertension 49196251 well controlled with current meds Irritable bowel syndrome 04320884 well-contr olled with current meds and diet. [id number] Josey Winchester MD Main Office [address] [address] [place] [address] 12/03/2014 08:47:01 12/03/2014 09:43:49 Migraine 09203913 G43.009 will restart a triptan which she took years ago and she will call if it isn't helping. Plantar fasciitis 132756 003 M72.2 she will try exercises and will call if it persists. [id number] Josey Winchester MD Main Office [address] [address] [place] [address] 01/23/2015 10:38:25 01/23/2015 11:28:45 Essential hypertension 08483355 I10 no longer controlled . We will go up on her meds and she will call if the BP is >140/90. Pure hypercholesterolemia 134055098 E78.0 trouble on meds. Recheck cholestero l Needs infl uenza immunization 074287762 Z23 Screening for malignant neoplasm of colon 354523648 Z12.11 Screening for malignant neoplasm of cervix 333889593 Z12.4 Attention deficit hyperactivity disorder, predominantly inattentive type 18257912 F90.0 [id number] Josey Winchester MD Main Office [address] [address] [place] [address] 10/12/2015 09:22:54 10/12/2015 10:14:44 Adult health examination 532514088 Z00.00 UTD with immunizati ons, colonoscop y, mammogram and AUDIO ENGINEER care. Essential hypertension 85535857 I10 we will stop her metoprolol to see if her fatigue improves. Start a CCB and see her back in 1 month. Fatigue 40321600 R53.83 this may be secondary to metoprolol so will stop and start another BP med. Irritable bowel syndrome 45176172 K58.9 well-contr olled with current meds and diet. [id number] Josey Winchester MD Main Office [address] [address] [place] [address] 11/14/2015 15:44:42 11/14/2015 17:02:57 Essential hypertension 37300130 I10 Her fatigue has persisted despite stopping the metoprolol . BP mildly elevated on the amlodipine so will increase the dose. Needs infl uenza immunization 663643869 Z23 Migraine 60392144 G43.00 9 Possibly returned since stopping the bets cherelle for her BP. Will start a different beta cherelle and she will call if it persists. [id number] Giovanni Lucero PA-C Main Office [address] [place] [address] 02/27/2016 10:23:45 02/27/2016 11:54:18 Fever 255444246 R50.9 40 minute office visit with greater than 50% of the visit face-to-fa ce with the patient and/or family providing counseling and/or coordinati on of care. Cough 75277030 R05 Nausea and vomiting 1693 2000 R11.2 Diarrhea 33654723 R19.7 Fatigue 32993020 R53.83 [id number] Giovanni Lucero PA-C Main Office [address] [place] [address] 03/05/2016 15:42:55 03/06/2016 12:56:57 Pneumonia 487797647 J18.9 encouraged deep breaths at least hourly to hopefully diminish need for albuterol, also rec. walk on elliptical machine at low intensity to slowly build up her endurance. will give cxr at next f/u to recheck in 2 wks Essential hypertension 50561122 I10 mildly elevated - advised pt to cont to monitor qd, and will consider re-initiat ing bp med if cont. to trend high 25 minute office visit with greater than 50% of the visit face-to-fa ce with the patient and/or family providing counseling and/or coordinati on of care. [id number] Giovanni Lucero PA-C Main Office [address] [place] [address] 03/25/2016 13:15:02 03/25/2016 14:04:38 Essential hypertension 38982826 I10 stable, not on meds - used bp med a few yrs ago - rec. cont healthy diet (low salt) and exercise 25 minute office visit with greater than 50% of the visit face-to-fa ce with the patient and/or family providing counseling and/or coordinati on of care. Pneumonia 120614592 J18. 9 cont to stay active, rec occ deep breaths. will give cxr to verify resolution of pna [id number] Josey Winchester MD Main Office [address] [address] [place] [address] 07/08/2016 11:22:37 07/08/2016 12:11:21 Allergic rhinitis 13551543 J30.9 We will see her back in a few weeks to recheck her adenopathy . No B symptoms. [id number] Giovanni Lucero PA-C Main Office [address] [address] [place] [address] 08/15/2016 15:59:01 08/15/2016 17:02:56 Acute sinusitis 61760718 J01.90 Pt. told to get some sudafed, cont OTCs and have yogurt or get a probiotic while on the Abx. [id number] Josey Winchester MD Main Office [address] [address] [place] [address] 11/18/2016 09:33:44 11/18/2016 10:23:06 Adult health examination 745566846 Z00.00 UTD with immunizati ons, colonoscop y, mammogram and AUDIO ENGINEER care. Needs infl uenza immunization 444417331 Z23 Essential hypertension 67240210 I10 She will follow her BP at home and we will call in a few weeks to see how it has been running. Migraine 70577501 G43.00 9 Hyperlipidemia 54729089 E78.5 has trouble with meds. Will recheck and look at risk calculator before starting another med. [id number] Josey Winchester MD Main Office [address] [address] [place] [address] 05/21/2017 12:49:18 05/21/2017 14:09:17 Essential hypertension 42843039 I10 Will restart meds and she will return for a recheck in 1 month. Easy bruising 803015539 R58 [id number] Josey Winchester MD Main Office [address] [address] [place] [address] 06/25/2017 13:18:55 06/25/2017 13:56:11 Essential hypertension 88405564 I10 Taking meds daily and tolerating them well. BP under good control. Migraine 04641700 G43.00 9 stable on prophylaxi s. [id number] Josey Winchester MD Main Office [address] [address] [place] [address] 11/06/2017 12:58:57 11/06/2017 14:04:51 Carpal tunnel syndrome 64095730 G56.02 She will take aleve twice a day. [id number] Josey Winchester MD Main Office [address] [address] [place] [address] 12/03/2017 12:43:02 12/03/2017 13:40:40 Needs influenza immunization 549939032 Z23 Screening for malignant neoplasm of breast 783795835 Z12.39 Essential hypertension 98333793 I10 She will restart her meds at a lower dose. She understand s that this is especially important in light of the fact she is going back on adderall. 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 This helped in the past. [id number] Josey Winchester MD Main Office [address] [address] [place] [address] 01/28/2018 13:04:32 01/28/2018 13:49:10 Adult health examination 458652573 Z00.00 UTD with immunizati ons, colonoscop y (due again in 2025) mammogram. Had a hysterecto my and no longer sees AUDIO ENGINEER. Essential hypertension 86785169 I10 Her BP is running high so we will increase her dose of atenolol and see her back in 1 month. Attention deficit hyperactivity disorder, predominantly inattentive type 32408784 F90.0 We start 15 mg bid since the 30 mg XL dose wears off before the end of her work day. Screening for malignant neoplasm of breast 963321601 Z12.39 [id number] Josey Winchester MD Main Office [address] [address] [place] [address] 02/18/2018 11:19:47 02/18/2018 11:50:35 Attention deficit hyperactivity disorder, predominantly inattentive type 91093393 F90.0 we will d/c her adderall and start strattera. She will call in a couple of weeks if it is not helping and we will go up on the dose. If still not working at the end of March we will try a different med. Essential hypertension 84826752 I10 Good control with increased dose of meds. Continue current mgmt. [id number] Josey Winchester MD Main Office [address] [address] [place] [address] 08/06/2018 15:37:38 08/06/2018 16:31:45 Fatigue 20865228 R53.83 No clear etiology. Hypokalemia 71738957 E87 .6 Corrected as an inpatient; secondary to diuretic. Essential hypertension 74199328 I10 Currently normotensi ve off meds. Possibly secondary to her adderall. She will monitor her BP and will call if/when she restarts her adderall. Attention deficit hyperactivity disorder, predominantly inattentive type 18134008 F90.0 Has adderall and will restart when needed. [id number] Josey Winchester MD Main Office [address] [address] [place] [address] 08/19/2018 12:31:49 08/19/2018 13:22:34 Essential hypertension 91983529 I10 Currently normotensi ve off meds. Possibly secondary to her adderall. She will monitor her BP and will call if/when she restarts her adderall. Fatigue 02474513 R53.83 No clear etiology. We spoke about lifestyle issues such as exercise, good diet and adequate sleep and she will work on these. [id number] Josey Winchester MD Main Office [address] [address] [place] [address] 10/06/2018 14:38:47 10/06/2018 15:31:59 Renal angle tenderness 946434068 R10.829 Possible muscular. The urine is normal. Will treat with NSAIDs for a week and if her pain persists will consider an U/S. Gastroesop hageal reflux disease 520839564 K21.9 Essential hypertension 57231965 I10 BP went back up after stopping the adderall and initially seeing a normalizat ion of her BP. [id number] Josey Winchester MD Main Office [address] [address] [place] [address] 12/23/2018 15:52:51 12/23/2018 16:40:53 Allergic conjunctivitis 015394441 H10.12 Instructio ns to call if develops vision problems or pain. [id number] Josey Winchester MD Main Office [address] [address] [place] [address] 02/17/2019 13:41:37 02/17/2019 14:42:10 Adult health examination 320627180 Z00.00 Will update her immunizati ons today, colonoscop y (due again in 2025) and UTD w/mammogra m. Had a hysterecto my and no longer sees AUDIO ENGINEER. Varicella vaccination 68 642798 Z23 Skin lesion 30853965 L98 .9 [id number] Josey Winchester MD Main Office [address] [address] [place] [address] 03/05/2019 13:52:06 03/05/2019 14:54:54 Fever 676277028 R50.9 Cough 58140942 R05 Muscle pain 72935230 M79 .10 [id number] Katie gottlieb MD [facility] [address] [address] [place] [address] 07/30/2019 13:51:26 08/02/2019 08:34:33 Counseling 319430513 Z71.9 Health advice, education or counseling done for COVID 19, pt not able to be offered testing as she does not have symptoms. She will request testing through her employer. Call immed if any sx come up including cough, fever, SOB or uri sx [id number] Josey Winchester MD Main Office [address] [address] [place] [address] 08/11/2019 10:50:11 08/11/2019 11:48:11 Essential hypertension 67971220 I10 C/w BP meds. Running a little high today. She will follow. Attention deficit hyperactivity disorder, predominantly inattentive type 21805066 F90.0 Has adderall and uses it prn. Hyperlipidemia 14647318 E78.5 Has been taking statin 3 times a week and tolerating it well. Administra tion of viral vaccine 13953349 Z23 [id number] Josey Winchester MD Main Office [address] [place] [address] 02/23/2020 13:01:50 02/23/2020 13:48:20 Adult health examination 731789822 Z00.00 Will update her immunizati ons today, colonoscop y (due again in 2025) and UTD w/mammogra m. Had a hysterecto my and no longer sees AUDIO ENGINEER. We discussed exercise while also keeping safe during the pandemic. Migraine 89250353 G43.00 9 Was helped by prophylaxi s in the past and will restart the topamax. Hyperlipidemia 39759778 E78.5 Has been taking statin 3 times a week and tolerating it well. Essential hypertension 34827397 I10 C/w BP meds. [id number] Josey Winchester MD Main Office [address] [address] 08/23/2020 12:51:26 08/23/2020 13:54:13 Essential hypertension 62550034 I10 Stopped BP meds because of her hair loss. Beta blockers and diuretics may contribute to this so we will start a CCB and see her back in month. Loss of hair 775404687 L 65.9 No clear etiology. May be genetic. May be related to hair styling and may be related to meds. We stopped her beta cherelle and diuretic and statin. Hyperlipidemia 31293175 E78.5 Stopped the statin for now since may be adding to her hair loss. We will monitor. [id number] Josey Winchester MD Main Office [address] [address] 09/20/2020 14:48:28 09/20/2020 15:20:52 Essential hypertension 57301045 I10 Stopped BP meds because of her hair loss. Beta blockers and diuretics may contribute to this so we will start a CCB and see her back in month. Migraine 51304824 G43.00 9 Stopped the topamax which was helping because she felt that it was contributi ng to her hair loss. She will try sumatripta n for treatment and will call if her headaches continue. Loss of hair 380312463 L 65.9 No clear etiology. May be genetic. May be related to hair styling and may be related to meds. We stopped her beta cherelle and diuretic and statin. She has an upcoming derm appointmen t in early November. [id number] Ángela Lucero PA-C Main Office [address] [address] [place] [address] 10/20/2020 08:39:54 10/20/2020 09:31:30 Fatigue 42869617 R53.83 r/o anemia, diabetes, renal disease, thyroid dysfunctio n. Pain of mu ltiple joints 28439750 M25.50 R/o RA, Lymes disease Screening for malignant neoplasm of breast 967043231 Z12.39 Screening for malignant neoplasm of cervix 605543942 Z12.4 Vitamin D deficiency 347 69524 E55.9 [id number] Daren Edmond MD [facility] [address] [address] [place] [address] 11/27/2020 12:55:36 11/27/2020 15:49:22 Pain of multiple joints 34259595 M25.50 elevated ESR and CRP. PT. will proceed with seeing rheumatolo gist and continue taking turmerican d MSM. [id number] Josey Winchester MD Main Office [address] [address] [place] [address] 03/07/2021 10:41:20 03/07/2021 12:00:41 Adult health examination 071706833 Z00.00 She is UTD with immunizati ons including COVID along with her booster but she is due for her second shingles. She is also UTD w/colonosc opy (due again in 2025) and UTD w/mammogra m. Had a hysterecto my and no longer sees AUDIO ENGINEER. We discussed exercise while also keeping safe during the pandemic. Essential hypertension 86833520 I10 She's on a low dose of nifedipine and her BP is under good control. Hyperlipidemia 58144759 E78.5 Stopped the statin for now since may be adding to her hair loss. We will monitor. [id number] Josey Winchester MD Main Office [address] [address] [place] [address] 10/03/2021 11:21:18 10/03/2021 12:09:09 Essential hypertension 71348113 I10 She's on a low dose of nifedipine and her BP is running high. We will increase the dose from 30 to 90 mg and recheck in 1 month. [id number] Josey Winchester MD Main Office [address] [place] [address] 10/31/2021 12:42:04 10/31/2021 13:19:44 Essential hypertension 52399078 I10 Still not with adequate control on nifedipine 90 mg. She will continue with that and we will start a diuretic. We went over foods high in potassium and she will get this checked before her next appointmen t. [id number] Josey Winchester MD Main Office [address] [place] [address] 11/28/2021 12:38:40 11/28/2021 13:40:47 Seronegative rheumatoid arthritis 377730404 M06.[address] Mitchell and on meds. Essential hypertension 32775595 I10 Better control since adding diuretic. Mildly reduced potassium at 3.4. We will recheck level in a month. Cough 75621841 R05.9 She has not yet tested for COVID. Drug-induc ed hypokalemia 191421571 E87.6 Induced by diuretic. Will concentrat e on foods w/potassiu m and recheck in one month. Hyperlipidemia 41882585 E78.5 Cannot tolerate a statin. Will look into options. [id number] Josey Winchester MD [facility] [address] [place] [address] 08/08/2022 12:24:46 08/20/2022 08:15:54 Multiple sclerosis 00179871 G35 This is a new dx. She saw Dr Rausch as an inpatient at [facility] and will follow with him as on outpatient . She is not currently on any meds. Migraine 10101408 G43.00 9 She would like to restart the topamax because she has been getting more frequent headaches. Optic neuritis 98743410 H46.9 H46.03 Followed by both ophtho and neurology. Her vision has been improving. She is still not driving and is waiting to be cleared by neurology. [id number] Josey Winchester MD Main Office [address] [facility] [address] [place] [address] 10/23/2022 15:35:43 10/23/2022 16:11:23 Lump on face 489765436 R22.0 Tender lesion at left jaw line Benign int racranial hypertension 48232591 G93.2 She is followed by neurology and started on acetazolam edvin. [id number] FAIZA NIX Main Office [address] [facility] [address] [place] [address] 12/04/2022 08:52:21 12/04/2022 09:23:37 Pre-surgery evaluation 722896710 Z01.818 No medical contraindi cations to proposed procedure. Behzad Perioperat bakari Cardiac Risk was calculated and the risk for perioperat bakari [place] is <1%. May proceed to surgery as planned. Essential hypertension 47962431 I10 stable at homein office BP- 133/84 Cataract 960831807 H26.9 [id number] Josey Winchester MD Main Office [address] [facility] [address] [facility] [place] [address] 01/08/2023 09:55:30 01/08/2023 10:59:38 Adult health examination 205009703 Z00.00 She is UTD with immunizati ons including COVID along with her booster but she is due for her second shingles. She is also UTD w/colonosc opy (due again in 2025) and UTD w/mammogra m. Had a hysterecto my and no longer sees AUDIO ENGINEER. We discussed exercise and she remains very active. Needs infl uenza immunization 133492899 Z23 History of SARS-CoV-2 29 96951184 93203158 Z86.16 mild symptoms; cough Hyperlipidemia 26654014 E78.5 Cannot tolerate a statin. Levels on repeat blood work look good. No meds needed. Thyroid nodule 877852023 E04.1 She is scheduled for an US 01/21/23. Essential hypertension 27953130 I10 We stopped her diuretic because of hypokalemi a but her BP has increased. We will continue to follow it before adding any meds. Attention deficit hyperactivity disorder, predominantly inattentive type 26249949 F90.0 Has adderall and uses it prn. Seronegati ve rheumatoid arthritis 957306573 M06.[address] Mitchell and on meds. Multiple sclerosis 32892 007 G35 This is a new dx. She saw Dr Rausch as an inpatient at [facility] and now followed by Dr Naz bryson and is on acetazolam edvin. [id number] Daren Edmond MD Telehe[facility] h [address] [facility] [address] [facility] [place] [address] 07/08/2023 09:22:38 07/08/2023 11:05:07 COVID-19 178227744 U07.1 dx'd in ER on 5.3 - [...] if at all possible see below Cough 41489248 R05.9 most likely has p covid pnawill rx c abxrecomme nd probiotics while on abxsee above/belo w Pneumonia 664866409 J18. 9 see above [id number] Josey Winchester MD Main Office [address] [facility] [address] [facility] [place] [address] 07/09/2023 10:32:41 07/09/2023 11:31:51 History of idiopathic intracranial hypertension 1093345155 9838870 Z86.69 Having headaches that are not adequately treated with meds and having a difficult time concentrat ing. Headache 06403494 R51.9 Transition of care from emergency department to self-care 5573011679 17760 Z76.89 Reviewed [id number] Daren Edmond MD Main Office [address] [facility] [address] [place] [address] 08/15/2023 11:32:08 08/15/2023 12:27:56 Essential hypertension 23525048 I10 Elevated BP today though has not taken antihypert ensives. Continue to monitor and cont antihypert ensives, low sodium diet. She has a history of elevated BP readings while on nifedipine so will obtain microalbum in and follow up in one month for reassessme nt. Edema of l ower extremity 354455071 R60.0 Will start on Lasix 20 mg PO daily. Will check BMP in one week to assess potassium and renal function. [id number] Josey Winchester MD Main Office [address] [facility] [address] [place] [address] 01/21/2024 14:18:10 01/21/2024 15:24:56 Adult health examination 400534817 Z00.00 She is UTD with immunizati ons including COVID along with her booster but she is due for her second shingles. She is also UTD w/colonosc opy (due again in 2025) and UTD w/mammogra m. Had a hysterecto my and no longer sees AUDIO ENGINEER. We discussed exercise and she remains very active. Insomnia 445543436 F51.0 1 She will try gabapentin at bedtime. Attention deficit hyperactivity disorder, predominantly inattentive type 81006324 F90.0 Has adderall and uses it prn. Essential hypertension 65392409 I10 We stopped her diuretic because of hypokalemi a but her BP has increased. We will continue to follow it before adding any meds. Migraine 21046252 G43.00 9 She currently uses Excedrin migraine which helps. Hyperlipidemia 79255177 E78.5 Taking atorvastat in 40 mg and tolerating it well. Seronegati ve rheumatoid arthritis 326002539 M06.[address] Mitchell and on meds but they don't seem to be helping. She will discuss this with Dr Mitchell. Visual disturbance 69028 001 H53.9 [id number] Josey Winchester MD Main Office [address] [facility] [address] [place] [address] 02/18/2024 14:02:25 02/18/2024 14:33:28 Anxiety disorder 140540885 F41.9 Not currently on meds and this is in remission. Attention deficit hyperactivity disorder, predominantly inattentive type 84926756 F90.0 Taking adderall XR 20 mg which has been helpful but it wears off around lunchtime. Will try a higher dose and she will call if it is not helpful. Essential hypertension 98184324 I10 We stopped her diuretic because of hypokalemi a. She is taking nifedipine ER 90 mg and tolerating this well. Good control, continue current mgmt. [id number] Josey Winchester MD Main Office [address] [address] 08/18/2024 13:56:12 08/18/2024 15:06:50 Essential hypertension [id number] I10 We stopped her diuretic because of hypokalemi a. She is taking nifedipine ER 90 mg and tolerating this well. Good control, continue current mgmt. Attention deficit hyperactivity disorder, predominantly inattentive type [id number] F90.0 She was unable to tolerate a stimulant. Would like to try a non-stimul ant. Will try bupropion since this can also help with her anxiety/de pression. We will start with 150 mg and see her back in one month to adjust the dose if needed. Generalize d anxiety disorder [id number] F41.1 [id number] Josey Winchester MD Main Office [address] [facility] [address] [place] [address] 09/16/2024 10:58:44 09/16/2024 11:44:58 Attention deficit hyperactivity disorder, predominantly inattentive type [id number] F90.0 She was unable to tolerate a stimulant. Is now taking a non-stimul ant. She started with bupropion 150 mg and then increased it to 2 pills which she has found helpful. Continue current mgmt. Mild major depression 87 920931 F32.0 Her score is high but she feels that this is not currently a problem and does not want to make any changes. Essential hypertension [id number] I10 We stopped her diuretic because of hypokalemi a. She is taking nifedipine ER 90 mg and tolerating this well. Good control, continue current mgmt. Generalize d anxiety disorder [id number] F41.1 [id number] Her score is high but she feels that this is not currently a problem and does not want to make any changes. We will follow. Health Concerns Section Related Observation LastModified by Organization Detai ls LastModified Time None Recorded Concern Status LastModified by Organization Details LastModified Time None Recorded Advance Directives Directive Y: HCP Payers Insurance Date Sequence Insurance Name Policy Number Policy Cantu Covered Member ID Cantu Member ID Guarantor Name 10/23/2022 2 [place] [facility] Shey Blank [id number] Shey Henriquez 10/23/2023 1 [facility] [id number] Shey Henriquez [id number] Shey Henriquez 10/23/2022 1 [facility] - QHP (MEDICAID REPLACEMENT - HMO) [id number] Shey Blank [id number] Shey Henriquez 10/23/2022 1 [facility] - MEDICAID ESSENTIAL (MEDICAID HMO) [id number] Shey Blank [id number] Shey Henriquez 02/16/2024 1 [facility] (O) [id number] Shey Henriquez [id number] Shey Henriquez 09/28/2024 1 [place] [facility] Shey Henriquez [id number] Shey Henriquez Notes Date Note Type Note Provider Name and Address Organization Details Recorded Time 4 text/html ROS as noted in the HPI 58 yo female presenting for two weeks of bilateral foot and [...] her antihypertensives today. Ángela Lucero PA-C [address] [address], [place], [address], [facility] 08/15/2023 13:17:32 4 text/html Generic HPI TemplateReported by PatientShe has sero-negative RA and mild MS. She is followed by specialists for each and has multiple joint pains that are not controlled by current treatment.UTD w/COVID, tetanus and flu vaccines. ROS as noted in the HPI Josey Winchester MD [address] [facility] [address], [place], [address], [facility] 01/22/2024 17:49:35 4 text/html Hypertension F/UReported by PatientHPIFor associated symptoms, patient reportsno dizziness,no lightheadedness,no chest pain,no shortness of breath,no palpitations,no edema, andno calf pain with exertion. For lifestyle, patient reportsregular exerciseandlimiting/avoid ing salt. For medications, patient reportstaking medications as directedandno side effects from medication.She has been taking the adderall for 4 weeks and she sees a noticeable difference in her ability to focus. She takes the adderall at around 8 or 9 in the am but finds that the effects wear off after about 4 hours. ADHDReported by PatientHPIFor school performance, patient reportsimproving. For organization, patient reportsgood organization. For appetite, patient reportsnormal appetiteandno binge eating. For mood, patient reportsstable. For sleep, patient reportsgood. For family, patient reportsno new stressors. For attention, patient reportsable to focus. For impulsivity, patient reportsis not impulsive. For tasking, patient reportsable to initiate tasks,able to complete tasks,able to move on to the next task, andmulti-tasking.ROS as noted in the HPI Josey Winchester MD [address] [facility] [address], [place], [address], [facility] 02/18/2024 15:39:06 5 text/html Hypertension F/UReported by PatientHPIFor associated symptoms, patient reportsno dizziness,no lightheadedness,no chest pain,no shortness of breath,no palpitations,no edema, andno calf pain with exertion. For lifestyle, patient reportsregular exerciseandlimiting/avoid ing salt. For medications, patient reportstaking medications as directedandno side effects from medication. ADHDReported by PatientHPIFor organization, patient reportsgood organization. For appetite, patient reportsnormal appetiteandno binge eating. For mood, patient reportsstable. For sleep, patient reportsgood. For family, patient reportsno new stressors. For attention, patient reportsable to focus. For impulsivity, patient reportsis not impulsive. For tasking, patient reportsable to initiate tasks,able to complete tasks,able to move on to the next task, andmulti-tasking.She was on a stimulant in the past but would like to try something different. Anxiety/DepressionReporte d by PatientHPIFor quality, patient reportssymptoms worse in the evening,symptoms worse during the day, andincreased anxiety. For associated symptoms, patient reportsweight gain (12 lbs),anxiety, anddepressionbut reportsmaintaining functionality. For severity, patient reportsable to maintain relationshipsanddoes not interfere with activities of daily living. For duration, patient reportssymptoms lasting over 2 weeks. For modifying factors, patient reportssocial support.Was on citalopram, escitalopram and sertraline in the past.ROS as noted in the HPI Karely bentley [facility] 08/30/2024 10:16:39 5 text/html Hypertension F/UReported by PatientHPIFor associated symptoms, patient reportsno dizziness,no lightheadedness,no chest pain,no shortness of breath,no palpitations,no edema, andno calf pain with exertion. For lifestyle, patient reportsregular exerciseandlimiting/avoid ing salt. For medications, patient reportstaking medications as directedandno side effects from medication. ADHDReported by PatientHPIFor organization, patient reportsgood organization. For appetite, patient reportsnormal appetiteandno binge eating. For mood, patient reportsstable. For sleep, patient reportsgood. For family, patient reportsno new stressors. For attention, patient reportsable to focus. For impulsivity, patient reportsis not impulsive. For tasking, patient reportsable to initiate tasks,able to complete tasks,able to move on to the next task, andmulti-tasking.She was on a stimulant in the past but would like to avoid. Has been on wellbutrin which has Anxiety/DepressionReporte d by PatientHPIFor associated symptoms, patient reportsweight loss (3 lbs)but reportsmaintaining functionality. For quality, patient reportssymptoms improved. For severity, patient reportsable to maintain relationshipsanddoes not interfere with activities of daily living. For duration, patient reportssymptoms lasting over 2 weeks. For modifying factors, patient reportssocial support.Was on citalopram, escitalopram and sertraline in the past.ROS as noted in the HPI Josey Winchester MD [address] [address], [place], [address], [facility] 09/16/2024 17:18:21 OBGyn Episode No OBEpisode recorded.
--- OUTSIDE RECORDS SUMMARY | 2025-01-05 17:09 | XMS_ITS | Clinical Summary ---
Author Organization [facility] Address [address] [place] [address] Care Team Providers Care Parachute Line Tier Name Role Phone Luis Miguel Winchester MD Primary Care Provider [phone] Allergies Active Allergy Reactions Criticality Noted Date [...] age to complete this topic Care Teams Parachute Line Tier Relationship Specialty Start Date End Date Luis Miguel Winchester MD [address] [facility] [address] [place] [address] PCP - General Internal Medicine 08/08/22
== END 2025-01-05 14:36 | disposition home or self-care (01) ==
LOC: HO.RHES 13:57
PROVIDERS: PCP Internal Medicine; Visit Provider Internal Medicine Rheumatology
DX: M06.09 Rheumatoid arthritis without rheumatoid factor, multiple sites (principal); R74.01 Elevation of levels of liver transaminase levels; M17.0 Bilateral primary osteoarthritis of knee; G56.03 Carpal tunnel syndrome, bilateral upper limbs
CPT/HCPCS: 99214

== ENCOUNTER 2025-01-05 13:57 | Outpatient (REF) | payer MEDICAID, SELFPAY ==
[2025-01-05 18:08] LABS: MANUAL DIFF FLAG NO
[2025-01-05 18:37] LABS: Alanine Aminotransferase 23 U/L (0-31); Aspartate Amino Transferase 23 U/L (5-31); Estimated Glomerular Filt Rate 47
[2025-01-05 18:44] LABS: Hematocrit 46.1 % (37.0-47.0); Hemoglobin 13.6 g/dl (12.0-16.0); Imm Gran Abs Auto 0.02 X10*3/uL (0.00-0.03); Imm Gran Pct Auto 0.3 % (0.0-0.4); Lymphocytes Absolute Auto 2.2 X10*3/uL (1.2-4.9); Mean Corpuscular HGB Conc 29.5 g/dl (31.0-35.0); Mean Corpuscular Hemoglobin 24.2 pg (27.0-33.0); Mean Corpuscular Volume 82.0 fL (80.0-98.0); NRBC Abs Auto 0.000 X10*3/uL (0.0-0.012); NRBC Pct Auto 0.0 /100WBC (0.0-0.2); Platelet Count 305 X10*3/uL (160-400); Red Blood Count 5.62 X10*6/uL (4.20-5.50); White Blood Count 7.4 X10*3/uL (4.8-10.8)
== END 2025-01-05 13:58 | disposition home or self-care (01) ==
LOC: HO.HKASLDS 13:57
PROVIDERS: PCP Internal Medicine; Visit Provider Internal Medicine Rheumatology
DX: Z51.81 Encounter for therapeutic drug level monitoring (principal); M06.09 Rheumatoid arthritis without rheumatoid factor, multiple sites; M17.0 Bilateral primary osteoarthritis of knee; R74.01 Elevation of levels of liver transaminase levels; G56.03 Carpal tunnel syndrome, bilateral upper limbs; Z79.899 Other long term (current) drug therapy; Z79.620 Long term (current) use of immunosuppressive biologic
CPT/HCPCS: 36415; 82565; 84450; 84460; 85025; 85652; 86140; 99212

== ENCOUNTER 2025-01-14 13:46 | Outpatient (REF) | payer MEDICAID, SELFPAY ==
--- NOTE | ~2025-01-14 | XR_ITS ---
EXAMINATION: X-ray bilateral hands CLINICAL INFORMATION: Rheumatoid arthritis COMPARISON: None TECHNIQUE: Bilateral hands 3 views FINDINGS: Right hand: Normal bone mineralization. No fracture or dislocation. No significant joint space narrowing or marginal osteophytes. No osseous erosion. No abnormal soft tissue calcification. Left hand: Normal bone mineralization. No fracture or dislocation. There appears to be mild radiocarpal joint space narrowing. Otherwise, no significant joint space narrowing or marginal osteophytes. No osseous erosion. No abnormal soft tissue calcification. XR/XR Hand Bilat min 3v IMPRESSION: Right hand: No significant osseous abnormality. Left hand: There appears to be mild radiocarpal joint space narrowing/arthritis.. Electronically signed by: Rafal Ervin MD 01/14/2025 05:02 PM ZIYAD
--- NOTE | ~2025-01-14 | XR_ITS ---
EXAMINATION: X-ray bilateral feet CLINICAL INFORMATION: Rheumatoid arthritis COMPARISON: None TECHNIQUE: Right foot 3 views. Left foot 3 views. FINDINGS: Left foot: No fracture or dislocation. No significant joint space narrowing or marginal osteophytes. No osseous erosion. No abnormal soft tissue calcification. Small posterior calcaneal enthesopathy. Right foot: No fracture or dislocation. No significant joint space narrowing or marginal osteophytes. No osseous erosion. No abnormal soft tissue calcification. Small posterior calcaneal enthesopathy.. XR/XR Foot Trent 3V IMPRESSION: No radiographic evidence of significant arthropathy.. Electronically signed by: Rafal Ervin MD 01/14/2025 03:05 PM [email or web address]
--- OUTSIDE RECORDS SUMMARY | 2025-01-14 20:08 | XMS_ITS | Clinical Summary ---
Author Organization [facility] Address [address] [place] [address] Phone Care Team Providers Care Medical Record Coder Name Role Phone Luis Miguel Winchester MD Primary Care Provider [phone] Allergies No known active allergies Medications aspirin 81 mg EC tablet Take 1 tablet (81 mg total) by mouth 1 (one) time each day. 01/02/2023 Active atorvastatin (LIPITOR) 40 mg tablet TAKE 1 TABLET(40 MG) BY MOUTH DAILY 04/07/2023 Active NIFEdipine CC (ADALAT CC) 90 mg 24 hr tablet Take 1 tablet (90 mg total) by mouth. 08/05/2022 Active celecoxib (CeleBREX) 200 mg capsule Take 1 capsule (200 mg total) by mouth 2 (two) times a day. 11/30/2024 Active hydroxychloroqu ine (PLAQUENIL) 200 mg tablet Take 1 tablet (200 mg total) by mouth 1 (one) time each day. Active buPROPion XL (WELLBUTRIN XL) 300 mg 24 hr tablet Take 1 tablet (300 mg total) by mouth 1 (one) time each day. 09/16/2024 Active topiramate (Topamax) 50 mg tablet Take 1 tablet (50 mg total) by mouth 2 (two) times a day. 60 tablet 2 12/08/2024 Active Encounters Date Type Department Care Team Description 12/08/2024 2:30 PM EDT Office Visit [facility] [address] [facility] [address] [place] [phone] Rod Howard MD Migraine with aura and without status migrainosus, not intractable (Primary Dx); IIH (idiopathic intracranial hypertension); Other fatigue 11/15/2024 Telephone [facility] [address] [facility] [address] [place] [address] Gabriella Howard MA from Last 3 [...] Description 04/13/2025 1:30 PM EST Office Visit [facility] [address] [facility] [address] [place] [phone] Rod Howard MD [address] [place] [address] Health Maintenance Due Date Last Done Comments [...] Breast Cancer Screening 07/24/2024 07/24/2022 COVID-19 Vaccine ( season) 2024 12/27/2023, 01/08/2023, 06/03/2021, Additional history [...] CBC auto differential (12/08/2024 3:19 PM EDT) [facility] WBC 8.3 4.8 - 10.8 K/mcL LAB HEMETOLOGY METHOD 12/08/2024 6:23 PM EDT [facility] RBC 5.10(H) 3.80 - 4.80 M/mcL LAB HEMETOLOGY METHOD 12/08/2024 6:23 PM EDT [facility] Hemoglobin 12.8 11.5 - 16.0 g/dL LAB HEMETOLOGY METHOD 12/08/2024 6:23 PM [facility] Hematocrit 41.7 35.0 - 47.0 % LAB HEMETOLOGY METHOD 12/08/2024 6:23 PM [facility] MCV 81.8 79.0 - 98.0 FL LAB HEMETOLOGY METHOD [facility] MCH 25.1(L) 27.0 - 32.0 pcg LAB HEMETOLOGY METHOD 12/08/2024 6:23 PM [facility] MCHC 30.7(L) 32.0 - 37.0 g/dL LAB HEMETOLOGY METHOD 12/08/2024 6:23 PM [facility] RDW 13.4 11.0 - 15.0 % LAB HEMETOLOGY METHOD 12/08/2024 6:23 PM [facility] Platelets 312 130 - 400 K/mcL LAB HEMETOLOGY METHOD 12/08/2024 6:23 PM [facility] MPV 10.9 7.0 - 11.0 FL LAB HEMETOLOGY METHOD 12/08/2024 6:23 PM [facility] NRBC 0.0 <1.0 % LAB HEMETOLOGY METHOD 12/08/2024 6:23 PM [facility] NRBC Absolute 0.00 <0.10 K/mcL LAB HEMETOLOGY METHOD 12/08/2024 6:23 PM [facility] Neutrophils Relative 57.2 % LAB HEMETOLOGY METHOD 12/08/2024 6:23 PM [facility] Lymphocytes Relative 31.1 % LAB HEMETOLOGY METHOD 12/08/2024 6:23 PM [facility] Monocytes Relative 7.8 % LAB HEMETOLOGY METHOD 12/08/2024 6:23 PM [facility] Eosinophils Relative 3.0 % LAB HEMETOLOGY METHOD 12/08/2024 6:23 PM [facility] Basophils Relative 0.7 % LAB HEMETOLOGY METHOD 12/08/2024 6:23 PM [facility] Immature Granulocytes Relative 0.2 % LAB HEMETOLOGY METHOD 12/08/2024 6:23 PM EDT [facility] Neutrophils Absolute 4.77 1.50 - 7.00 K/mcL LAB HEMETOLOGY METHOD 12/08/2024 6:23 PM EDT [facility] Lymphocytes Absolute 2.59 1.00 - 5.00 K/mcL LAB HEMETOLOGY METHOD 12/08/2024 6:23 PM EDT [facility] Monocytes Absolute 0.65 0.20 - 1.00 K/mcL LAB HEMETOLOGY METHOD 12/08/2024 6:23 PM EDT [facility] Eosinophils Absolute 0.25 0.00 - 0.50 K/[facility] LAB HEMETOLOGY METHOD 12/08/2024 6:23 PM EDT [facility] Basophils Absolute 0.06 0.00 - 0.20 K/mcL LAB HEMETOLOGY METHOD 12/08/2024 6:23 PM EDT [facility] Immature Granulocytes Absolute 0.02 0.00 - 0.03 K/[facility] LAB HEMETOLOGY METHOD 12/08/2024 6:23 PM EDT [facility] Blood Venous blood specimen / Unknown Venipuncture / Unknown 12/08/2024 3:19 PM EDT 12/08/2024 3:19 PM EDT Rod Howard MD LAB BLOOD ORDERABLES Fin al Result [facility] [address] [place] [address], * Vitamin D 25 hydroxy (12/08/2024 3:19 PM EDT) Vit D, 25-Hydroxy 30.6 30.0 - 80.0 ng/mL LAB CHEMISTRY METHOD 12/08/2024 7:10 PM EDT [facility] Blood Venous blood specimen / Unknown Venipuncture / Unknown 12/08/2024 3:19 PM EDT 12/08/2024 3:19 PM EDT us Rod Howard MD LAB BLOOD ORDERABLES Fin al Result Performing Organization Address [facility]/ZIP Co de Phone Number [facility] [address] [place] [address], [place] [phone] * (ABNORMAL) Vitamin B12 (12/08/2024 3:19 PM EDT) [facility] Vitamin B-12 1,714(H) 250 - 900 pcg/mL LAB CHEMISTRY METHOD 12/08/2024 7:22 PM EDT [facility] Blood Venous blood specimen / Unknown Venipuncture / Unknown 12/08/2024 3:19 PM EDT 12/08/2024 3:19 PM EDT us Rod Howard MD LAB BLOOD ORDERABLES Fin al Result Performing Organization Address [facility]/ZIP Co de Phone Number [facility] [address] [place] [address], [place] [phone] * (ABNORMAL) Comprehensive metabolic panel (12/08/2024 3:19 PM EDT) [facility] Sodium 142 133 - 145 mmol/L LAB CHEMISTRY METHOD 12/08/2024 7:22 PM EDT [facility] Potassium 3.5 3.5 - 5.5 mmol/L LAB CHEMISTRY METHOD 12/08/2024 7:22 PM EDT [facility] Chloride 110 96 - 110 mmol/L LAB CHEMISTRY METHOD 12/08/2024 7:22 PM EDT [facility] CO2 26 21 - 32 mmol/L LAB CHEMISTRY METHOD 12/08/2024 7:22 PM EDT [facility] Anion Gap 6 3 - 11 LAB CHEMISTRY METHOD 12/08/2024 7:22 PM EDT [facility] Glucose 81 70 - 100 mg/dL LAB CHEMISTRY METHOD 12/08/2024 7:22 PM [facility] BUN 21 5 - 25 mg/dL LAB CHEMISTRY METHOD 12/08/2024 7:22 PM [facility] Creatinine 1.19(H) 0.50 - 1.10 mg/dL LAB CHEMISTRY METHOD 12/08/2024 7:22 PM [facility] eGFR 52(L) >=60 mL/min/1. 73m2 LAB CHEMISTRY METHOD 12/08/2024 7:22 PM [facility] Comment:Calculation based on the Chronic Kidney Disease Epidemiology Collaboration (CKD-EPI) equation refit without adjustment for race. BUN/Creatinine Ratio 17.6 LAB CHEMISTRY METHOD 12/08/2024 7:22 PM [facility] Calcium 9.5 8.5 - 10.5 mg/dL LAB CHEMISTRY METHOD 12/08/2024 7:22 PM [facility] AST (SGOT) 24 10 - 42 unit/L LAB CHEMISTRY METHOD 12/08/2024 7:22 PM [facility] ALT (SGPT) 41 10 - 60 unit/L LAB CHEMISTRY METHOD 12/08/2024 7:22 PM [facility] Alkaline Phosphatase 178(H) 42 - 121 unit/L LAB CHEMISTRY METHOD 12/08/2024 7:22 PM [facility] Total Protein 6.7 6.0 - 8.0 g/dL LAB CHEMISTRY METHOD 12/08/2024 7:22 PM [facility] Albumin 3.4 3.2 - 5.0 g/dL LAB CHEMISTRY METHOD 12/08/2024 7:22 PM [facility] Total Bilirubin 0.3 0.0 - 1.4 mg/dL LAB CHEMISTRY METHOD 12/08/2024 7:22 PM [facility] Blood Venous blood specimen / Unknown Venipuncture / Unknown 12/08/2024 3:19 PM EDT 12/08/2024 3:19 PM EDT Rod Howard MD LAB BLOOD ORDERABLES Fin al Result [facility] [address] [place] [address], from Last 3 Months Insurance MEDICAID - [place] Care Teams Medical Record Coder Relationship Specialty Start Date End Date Luis Miguel Winchester MD [address] PCP - General Internal Medicine 12/08/24
--- OUTSIDE RECORDS SUMMARY | 2025-01-14 20:08 | XMS_ITS | Data Portability ---
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 Plan of Treatment Reminders Order Date Submit Date Provider Last Modified By Organization Details Last Modified Time Details Appointments PE EST 2025 10:00A M Josey cordova MD Not available Not available Not available Lab BMP, serum or plasma 2024 025 JORDEN [facility] (Centralized Electronic Ordering - All Locations), Patient Can Go To The Location Of Their Choice, [id number] 08/19/2024 14:06:23 lipid panel, serum 2023 024 JORDEN [facility] (Centralized Electronic Ordering - All Locations), Patient Can Go To The Location Of Their Choice, [id number] 01/22/2024 08:10:05 BMP, serum or plasma 2023 024 JORDEN [facility] (Centralized Electronic Ordering - All Locations), Patient Can Go To The Location Of Their Choice, [id number] 08/21/2023 14:07:05 microalbu min/creat inine, mass ratio, urine 2023 024 JORDEN [facility] (Centralized Electronic Ordering - All Locations), Patient Can Go To The Location Of Their Choice, [id number] 08/21/2023 14:07:05 Referral None recorded. Procedures None recorded. Surgeries None recorded. Imaging None recorded. Medication Orders bupropion HCl XL 300 mg 24 hr tablet, extended release 2024 025 [facility], [phone] [place] [address], [address], 09/16/2024 11:37:20 bupropion HCl XL 150 mg 24 hr tablet, extended release 2024 025 [facility], [address] [place] [address], [address], 08/18/2024 15:01:55 Adderall XR 25 mg capsule,e xtended release 2023 024 [email or web address] [facility], [phone] [place] [address], [address], 08/18/2024 14:12:11 gabapenti n 300 mg capsule 2023 025 [facility], [phone] [place], [address], 08/18/2024 14:12:26 Adderall XR 20 mg capsule,e xtended release 2023 024 [facility], [phone] [place], [address], 02/18/2024 15:24:02 furosemid e 20 mg tablet 2023 024 [id number], [address] [place], [place], [id number], 01/21/2024 14:39:49 Patient TargetsNo targets recorded. Patient Instructions Encounter Date Encounter Id Patient Instructions Last Modified By Organization Details Last Modified Time 08/15/2023 [id number] leg and ankle edema: care instructions Not available 08/15/2023 12:23:01 high blood pressure: care instructions Not available 08/15/2023 12:23:01 learning about high blood pressure Not available 08/15/2023 12:23:01 01/21/2024 [id number] insomnia: care instructions [email or web address] Not available 01/21/2024 15:36:31 high blood pressure: care instructions [email or web address] Not available 01/21/2024 15:36:32 learning about high blood pressure [email or web address] Not available 01/21/2024 15:36:32 high cholesterol : care instructions [email or web address] Not available 01/22/2024 17:45:52 attention defici t hyperactivity disorder (ADHD) in adults: care instructions [email or web address] Not available 01/21/2024 15:36:32 02/18/2024 [id number] high blood pressure: care instructions [email or web address] Not available 02/18/2024 14:29:20 learning about high blood pressure [email or web address] Not available 02/18/2024 14:29:19 learning about anxiety disorders [email or web address] Not available 02/18/2024 14:29:20 08/18/2024 [id number] high blood pressure: care instructions [email or web address] Not available 08/18/2024 14:43:25 learning about high blood pressure acennerazzo Not available 08/18/2024 14:43:25 attention defici t hyperactivity disorder (ADHD) in adults: care instructions [email or web address] Not available 08/18/2024 14:43:24 09/16/2024 [id number] high blood pressure: care instructions acennerazzo Not [...] glucose 99 mg/dL 70-99 Not Available [facility] ([facility]) [address] [place], [address], 08/21/2023 14:07:05 08/20/19 24 08/21/2023 BASIC METAB OLIC PANEL (8) BUN 18 mg/dL 6-24 Not Available [facility] ([facility]) [address] [place], [address], 08/21/2023 14:07:05 08/20/19 24 08/21/2023 BASIC METAB OLIC PANEL (8) creatinine 1.26 mg/dL 0.57-1 .00 above high normal Not Available [facility] ([facility]) [address] [facility] [place], [address], 08/21/2023 14:07:05 08/20/19 24 08/21/2023 BASIC METAB OLIC PANEL (8) eGFR 49 mL/mi n/1.7 3 >59 below low normal Not Available [facility] ([facility]) [address] [place], [address], 08/21/2023 14:07:05 08/20/19 24 08/21/2023 BASIC METAB OLIC PANEL (8) BUN/creatini ne ratio 14 9-23 Not Available [facility] ([facility]) [address] [place], [address], 08/21/2023 14:07:05 08/20/19 24 08/21/2023 BASIC METAB OLIC PANEL (8) sodium 147 mmol/ L 134-14 4 above high normal Not Available [facility] ([facility]) [address] [place], [address], 08/21/2023 14:07:05 08/20/19 24 08/21/2023 BASIC METAB OLIC PANEL (8) potassium 3.9 mmol/ L 3.5-5. 2 Not Available [facility] ([facility]) [address] [facility], [place], [address], 08/21/2023 14:07:05 08/20/19 24 08/21/2023 BASIC METAB OLIC PANEL (8) chloride 105 mmol/ L 96-106 Not Available [facility] ([facility]) [address] [facility] [place], [address], 08/21/2023 14:07:05 08/20/19 24 08/21/2023 BASIC METAB OLIC PANEL (8) carbon dioxide, total 23 mmol/ L 20-29 Not Available [facility] ([facility]) [address] [facility] [place], [address], 08/21/2023 14:07:05 08/20/19 24 08/21/2023 BASIC METAB OLIC PANEL (8) calcium 9.8 mg/dL 8.7-10 .2 Not Available [facility] ([facility]) [address] [place], [address], 08/21/2023 14:07:05 08/20/19 24 08/21/2023 ALBUM IN/CR EAT RATIO , MICHEAL M UR creatinine, urine 41.4 mg/dL not estab. Not Available [facility] ([facility]) [address] [place], [address], 08/21/2023 14:07:05 08/20/19 24 08/21/2023 ALBUM IN/CR EAT RATIO , BESSO M UR albumin, urine <3.0 ug/mL not estab. Not Available [facility] ([facility]) [address] [place], [address], 08/21/2023 14:07:05 08/20/19 24 08/21/2023 ALBUM IN/CR EAT RATIO , RANDO M UR alb/creat ratio <7 mg/g_ creat 0-29 Salome l: 0 - 29 Moder ately incre ased: 30 - 300 Sever nadiya incre ased: >300 Not Available [facility] ([facility]) [address] [facility], [place], [address], 08/21/2023 14:07:05 01/21/20 24 01/22/2024 LIPID PANEL cholesterol, total 227 mg/dL 100-19 9 above high normal Not Available [facility] ([facility]) [address] [place], [address], 01/22/2024 08:10:05 01/21/20 24 01/22/2024 LIPID PANEL triglyceride s 79 mg/dL 0-149 normal Not Available [facility] ([facility]) [address] [place], [address], 01/22/2024 08:10:05 01/21/20 24 01/22/2024 LIPID PANEL HDL cholesterol 95 mg/dL >39 normal Not Available [facility]) [address] [place], [address], 01/22/2024 08:10:05 01/21/20 24 01/22/2024 LIPID PANEL VLDL cholesterol donaldo 14 mg/dL 5-40 Not Available [facility] ([facility]) [address] [place], [address], 01/22/2024 08:10:05 01/21/20 24 01/22/2024 LIPID PANEL LDL chol calc ([facility]) 118 mg/dL 0-99 above high normal Not Available [facility] ([facility]) [address] [place], [address], 01/22/2024 08:10:05 01/21/20 24 01/22/2024 LIPID PANEL LDL calc comment: PROGRAMMER NUMERICAL CONTROL Not Available [facility] ([facility]) [address] [place], [address], 01/22/2024 08:10:05 08/19/19 25 08/19/2024 BASIC METAB OLIC PANEL (8) glucose 93 mg/dL 70-99 normal Not Available [facility] ([facility]) [address] [facility] [place], [address], 08/19/2024 14:06:23 08/19/19 25 08/19/2024 BASIC METAB OLIC PANEL (8) BUN 16 mg/dL 8-27 normal Not Available [facility] ([facility]) [address] [facility] [place], [address], 08/19/2024 14:06:23 08/19/19 25 08/19/2024 BASIC METAB OLIC PANEL (8) creatinine 0.85 mg/dL 0.57-1 .00 normal Not Available [facility] ([facility]) [address] [facility] [place], [address], 08/19/2024 14:06:23 08/19/19 25 08/19/2024 BASIC METAB OLIC PANEL (8) eGFR 78 mL/mi n/1.7 3 >59 normal Not Available [facility] ([facility]) [address] [facility] [place], [address], 08/19/2024 14:06:23 08/19/19 25 08/19/2024 BASIC METAB OLIC PANEL (8) BUN/creatini ne ratio 19 12-28 normal Not Available [facility] ([facility]) [address] [facility] [place], [address], 08/19/2024 14:06:23 08/19/19 25 08/19/2024 BASIC METAB OLIC PANEL (8) sodium 144 mmol/ L 134-14 4 normal Not Available [facility] ([facility]) [address] [facility] [place], [address], 08/19/2024 14:06:23 08/19/19 25 08/19/2024 BASIC METAB OLIC PANEL (8) potassium 4.6 mmol/ L 3.5-5. 2 normal Not Available [facility] ([facility]) [address] [place], [address], 08/19/2024 14:06:23 08/19/19 25 08/19/2024 BASIC METAB OLIC PANEL (8) chloride 104 mmol/ L 96-106 normal Not Available [facility] ([facility]) [address] [facility], [place], [address], 08/19/2024 14:06:23 08/19/19 25 08/19/2024 BASIC METAB OLIC PANEL (8) carbon dioxide, total 23 mmol/ L 20-29 normal Not Available [facility] ([facility]) [address] [facility], [place], [address], 08/19/2024 14:06:23 08/19/19 25 08/19/2024 BASIC METAB OLIC PANEL (8) calcium 10.2 mg/dL 8.7-10 .3 normal Not Available [facility] ([facility]) [address] [facility], [place], [address], 08/19/2024 14:06:23 12/09/19 25 12/08/2024 CBC WITH AUTO DIFFE RENTI AL WBC 8.3 K/mcL 4.8-10 .8 Not Available [facility] U/S Dept [address] [place], [address], 12/08/2024 18:25:32 12/09/19 25 12/08/2024 CBC WITH AUTO DIFFE RENTI AL RBC 5.10 M/mcL 3.80-4 .80 high Not Available [facility] [address] [facility] [place], [address], 12/08/2024 18:25:32 12/09/19 25 12/08/2024 CBC WITH AUTO DIFFE RENTI AL hemoglobin 12.8 g/dL 11.5-1 6.0 Not Available [facility] Dept [address] [facility] [place], [address], 12/08/2024 18:25:32 12/09/1912/08/2024 CBC WITH AUTO DIFFE RENTI AL hematocrit 41.7 % 35.0-4 7.0 Not Available [facility]/S Dept [facility] [place], [address], 12/08/2024 18:25:32 12/09/1912/08/2024 CBC WITH AUTO DIFFE RENTI AL MCV 81.8 fL 79.0-9 8.0 Not Available [facility] [address] [place] [address] [place], [address], 12/08/2024 18:25:32 12/09/1912/08/2024 CBC WITH AUTO DIFFE RENTI AL MCH 25.1 pcg 27.0-3 2.0 low Not Available [facility] [address] [place], [place] [address] [place], [address], 12/08/2024 18:25:32 12/09/1912/08/2024 CBC WITH AUTO DIFFE RENTI AL MCHC 30.7 g/dL 32.0-3 7.0 low Not Available [facility] [place], [address], 12/08/2024 18:25:32 12/09/1912/08/2024 CBC WITH AUTO DIFFE RENTI AL RDW 13.4 % 11.0-1 5.0 Not Available [facility] [address] [place] [address] [place], [address], 12/08/2024 18:25:32 12/09/1912/08/2024 CBC WITH AUTO DIFFE RENTI AL platelets 312 K/mcL 130-40 0 Not Available [facility] [address] [place], [place] [address], [address], 12/08/2024 18:25:32 12/09/1912/08/2024 CBC WITH AUTO DIFFE RENTI AL MPV 10.9 fL 7.0-11 .0 Not Available [facility] [address] [place], [place] [address], [address], 12/08/2024 18:25:32 12/09/19 25 12/08/2024 CBC WITH AUTO DIFFE RENTI AL NRBC 0.0 % <1.0 Not Available [facility] [address] [place] [address] [place], [address], 12/08/2024 18:25:32 12/09/1912/08/2024 CBC WITH AUTO DIFFE RENTI AL NRBC absolute 0.00 K/mcL <0.10 Not Available [facility] [address] [place] [address], [address], 12/08/2024 18:25:32 12/09/1912/08/2024 CBC WITH AUTO DIFFE RENTI AL neutrophils relative 57.2 % Not Available [facility] [address] [place] [address], [address], 12/08/2024 18:25:32 12/09/19 25 12/08/2024 CBC WITH AUTO DIFFE RENTI AL lymphocytes relative 31.1 % Not Available [facility] [address] [place] [address], [address], 12/08/2024 18:25:32 12/09/1912/08/2024 CBC WITH AUTO DIFFE RENTI AL monocytes relative 7.8 % Not Available [facility] [address] [place] [address], [address], 12/08/2024 18:25:32 12/09/1912/08/2024 CBC WITH AUTO DIFFE RENTI AL eosinophils relative 3.0 % Not Available [facility] [address] [place] [address], [address], 12/08/2024 18:25:32 12/09/1912/08/2024 CBC WITH AUTO DIFFE RENTI AL basophils relative 0.7 % Not Available [facility] [address] [place] [address] [place], [address], 12/08/2024 18:25:32 12/09/1912/08/2024 CBC WITH AUTO DIFFE RENTI AL immature granulocytes relative 0.2 % Not Available [facility] [address] [place] [address], [address], 12/08/2024 18:25:32 12/09/19 25 12/08/2024 CBC WITH AUTO DIFFE RENTI AL neutrophils absolute 4.77 K/mcL 1.50-7 .00 Not Available [facility] [address] [place] [address], [address], 12/08/2024 18:25:32 12/09/1912/08/2024 CBC WITH AUTO DIFFE RENTI AL lymphocytes absolute 2.59 K/mcL 1.00-5 .00 Not Available [facility] [address] [place] [address], [address], 12/08/2024 18:25:32 12/09/1912/08/2024 CBC WITH AUTO DIFFE RENTI AL monocytes absolute 0.65 K/mcL 0.20-1 .00 Not Available [facility] [address] [place] [address], [address], 12/08/2024 18:25:32 12/09/19 25 12/08/2024 CBC WITH AUTO DIFFE RENTI AL eosinophils absolute 0.25 K/mcL 0.00-0 .50 Not Available [facility] [address] [place] [address], [place], [address], 12/08/2024 18:25:32 12/09/19 25 12/08/2024 CBC WITH AUTO DIFFE RENTI AL basophils absolute 0.06 K/mcL 0.00-0 .20 Not Available [facility]/S Dept [facility] [place], [address], 12/08/2024 18:25:32 12/09/1912/08/2024 CBC WITH AUTO DIFFE RENTI AL immature granulocytes absolute 0.02 K/mcL 0.00-0 .03 Not Available [facility]/S Dept [facility] [place], [address], 12/08/2024 18:25:32 12/09/19 25 12/08/2024 CBC WITH AUTO DIFFE RENTI AL note See Report [facility] agustin [address] r, [address], [facility] [place] [address] Not Available [facility]/S Dept [address] [place], [place] [address], [address], 12/08/2024 18:25:32 12/09/19 25 12/08/2024 VITAM IN D 25 HYDRO XY vit D, 25-hydroxy 30.6 NG/mL 30.0-8 0.0 Not Available [facility]/S Dept [address] [place], [place] [address], [address], 12/08/2024 19:13:11 12/09/19 25 12/08/2024 VITAM IN D 25 HYDRO XY note See Report [facility] agustin [address], [address], [place] [facility] [place] [address] Not Available [facility]/S Dept [facility] [place], [address], 12/08/2024 19:13:11 12/09/1912/08/2024 COMPR EHENS BAKARI METAB OLIC PANEL sodium 142 mmol/ L 133-14 5 Not Available [facility] Dept [facility] [place], [address], 12/08/2024 19:24:05 12/09/19 25 12/08/2024 COMPR EHENS BAKARI METAB OLIC PANEL potassium 3.5 mmol/ L 3.5-5. 5 Not Available [facility] [place], [address], 12/08/2024 19:24:05 12/09/1912/08/2024 COMPR EHENS BAKARI METAB OLIC PANEL chloride 110 mmol/ L 96-110 Not Available [facility] [address] [place] [facility] [place], [address], 12/08/2024 19:24:05 12/09/19 25 12/08/2024 COMPR EHENS BAKARI METAB OLIC PANEL CO2 26 mmol/ L 21-32 Not Available [facility] [address] [place], [address], 12/08/2024 19:24:05 12/09/19 25 12/08/2024 COMPR EHENS BAKARI METAB OLIC PANEL anion gap 6 3-11 Not Available [facility]/S Dept [facility] [address], [address], 12/08/2024 19:24:05 12/09/19 25 12/08/2024 COMPR EHENS BAKARI METAB OLIC PANEL glucose 81 mg/dL 70-100 Not Available [facility] [address] [place], [place] [address] [place] [address] [place] [facility] [place], [address], 12/08/2024 19:24:05 12/09/19 25 12/08/2024 COMPR EHENS BAKARI METAB OLIC PANEL BUN 21 mg/dL 5-25 Not Available [facility] [place], [address], 12/08/2024 19:24:05 12/09/1912/08/2024 COMPR EHENS BAKARI METAB OLIC PANEL creatinine 1.19 mg/dL 0.50-1 .10 high Not Available [facility] [place], [address], 12/08/2024 19:24:05 12/09/1912/08/2024 COMPR EHENS BAKARI METAB OLIC PANEL eGFR 52 mL/mi n/1.7 3m2 >=60 low Calcu latio n based on the Chron ic Kidne y Disea se Epide miolo gy Colla borat ion (CKD- EPI) equat ion refit witho ut adjus tment for race. Not Available [facility] [place], [address], 12/08/2024 19:24:05 12/09/1912/08/2024 COMPR EHENS BAKARI METAB OLIC PANEL BUN/creatini ne ratio 17.6 Not Available [facility] [place], [address], 12/08/2024 19:24:05 12/09/1912/08/2024 COMPR EHENS BAKARI METAB OLIC PANEL calcium 9.5 mg/dL 8.5-10 .5 Not Available [facility] [place], [address], 12/08/2024 19:24:05 12/09/1912/08/2024 COMPR EHENS BAKARI METAB OLIC PANEL AST (SGOT) 24 unit/ L 10-42 Not Available [facility] [place], [address], 12/08/2024 19:24:05 12/09/19 25 12/08/2024 COMPR EHENS BAKARI METAB OLIC PANEL ALT (SGPT) 41 unit/ L 10-60 Not Available [facility] [place], [address], 12/08/2024 19:24:05 12/09/19 25 12/08/2024 COMPR EHENS BAKARI METAB OLIC PANEL alkaline phosphatase 178 unit/ L 42-121 high Not Available [facility] [address], [address], 12/08/2024 19:24:05 12/09/1912/08/2024 COMPR EHENS BAKARI METAB OLIC PANEL total protein 6.7 g/dL 6.0-8. 0 Not Available [facility] [address] [place] [address] [place], [address], 12/08/2024 19:24:05 12/09/19 25 12/08/2024 COMPR EHENS BAKARI METAB OLIC PANEL albumin 3.4 g/dL 3.2-5. 0 Not Available [facility] [address] [place], [place] [address] [place], [address], 12/08/2024 19:24:05 12/09/19 25 12/08/2024 COMPR EHENS BAKARI METAB OLIC PANEL total bilirubin 0.3 mg/dL 0.0-1. 4 Not Available [facility] [address] [place], [place] [address] [place], [address], 12/08/2024 19:24:05 12/09/1912/08/2024 COMPR EHENS BAKARI METAB OLIC PANEL note See Report [facility] [place] r, [address], Aldo guillory d, Denisa [facility] [place] [address] Not Available [facility]/S Dept [address] [place], [place] [address] [place] [address] [place] [facility] [place], [address], 12/08/2024 19:24:05 12/09/19 25 12/08/2024 VITAM IN B12 vitamin B-12 1714 pcg/m L 250-90 0 high Not Available [facility] U/S Dept [address] [place], [address], 12/08/2024 19:24:06 12/09/19 25 12/08/2024 VITAM IN B12 note See Report [facility], [address], [place], [place] [address] Not Available [facility] Dept [address] [place], [address], 12/08/2024 19:24:06 01/31/20 24 01/31/2024 MR brain wo and W contr ast See Note [facility] , a member of [employer] [facility] t Name: MEMO JAVIER Date of : 1964 Reason for Exam: WHITE MATTER DISEAS E Exam Date: 2023 [id number] EST Report Status : Final Orderi ng [...] Transc ribed Date: 2023 15:13 ET [address]idy [address], [address], 02/01/2024 13:18:06 Result Notes None recorded. Problems Name Problem SNOMED Code Status Onset Date Resolution Date Notes Provider Name and Address Organization Details Recorded Time Attentio n deficit hyperact ivity disorder , predomin antly inattent bakari type 86738907 Completed 10/12/2015 Josey Winchester MD [address] [facility] [address], [place], [address] , [facility] 8 13:27:14 Plantar froyiti s [id number] Active Not Available [facility] 0 18:22:26 Fatigue [id number] Completed 03/25/2016 Ángela Lucero PA-C [address] [facility] [address], [place], [address] , [facility] 1 09:22:08 Administ ration of bacteria l and viral vaccine Completed 200809/21/2013 RECORDED 06/24/19 09 10:01AM BY KEVIN TOSCANO, OFFICE VISIT Josey Winchester MD [address] [address], [place], [address] , [facility] 6 09:55:27 Administ ration of bacteria l and viral vaccine Completed 200810/11/2013 RECORDED 06/24/19 09 10:01AM BY KEVIN TOSCANO, OFFICE VISIT Josey Winchester MD [address] [address], [place], [address] , [facility] 6 09:55:27 Astigmat ism [id number] Completed 201209/21/2013 RECORDED 03/26/19 13 8:47AM BY HOWARD MERLOS ON/ADDEN DUM Josey Winchester MD [address] [address], [place], [address] , [facility] 6 09:55:27 Screenin g for malignan t neoplasm of breast Completed 201209/21/2013 RECORDED 03/26/19 13 8:47AM BY TRACEY MERLOSATI ON/ADDEN DUM Josey Winchester MD [address] [address], [place], [address] , [facility] 6 09:55:28 Screenin g for malignan t neoplasm of cervix Completed 201209/21/2013 RECORDED 03/26/19 13 8:47AM BY HOWARD MERLOS ON/MARGRET Winchester MD [address] 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 [address], [place], [address] , [facility] 6 09:55:27 Malaise and fatigue [id number] Completed 201209/21/2013 RECORDED 03/26/19 13 8:46AM BY HOWARD MERLOS ON/MARGRET Winchester MD [address] [facility] [address], [place], [address] , [facility] 6 09:55:27 Shoulder joint pain [id number] Completed 201209/21/2013 RECORDED 03/26/19 13 8:46AM BY HOWARD MERLOS ON/MARGRET Winchester MD [address] [facility] [address], [place], [address] , [facility] 6 09:55:27 Skin sensatio n disturba nce [id number] Completed 201209/21/2013 RECORDED 03/26/19 13 8:47AM BY HOWARD MERLOS ON/MARGRET Winchester MD [address] [facility] [address], [place], [address] , [facility] 6 09:55:27 Astigwat is [id number] Completed 201210/11/2013 RECORDED 03/26/19 13 8:47AM BY HOWARD MERLOS ON/MARGRET Winchester MD [address], [place], [address] , [facility] 6 09:55:27 Screenin g for malignan t neoplasm of breast Completed 201210/11/2013 RECORDED 03/26/19 13 8:47AM BY HOWARD MERLOS ON/MARGRET Winchester MD [address] [facility] [address], [place], [address] , [facility] 6 09:55:28 Screenin g for malignan t neoplasm of cervix Completed 201210/11/2013 RECORDED 03/26/19 13 8:47AM BY HOWARD MERLOS ON/MARGRET Winchester MD [address] [facility] [address], [place], [address] , [facility] 6 09:55:28 Tietze's disease 66581818 Completed 201210/11/2013 RECORDED 03/26/19 13 8:46AM BY HOWARD MERLOS ON/MARGRET Winchester MD [address] [facility] [address], [place], [address] , [facility] 6 09:55:27 Malaise and fatigue 145543920 Completed 201210/11/2013 RECORDED 03/26/19 13 8:46AM BY HOWARD MERLOS ON/MARGRET Winchester MD [address] [facility] [address], [place], [address] , [facility] 6 09:55:27 Skin sensatio n disturba ide 25147830 Completed 201210/11/2013 RECORDED 03/26/19 13 8:47AM BY HOWARD MERLOS ON/MARGRET Winchester MD [address], [place], [address] , [facility] 6 09:55:27 Screenin g for malignan t neoplasm of colon Completed 201209/21/2013 RECORDED 09/22/19 13 8:20AM BY HOWARD MERLOS ON/MARGRET Winchester MD [address] 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 [address], [place], [address] , [facility] 6 09:55:27 Cough 17487326 Completed 201309/21/2013 RECORDED 04/01/19 14 9:45AM BY LISETH QUEZADA I ANNOTATI ON/ADDEN DUM Josey Winchester MD [address] [facility] [address], [place], [address] , [facility] 6 09:55:27 Cough 94881224 Completed 201310/11/2013 RECORDED 04/01/19 14 9:45AM BY LISETH QUEZADA I ANNOTATI ON/ADDEN DUM Josey Winchester MD [address] 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 [address], [place], [address] , [facility] 6 09:55:27 Patient status finding [id number] Completed 201301/11/2014 RECORDED 07/08/19 14 1:46PM BY LISETH QUEZADA I, OFFICE VISIT Josey Winchester MD [address] [facility] [address], [place], [address] , [facility] 6 09:55:27 Flatulen ce, eructati on and gas pain 550031594 Completed 201301/11/2014 STORY: SEEN BY DR PARSONS; IMPRESSI ON: ADVISED HER TO GO TO [facility] TO SEE IF THEY HAVE ANYTHING TO HELP WITH HER SX.; RECORDED 07/08/19 14 1:40PM BY LISETH QUEZADA I, OFFICE VISIT Josey Winchester MD [address] [address], [place], [address] , [facility] 6 09:55:27 Visual disturba nce 05982290 Active 2013 IMPRESSI ON: POSSIBLE HYPOTENS ION VS MIGRAINE EQUIVALE NTS. SHE WILL CHECK HER BP AT HER NEXT EPISODE. IF HER BP IS NORMAL SHE WILL TAKE A MIGRAINE MED TO SEE IF THIS HELPS. IF THERE IS NO RELIEF SHE WILL CALL HER EYE DOCTOR. Not Available [facility] 0 18:22:25 Single major depressi ve episode Active 2013 Problem in Fall and Winter Not Available [facility] 0 18:22:26 Gastroes ophageal reflux disease 639711727 Active 2013 IMPRESSI ON: SHE HAS TRIED MEDS BUT HER SYMPTOMS PERSIST. Not Available [facility] 0 18:22:26 Essentia l hyperten ray 44470055 Active 2013 Josey Winchester MD [address] [facility] [address], [place], [address] , [facility] 3 13:25:29 Hyperlip idemia 21336094 Completed 201301/11/2014 RECORDED 07/08/19 14 1:40PM BY LISETH QUEZADA I, OFFICE VISIT Josey Winchester MD [address] [address], [place], [address] , [facility] 0 19:09:36 Irritabl e bowel syndrome 41023149 Active 2013 Takes meds which help Not Available [facility] 0 18:22:26 Migraine 94333995 Active 2013 Not Available [facility] 0 18:22:26 Adult health examinat ion Completed 201301/11/2014 RECORDED 07/08/19 14 1:45PM BY LISETH QUEZADA I, OFFICE VISIT Josey Winchester MD [address] 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 Active 2015 Followed by [facility] Not Available [facility] 0 18:22:26 Pneumoni a 275606992 Completed 201608/15/2016 Humera celaya MA null, [facility] 7 16:08:02 Attentio n deficit hyperact ivity disorder , predomin antly inattent bakari type 22793747 Active 2017 Not Available [facility] 0 18:22:26 Hypokale monisha 98091543 Active 2018 Not Available [facility] 0 18:22:26 Hyperlip idemia 27270878 Active 2019 Not Available [facility] 0 18:22:26 Loss of hair 420239602 Active 2020 Josey Winchester MD [address], [place], [address] , [facility] 1 17:02:35 Pain of multiple joints 04321291 Active 2020 Ángela Lucero PA-C [address], [place], [address] , [facility] 1 09:22:07 Fatigue 91628952 Active 2020 Ángela Lucero PA-C [address], [place], [address] , [facility] 1 09:22:08 Pain of right wrist 90277820684 9100 Active 2020 Seen by [facility]; had MRI showing OA. Josey Winchester MD [address], [place], [address] , [facility] 1 18:07:02 Seronega tive rheumato id arthriti s 078396350 Active 2021 Followed by rheum; on methotre xate. Josey Winchester MD [address], [place], [address] , [facility] 2 07:34:37 History of SARS-CoV -2 [id number] 2977233 Active 2022 Josey Winchester MD [address], [place], [address] , [facility] 3 10:39:24 Multiple sclerosi s 62068189 Active [address] Mague real. Monicaa l optic neuritis . Josey Winchester MD [address], [place], [address] , [facility] 3 10:45:14 Kidney finding 306919596 Active 2022 born with only one kidney Purvi Torres, MORTGAGE PROFESSIONAL null, [facility] 3 09:09:38 Thyroid nodule 964609231 Active 2022 Thyroid U/S done and no addition al imaging required . Josey Winchester MD [address], [place], [address] , [facility] 3 20:13:54 Edema of lower extremit y 451622525 Active 2023 Luis bentley [facility] 4 12:11:02 Generali zed anxiety disorder 17977481 Active 2024 Josey Winchester MD [address], [place], [address] , [facility] 5 11:56:52 Chronic kidney disease stage 3A 316547075 Active 2024 Josey Winchester MD [address], [place], [address] , [facility] 5 07:38:46 Problem Notes None recorded. Procedures Surgical History Date Name Laterality Status Provider Name and Address Organization Details Recorded Time 07/25/19 23 Most Recent Mammogram completed Kati Dallas [facility] 07/24/2022 12:09:18 07/25/19 23 Mammogram Diagnostic Bilateral completed Kati Dallas [facility] 07/24/2022 12:09:11 05/10/19 23 wrist injection completed Gracy Juares [facility] 05/14/2022 13:50:42 03/30/19 16 Date of Last Pap Smear completed Boone Dewitt [facility] 04/03/2015 11:53:06 03/16/19 16 Date of Last Colonoscopy completed Viviana Hodge [facility] 03/17/2015 10:15:20 03/16/19 16 Colonoscopy completed Roslyn Orr MA [facility] 02/23/2020 13:16:56 03/03/19 02 Total Abdominal Hysterectomy completed Humera valentine MA [facility] 08/15/2016 16:15:28 Cholecystectomy completed Josey Winchester MD [address], [place], [address], [facility] 01/11/2014 14:15:38 Imaging Results None recorded. Procedure Notes None recorded. Medical Equipment None Reported. Allergies Allergen ID Allergen Name Allergen Category Reaction Reaction Severity Criticality Documentation Date Start Date Code Code System Note Provider Name and Address Organization Details Recorded Time 17758 omeprazol e medicatio n rash Not available Not available 06/25/2017 7646 RxNorm Josey cordova MD [address] [facility] [address], [place], [address], [facility] 8 13:54:05 8323 Pepcid medicatio n angioedem a Not available Not available 09/14/20132013 84109 8 RxNorm REACT ION: RIGHT ARM SWELL ING Humera Chad quevedo MA null, [facility] 7 16:07:06 Medications Name Sig Start Date [...] 50 mcg/actua tion nasal spray,mary beth pension Joice 1 spray every day by intranas al [...] DateTime 08/15/2023 158/84 mm[Hg] Ángela Lucero PA-C [address] [facility] [address], [place], [address], [facility] 08/15/2023 12:25:22 Date Recorded Body height Body mass index (BMI) Body weight Systolic And Diastolic Provider Name and Address Organization Details Last Updated DateTime 08/15/2023 165.1 cm 25.1 kg/m2 43396.45 g 145/87 mm[Hg] Maura Haider MA [facility] 08/15/2023 11:36:16 Date Recorded Body height Body mass index (BMI) Body weight Heart rate Oxygen saturation Oxygen saturation in Arterial blood by Pulse oximetry Systolic And Diastolic Provider Name and Address Organization Details Last Updated DateTime 5 165.1 cm 28.6 kg/m2 35325.8 9 g 60 /min 99 % 99 % 120/78 mm[Hg] Maura Haider MA [facility] 5 14:03:29 Date Recorded Body height Body mass index (BMI) Body weight Heart rate Oxygen saturation Oxygen saturation in Arterial blood by Pulse oximetry Body temperature Systolic And Diastolic Provider Name and Address Organization Details Last Updated DateTime 5 165.1 cm 28.2 kg/m2 65703.9 1 g 63 /min 96 % 96 % 97.9 [degF] 133/77 mm[Hg] Tala Yañez MA [facility] 5 11:11:12 Date Recorded Body height Body mass index (BMI) Body weight Systolic And Diastolic Provider Name and Address Organization Details Last Updated DateTime 01/21/2024 165.1 cm 26 kg/m2 29722.41 g 137/86 mm[Hg] Maura Haider MA [facility] 01/21/2024 14:38:24 Date Recorded Body height Body mass index (BMI) Body weight Heart rate Oxygen saturation Oxygen saturation in Arterial blood by Pulse oximetry Body temperature Systolic And Diastolic Provider Name and Address Organization Details Last Updated DateTime 4 165.1 cm 26.6 kg/m2 96247.7 8 g 101 /min 97 % 97 % 98 [degF] 121/82 mm[Hg] Maura Haider MA [facility] 4 14:08:27 Social History Question Answer Notes LastModified by Organizat ion Details LastModified Time Tobacco Smoking Status Never Smoker Not Available [facility] 01/04/2020 03:36:37 Do You Have An Advance Directive? Yes [facility] [email or web address] Information not available 10/03/2021 Is Blood Transfusion Acceptable In An Emergency? Yes [id number] Information not available 01/04/2020 What Is Your Level Of Caffeine Consumption? None [id number] Information not available 01/04/2020 How Much Tobacco Do You Chew? None [id number] Information not available 01/04/2020 What Type Of Diet Are You Following? VEGETARIAN No Salt [id number] Information not available 01/04/2020 Which Illicit Or Recreational Drugs Have You Used? None [id number] Information not available 01/04/2020 Education 4 Year College Information not available 10/03/2021 Live Alone Or With Others? With Others 2 Children And 1 GC (born Late 2012) Information not available 10/03/2021 Do You Take [...] Health Care Provider Or Emergency Responder? No [email or web address] Information not available 02/23/2020 To The Best Of Your Knowledge Have You Been In Close Proximity To Any Individual Who Tested Positive For COVID-19? No [email or web address] Information not available 02/23/2020 Have You Recently [...] available 02/23/2020 Seat Belts Used Routinely Yes [email or web address] Information not available 10/03/2021 Are You Sexually Active? No [id number] Information not available 01/04/2020 Smoke Alarm In Home Yes [email or web address] Information not available 10/03/2021 At What Age Did You Start Smoking Tobacco? 1 [id number] Information not available 01/04/2020 Are You Passively Exposed To Smoke? No [email or web address] Information not available 10/12/2015 How Much Tobacco Do You Smoke? No [id number] Information not available 01/04/2020 Do You Use Sunscreen Routinely? Yes [id number] Information not available 01/04/2020 How Many Years Have You Smoked Tobacco? 0 [id number] Information not available 01/04/2020 Sex: Unknown Functional Status Question Answer Note LastModified by Organization Details LastModified Time Do you or have you ever used any other forms of tobacco or nicotine? No [email or web address] Information not available 10/03/2021 What is your level of alcohol consumption? None [id number] Information not available 01/04/2020 Do you or have you ever used smokeless tobacco? Never used smokeless tobacco [id number] Information not available 01/04/2020 Are you currently employed? Yes [id number] Information not available 01/04/2020 Are you able to walk independently without assistance or assistive devices? YESWOREST [email or web address] Information not available 10/03/2021 Are you able to care for yourself independently? 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 Never used electronic cigarettes [email or web address] Information not available 10/03/2021 What is your exercise level? Moderate Trying to walk; no longer going to the gym since COVID [email or web address] Information not available 02/23/2020 Mental Status None [...] or 50 mcg/0.25mL dose 1 [facility] 11:29:55 Influenza, split virus, trivalent, preservative 3 completed [facility] 03/07/[facility]21 11:29:55 Influenza, split virus, trivalent, preservative 2 completed [facility] 03/07/2021 11:29:55 COVID-19, mRNA, LNP-S, PF, 100 mcg/0.5mL dose or 50 mcg/0.25mL dose 1 completed [facility] 03/07/2021 11:29:55 Influenza, MDCK, quadrivalent, PF 9 completed [facility] 03/07/2021 11:29:55 Influenza, split virus, trivalent, preservative 1 completed [facility] 03/07/2021 11:29:55 Influenza, split virus, quadrivalent, PF 5 completed Not Available [facility] 03/20/2019 02:22:02 COVID-19, mRNA, LNP-S, PF, 100 mcg/0.5mL dose or 50 mcg/0.25mL dose 2 completed Tk Delarosa MA null, [facility] 11/21/2021 08:31:51 COVID-19, mRNA, LNP-S, PF, phuc-sucrose, 30 mcg/0.3 mL 3 completed Purvi Torres LPN null, [facility] 07/09/2023 10:54:37 Influenza, split virus, quadrivalent, PF 6 completed Not Available [facility] 03/20/2019 02:22:04 Influenza, split virus, trivalent, PF 4 completed Not Available [facility] 09/16/2024 11:00:10 COVID-19, mRNA, LNP-S, PF, phuc-sucrose, 30 mcg/0.3 mL 4 completed Not Available [facility] 09/16/2024 11:00:10 Influenza, split virus, quadrivalent, PF 7 completed Not Available [facility] 03/20/2019 02:22:10 Influenza, split virus, quadrivalent, PF 8 completed Not Available [facility] 03/20/2019 02:22:15 Tdap 0 completed KEVIN Briseno, [facility] 08/11/2019 11:36:19 Influenza, split virus, trivalent, PF 4 completed Not Available [facility] 03/20/2019 02:21:58 Tdap 9 completed Not Available [facility] 11/26/2019 18:22:26 Influenza, split virus, quadrivalent, PF 3 completed Josey Winchester MD [address], [address], [facility] 01/10/2023 13:40:02 Past Encounters Encounter ID Performer Location Encounter Start Date Encounter Closed Date Diagnosis/Indication Diagnosis SNOMED-CT Code Diagnosis ICD10 Code Diagnosis IMO Codes Diagnosis Note [id number] autoEComm erce [address] [facility] [place] [address] 04/09/2007 00:00:00 [id number] [facility] [place] [address] 05/06/2007 00:00:00 [id number] [facility] [place] [address] 06/23/2008 00:00:00 [id number] autoEComm erce [address] [facility] [place] [address] 07/06/2008 00:00:00 [id number] autoEComm erce [address] [facility] [place] [address] 08/11/2008 00:00:00 [id number] autoEComm erce [address] [facility] [place] [address] 04/21/2009 00:00:00 [id number] autoEComm erce [address] [facility] [place] [address] 05/19/2009 00:00:00 [id number] autoEComm erce [address] [facility] [place] [address] 07/19/2009 00:00:00 [id number] autoEComm erce [address] [facility] [place] [address] 04/10/2010 00:00:00 [id number] autoEComm erce [address] [facility] [place] [address] 05/15/2010 00:00:00 [id number] autoEComm erce [address] [facility] [place] [address] 07/04/2010 00:00:00 [id number] autoEComm erce [address] [facility] [place] [address] 09/12/2010 00:00:00 [id number] autoEComm erce [address] [facility] [place] [address] 10/17/2010 00:00:00 [id number] autoEComm erce [address] [place] [address] 09/12/2011 00:00:[id number] [facility] [place], [place] [address] 03/26/2012 00:00:00 [id number] autoEComm erce [address] [place] [address] 04/27/2012 00:00:[id number] [facility] [place] [address] 09/21/2012 00:00:00 [id number] autoEComm erce [address] [facility] [place], [place] [address] 02/16/2013 00:00:00 [id number] autoEComm erce [address] [facility] [place], [place] [address] 07/07/2013 00:00:00 [id number] Josey Winchester MD Main Office [address] [address] [place], [place] [address] 01/11/2014 13:22:21 01/11/2014 14:42:04 Needs influenza immunization 911066467 Essential hypertension 15156975 Attention deficit hyperactivity disorder, predominantly inattentive type 20157246 Pure hypercholesterolemia 489151526 Screening for malignant neoplasm of breast 777307404 Screening for malignant neoplasm of colon 946837522 [id number] Josey Winchester MD Main Office [address] [address] [place], [place] [address] 07/11/2014 13:41:12 07/11/2014 14:48:21 Adult health examination 664215270 Screening for malignant neoplasm of colon 125698998 Pure hypercholesterolemia 315462730 has trouble with meds. Will recheck and look at risk calculator before starting another med. Essential hypertension 08007275 well controlled with current meds Irritable bowel syndrome 57524605 well-contr olled with current meds and diet. [id number] Josey Winchester MD Main Office [address] [address] [place] [address] 12/03/2014 08:47:01 12/03/2014 09:43:49 Migraine 34238577 G43.009 will restart a triptan which she took years ago and she will call if it isn't helping. Plantar fasciitis 338855 003 M72.2 she will try exercises and will call if it persists. [id number] Josey Winchester MD Main Office [address] [address] [place] [address] 01/23/2015 10:38:25 01/23/2015 11:28:45 Essential hypertension 86272107 I10 no longer controlled . We will go up on her meds and she will call if the BP is >140/90. Pure hypercholesterolemia 810826895 E78.0 trouble on meds. Recheck cholestero l Needs infl uenza immunization 589643598 Z23 Screening for malignant neoplasm of colon 973593599 Z12.11 Screening for malignant neoplasm of cervix 530665771 Z12.4 Attention deficit hyperactivity disorder, predominantly inattentive type 59313866 F90.0 [id number] Josey Winchester MD Main Office [address] [address] [place] [address] 10/12/2015 09:22:54 10/12/2015 10:14:44 Adult health examination 539498543 Z00.00 UTD with immunizati ons, colonoscop y, mammogram and [facility] care. Essential hypertension 43341019 I10 we will stop her metoprolol to see if her fatigue improves. Start a CCB and see her back in 1 month. Fatigue 35939577 R53.83 this may be secondary to metoprolol so will stop and start another BP med. Irritable bowel syndrome 26642285 K58.9 well-contr olled with current meds and diet. [id number] Josey Winchester MD Main Office [address] [address] [place] [address] 11/14/2015 15:44:42 11/14/2015 17:02:57 Essential hypertension 44401537 I10 Her fatigue has persisted despite stopping the metoprolol . BP mildly elevated on the amlodipine so will increase the dose. Needs infl uenza immunization 909606965 Z23 Migraine 36870675 G43.00 9 Possibly returned since stopping the bets cherelle for her BP. Will start a different beta cherelle and she will call if it persists. [id number] Giovanni Lucero PA-C Main Office [address] [place] [address] 02/27/2016 10:23:45 02/27/2016 11:54:18 Fever 099702808 R50.9 40 minute office visit with greater than 50% of the visit face-to-fa ce with the patient and/or family providing counseling and/or coordinati on of care. Cough 68115981 R05 Nausea and vomiting 1693 2000 R11.2 Diarrhea 89221572 R19.7 Fatigue 09113420 R53.83 [id number] Giovanni Lucero PA-C Main Office [address] [place] [address] 03/05/2016 15:42:55 03/06/2016 12:56:57 Pneumonia 969932757 J18.9 encouraged deep breaths at least hourly to hopefully diminish need for albuterol, also rec. walk on elliptical machine at low intensity to slowly build up her endurance. will give cxr at next f/u to recheck in 2 wks Essential hypertension 71484691 I10 mildly elevated - advised pt to cont to monitor qd, and will consider re-initiat ing bp med if cont. to trend high 25 minute office visit with greater than 50% of the visit face-to-fa ce with the patient and/or family providing counseling and/or coordinati on of care. [id number] Giovanni Lucero PA-C Main Office [address] [place] [address] 03/25/2016 13:15:02 03/25/2016 14:04:38 Essential hypertension 79713716 I10 stable, not on meds - used bp med a few yrs ago - rec. cont healthy diet (low salt) and exercise 25 minute office visit with greater than 50% of the visit face-to-fa ce with the patient and/or family providing counseling and/or coordinati on of care. Pneumonia 615265319 J18. 9 cont to stay active, rec occ deep breaths. will give cxr to verify resolution of pna [id number] Josey Winchester MD Main Office [address] [address] [place] [address] 07/08/2016 11:22:37 07/08/2016 12:11:21 Allergic rhinitis 73416529 J30.9 We will see her back in a few weeks to recheck her adenopathy . No B symptoms. [id number] Giovanni Lucero PA-C Main Office [address] [address] [place] [address] 08/15/2016 15:59:01 08/15/2016 17:02:56 Acute sinusitis 61270048 J01.90 Pt. told to get some sudafed, cont OTCs and have yogurt or get a probiotic while on the Abx. [id number] Josey Winchester MD Main Office [address] [address] [place] [address] 11/18/2016 09:33:44 11/18/2016 10:23:06 Adult health examination 729647332 Z00.00 UTD with immunizati ons, colonoscop y, mammogram and [facility] care. Needs infl uenza immunization 329646598 Z23 Essential hypertension 27546151 I10 She will follow her BP at home and we will call in a few weeks to see how it has been running. Migraine 81189174 G43.00 9 Hyperlipidemia 24416979 E78.5 has trouble with meds. Will recheck and look at risk calculator before starting another med. [id number] Josey Winchester MD Main Office [address] [address] [place] [address] 05/21/2017 12:49:18 05/21/2017 14:09:17 Essential hypertension 26721100 I10 Will restart meds and she will return for a recheck in 1 month. Easy bruising 702086357 R58 [id number] Josey Winchester MD Main Office [address] [address] [place] [address] 06/25/2017 13:18:55 06/25/2017 13:56:11 Essential hypertension 02100907 I10 Taking meds daily and tolerating them well. BP under good control. Migraine 94055681 G43.00 9 stable on prophylaxi s. [id number] Josey Winchester MD Main Office [address] [address] [place] [address] 11/06/2017 12:58:57 11/06/2017 14:04:51 Carpal tunnel syndrome 00130006 G56.02 She will take aleve twice a day. [id number] Josey Winchester MD Main Office [address] [address] [place] [address] 12/03/2017 12:43:02 12/03/2017 13:40:40 Needs influenza immunization 799385003 Z23 Screening for malignant neoplasm of breast 547641804 Z12.39 Essential hypertension 76113573 I10 She will restart her meds at a lower dose. She understand s that this is especially important in light of the fact she is going back on adderall. Attention deficit hyperactivity disorder, predominantly inattentive type 33748891 F90.0 Having trouble with focus. This helped in the past. [id number] Josey Winchester MD Main Office [address] [address] [place] [address] 01/28/2018 13:04:32 01/28/2018 13:49:10 Adult health examination 281642991 Z00.00 UTD with immunizati ons, colonoscop y (due again in 2025) mammogram. Had a hysterecto my and no longer sees [facility] TE[facility]. Essential hypertension 90918032 I10 Her BP is running high so we will increase her dose of atenolol and see her back in 1 month. Attention deficit hyperactivity disorder, predominantly inattentive type 89393255 F90.0 We start 15 mg bid since the 30 mg XL dose wears off before the end of her work day. Screening for malignant neoplasm of breast 109521669 Z12.39 [id number] Josey Winchester MD Main Office [address] [address] [place] [address] 02/18/2018 11:19:47 02/18/2018 11:50:35 Attention deficit hyperactivity disorder, predominantly inattentive type 76092550 F90.0 we will d/c her adderall and start strattera. She will call in a couple of weeks if it is not helping and we will go up on the dose. If still not working at the end of March we will try a different med. Essential hypertension 97193975 I10 Good control with increased dose of meds. Continue current mgmt. [id number] Josey Winchester MD Main Office [address] [address] [place] [address] 08/06/2018 15:37:38 08/06/2018 16:31:45 Fatigue 66708426 R53.83 No clear etiology. Hypokalemia 78328777 E87 .6 Corrected as an inpatient; secondary to diuretic. Essential hypertension 38571723 I10 Currently normotensi ve off meds. Possibly secondary to her adderall. She will monitor her BP and will call if/when she restarts her adderall. Attention deficit hyperactivity disorder, predominantly inattentive type 99977674 F90.0 Has adderall and will restart when needed. [id number] Josey Winchester MD Main Office [address] [address] [place] [address] 08/19/2018 12:31:49 08/19/2018 13:22:34 Essential hypertension 66017848 I10 Currently normotensi ve off meds. Possibly secondary to her adderall. She will monitor her BP and will call if/when she restarts her adderall. Fatigue 97644302 R53.83 No clear etiology. We spoke about lifestyle issues such as exercise, good diet and adequate sleep and she will work on these. [id number] Josey Winchester MD Main Office [address] [address] [place] [address] 10/06/2018 14:38:47 10/06/2018 15:31:59 Renal angle tenderness 432031005 R10.829 Possible muscular. The urine is normal. Will treat with NSAIDs for a week and if her pain persists will consider an U/S. Gastroesop hageal reflux disease 763178179 K21.9 Essential hypertension 51673565 I10 BP went back up after stopping the adderall and initially seeing a normalizat ion of her BP. [id number] Josey Winchester MD Main Office [address] [address] [place] [address] 12/23/2018 15:52:51 12/23/2018 16:40:53 Allergic conjunctivitis 313474039 H10.12 Instructio ns to call if develops vision problems or pain. [id number] Josey Winchester MD Main Office [address] [address] [place] [address] 02/17/2019 13:41:37 02/17/2019 14:42:10 Adult health examination 492197399 Z00.00 Will update her immunizati ons today, colonoscop y (due again in 2025) and UTD w/mammogra m. Had a hysterecto my and no longer sees [facility]QUE TESTER. Varicella vaccination 68 006391 Z23 Skin lesion 90763504 L98 .9 [id number] Josey Winchester MD Main Office [address] [address] [place] [address] 03/05/2019 13:52:06 03/05/2019 14:54:54 Fever 568688895 R50.9 Cough 13001282 R05 Muscle pain 20729231 M79 .10 [id number] Katie gtotlieb MD [facility] [address] [address] [place] [address] 07/30/2019 13:51:26 08/02/2019 08:34:33 Counseling 414087101 Z71.9 Health advice, education or counseling done for COVID 19, pt not able to be offered testing as she does not have symptoms. She will request testing through her employer. Call immed if any sx come up including cough, fever, SOB or uri sx [id number] Josey Winchester MD Main Office [address] [address] [place] [address] 08/11/2019 10:50:11 08/11/2019 11:48:11 Essential hypertension 89609295 I10 C/w BP meds. Running a little high today. She will follow. Attention deficit hyperactivity disorder, predominantly inattentive type 23638393 F90.0 Has adderall and uses it prn. Hyperlipidemia 17830380 E78.5 Has been taking statin 3 times a week and tolerating it well. Administra tion of viral vaccine 77941965 Z23 [id number] Josey Winchester MD Main Office [address] [place] [address] 02/23/2020 13:01:50 02/23/2020 13:48:20 Adult health examination 681399861 Z00.00 Will update her immunizati ons today, colonoscop y (due again in 2025) and UTD w/mammogra m. Had a hysterecto my and no longer sees [facility] TE[facility]. We discussed exercise while also keeping safe during the pandemic. Migraine 75920633 G43.00 9 Was helped by prophylaxi s in the past and will restart the topamax. Hyperlipidemia 18888953 E78.5 Has been taking statin 3 times a week and tolerating it well. Essential hypertension 85868042 I10 C/w BP meds. [id number] Josey Winchester MD Main Office [address] [address] 08/23/2020 12:51:26 08/23/2020 13:54:13 Essential hypertension 06631249 I10 Stopped BP meds because of her hair loss. Beta blockers and diuretics may contribute to this so we will start a CCB and see her back in month. Loss of hair 417007422 L 65.9 No clear etiology. May be genetic. May be related to hair styling and may be related to meds. We stopped her beta cherelle and diuretic and statin. Hyperlipidemia 35627879 E78.5 Stopped the statin for now since may be adding to her hair loss. We will monitor. [id number] Josey Winchester MD Main Office [address] [address] 09/20/2020 14:48:28 09/20/2020 15:20:52 Essential hypertension 07531410 I10 Stopped BP meds because of her hair loss. Beta blockers and diuretics may contribute to this so we will start a CCB and see her back in month. Migraine 63380670 G43.00 9 Stopped the topamax which was helping because she felt that it was contributi ng to her hair loss. She will try sumatripta n for treatment and will call if her headaches continue. Loss of hair 324811564 L 65.9 No clear etiology. May be genetic. May be related to hair styling and may be related to meds. We stopped her beta cherelle and diuretic and statin. She has an upcoming derm appointmen t in early November. [id number] Ángela Lucero PA-C Main Office [address] [address] [place] [address] 10/20/2020 08:39:54 10/20/2020 09:31:30 Fatigue 01608717 R53.83 r/o anemia, diabetes, renal disease, thyroid dysfunctio n. Pain of mu ltiple joints 46489270 M25.50 R/o RA, Lymes disease Screening for malignant neoplasm of breast 597758449 Z12.39 Screening for malignant neoplasm of cervix 538800764 Z12.4 Vitamin D deficiency 347 59886 E55.9 [id number] Daren Edmond [facility] [address] [address] [place] [address] 11/27/2020 12:55:36 11/27/2020 15:49:22 Pain of multiple joints 74319856 M25.50 elevated ESR and CRP. PT. will proceed with seeing rheumatolo gist and continue taking turmerican d MSM. [id number] Josey Winchester MD Main Office [address] [address] [place] [address] 03/07/2021 10:41:20 03/07/2021 12:00:41 Adult health examination 384092726 Z00.00 She is UTD with immunizati ons including COVID along with her booster but she is due for her second shingles. She is also UTD w/colonosc opy (due again in 2025) and UTD w/mammogra m. Had a hysterecto my and no longer sees [facility] TE[facility]. We discussed exercise while also keeping safe during the pandemic. Essential hypertension 40071305 I10 She's on a low dose of nifedipine and her BP is under good control. Hyperlipidemia 01848128 E78.5 Stopped the statin for now since may be adding to her hair loss. We will monitor. [id number] Josey Winchester MD Main Office [address] [address] [place] [address] 10/03/2021 11:21:18 10/03/2021 12:09:09 Essential hypertension 14288886 I10 She's on a low dose of nifedipine and her BP is running high. We will increase the dose from 30 to 90 mg and recheck in 1 month. [id number] Josey Winchester MD Main Office [address] [place] [address] 10/31/2021 12:42:04 10/31/2021 13:19:44 Essential hypertension 69652852 I10 Still not with adequate control on nifedipine 90 mg. She will continue with that and we will start a diuretic. We went over foods high in potassium and she will get this checked before her next appointmen t. [id number] Josey Winchester MD Main Office [address] [place] [address] 11/28/2021 12:38:40 11/28/2021 13:40:47 Seronegative rheumatoid arthritis 218763297 M06.[address] Mitchell and on meds. Essential hypertension 04337993 I10 Better control since adding diuretic. Mildly reduced potassium at 3.4. We will recheck level in a month. Cough 17259325 R05.9 She has not yet tested for COVID. Drug-induc ed hypokalemia 509676428 E87.6 Induced by diuretic. Will concentrat e on foods w/potassiu m and recheck in one month. Hyperlipidemia 90218699 E78.5 Cannot tolerate a statin. Will look into options. [id number] Josey Winchester MD [facility] [address] [place] [address] 08/08/2022 12:24:46 08/20/2022 08:15:54 Multiple sclerosis 12917671 G35 This is a new dx. She saw Dr Rausch as an inpatient at [facility] and will follow with him as on outpatient . She is not currently on any meds. Migraine 98611801 G43.00 9 She would like to restart the topamax because she has been getting more frequent headaches. Optic neuritis 01279511 H46.9 H46.03 Followed by both ophtho and neurology. Her vision has been improving. She is still not driving and is waiting to be cleared by neurology. [id number] Josey Winchester MD Main Office [address] [facility] [address] [place] [address] 10/23/2022 15:35:43 10/23/2022 16:11:23 Lump on face 942299184 R22.0 Tender lesion at left jaw line Benign int racranial hypertension 49034425 G93.2 She is followed by neurology and started on acetazolam edvin. [id number] FAIZA NIX Main Office [address] [facility] [address] [place] [address] 12/04/2022 08:52:21 12/04/2022 09:23:37 Pre-surgery evaluation 651684322 Z01.818 No medical contraindi cations to proposed procedure. Behzad Perioperat bakari Cardiac Risk was calculated and the risk for perioperat bakari LA is <1%. May proceed to surgery as planned. Essential hypertension 11186632 I10 stable at homein office BP- 133/84 Cataract 732164614 H26.9 [id number] Josey Winchester MD Main Office [address] [facility] [address] [facility] [place] [address] 01/08/2023 09:55:30 01/08/2023 10:59:38 Adult health examination 364302088 Z00.00 She is UTD with immunizati ons including COVID along with her booster but she is due for her second shingles. She is also UTD w/colonosc opy (due again in 2025) and UTD w/mammogra m. Had a hysterecto my and no longer sees [facility] TESTER. We discussed exercise and she remains very active. Needs infl uenza immunization 140421153 Z23 History of SARS-CoV-2 29 32927735 57133382 Z86.16 mild symptoms; cough Hyperlipidemia 01413988 E78.5 Cannot tolerate a statin. Levels on repeat blood work look good. No meds needed. Thyroid nodule 760668412 E04.1 She is scheduled for an US 01/21/23. Essential hypertension 21106749 I10 We stopped her diuretic because of hypokalemi a but her BP has increased. We will continue to follow it before adding any meds. 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 Seronegati ve rheumatoid arthritis 093457763 M06.[address] Mitchell and on meds. Multiple sclerosis 82841 007 G35 This is a new dx. She saw Dr Rausch as an inpatient at [facility] and now followed by Dr Naz bryson and is on acetazolam edvin. [id number] Daren Edmond MD [facility] [address] [facility] [address] [facility] [place] [address] 07/08/2023 09:22:38 07/08/2023 11:05:07 COVID-19 356191931 U07.1 dx'd in ER on 5.3 - [...] if at all possible see below Cough 16858099 R05.9 most likely has p covid pnawill rx c abxrecomme nd probiotics while on abxsee above/belo w Pneumonia 967825154 J18. 9 see above [id number] Josey Winchester MD Main Office [address] [facility] [address] [facility] [place] [address] 07/09/2023 10:32:41 07/09/2023 11:31:51 History of idiopathic intracranial hypertension 0772501081 6889484 Z86.69 Having headaches that are not adequately treated with meds and having a difficult time concentrat ing. Headache 18782763 R51.9 Transition of care from emergency department to self-care 1764382361 46837 Z76.89 Reviewed [id number] Daren Edmond MD Main Office [address] [facility] [address] [place] [address] 08/15/2023 11:32:08 08/15/2023 12:27:56 Essential hypertension 09509900 I10 Elevated BP today though has not taken antihypert ensives. Continue to monitor and cont antihypert ensives, low sodium diet. She has a history of elevated BP readings while on nifedipine so will obtain microalbum in and follow up in one month for reassessme nt. Edema of l ower extremity 958081004 R60.0 Will start on Lasix 20 mg PO daily. Will check BMP in one week to assess potassium and renal function. [id number] Josey Winchester MD Main Office [address] [facility] [address] [place] [address] 01/21/2024 14:18:10 01/21/2024 15:24:56 Adult health examination 576040725 Z00.00 She is UTD with immunizati ons including COVID along with her booster but she is due for her second shingles. She is also UTD w/colonosc opy (due again in 2025) and UTD w/mammogra m. Had a hysterecto my and no longer sees T[facility]QUE TESTER. We discussed exercise and she remains very active. Insomnia 287278353 F51.0 1 She will try gabapentin at bedtime. Attention deficit hyperactivity disorder, predominantly inattentive type 29290010 F90.0 Has adderall and uses it prn. Essential hypertension 75300365 I10 We stopped her diuretic because of hypokalemi a but her BP has increased. We will continue to follow it before adding any meds. Migraine 29777333 G43.00 9 She currently uses Excedrin migraine which helps. Hyperlipidemia 50542771 E78.5 Taking atorvastat in 40 mg and tolerating it well. Seronegati ve rheumatoid arthritis 993947591 M06.[address] Mitchell and on meds but they don't seem to be helping. She will discuss this with Dr Mitchell. Visual disturbance 02308 001 H53.9 [id number] Josey Winchester MD Main Office [address] [facility] [address] [place] [address] 02/18/2024 14:02:25 02/18/2024 14:33:28 Anxiety disorder 515519301 F41.9 Not currently on meds and this is in remission. Attention deficit hyperactivity disorder, predominantly inattentive type 71942158 F90.0 Taking adderall XR 20 mg which has been helpful but it wears off around lunchtime. Will try a higher dose and she will call if it is not helpful. Essential hypertension 43898131 I10 We stopped her diuretic because of hypokalemi a. She is taking nifedipine ER 90 mg and tolerating this well. Good control, continue current mgmt. [id number] Josey Winchester MD Main Office [address] [address] 08/18/2024 13:56:12 08/18/2024 15:06:50 Essential hypertension 24173615 I10 We stopped her diuretic because of hypokalemi a. She is taking nifedipine ER 90 mg and tolerating this well. Good control, continue current mgmt. Attention deficit hyperactivity disorder, predominantly inattentive type 13665002 F90.0 She was unable to tolerate a stimulant. Would like to try a non-stimul ant. Will try bupropion since this can also help with her anxiety/de pression. We will start with 150 mg and see her back in one month to adjust the dose if needed. Generalize d anxiety disorder 14419092 F41.1 [id number] Josey Winchester MD Main Office [address] [facility] [address] [place] [address] 09/16/2024 10:58:44 09/16/2024 11:44:58 Attention deficit hyperactivity disorder, predominantly inattentive type 70131405 F90.0 She was unable to tolerate a stimulant. Is now taking a non-stimul ant. She started with bupropion 150 mg and then increased it to 2 pills which she has found helpful. Continue current mgmt. Mild major depression 87 369736 F32.0 Her score is high but she feels that this is not currently a problem and does not want to make any changes. Essential hypertension 07737640 I10 We stopped her diuretic because of hypokalemi a. She is taking nifedipine ER 90 mg and tolerating this well. Good control, continue current mgmt. Generalize d anxiety disorder 70136038 F41.1 032185 Her score is high but she feels [...] Member ID Guarantor Name 10/23/2022 2 [place] [facility] Shey Blank [id number] Shey Henriquez 10/23/2023 1 [facility] [id number] Shey Henriquez [id number] Shey Henriquez 10/23/[address] [facility] (MEDICAID REPLACEMENT - HMO) [id number] Shey Blank [id number] Shey Henriquez 10/23/2022 1 [facility] - [facility] - MEDICAID ESSENTIAL (MEDICAID HMO) [id number] Shey Blank [id number] 1 Shey Henriquez 02/16/2024 1 [facility] (O) [id number] Shey Henriquez [id number] Shey Henriquez 09/28/2024 1 [place] [facility] Shey Henriquez [id number] Shey Henriquez Notes Date Note Type [...] her antihypertensives today. Ángela Lucero PA-C [address] [address], [place], [address], [facility] 08/15/2023 13:17:32 4 text/html Generic HPI TemplateReported by PatientShe has sero-negative RA and mild MS. She is followed by specialists for each and has multiple joint pains that are not controlled by current treatment.UTD w/COVID, tetanus and flu vaccines. ROS as noted in the HPI Josey Winchester MD [address] [facility] [address], [place], [address], [facility] 01/22/2024 17:49:35 4 text/html Hypertension F/UReported by [...] in the HPI Josey Winchester MD [address] [facility] [address], [place], [address], [facility] 02/18/2024 15:39:06 5 text/html Hypertension F/UReported by [...] as noted in the HPI Karely bentley [facility] 08/30/2024 10:16:39 5 text/html Hypertension F/UReported by [...] noted in the HPI Josey Winchester MD [address] [address], [place], [address], [facility] 09/16/2024 17:18:21 OBGyn Episode No OBEpisode recorded.
--- OUTSIDE RECORDS SUMMARY | 2025-01-14 20:09 | XMS_ITS | Clinical Summary ---
Author Organization [facility] Address [address] [place] [address] Care Team Providers Care Roofing Laborer Name Role Phone Luis Miguel Winchester MD Primary Care Provider [phone] Allergies Active Allergy Reactions Criticality Noted Date [...] age to complete this topic Care Teams Roofing Laborer Relationship Specialty Start Date End Date Luis Miguel Winchester MD [address] [facility] [address] [place] [address] PCP - General Internal Medicine 08/08/22
== END 2025-01-14 13:47 | disposition home or self-care (01) ==
LOC: HO.XRAY 13:46
PROVIDERS: PCP Internal Medicine; Visit Provider Internal Medicine Rheumatology
DX: M06.09 Rheumatoid arthritis without rheumatoid factor, multiple sites (principal)
CPT/HCPCS: 73130; 73630

== ENCOUNTER → 2025-01-14 13:51 | Outpatient (BNV) | payer MEDICAID, SELFPAY | PROVIDERS: PCP Internal Medicine; Visit Provider Radiology Diagnostic Ultrasound | DX: M06.09 Rheumatoid arthritis without rheumatoid factor, multiple sites (principal) | CPT/HCPCS: 73130; 73630 ==

== ENCOUNTER 2025-02-21 15:13 | Outpatient (REF) | payer MEDICAID, SELFPAY ==
--- OUTSIDE RECORDS SUMMARY | 2025-02-21 18:22 | XMS_ITS | Clinical Summary ---
Author Organization [facility] Prior to 07/31/24 Address [address] [place] [address] Care Team Providers Care Cylinder Tester Name Role Phone Luis Miguel Winchester MD Primary Care Provider [phone] Allergies Active Allergy Reactions Criticality Noted Date [...] age to complete this topic Care Teams Cylinder Tester Relationship Specialty Start Date End Date Luis Miguel Winchester MD [address] [facility] [address] [place] [address] PCP - General Internal Medicine 08/08/22
--- OUTSIDE RECORDS SUMMARY | 2025-02-21 18:22 | XMS_ITS | Clinical Summary ---
Author Organization [facility] Address [address] [place] [address] Phone Care Team Providers Care Feed Mixer Helper Name Role Phone Luis Miguel Winchester MD Primary Care Provider [phone] Allergies No known active allergies Medications aspirin [...] Encounters Date Type Department Care Team Description 01/25/2025 Telephone [facility] [address] [facility] [address] [place] [address] Rod Howard MD 12/08/2024 2:30 PM EDT Office Visit [facility] [address] [facility] [address] [place] [phone] Rod Howard MD Migraine with aura and without status migrainosus, not intractable (Primary Dx); IIH (idiopathic intracranial hypertension); Other fatigue from Last 3 Months Surgical History Surgery [...] on file Sexual Orientation Not on file Last Filed Vital Signs [...] Description 04/13/2025 1:30 PM EST Office Visit [facility] [address] [facility] [address] [place] [id number] Rod Howard MD [address] [place] [id number] Health Maintenance Due Date Last Done Comments [...] CBC auto differential (12/08/2024 3:19 PM EDT) [facility] Signature WBC 8.3 4.8 - 10.8 K/mcL LAB HEMETOLOGY METHOD 12/08/2024 6:23 PM EDT [facility] RBC 5.10(H) 3.80 - 4.80 M/mcL LAB HEMETOLOGY METHOD 12/08/2024 6:23 PM EDT [facility] Hemoglobin 12.8 11.5 - 16.0 g/dL LAB HEMETOLOGY METHOD 12/08/2024 6:23 PM EDT [facility] Hematocrit 41.7 35.0 - 47.0 % LAB HEMETOLOGY METHOD 12/08/2024 6:23 PM T [facility] MCV 81.8 79.0 - 98.0 FL LAB HEMETOLOGY METHOD 12/08/2024 6:23 PM EDT [facility] MCH 25.1(L) 27.0 - 32.0 [...] LAB HEMETOLOGY METHOD 12/08/2024 6:23 PM EDT [facility] Neutrophils Absolute 4.77 1.50 - 7.00 K/mcL LAB HEMETOLOGY METHOD 12/08/2024 6:23 PM EDT [facility] Lymphocytes Absolute 2.59 1.00 - 5.00 K/mcL LAB HEMETOLOGY METHOD 12/08/2024 6:23 PM EDT [facility] Monocytes Absolute 0.65 0.20 - 1.00 K/mcL LAB HEMETOLOGY METHOD 12/08/2024 6:23 PM EDT [facility] Eosinophils Absolute 0.25 0.00 - 0.50 K/[facility] LAB HEMETOLOGY METHOD 12/08/2024 6:23 PM EDT [facility] Basophils Absolute 0.06 0.00 - 0.20 K/mcL LAB HEMETOLOGY METHOD 12/08/2024 6:23 PM EDT [facility] Immature Granulocytes Absolute 0.02 0.00 - 0.03 K/mcL LAB HEMETOLOGY METHOD 12/08/2024 6:23 PM EDT [facility] Blood Venous blood specimen / Unknown Venipuncture / Unknown 12/08/2024 3:19 PM EDT 12/08/2024 3:19 PM EDT Rod Howard MD LAB BLOOD ORDERABLES Fin al Result [facility] [address] [place] [address], * Vitamin D 25 hydroxy (12/08/2024 3:19 PM EDT) Vit D, 25-Hydroxy 30.6 30.0 - 80.0 ng/mL LAB CHEMISTRY METHOD 12/08/2024 7:10 PM EDT [facility] Blood Venous blood specimen / Unknown Venipuncture / Unknown 12/08/2024 3:19 PM EDT 12/08/2024 3:19 PM EDT us Rod Howard MD LAB BLOOD ORDERABLES Fin al Result Performing Organization Address [facility]/ZIP Co de Phone Number [facility] [address] [place] [address], [place] [phone] * (ABNORMAL) Vitamin B12 (12/08/2024 3:19 PM EDT) [facility] Vitamin B-12 1,714(H) 250 - 900 pcg/mL LAB CHEMISTRY METHOD 12/08/2024 7:22 PM EDT [facility] Blood Venous blood specimen / Unknown Venipuncture / Unknown 12/08/2024 3:19 PM EDT 12/08/2024 3:19 PM EDT us Rod Howard MD LAB BLOOD ORDERABLES Fin al Result Performing Organization Address [facility]/ZIP Co de Phone Number [facility] [address] [place] [address], [place] [phone] * (ABNORMAL) Comprehensive metabolic panel (12/08/2024 3:19 PM EDT) [facility] Sodium 142 133 - 145 mmol/L LAB CHEMISTRY METHOD 12/08/2024 7:22 PM EDT [facility] Potassium 3.5 3.5 - 5.5 mmol/L LAB CHEMISTRY METHOD 12/08/2024 7:22 PM EDT [facility] Chloride 110 96 - 110 mmol/L LAB CHEMISTRY METHOD 12/08/2024 7:22 PM EDT [facility] CO2 26 21 - 32 mmol/L LAB CHEMISTRY METHOD 12/08/2024 7:22 PM EDT [facility] Anion Gap 6 3 - 11 LAB CHEMISTRY METHOD 12/08/2024 7:22 PM [facility] Glucose 81 70 - 100 [...] MD LAB BLOOD ORDERABLES Fin al Result [facility] [address] [place] [address], from Last 3 Months Insurance MEDICAID - [place] Care Teams Feed Mixer Helper Relationship Specialty Start Date End Date Luis Miguel Winchester MD [address] PCP - General Internal Medicine 12/08/24
--- OUTSIDE RECORDS SUMMARY | 2025-02-21 18:22 | XMS_ITS | Data Portability ---
Author Organization [facility], Main Office Address [address] [facility] [address] [place] [phone] Care Team Providers Care Dairy Bacteriologist Name Role Phone JOSEY WINCHESTER Primary Care Provider ZION PARSONS Senior Technical Specialist [facility] Mill Hand NORA MITCHELL Referring Provider RICA JEAN-BAPTISTE Referring Provider AGATA VILLEGAS Chief Hydroelectric Station Operator Assessment No assessment recorded. Plan of Treatment Reminders Order Date Submit Date Provider Last Modified By Organization Details Last Modified Time Details Appointments PE EST 2025 10:00A M Josey cordova MD Not available Not available Not available Lab BMP, serum or plasma 2024 025 [facility] (Centralized Electronic Ordering - All Locations), Patient Can Go To The Location Of Their Choice, [id number] 08/19/2024 14:06:23 lipid panel, serum 2023 024 [facility] ([facility] Ordering - All Locations), Patient Can Go To The Location Of Their Choice, [address] 01/22/2024 08:10:05 BMP, serum or plasma 2023 024 [facility] ([facility]ized [facility] Ordering - All Locations), Patient Can Go To The Location Of Their Choice, [address] 08/21/2023 14:07:05 microalbu min/creat inine, mass ratio, urine 2023 024 [facility] ([facility]ized [facility] Ordering - All Locations), Patient Can Go To The Location Of Their Choice, [address] 08/21/2023 14:07:05 Referral None recorded. Procedures None recorded. Surgeries None recorded. Imaging None recorded. Medication Orders bupropion HCl XL 300 mg 24 hr tablet, extended release [address] [facility], [phone] [place] [address], [address], 09/16/2024 11:37:20 bupropion HCl XL 150 mg 24 hr tablet, extended release [address] [facility], [address] [place] [address], [address], 08/18/2024 15:01:55 Adderall XR 25 mg capsule,e xtended release 2023 024 [email or web address], [phone] [place] [address], [address], 08/18/2024 14:12:11 gabapenti n 300 [address] capsule [address] [facility], [phone] [place], [address], 08/18/2024 14:12:26 Adderall XR 20 mg capsule,e xtended release [address] [facility], [phone] [place], [address], 02/18/2024 15:24:02 furosemid e 20 mg tablet 2023 024 [facility][id number], [address] [place], [place], [id number], 01/21/2024 14:39:49 Patient TargetsNo targets recorded. Patient Instructions Encounter Date Encounter Id Patient Instructions Last Modified By Organization Details Last Modified Time 08/15/2023 [id number] leg and ankle edema: care instructions Not available 08/15/2023 12:23:01 high blood pressure: care instructions Not available 08/15/2023 12:23:01 learning about high blood pressure Not available 08/15/2023 12:23:01 01/21/2024 [id number] insomnia: care instructions [email or web address] Not available 01/21/2024 15:36:31 high blood pressure: care instructions [email or web address] Not available 01/21/2024 15:36:32 learning about high blood pressure [email or web address] Not available 01/21/2024 15:36:32 high cholesterol : care instructions [email or web address] Not available 01/22/2024 17:45:52 attention defici t hyperactivity disorder (ADHD) in adults: care instructions [email or web address] Not available 01/21/2024 15:36:32 02/18/2024 [id number] high blood pressure: care instructions [email or web address] Not available 02/18/2024 14:29:20 learning about high blood pressure [email or web address] Not available 02/18/2024 14:29:19 learning about anxiety disorders [email or web address] Not available 02/18/2024 14:29:20 08/18/2024 [id number] high blood pressure: care instructions [email or web address] Not available 08/18/2024 14:43:25 learning about high blood pressure acennerazzo Not available 08/18/2024 14:43:25 attention defici t hyperactivity disorder (ADHD) in adults: care instructions [email or web address] Not available 08/18/2024 14:43:24 09/16/2024 [id number] high blood pressure: care instructions [email or web address] Not [...] glucose 99 mg/dL 70-99 Not Available [facility] [address] [place], [address], 08/21/2023 14:07:05 08/20/19 24 08/21/2023 BASIC METAB OLIC PANEL (8) BUN 18 mg/dL 6-24 Not Available [facility] ([facility] [address] [place], [address], 08/21/2023 14:07:05 08/20/19 24 08/21/2023 BASIC METAB OLIC PANEL (8) creatinine 1.26 mg/dL 0.57-1 .00 above high normal Not Available [facility] ([facility] [address] [place], [address], 08/21/2023 14:07:05 08/20/19 24 08/21/2023 BASIC METAB OLIC PANEL (8) eGFR 49 mL/mi n/1.7 3 >59 below low normal Not Available [facility] ([facility]) [address] [place], [address], 08/21/2023 14:07:05 08/20/19 24 08/21/2023 BASIC METAB OLIC PANEL (8) BUN/creatini ne ratio 14 9-23 Not Available [facility] [address] [place], [address], 08/21/2023 14:07:05 08/20/19 24 08/21/2023 BASIC METAB OLIC PANEL (8) sodium 147 mmol/ L 134-14 4 above high normal Not Available [facility] ([facility] [address] [place], [address], 08/21/2023 14:07:05 08/20/19 24 08/21/2023 BASIC METAB OLIC PANEL (8) potassium 3.9 mmol/ L 3.5-5. 2 Not Available [facility] ([facility]) [address] [facility] [place], [address], 08/21/2023 14:07:05 08/20/19 24 08/21/2023 BASIC METAB OLIC PANEL (8) chloride 105 mmol/ L 96-106 Not Available [facility] ([facility]) [address] [facility], [place], [address], 08/21/2023 14:07:05 08/20/19 24 08/21/2023 BASIC METAB OLIC PANEL (8) carbon dioxide, total 23 mmol/ L 20-29 Not Available [facility] ([facility]) [address] [facility] [place], [address], 08/21/2023 14:07:05 08/20/19 24 08/21/2023 BASIC METAB OLIC PANEL (8) calcium 9.8 mg/dL 8.7-10 .2 Not Available [facility] ([facility]) [address] [place], [address], 08/21/2023 14:07:05 08/20/19 24 08/21/2023 ALBUM IN/CR EAT RATIO , BESSO M UR creatinine, urine 41.4 mg/dL not estab. Not Available [facility] ([facility] [address] [place], [address], 08/21/2023 14:07:05 08/20/19 24 08/21/2023 ALBUM IN/CR EAT RATIO , BESSO M UR albumin, urine <3.0 ug/mL not estab. Not Available [facility] ([facility]) [address] [place], [address], 08/21/2023 14:07:05 08/20/19 24 08/21/2023 ALBUM IN/CR EAT RATIO , RANDO M UR alb/creat ratio <7 mg/g_ creat 0-29 Salome l: 0 - 29 Moder ately incre ased: 30 - 300 Sever nadiya incre ased: >300 Not Available [facility] ([facility]) [address] [place], [address], 08/21/2023 14:07:05 01/21/20 24 01/22/2024 LIPID PANEL cholesterol, total 227 mg/dL 100-19 9 above high normal Not Available [facility] ([facility] [address] [place], [address], 01/22/2024 08:10:05 01/21/20 24 01/22/2024 LIPID PANEL triglyceride s 79 mg/dL 0-149 normal Not Available [facility] [address] [place], [address], 01/22/2024 08:10:05 01/21/20 24 01/22/2024 LIPID PANEL HDL cholesterol 95 mg/dL >39 normal Not Available [facility] [address] [place], [address], 01/22/2024 08:10:05 01/21/20 24 01/22/2024 LIPID PANEL VLDL cholesterol donaldo 14 mg/dL 5-40 Not Available [facility] [address] [place], [address], 01/22/2024 08:10:05 01/21/20 24 01/22/2024 LIPID PANEL LDL chol calc ([facility]) 118 mg/dL 0-99 above high normal Not Available [facility] ([facility] [address] [place], [address], 01/22/2024 08:10:05 01/21/20 24 01/22/2024 LIPID PANEL LDL calc comment: RETORT UNLOADER Not Available [facility] ([facility] [address] [place], [address], 01/22/2024 08:10:05 08/19/19 25 08/19/2024 BASIC METAB OLIC PANEL (8) glucose 93 mg/dL 70-99 normal Not Available [facility] ([facility]) [address] [facility] [place], [address], 08/19/2024 14:06:23 08/19/19 25 08/19/2024 BASIC METAB OLIC PANEL (8) BUN 16 mg/dL 8-27 normal Not Available [facility] ([facility]) [address] [facility] [place], [address], 08/19/2024 14:06:23 08/19/19 25 08/19/2024 BASIC METAB OLIC PANEL (8) creatinine 0.85 mg/dL 0.57-1 .00 normal Not Available [facility] ([facility]) [address] [facility] [place], [address], 08/19/2024 14:06:23 08/19/19 25 08/19/2024 BASIC METAB OLIC PANEL (8) eGFR 78 mL/mi n/1.7 3 >59 normal Not Available [facility] ([facility]) [address] [facility] [place], [address], 08/19/2024 14:06:23 08/19/19 25 08/19/2024 BASIC METAB OLIC PANEL (8) BUN/creatini ne ratio 19 12-28 normal Not Available [facility]) [address] [facility] [place], [address], 08/19/2024 14:06:23 08/19/19 25 08/19/2024 BASIC METAB OLIC PANEL (8) sodium 144 mmol/ L 134-14 4 normal Not Available [facility] ([facility]) [address] [facility] [place], [address], 08/19/2024 14:06:23 08/19/19 25 08/19/2024 BASIC METAB OLIC PANEL (8) potassium 4.6 mmol/ L 3.5-5. 2 normal Not Available [facility] ([facility]) [address] [facility] [place], [address], 08/19/2024 14:06:23 08/19/19 25 08/19/2024 BASIC METAB OLIC PANEL (8) chloride 104 mmol/ L 96-106 normal Not Available [facility] ([facility]) [address] [facility] [place], [address], 08/19/2024 14:06:23 08/19/19 25 08/19/2024 BASIC METAB OLIC PANEL (8) carbon dioxide, total 23 mmol/ L 20-29 normal Not Available [facility] ([facility]) [address] [facility] [place], [address], 08/19/2024 14:06:23 08/19/19 25 08/19/2024 BASIC METAB OLIC PANEL (8) calcium 10.2 mg/dL 8.7-10 .3 normal Not Available [facility] ([facility]) [address] [facility] [place], [address], 08/19/2024 14:06:23 12/09/19 25 12/08/2024 CBC WITH AUTO DIFFE RENTI AL WBC 8.3 K/mcL 4.8-10 .8 Not Available [facility] [address] [place], [address], 12/08/2024 18:25:32 12/09/19 25 12/08/2024 CBC WITH AUTO DIFFE RENTI AL RBC 5.10 M/mcL 3.80-4 .80 high Not Available [facility] [address] [place], [address], 12/08/2024 18:25:32 12/09/19 25 12/08/2024 CBC WITH AUTO DIFFE RENTI AL hemoglobin 12.8 g/dL 11.5-1 6.0 Not Available [facility] [address] [place], [address], 12/08/2024 18:25:32 12/09/1912/08/2024 CBC WITH AUTO DIFFE RENTI AL hematocrit 41.7 % 35.0-4 7.0 Not Available [facility] Dept [facility] [place], [address], 12/08/2024 18:25:32 12/09/19 25 12/08/2024 CBC WITH AUTO DIFFE RENTI AL MCV 81.8 fL 79.0-9 8.0 Not Available [facility] [place], [address], 12/08/2024 18:25:32 12/09/1912/08/2024 CBC WITH AUTO DIFFE RENTI AL MCH 25.1 pcg 27.0-3 2.0 low Not Available [facility] [employer] [place], [address], 12/08/2024 18:25:32 12/09/1912/08/2024 CBC WITH AUTO DIFFE RENTI AL MCHC 30.7 g/dL 32.0-3 7.0 low Not Available [facility] [place], [address], 12/08/2024 18:25:32 12/09/1912/08/2024 CBC WITH AUTO DIFFE RENTI AL RDW 13.4 % 11.0-1 5.0 Not Available [facility] [address] [place], [place] [address] Jose Fwadelaide [place], [address], 12/08/2024 18:25:32 12/09/1912/08/2024 CBC WITH AUTO DIFFE RENTI AL platelets 312 K/mcL 130-40 0 Not Available [facility] [employer] [place] [address] [place], [address], 12/08/2024 18:25:32 12/09/1912/08/2024 CBC WITH AUTO DIFFE RENTI AL MPV 10.9 fL 7.0-11 .0 Not Available [facility] [address] [place] [address], [address], 12/08/2024 18:25:32 12/09/1912/08/2024 CBC WITH AUTO DIFFE RENTI AL NRBC 0.0 % <1.0 Not Available [facility] [address] [place] [address], [address], 12/08/2024 18:25:32 12/09/1912/08/2024 CBC WITH AUTO DIFFE RENTI AL NRBC absolute 0.00 K/mcL <0.10 Not Available [facility] [place] [facility] [address] [place] [address], [address], 12/08/2024 18:25:32 12/09/1912/08/2024 CBC WITH AUTO DIFFE RENTI AL neutrophils relative 57.2 % Not Available [facility] [place] [facility] [address] [place] [address], [address], 12/08/2024 18:25:32 12/09/19 25 12/08/2024 CBC WITH AUTO DIFFE RENTI AL lymphocytes relative 31.1 % Not Available [facility] [place] [facility] [address] [place] [address], [address], 12/08/2024 18:25:32 12/09/1912/08/2024 CBC WITH AUTO DIFFE RENTI AL monocytes relative 7.8 % Not Available [facility] [place] [facility] [address] [place] [address], [address], 12/08/2024 18:25:32 12/09/19 25 12/08/2024 CBC WITH AUTO DIFFE RENTI AL eosinophils relative 3.0 % Not Available [facility] [place] [facility] [address] [place] [address] [place], [address], 12/08/2024 18:25:32 12/09/1912/08/2024 CBC WITH AUTO DIFFE RENTI AL basophils relative 0.7 % Not Available [facility] [place] [facility] [address] [place], [place] [address]ad[place], [address], 12/08/2024 18:25:32 12/09/1912/08/2024 CBC WITH AUTO DIFFE RENTI AL immature granulocytes relative 0.2 % Not Available [address] [place], [address], 12/08/2024 18:25:32 12/09/19 25 12/08/2024 CBC WITH AUTO DIFFE RENTI AL neutrophils absolute 4.77 K/mcL 1.50-7 .00 Not Available [address] [place], [address], 12/08/2024 18:25:32 12/09/19 25 12/08/2024 CBC WITH AUTO DIFFE RENTI AL lymphocytes absolute 2.59 K/mcL 1.00-5 .00 Not Available [address] [place], [address], 12/08/2024 18:25:32 12/09/1912/08/2024 CBC WITH AUTO DIFFE RENTI AL monocytes absolute 0.65 K/mcL 0.20-1 .00 Not Available [facility] [address] [place], [place] [address]adelaide [facility] [place], [address], 12/08/2024 18:25:32 12/09/19 25 12/08/2024 CBC WITH AUTO DIFFE RENTI AL eosinophils absolute 0.25 K/mcL 0.00-0 .50 Not Available [facility] [address] [place], [place] [address], [address], 12/08/2024 18:25:32 12/09/19 25 12/08/2024 CBC WITH AUTO DIFFE RENTI AL basophils absolute 0.06 K/mcL 0.00-0 .20 Not Available [facility] Dept [facility] Juancho [place] [place], [address], 12/08/2024 18:25:32 12/09/19 25 12/08/2024 CBC WITH AUTO DIFFE RENTI AL immature granulocytes absolute 0.02 K/mcL 0.00-0 .03 Not Available [facility]/S Dept [address] [place], [place] [address], [address], 12/08/2024 18:25:32 12/09/19 25 12/08/2024 CBC WITH AUTO DIFFE RENTI AL note See Report [facility], [address], [facility] [place] [address] Not Available [facility]/S Dept [address] [place] [address] [place], [address], 12/08/2024 18:25:32 12/09/19 25 12/08/2024 VITAM IN D 25 HYDRO XY vit D, 25-hydroxy 30.6 NG/mL 30.0-8 0.0 Not Available [facility] [address] [place] [address] [place], [address], 12/08/2024 19:13:11 12/09/19 25 12/08/2024 VITAM IN D 25 HYDRO XY note See Report [facility], [address], [facility] [facility] [place] [address] Not Available [facility]/S Dept [address] [place] [address] [place], [address], 12/08/2024 19:13:11 12/09/19 25 12/08/2024 COMPR EHENS BAKARI METAB OLIC PANEL sodium 142 mmol/ L 133-14 5 Not Available [facility] [place], [address], 12/08/2024 19:24:05 12/09/1912/08/2024 COMPR EHENS BAKARI METAB OLIC PANEL potassium 3.5 mmol/ L 3.5-5. 5 Not Available [facility] [address] [place] [address] [address] [facility] [place], [address], 12/08/2024 19:24:05 12/09/1912/08/2024 COMPR EHENS BAKARI METAB OLIC PANEL chloride 110 mmol/ L 96-110 Not Available [facility] [address] [place] [address] [place], [address], 12/08/2024 19:24:05 12/09/1912/08/2024 COMPR EHENS BAKARI METAB OLIC PANEL CO2 26 mmol/ L 21-32 Not Available [facility] [address] [place], [place] [address] [address], [place], [address], 12/08/2024 19:24:05 12/09/1912/08/2024 COMPR EHENS BAKARI METAB OLIC PANEL anion gap 6 3-[address] [facility] [address] [place], [place] [address] [address] [facility] [place], [address], 12/08/2024 19:24:05 12/09/1912/08/2024 COMPR EHENS BAKARI METAB OLIC PANEL glucose 81 mg/dL 70-100 Not Available [facility] [address] [place] [address] [address] [place], [address], 12/08/2024 19:24:05 12/09/19 25 12/08/2024 COMPR EHENS BAKARI METAB OLIC PANEL BUN 21 mg/dL 5-25 Not Available [address] [place], [address], 12/08/2024 19:24:05 12/09/1912/08/2024 COMPR EHENS BAKARI METAB OLIC PANEL creatinine 1.19 mg/dL 0.50-1 .10 high Not Available [facility] Dept [facility] [place], [address], 12/08/2024 19:24:05 12/09/19 25 12/08/2024 COMPR EHENS BAKARI METAB OLIC PANEL eGFR 52 mL/mi n/1.7 3m2 >=60 low Calcu latio n based on the Chron ic Kidne y Disea se Epide miolo gy Colla borat ion (CKD- EPI) equat ion refit witho ut adjus tment for race. Not Available [facility] [address] [place], [place] [address], [address], 12/08/2024 19:24:05 12/09/1912/08/2024 COMPR EHENS BAKARI METAB OLIC PANEL BUN/creatini ne ratio 17.6 Not Available [facility] [place], [address], 12/08/2024 19:24:05 12/09/19 25 12/08/2024 COMPR EHENS BAKARI METAB OLIC PANEL calcium 9.5 mg/dL 8.5-10 .5 Not Available [facility] [address] [place], [place] [address], [address], 12/08/2024 19:24:05 12/09/19 25 12/08/2024 COMPR EHENS BAKARI METAB OLIC PANEL AST (SGOT) 24 unit/ L 10-42 Not Available [facility] [place], [address], 12/08/2024 19:24:12/09/19 25 12/08/2024 COMPR EHENS BAKARI METAB OLIC PANEL ALT (SGPT) 41 unit/ L 10-60 Not Available [facility] [place], [address], 12/08/2024 19:24:05 12/09/19 25 12/08/2024 COMPR EHENS BAKARI METAB OLIC PANEL alkaline phosphatase 178 unit/ L 42-121 high Not Available [facility] [address] [place], [place] [address], [address], 12/08/2024 19:24:05 12/09/1912/08/2024 COMPR EHENS BAKARI METAB OLIC PANEL total protein 6.7 g/dL 6.0-8. 0 Not Available [facility] [address] [place] [address] [place], [address], 12/08/2024 19:24:05 12/09/1912/08/2024 COMPR EHENS BAKARI METAB OLIC PANEL albumin 3.4 g/dL 3.2-5. 0 Not Available [facility] [address] [place] [address] [place], [address], 12/08/2024 19:24:05 12/09/1912/08/2024 COMPR EHENS BAKARI METAB OLIC PANEL total bilirubin 0.3 mg/dL 0.0-1. 4 Not Available [facility] [address] [place] [address] [place], [address], 12/08/2024 19:24:05 12/09/1912/08/2024 COMPR EHENS BAKARI METAB OLIC PANEL note See Report [facility], [address], Aldo guillory d, [place]ts [address] Not Available [facility] [address] [place] [address] [place], [address], 12/08/2024 19:24:05 12/09/19 25 12/08/2024 VITAM IN B12 vitamin B-12 1714 pcg/m L 250-90 0 high Not Available [facility] [address] [place], [address], 12/08/2024 19:24:06 12/09/19 25 12/08/2024 VITAM IN B12 note See Report [facility], [address], [place]ain kahlil d, [place] [address] Not Available [facility] [address] [place], [address], 12/08/2024 19:24:06 01/31/20 24 01/31/2024 MR brain wo and W contr ast See Note [facility] , a member of [employer] [facility] Name: MMEO JAVIER Date of : 1964 Reason for Exam: WHITE MATTER DISEAS E Exam Date: 2023 [id number] EST Report Status : Final Orderi ng [...] Transc ribed Date: 2023 15:13 ET [address], [address], 02/01/2024 13:18:06 Result Notes None recorded. 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 Not Available [facility] 0 18:22:26 Fatigue [id number] Completed 03/25/2016 Ángela Lucero PA-C [address] [facility] [address], [place], [address] , [facility] 1 09:22:08 Administ ration of bacteria l and viral vaccine Completed 200809/21/2013 RECORDED 06/24/19 09 10:01AM BY KEVIN TOSCANO, OFFICE VISIT Josey Winchester MD [address] [facility] [address], [place], [address] , [facility] 6 09:55:27 Administ ration of bacteria l and viral vaccine Completed 200810/11/2013 RECORDED 06/24/19 09 10:01AM BY KEVIN TOSCANO, OFFICE VISIT Josey Winchester MD [address] [facility] [address], [place], [address] , [facility] 6 09:55:27 Astigmat ism [id number] Completed 201209/21/2013 RECORDED 03/26/19 13 8:47AM BY HOWARD MERLOS ON/ADDEN DUM Josey Winchester MD [address] [facility] [address], [place], [address] , [facility] 6 09:55:27 Screenin g for malignan t neoplasm of breast Completed 201209/21/2013 RECORDED 03/26/19 13 8:47AM BY HOWARD MERLOS ON/ADDEN DUM Josey Winchester MD [address] [facility] [address], [place], [address] , [facility] 6 09:55:28 Screenin g for malignan t neoplasm of cervix Completed 201209/21/2013 RECORDED 03/26/19 13 8:47AM BY HOWARD MERLOS ON/MARGRET Winchester MD [address] [facility] [address], [place], [address] , [facility] 6 09:55:28 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 Completed 201209/21/2013 RECORDED 03/26/19 13 8:46AM BY HOWARD MERLOS ON/MARGRET Winchester MD [address] [facility] [address], [place], [address] , [facility] 6 09:55:27 Malaise and fatigue [id number] Completed 201209/21/2013 RECORDED 03/26/19 13 8:46AM BY HOWARD MERLOS ON/MARGRET Winchester MD [address] [facility] [address], [place], [address] , [facility] 6 09:55:27 Shoulder joint pain [id number] Completed 201209/21/2013 RECORDED 03/26/19 13 8:46AM BY HOWARD MERLOS ON/MARGRET Winchester MD [address] [facility] [address], [place], [address] , [facility] 6 09:55:27 Skin sensatio n disturba fle [id number] Completed 201209/21/2013 RECORDED 03/26/19 13 8:47AM BY HOWARD MERLOS ON/MARGRET Winchester MD [address] [facility] [address], [place], [address] , [facility] 6 09:55:27 Astigmat ism 98853283 Completed 201210/11/2013 RECORDED 03/26/19 13 8:47AM BY HOWARD MERLOS ON/MARGRET Winchester MD [address], [place], [address] , [facility] 6 09:55:27 Screenin g for malignan t neoplasm of breast Completed 201210/11/2013 RECORDED 03/26/19 13 8:47AM BY HOWARD MERLOS ON/MARGRET Winchester MD [address] [facility] [address], [place], [address] , [facility] 6 09:55:28 Screenin g for malignan t neoplasm of cervix Completed 201210/11/2013 RECORDED 03/26/19 13 8:47AM BY HOWARD MERLOS ON/MARGRET Winchester MD [address] [facility] [address], [place], [address] , [facility] 6 09:55:28 Tietze's disease [id number] Completed 201210/11/2013 RECORDED 03/26/19 13 8:46AM BY HOWARD MERLOS ON/MARGRET Winchester MD [address] [facility] [address], [place], [address] , [facility] 6 09:55:27 Malaise and fatigue 964388452 Completed 201210/11/2013 RECORDED 03/26/19 13 8:46AM BY HOWARD MERLOS ON/MARGRET Winchester MD [address], [place], [address] , [facility] 6 09:55:27 Skin sensatio n disturba fle 75592841 Completed 201210/11/2013 RECORDED 03/26/19 13 8:47AM BY HOWARD MERLOS ON/MARGRET Winchester MD [address], [place], [address] , [facility] 6 09:55:27 Screenin g for malignan t neoplasm of colon Completed 201209/21/2013 RECORDED 09/22/19 13 8:20AM BY TRACEY MERLOSATI ON/MARGRET Winchester MD [address] [facility] [address], [place], [address] , [facility] 6 09:55:28 Screenin g for malignan t neoplasm of colon Completed 201210/11/2013 RECORDED 09/22/19 13 8:20AM BY HOWARD MERLOS ON/MARGRET Winchester MD [address] [facility] [address], [place], [address] , [facility] 6 09:55:28 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 554287157 Completed 201209/21/2013 IMPRESSI ON: CONTINUE CURRENT MGMT; MEDS HELP A GREAT DEAL.; RECORDED 02/17/20 13 8:03AM BY HOWARD MERLOS ON/MARGRET Winchester MD [address] [facility] [address], [place], [address] , [facility] 6 09:55:27 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 327660648 Completed 201210/11/2013 IMPRESSI ON: CONTINUE CURRENT MGMT; MEDS HELP A GREAT DEAL.; RECORDED 02/17/20 13 8:03AM BY HOWARD MERLOS ON/MARGRET Winchester MD [address] [facility] [address], [place], [address] , [facility] 6 09:55:27 Cough 97884652 Completed 201309/21/2013 RECORDED 04/01/19 14 9:45AM BY LISETH QUEZADA I ANNOTATI ON/ADDEN DUM Josey Winchester MD [address] [facility] [address], [place], [address] , [facility] 6 09:55:27 Cough 55078914 Completed 201310/11/2013 RECORDED 04/01/19 14 9:45AM BY LISETH QUEZADA I ANNOTATI ON/ADDEN DUM Josey Winchester MD [address] [facility] [address], [place], [address] , [facility] 6 09:55:27 Shoulder joint pain 013782976 Active 2013 Received injectio n at [facility] Not Available [facility] 0 18:22:26 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 963737284 Completed 201301/11/[address] PARSONS; RECORDED 07/08/19 14 1:40PM BY LISETH QUEZADA I, OFFICE VISIT Josey Winchester MD [address] [facility] [address], [place], [address] , [facility] 6 09:55:27 Patient status finding [id number] Completed 201301/11/2014 RECORDED 07/08/19 14 1:46PM BY LISETH QUEZADA I, OFFICE VISIT Josey Winchester MD [address] [facility] [address], [place], [address] , [facility] 6 09:55:27 Flatulen ce, eructati on and gas pain 893904836 Completed 201301/11/2014 STORY: SEEN BY DR PARSONS; IMPRESSI ON: ADVISED HER TO GO TO THE [facility] TO SEE IF THEY HAVE ANYTHING TO HELP WITH HER SX.; RECORDED 07/08/19 14 1:40PM BY LISETH QUEZADA I, OFFICE VISIT Josey Winchester MD [address] [address], [place], [address] , [facility] 6 09:55:27 Visual disturba nce 09009828 Active 2013 IMPRESSI ON: POSSIBLE HYPOTENS ION VS MIGRAINE EQUIVALE NTS. SHE WILL CHECK HER BP AT HER NEXT EPISODE. IF HER BP IS NORMAL SHE WILL TAKE A MIGRAINE MED TO SEE IF THIS HELPS. IF THERE IS NO RELIEF SHE WILL CALL HER EYE DOCTOR. Not Available [facility] 0 18:22:25 Single major depressi ve episode Active 2013 Problem in Fall and Winter Not Available [facility] 0 18:22:26 Gastroes ophageal reflux disease 441499992 Active 2013 IMPRESSI ON: SHE HAS TRIED MEDS BUT HER SYMPTOMS PERSIST. Not Available [facility] 0 18:22:26 Essentia l hyperten ray 36232899 Active 2013 Josey Winchester MD [address] [address], [place], [address] , [facility] 3 13:25:29 Hyperlip idemia 22669126 Completed 201301/11/2014 RECORDED 07/08/19 14 1:40PM BY LISETH QUEZADA I, OFFICE VISIT Josey Winchester MD [address] [address], [place], [address] , [facility] 0 19:09:36 Irritabl e bowel syndrome 79217222 Active 2013 Takes meds which help Not Available [facility] 0 18:22:26 Migraine 75270481 Active 2013 Not Available [facility] 0 18:22:26 Adult health examinat ion Completed 201301/11/2014 RECORDED 07/08/19 14 1:45PM BY LISETH QUEZADA I, OFFICE VISIT Josey Winchester MD [address] [facility] [address], [place], [address] , [facility] 6 09:55:27 Pure hypercho lesterol emia 975526537 Completed 201311/18/2016 Unable to tolerate lipitor Josey Winchester MD [address], [place], [address] , [facility] 7 10:05:50 Keratoco nus 67916155 Active 2015 Followed by [facility] Not Available [facility] 0 18:22:25 Pinguecu la 40989022 Active 2015 Followed by [facility] Not Available [facility] 0 18:22:26 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 Active 2015 Followed by [facility] Not Available [facility] 0 18:22:26 Pneumoni a 000615517 Completed 201608/15/2016 Humera celaya MA [facility], [facility] 7 16:08:02 Attentio n deficit hyperact ivity disorder , predomin antly inattent bakari type 96273528 Active 2017 Not Available [facility] 0 18:22:26 Hypokale monisha 32820979 Active 2018 Not Available [facility] 0 18:22:26 Hyperlip idemia 32693766 Active 2019 Not Available [facility] 0 18:22:26 Loss of hair 280313198 Active 2020 Josey Winchester MD [address], [place], [address] , [facility] 1 17:02:35 Pain of multiple joints 87695630 Active 2020 Ángela Lucero PA-C [address], [place], [address] , [facility] 1 09:22:07 Fatigue 05748952 Active 2020 Ángela Lucero PA-C [address], [place], [address] , [facility] 1 09:22:08 Pain of right wrist 85809067813 9100 Active 2020 Seen by [facility] ; had MRI showing OA. Josey Winchester MD [address], [place], [address] , [facility] 1 18:07:02 Seronega tive rheumato id arthriti s 885859134 Active 2021 Followed by rheum; on methotre xate. 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 Mohini horne optic neuritis . Josey Winchester MD [address], [place], [address] , [facility] 3 10:45:14 Kidney finding 711804008 Active 2022 born with only one kidney Purvi Torres, [employer] EXEC[employer]IVE null, [facility] 3 09:09:38 Thyroid nodule 717917858 Active 2022 Thyroid U/S done and no addition al imaging required . Josey Winchester MD [address], [place], [address] , [facility] 3 20:13:54 Edema of lower extremit y 799544513 Active 2023 Luis bentley [facility] 4 12:11:02 Generali zed anxiety disorder 65107618 Active 2024 Josey Winchester MD [address], [place], [address] , [facility] 5 11:56:52 Chronic kidney disease stage 3A 198581108 Active 2024 Josey Winchester MD [address], [place], [address] , [facility] 5 07:38:46 Problem Notes None recorded. Procedures Surgical History Date Name Laterality Status Provider Name and Address Organization Details Recorded Time 07/25/19 23 Most Recent Mammogram completed Kati Dallas [facility] 07/24/2022 12:09:18 07/25/19 23 Mammogram Diagnostic Bilateral completed Kati Dallas [facility] 07/24/2022 12:09:11 05/10/19 23 wrist injection completed Gracy Juares [facility] 05/14/2022 13:50:42 03/30/19 16 Date of Last Pap Smear completed Amy Dewitt [facility] 04/03/2015 11:53:06 03/16/19 16 Date of Last Colonoscopy completed Viviana Hodge [facility] 03/17/2015 10:15:20 03/16/19 16 Colonoscopy completed Roslyn Orr MA [facility] 02/23/2020 13:16:56 03/03/19 02 Total Abdominal Hysterectomy completed Humera valentine MA [facility] 08/15/2016 16:15:28 Cholecystectomy completed Josey Winchester MD [address], [place], [address], [facility] 01/11/2014 14:15:38 Imaging Results None recorded. Procedure Notes None recorded. Medical Equipment None Reported. Allergies Allergen ID Allergen Name Allergen Category Reaction Reaction Severity Criticality Documentation Date Start Date Code Code System Note Provider Name and Address Organization Details Recorded Time 47959 omeprazol e medicatio n rash Not available Not available 06/25/2017 7646 RxNorm Josey cordova MD [address] [address], [facility] [place], [address], [facility] 8 13:54:05 94209 famotidin e medicatio n hives swelling Not available Not available Not available 02/17/20252013 4278 RxNorm Not Available [facility] - External Data Service - prod 5 14:01:34 8323 Pepcid medicatio n angioedem a Not available Not available 09/14/20132013 39575 8 RxNorm REACT ION: RIGHT ARM SWELL ING Humera Chad quevedo [place] null, [facility] 7 16:07:06 Medications Name Sig Start Date Stop Date Status Note LastModified by Organization Details LastModified Time sumatript an succinate 100 mg tabs active Not Available Not Available Not Available Prescript [...] 50 mcg/actua tion nasal spray,mary beth pension [place] 1 spray every day by intranas al [...] completed RECORDED 07/06/19 11 9:51AM BY HOWARD RIBEIOR ON/MARGRET SEVERINO;TAKE 1 A DAY FOR FIRST WEEK Not [...] completed Not Available Not Available Not Available Nurte ODT 75 mg disintegr ating tablet DISSOLVE [...] DateTime 08/15/2023 158/84 mm[Hg] Ángela Lucero PA-C [address] [address], [place], [address], [facility] 08/15/2023 12:25:22 Date Recorded Body height Body mass index (BMI) Body weight Systolic And Diastolic Provider Name and Address Organization Details Last Updated DateTime 08/15/2023 165.1 cm 25.1 kg/m2 37756.45 g 145/87 mm[Hg] Maura Haider MA [facility] 08/15/2023 11:36:16 Date Recorded Body height Body mass index (BMI) Body weight Heart rate Oxygen saturation Systolic And Diastolic Provider Name and Address Organization Details Last Updated DateTime 5 165.1 cm 28.6 kg/m2 28559.8 9 g 60 /min 99 % 120/78 mm[Hg] Maura Haider MA [facility] 5 14:03:29 Date Recorded Body height Body mass index (BMI) Body weight Heart rate Oxygen saturation Body temperature Systolic And Diastolic Provider Name and Address Organization Details Last Updated DateTime 5 165.1 cm 28.2 kg/m2 05556.9 1 g 63 /min 96 % 97.9 [degF] 133/77 mm[Hg] Tala Yañez [facility] 5 11:11:12 Date Recorded Body height Body mass index (BMI) Body weight Systolic And Diastolic Provider Name and Address Organization Details Last Updated DateTime 01/21/2024 165.1 cm 26 kg/m2 45302.41 g 137/86 mm[Hg] Maura Haider MA [facility] 01/21/2024 14:38:24 Date Recorded Body height Body mass index (BMI) Body weight Heart rate Oxygen saturation Body temperature Systolic And Diastolic Provider Name and Address Organization Details Last Updated DateTime 4 165.1 cm 26.6 kg/m2 82106.7 8 g 101 /min 97 % 98 [degF] 121/82 mm[Hg] Maura Haider [facility] 4 14:08:27 Social History Question Answer Notes LastModified by Organizat ion Details LastModified Time Tobacco Smoking Status Never Smoker Not Available [facility] 01/04/2020 03:36:37 Do You Have An Advance Directive? Yes HCP [email or web address] Information not available 10/03/2021 Is Blood Transfusion Acceptable In An Emergency? Yes [id number] Information not available 01/04/2020 What Is Your Level Of Caffeine Consumption? None [id number] Information not available 01/04/2020 How Much Tobacco Do You Chew? None [id number] Information not available 01/04/2020 What Type Of Diet Are You Following? VEGETARIAN No Salt [id number] Information not available 01/04/2020 Which Illicit Or Recreational Drugs Have You Used? None [id number] Information not available 01/04/2020 Education 4 Year College [email or web address] Information not available 10/03/2021 Live Alone Or With Others? With Others 2 Children And 1 GC (born Late 2012) [email or web address] Information not available 10/03/2021 Do You Take Precautions To Prevent Distracted Driving? Yes [email or web address] Information not available 10/12/2015 How Often Do You Need To Have Someone Help You When You Read Instructions, Pamphlets, Or Other Written Material From Your Doctor Or Pharmacy? Never [email or web address] Information not available 10/12/2015 Have You Served [...] Or Greater Than 100 Degrees Fahrenheit? No [email or web address] Information not available 02/23/2020 Are You Or Anyone In Your Household A Health Care Provider Or Emergency Responder? No [email or web address] Information not available 02/23/2020 To The Best Of Your Knowledge Have You Been In Close Proximity To Any Individual Who Tested Positive For COVID-19? No [email or web address] Information not available 02/23/2020 Have You Recently [...] available 02/23/2020 Seat Belts Used Routinely Yes [email or web address] Information not available 10/03/2021 Are You Sexually Active? No [id number] Information not available 01/04/2020 Smoke Alarm In Home Yes [email or web address] Information not available 10/03/2021 At What Age Did You Start Smoking Tobacco? 1 [id number] Information not available 01/04/2020 Are You Passively Exposed To Smoke? No [email or web address] Information not available 10/12/2015 How Much Tobacco Do You Smoke? No [id number] Information not available 01/04/2020 Do You Use Sunscreen Routinely? Yes [id number] Information not available 01/04/2020 How Many Years Have You Smoked Tobacco? 0 [id number] Information not available 01/04/2020 Sex: Unknown Functional Status Question Answer Note LastModified by Organization Details LastModified Time Do you or have you ever used any other forms of tobacco or nicotine? No [email or web address] Information not available 10/03/2021 What is your level of alcohol consumption? None [id number] Information not available 01/04/2020 Do you or have you ever used smokeless tobacco? Never used smokeless tobacco [id number] Information not available 01/04/2020 Are you currently employed? Yes [id number] Information not available 01/04/2020 Are you able to walk independently without assistance or assistive devices? YESWOREST [email or web address] Information not available 10/03/2021 Are you able to care for yourself independently? Yes [id number] Information not available 01/04/2020 What is your occupation? [employer] self-employed; also work for [employer] [email or web address] Information not available 02/23/2020 Do you or have you ever used e-cigarettes or vape? Never used electronic cigarettes [email or web address] Information not available 10/03/2021 What is your exercise level? Moderate Trying to walk; no longer going to the gym since COVID [email or web address] Information not available 02/23/2020 Mental Status None recorded. Family History Relationship Description Onset Age of this Age Resolved Age Notes LastModified by Organization Details LastModified Time Mother Myocardial infarction 39 [email or web address] Not available 01/2016 10:07:03 Medical History No medical history recorded. Gynecological History Statement/Question Response Date of Last Pap Smear 03/30/2015 Current Control Method Hysterectom y Date of Last Colonoscopy 03/16/2015 Most Recent Mammogram 07/24/2022 Obstetrics History GPAL:G 0 P 0 0 0 0 Immunizations Vaccine Type Date Status Note Provider Nam e and Address Organization Details Recorded Time [facility] 12:49:12 Influenza, split virus, quadrivalent, preservative 0 [facility]28[facility] 12:49:12 COVID-19, mRNA, LNP-S, PF, 100 mcg/0.5mL dose or 50 mcg/0.25mL dose 1 [facility] 11/21/2021 08:31:51 COVID-19, mRNA, LNP-S, PF, 100 mcg/0.5mL dose or 50 mcg/0.25mL dose 1 [facility] 03/07/2021 11:29:55 Influenza, split virus, trivalent, preservative 3 [facility] 03/07/2021 11:29:55 Influenza, split virus, trivalent, preservative 2 [facility] 03/07/2021 11:29:55 COVID-19, mRNA, LNP-S, PF, 100 mcg/0.5mL dose or 50 mcg/0.25mL dose 1 [facility] 03/07/2021 11:29:55 Influenza, MDCK, quadrivalent, PF 9 [facility] 03/07/2021 11:29:55 Influenza, split virus, trivalent, preservative [facility] 11:29:55 Influenza, split virus, quadrivalent, PF 5 completed Not Available [facility] 03/20/2019 02:22:02 COVID-19, mRNA, LNP-S, PF, 100 mcg/0.5mL dose or 50 mcg/0.25mL dose 2 completed KEVIN Conti, [facility] 11/21/2021 08:31:51 COVID-19, mRNA, LNP-S, PF, phuc-sucrose, 30 mcg/0.3 mL 3 completed JOVAN Noonan, [facility] 07/09/2023 10:54:37 Influenza, split virus, quadrivalent, PF 6 completed Not Available [facility] 03/20/2019 02:22:04 Influenza, split virus, trivalent, PF 4 completed Not Available [facility] 09/16/2024 11:00:10 COVID-19, mRNA, LNP-S, PF, phuc-sucrose, 30 mcg/0.3 mL 4 completed Not Available [email or web address] 09/16/2024 11:00:10 Influenza, split virus, quadrivalent, PF 7 completed Not Available [email or web address] 03/20/2019 02:22:10 Influenza, split virus, quadrivalent, PF 8 completed Not Available [facility] 03/20/2019 02:22:15 Tdap 0 completed Bonny Brewster MA null, [facility] 08/11/2019 11:36:19 Influenza, split virus, trivalent, PF 4 completed Not Available [email or web address] 03/20/2019 02:21:58 Tdap 9 completed Not Available [facility] 11/26/2019 18:22:26 Influenza, split virus, quadrivalent, PF 3 completed Josey Winchester MD [address] [address], [place], [address], [facility] 01/10/2023 13:40:02 Past Encounters Encounter ID Performer Location Encounter Start Date Encounter Closed Date Diagnosis/Indication Diagnosis SNOMED-CT Code Diagnosis ICD10 Code Diagnosis IMO Codes Diagnosis Note [id number] autoEComm erce [address] [facility] [address] [place] [address] 04/09/2007 00:00:00 [id number] autoEComm erce [address] [facility] [place] [address] 05/06/2007 00:00:00 [id number] autoEComm erce [address] [facility] [place] [address] 06/23/2008 00:00:00 [id number] autoEComm erce [address] [facility] [place] [address] 07/06/2008 00:00:00 [id number] autoEComm erce [address] [facility] [place] [address] 08/11/2008 00:00:00 [id number] autoEComm erce [address] [facility] [place] [address] 04/21/2009 00:00:00 [id number] autoEComm erce [address] [facility] [place] [address] 05/19/2009 00:00:00 [id number] autoEComm erce [address] [facility] [place] [address] 07/19/2009 00:00:00 [id number] autoEComm erce [address] [facility] [place] [address] 04/10/2010 00:00:00 [id number] autoEComm erce [address] [facility] [place] [address] 05/15/2010 00:00:00 [id number] autoEComm erce [address] [facility] [place] [address] 07/04/2010 00:00:00 [id number] autoEComm erce [address] [facility] [place] [address] 09/12/2010 00:00:00 [id number] autoEComm erce [address] [place], [place] [address] 10/17/2010 00:00:00 [id number] autoEComm erce [address] [place], [place] [address] 09/12/2011 00:00:00 [id number] autoEComm erce [address] [place], [place] [address] 03/26/2012 00:00:[id number] [facility] [address] [place], [place] [address] 04/27/2012 00:00:[id number] [facility] [address] [place], [place] [address] 09/21/2012 00:00:00 [id number] autoEComm erce [address] [facility] [place], [place] [address] 02/16/2013 00:00:00 [id number] autoEComm erce [address] [facility] [place], [place] [address] 07/07/2013 00:00:00 [id number] Josey Winchester MD Main Office [address] [address] [place], [place] [address] 01/11/2014 13:22:21 01/11/2014 14:42:04 Needs influenza immunization [id number] Essential hypertension 52931941 Attention deficit hyperactivity disorder, predominantly inattentive type 96784211 Pure hypercholesterolemia 374178499 Screening for malignant neoplasm of breast 106827033 Screening for malignant neoplasm of colon 932819914 [id number] Josey Winchester MD Main Office [address] [address] [place], [place] [address] 07/11/2014 13:41:12 07/11/2014 14:48:21 Adult health examination 713853495 Screening for malignant neoplasm of colon 689703286 Pure hypercholesterolemia 303535972 has trouble with meds. Will recheck and look at risk calculator before starting another med. Essential hypertension 55025253 well controlled with current meds Irritable bowel syndrome 93246502 well-contr olled with current meds and diet. [id number] Josey Winchester MD Main Office [address] [address] [place] [address] 12/03/2014 08:47:01 12/03/2014 09:43:49 Migraine 09867402 G43.009 will restart a triptan which she took years ago and she will call if it isn't helping. Plantar fasciitis 20271003 003 M72.2 she will try exercises and will call if it persists. [id number] Josey Winchester MD Main Office [address] [address] [place] [address] 01/23/2015 10:38:25 01/23/2015 11:28:45 Essential hypertension 56594947 I10 no longer controlled . We will go up on her meds and she will call if the BP is >140/90. Pure hypercholesterolemia 456865306 E78.0 trouble on meds. Recheck cholestero l Needs infl uenza immunization 558928384 Z23 Screening for malignant neoplasm of colon 976586071 Z12.11 Screening for malignant neoplasm of cervix 899005723 Z12.4 Attention deficit hyperactivity disorder, predominantly inattentive type 13612606 F90.0 [id number] Josey Winchester MD Main Office [address] [address] [place] [address] 10/12/2015 09:22:54 10/12/2015 10:14:44 Adult health examination 099494854 Z00.00 UTD with immunizati ons, colonoscop y, mammogram and RECORDS ANALYST care. Essential hypertension 80438510 I10 we will stop her metoprolol to see if her fatigue improves. Start a CCB and see her back in 1 month. Fatigue 54203330 R53.83 this may be secondary to metoprolol so will stop and start another BP med. Irritable bowel syndrome 62229830 K58.9 well-contr olled with current meds and diet. [id number] Josey Winchester MD Main Office [address] [address] [place] [address] 11/14/2015 15:44:42 11/14/2015 17:02:57 Essential hypertension 92127058 I10 Her fatigue has persisted despite stopping the metoprolol . BP mildly elevated on the amlodipine so will increase the dose. Needs infl uenza immunization 016076221 Z23 Migraine 03425459 G43.00 9 Possibly returned since stopping the bets cherelle for her BP. Will start a different beta cherelle and she will call if it persists. [id number] Giovanni Lucero PA-C Main Office [address] [facility] [address] [place] [address] 02/27/2016 10:23:45 02/27/2016 11:54:18 Fever 474529150 R50.9 40 minute office visit with greater than 50% of the visit face-to-fa ce with the patient and/or family providing counseling and/or coordinati on of care. Cough 65118183 R05 Nausea and vomiting 1693 1999 R11.2 Diarrhea 57990013 R19.7 Fatigue 45572646 R53.83 [id number] Giovanni Lucero PA-C Main Office [address] [facility] [address] [place] [address] 03/05/2016 15:42:55 03/06/2016 12:56:57 Pneumonia 295957736 J18.9 encouraged deep breaths at least hourly to hopefully diminish need for albuterol, also rec. walk on elliptical machine at low intensity to slowly build up her endurance. will give cxr at next f/u to recheck in 2 wks Essential hypertension 34045009 I10 mildly elevated - advised pt to cont to monitor qd, and will consider re-initiat ing bp med if cont. to trend high 25 minute office visit with greater than 50% of the visit face-to-fa ce with the patient and/or family providing counseling and/or coordinati on of care. [id number] Giovanni Lucero PA-C Main Office [address] [facility] [address] [place] [address] 03/25/2016 13:15:02 03/25/2016 14:04:38 Essential hypertension 30348053 I10 stable, not on meds - used bp med a few yrs ago - rec. cont healthy diet (low salt) and exercise 25 minute office visit with greater than 50% of the visit face-to-fa ce with the patient and/or family providing counseling and/or coordinati on of care. Pneumonia 779184127 J18. 9 cont to stay active, rec occ deep breaths. will give cxr to verify resolution of pna [id number] Josey Winchester MD Main Office [address] [address] [place] [address] 07/08/2016 11:22:37 07/08/2016 12:11:21 Allergic rhinitis 44185102 J30.9 We will see her back in a few weeks to recheck her adenopathy . No B symptoms. [id number] Giovanni Lucero PA-C Main Office [address] [address] [place] [address] 08/15/2016 15:59:01 08/15/2016 17:02:56 Acute sinusitis 82117167 J01.90 Pt. told to get some sudafed, cont OTCs and have yogurt or get a probiotic while on the Abx. [id number] Josey Winchester MD Main Office [address] [address] [place] [address] 11/18/2016 09:33:44 11/18/2016 10:23:06 Adult health examination 137740606 Z00.00 UTD with immunizati ons, colonoscop y, mammogram and RECORDS ANALYST care. Needs infl uenza immunization 324779524 Z23 Essential hypertension 63093484 I10 She will follow her BP at home and we will call in a few weeks to see how it has been running. Migraine 53845558 G43.00 9 Hyperlipidemia 35988886 E78.5 has trouble with meds. Will recheck and look at risk calculator before starting another med. [id number] Josey Winchester MD Main Office [address] [address] [place] [address] 05/21/2017 12:49:18 05/21/2017 14:09:17 Essential hypertension 74966368 I10 Will restart meds and she will return for a recheck in 1 month. Easy bruising 991796409 R58 [id number] Josey Winchester MD Main Office [address] [address] [place] [address] 06/25/2017 13:18:55 06/25/2017 13:56:11 Essential hypertension 43313041 I10 Taking meds daily and tolerating them well. BP under good control. Migraine 01140295 G43.00 9 stable on prophylaxi s. [id number] Josey Winchester MD Main Office [address] [address] [place] [address] 11/06/2017 12:58:57 11/06/2017 14:04:51 Carpal tunnel syndrome 80604532 G56.02 She will take aleve twice a day. [id number] Josey Winchester MD Main Office [address] [address] [place] [address] 12/03/2017 12:43:02 12/03/2017 13:40:40 Needs influenza immunization 896315933 Z23 Screening for malignant neoplasm of breast 031897347 Z12.39 Essential hypertension 61477004 I10 She will restart her meds at a lower dose. She understand s that this is especially important in light of the fact she is going back on adderall. Attention deficit hyperactivity disorder, predominantly inattentive type 89795931 F90.0 Having trouble with focus. This helped in the past. [id number] Josey Winchester MD Main Office [address] [address] [place] [address] 01/28/2018 13:04:32 01/28/2018 13:49:10 Adult health examination 693014365 Z00.00 UTD with immunizati ons, colonoscop y (due again in 2025) mammogram. Had a hysterecto my and no longer sees RECORDS ANALYST. Essential hypertension 02543147 I10 Her BP is running high so we will increase her dose of atenolol and see her back in 1 month. Attention deficit hyperactivity disorder, predominantly inattentive type 44603796 F90.0 We start 15 mg bid since the 30 mg XL dose wears off before the end of her work day. Screening for malignant neoplasm of breast 110503775 Z12.39 [id number] Josey Winchester MD Main Office [address] [address] [place] [address] 02/18/2018 11:19:47 02/18/2018 11:50:35 Attention deficit hyperactivity disorder, predominantly inattentive type 14150005 F90.0 we will d/c her adderall and start strattera. She will call in a couple of weeks if it is not helping and we will go up on the dose. If still not working at the end of March we will try a different med. Essential hypertension 72123204 I10 Good control with increased dose of meds. Continue current mgmt. [id number] Josey Winchester MD Main Office [address] [place] [address] 08/06/2018 15:37:38 08/06/2018 16:31:45 Fatigue 16102830 R53.83 No clear etiology. Hypokalemia 59076957 E87 .6 Corrected as an inpatient; secondary to diuretic. Essential hypertension 44887870 I10 Currently normotensi ve off meds. Possibly secondary to her adderall. She will monitor her BP and will call if/when she restarts her adderall. Attention deficit hyperactivity disorder, predominantly inattentive type 51116588 F90.0 Has adderall and will restart when needed. [id number] Josey Winchester MD Main Office [address] [address] 08/19/2018 12:31:49 08/19/2018 13:22:34 Essential hypertension 76192458 I10 Currently normotensi ve off meds. Possibly secondary to her adderall. She will monitor her BP and will call if/when she restarts her adderall. Fatigue 76753657 R53.83 No clear etiology. We spoke about lifestyle issues such as exercise, good diet and adequate sleep and she will work on these. [id number] Josey Winchester MD Main Office [address] [address] 10/06/2018 14:38:47 10/06/2018 15:31:59 Renal angle tenderness 755884099 R10.829 Possible muscular. The urine is normal. Will treat with NSAIDs for a week and if her pain persists will consider an U/S. Gastroesop hageal reflux disease 924770102 K21.9 Essential hypertension 62811319 I10 BP went back up after stopping the adderall and initially seeing a normalizat ion of her BP. [id number] Josey Winchester MD Main Office [address] [address] [place] [address] 12/23/2018 15:52:51 12/23/2018 16:40:53 Allergic conjunctivitis 657028833 H10.12 Instructio ns to call if develops vision problems or pain. [id number] Josye Winchester MD Main Office [address] [address] [place] [address] 02/17/2019 13:41:37 02/17/2019 14:42:10 Adult health examination 414074663 Z00.00 Will update her immunizati ons today, colonoscop y (due again in 2025) and UTD w/mammogra m. Had a hysterecto my and no longer sees RECORDS ANALYST. Varicella vaccination 68 492717 Z23 Skin lesion 31061347 L98 .9 [id number] Josey Winchester MD Main Office [address] [address] [place] [address] 03/05/2019 13:52:06 03/05/2019 14:54:54 Fever 972367868 R50.9 Cough 35655231 R05 Muscle pain 45336223 M79 .10 [id number] Katie gottlieb MD [facility] [address] [address] [place] [address] 07/30/2019 13:51:26 08/02/2019 08:34:33 Counseling 432439171 Z71.9 Health advice, education or counseling done for COVID 19, pt not able to be offered testing as she does not have symptoms. She will request testing through her employer. Call immed if any sx come up including cough, fever, SOB or uri sx [id number] Josey Winchester MD Main Office [address] [address] [place] [address] 08/11/2019 10:50:11 08/11/2019 11:48:11 Essential hypertension 74343115 I10 C/w BP meds. Running a little high today. She will follow. 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 Hyperlipidemia 59493756 E78.5 Has been taking statin 3 times a week and tolerating it well. Administra tion of viral vaccine 67530823 Z23 [id number] Josey Winchester MD Main Office [address] [address] [place] [address] 02/23/2020 13:01:50 02/23/2020 13:48:20 Adult health examination 182883499 Z00.00 Will update her immunizati ons today, colonoscop y (due again in 2025) and UTD w/mammogra m. Had a hysterecto my and no longer sees RECORDS ANALYST. We discussed exercise while also keeping safe during the pandemic. Migraine 98733712 G43.00 9 Was helped by prophylaxi s in the past and will restart the topamax. Hyperlipidemia 13245794 E78.5 Has been taking statin 3 times a week and tolerating it well. Essential hypertension 49699091 I10 C/w BP meds. [id number] Josey Winchester MD Main Office [address] [place] [address] 08/23/2020 12:51:26 08/23/2020 13:54:13 Essential hypertension 28588205 I10 Stopped BP meds because of her hair loss. Beta blockers and diuretics may contribute to this so we will start a CCB and see her back in month. Loss of hair 795607121 L 65.9 No clear etiology. May be genetic. May be related to hair styling and may be related to meds. We stopped her beta cherelle and diuretic and statin. Hyperlipidemia 53217819 E78.5 Stopped the statin for now since may be adding to her hair loss. We will monitor. [id number] Josey Winchester MD Main Office [address] [address] [place] [address] 09/20/2020 14:48:28 09/20/2020 15:20:52 Essential hypertension 38703443 I10 Stopped BP meds because of her hair loss. Beta blockers and diuretics may contribute to this so we will start a CCB and see her back in month. Migraine 69712759 G43.00 9 Stopped the topamax which was helping because she felt that it was contributi ng to her hair loss. She will try sumatripta n for treatment and will call if her headaches continue. Loss of hair 097266223 L 65.9 No clear etiology. May be genetic. May be related to hair styling and may be related to meds. We stopped her beta cherelle and diuretic and statin. She has an upcoming derm appointmen t in early November. [id number] Ángela Lucero PA-C Main Office [address] [place] [address] 10/20/2020 08:39:54 10/20/2020 09:31:30 Fatigue 64222622 R53.83 r/o anemia, diabetes, renal disease, thyroid dysfunctio n. Pain of mu ltiple joints 45117585 M25.50 R/o RA, Lymes disease Screening for malignant neoplasm of breast 571634574 Z12.39 Screening for malignant neoplasm of cervix 368396072 Z12.4 Vitamin D deficiency 347 28384 E55.9 [id number] Daren Edmond MD Telehe[facility] h [address] [place] [address] 11/27/2020 12:55:36 11/27/2020 15:49:22 Pain of multiple joints 22485647 M25.50 elevated ESR and CRP. PT. will proceed with seeing rheumatolo gist and continue taking turmerican d MSM. [id number] Josey Winchester MD Main Office [address] [place] [address] 03/07/2021 10:41:20 03/07/2021 12:00:41 Adult health examination 925282375 Z00.00 She is UTD with immunizati ons including COVID along with her booster but she is due for her second shingles. She is also UTD w/colonosc opy (due again in 2025) and UTD w/mammogra m. Had a hysterecto my and no longer sees RECORDS ANALYST. We discussed exercise while also keeping safe during the pandemic. Essential hypertension 62491868 I10 She's on a low dose of nifedipine and her BP is under good control. Hyperlipidemia 17108351 E78.5 Stopped the statin for now since may be adding to her hair loss. We will monitor. [id number] Josey Winchester MD Main Office [address] [place], [place] [address] 10/03/2021 11:21:18 10/03/2021 12:09:09 Essential hypertension 95434407 I10 She's on a low dose of nifedipine and her BP is running high. We will increase the dose from 30 to 90 mg and recheck in 1 month. [id number] Josey Winchester MD Main Office [address] [address] [place], [place] [address] 10/31/2021 12:42:04 10/31/2021 13:19:44 Essential hypertension 59689475 I10 Still not with adequate control on nifedipine 90 mg. She will continue with that and we will start a diuretic. We went over foods high in potassium and she will get this checked before her next appointmen t. [id number] Josey Winchester MD Main Office [address] [address] [place], [place] [address] 11/28/2021 12:38:40 11/28/2021 13:40:47 Seronegative rheumatoid arthritis 776884630 M06.[address] Mitchell and on meds. Essential hypertension 44913774 I10 Better control since adding diuretic. Mildly reduced potassium at 3.4. We will recheck level in a month. Cough 86252739 R05.9 She has not yet tested for COVID. Drug-induc ed hypokalemia 846812381 E87.6 Induced by diuretic. Will concentrat e on foods w/potassiu m and recheck in one month. Hyperlipidemia 24638512 E78.5 Cannot tolerate a statin. Will look into options. [id number] Josey Winchester MD [facility] [address] [address] [place], [place] [address] 08/08/2022 12:24:46 08/20/2022 08:15:54 Multiple sclerosis 21486156 G35 This is a new dx. She saw Dr Rausch as an inpatient at [facility] and will follow with him as on outpatient . She is not currently on any meds. Migraine 60950797 G43.00 9 She would like to restart the topamax because she has been getting more frequent headaches. Optic neuritis 11418111 H46.9 H46.03 Followed by both ophtho and neurology. Her vision has been improving. She is still not driving and is waiting to be cleared by neurology. [id number] Josey Winchester MD Main Office [address] [facility] [address] [place] [address] 10/23/2022 15:35:43 10/23/2022 16:11:23 Lump on face 789317992 R22.0 Tender lesion at left jaw line Benign int racranial hypertension 08319557 G93.2 She is followed by neurology and started on acetazolam edvin. [id number] FAIZA NIX Main Office [address] [facility] [address] [place] [address] 12/04/2022 08:52:21 12/04/2022 09:23:37 Pre-surgery evaluation 756534116 Z01.818 No medical contraindi cations to proposed procedure. Wen Perioperat bakari Cardiac Risk was calculated and the risk for perioperat bakari MO is <1%. May proceed to surgery as planned. Essential hypertension 09284067 I10 stable at homein office BP- 133/84 Cataract 390519832 H26.9 [id number] Josey Winchester MD Main Office [address] [facility] [address] [place] [address] 01/08/2023 09:55:30 01/08/2023 10:59:38 Adult health examination 610122640 Z00.00 She is UTD with immunizati ons including COVID along with her booster but she is due for her second shingles. She is also UTD w/colonosc opy (due again in 2025) and UTD w/mammogra m. Had a hysterecto my and no longer sees RECORDS ANALYST. We discussed exercise and she remains very active. Needs infl uenza immunization 136437446 Z23 History of SARS-CoV-2 29 46436824 80519322 Z86.16 mild symptoms; cough Hyperlipidemia 07627719 E78.5 Cannot tolerate a statin. Levels on repeat blood work look good. No meds needed. Thyroid nodule 629012880 E04.1 She is scheduled for an US 01/21/23. Essential hypertension 32888185 I10 We stopped her diuretic because of hypokalemi a but her BP has increased. We will continue to follow it before adding any meds. Attention deficit hyperactivity disorder, predominantly inattentive type 27981772 F90.0 Has adderall and uses it prn. Seronegati ve rheumatoid arthritis 171607322 M06.[address] Mitchell and on meds. Multiple sclerosis 53208 007 G35 This is a new dx. She saw Dr Rausch as an inpatient at [facility] and now followed by Dr Naz bryson and is on acetazolam edvin. [id number] Daren Edmond MD Telehealt h [address] [facility] [address] [facility] [place] [address] 07/08/2023 09:22:38 07/08/2023 11:05:07 COVID-19 225884038 U07.1 dx'd in ER on 5.3 - [...] if at all possible see below Cough 48093833 R05.9 most likely has p covid pnawill rx c abxrecomme nd probiotics while on abxsee above/belo w Pneumonia 658373289 J18. 9 see above [id number] Josey Winchester MD Main Office [address] [facility] [address] [place] [address] 07/09/2023 10:32:41 07/09/2023 11:31:51 History of idiopathic intracranial hypertension 5220734344 9231201 Z86.69 Having headaches that are not adequately treated with meds and having a difficult time concentrat ing. Headache 60338148 R51.9 Transition of care from emergency department to self-care 6613275371 00148 Z76.89 Reviewed [id number] Daren Edmond MD Main Office [address] [facility] [address] [facility] [place] [address] 08/15/2023 11:32:08 08/15/2023 12:27:56 Essential hypertension 92261873 I10 Elevated BP today though has not taken antihypert ensives. Continue to monitor and cont antihypert ensives, low sodium diet. She has a history of elevated BP readings while on nifedipine so will obtain microalbum in and follow up in one month for reassessme nt. Edema of l ower extremity 554673018 R60.0 Will start on Lasix 20 mg PO daily. Will check BMP in one week to assess potassium and renal function. [id number] Josey Winchester MD Main Office [address] [facility] [address] [place] [address] 01/21/2024 14:18:10 01/21/2024 15:24:56 Adult health examination 640169260 Z00.00 She is UTD with immunizati ons including COVID along with her booster but she is due for her second shingles. She is also UTD w/colonosc opy (due again in 2025) and UTD w/mammogra m. Had a hysterecto my and no longer sees RECORDS ANALYST. We discussed exercise and she remains very active. Insomnia 455531021 F51.0 1 She will try gabapentin at bedtime. Attention deficit hyperactivity disorder, predominantly inattentive type 41759128 F90.0 Has adderall and uses it prn. Essential hypertension 35759280 I10 We stopped her diuretic because of hypokalemi a but her BP has increased. We will continue to follow it before adding any meds. Migraine 15141548 G43.00 9 She currently uses Excedrin migraine which helps. Hyperlipidemia 73496161 E78.5 Taking atorvastat in 40 mg and tolerating it well. Seronegati ve rheumatoid arthritis 970141236 M06.[address] Mitchell and on meds but they don't seem to be helping. She will discuss this with Dr Mitchell. Visual disturbance 05749 001 H53.9 [id number] Josey Winchester MD Main Office [address] [facility] [address] [place] [address] 02/18/2024 14:02:25 02/18/2024 14:33:28 Anxiety disorder 026748749 F41.9 Not currently on meds and this is in remission. Attention deficit hyperactivity disorder, predominantly inattentive type 39984718 F90.0 Taking adderall XR 20 mg which has been helpful but it wears off around lunchtime. Will try a higher dose and she will call if it is not helpful. Essential hypertension 85248637 I10 We stopped her diuretic because of hypokalemi a. She is taking nifedipine ER 90 mg and tolerating this well. Good control, continue current mgmt. [id number] Josey Winchester MD Main Office [address] [address] 08/18/2024 13:56:12 08/18/2024 15:06:50 Essential hypertension 60012594 I10 We stopped her diuretic because of hypokalemi a. She is taking nifedipine ER 90 mg and tolerating this well. Good control, continue current mgmt. Attention deficit hyperactivity disorder, predominantly inattentive type 89701254 F90.0 She was unable to tolerate a stimulant. Would like to try a non-stimul ant. Will try bupropion since this can also help with her anxiety/de pression. We will start with 150 mg and see her back in one month to adjust the dose if needed. Generalize d anxiety disorder 18585101 F41.1 582655 [id number] Josey Winchester MD Main Office [address] [facility] [address] [place] [address] 09/16/2024 10:58:44 09/16/2024 11:44:58 Attention deficit hyperactivity disorder, predominantly inattentive type 22978714 F90.0 She was unable to tolerate a stimulant. Is now taking a non-stimul ant. She started with bupropion 150 mg and then increased it to 2 pills which she has found helpful. Continue current mgmt. Mild major depression 87 938236 F32.0 Her score is high but she feels that this is not currently a problem and does not want to make any changes. Essential hypertension 82051914 I10 We stopped her diuretic because of hypokalemi a. She is taking nifedipine ER 90 mg and tolerating this well. Good control, continue current mgmt. Generalize d anxiety disorder 24034148 F41.1 020677 Her score is high but she feels [...] Cantu Member ID Guarantor Name 10/23/2022 2 [place] [facility] Shey Blank [id number] Shey Henriquez 10/23/2023 1 [facility] [id number] Shey Henriquez [id number] Shey Henriquez 10/23/2022 1 [facility] CLARITY - QHP (MEDICAID REPLACEMENT - HMO) [id number] Shey Blank [id number] Shey Henriquez 10/23/2022 1 [facility] - [facility] - MEDICAID ESSENTIAL (MEDICAID HMO) [id number] Shey Blank [id number] Shey Henriquez 02/16/2024 1 [facility] (HMO) [id number] Shey Henriquez [id number] Shey Henriquez 09/28/2024 1 [place] [facility] Shey Henriquez [id number] Shey Henriquez Notes Date Note Type [...] her antihypertensives today. Ángela Lucero PA-C [address] [address], [place], [address], [facility] 08/15/2023 13:17:32 4 text/html Generic HPI TemplateReported by PatientShe has sero-negative RA and mild MS. She is followed by specialists for each and has multiple joint pains that are not controlled by current treatment.UTD w/COVID, tetanus and flu vaccines. ROS as noted in the HPI Josey Winchester MD [address] [facility] [address], [place], [address], [facility] 01/22/2024 17:49:35 4 text/html Hypertension F/UReported by [...] in the HPI Josey Winchester MD [address] [facility] [address], [place], [address], [facility] 02/18/2024 15:39:06 5 text/html Hypertension F/UReported by [...] as noted in the HPI Karely bentley [facility] 08/30/2024 10:16:39 5 text/html Hypertension F/UReported by [...] noted in the HPI Josey Winchester MD [address] [address], [place], [id number], [facility] 09/16/2024 17:18:21 OBGyn Episode No OBEpisode recorded.
[2025-02-21 18:39] LABS: Estimated Glomerular Filt Rate 52
== END 2025-02-21 15:14 | disposition home or self-care (01) ==
LOC: HO.HKASLDS 15:13
PROVIDERS: PCP Internal Medicine; Visit Provider Internal Medicine Rheumatology
DX: Z79.1 Long term (current) use of non-steroidal anti-inflammatories (NSAID) (principal)
CPT/HCPCS: 36415; 82565